=== PATIENT | male | born 1960 | race Caucasian/White ===

== ENCOUNTER → 2019-11-11 15:17 | Outpatient (BNVA) | payer MEDICAID, SELFPAY | PROVIDERS: Family Provider Internal Medicine; PCP Internal Medicine; Visit Provider Nurse Practitioner Family | DX: R05 Cough (principal); E11.9 Type 2 diabetes mellitus without complications; I50.9 Heart failure, unspecified | CPT/HCPCS: 71046; 80053; 80061; 82044; 83036; 84443; 85025 ==

== ENCOUNTER → 2019-11-13 14:20 | Outpatient (BNVA) | payer MEDICAID, SELFPAY | PROVIDERS: Family Provider Internal Medicine; PCP Internal Medicine; Visit Provider Nurse Practitioner Family | DX: R05 Cough (principal); J84.9 Interstitial pulmonary disease, unspecified | CPT/HCPCS: 71046; 80053; 85025 ==

== ENCOUNTER 2019-11-16 09:43 | Outpatient (RCR) | payer MEDICAID, SELFPAY | END 2019-12-01 23:59 | disposition home or self-care (01) | LOC: WOUND 09:43 | PROVIDERS: Family Provider Internal Medicine; PCP Internal Medicine; Visit Provider Nurse Practitioner Family | DX: E11.621 Type 2 diabetes mellitus with foot ulcer (principal); L97.521 Non-pressure chronic ulcer of other part of left foot limited to breakdown of skin | CPT/HCPCS: 11042; 87070; 87077; 87176; 87186; 87205; L3260 ==

== ENCOUNTER → 2019-12-03 09:33 | Outpatient (BNVA) | payer MEDICAID, SELFPAY | PROVIDERS: Family Provider Internal Medicine; PCP Internal Medicine; Visit Provider Nurse Practitioner Family | DX: R05 Cough (principal); J84.9 Interstitial pulmonary disease, unspecified; I70.0 Atherosclerosis of aorta | CPT/HCPCS: 71046; 80053; 85025 ==

== ENCOUNTER → 2019-12-22 13:06 | Outpatient (BNVA) | payer MEDICAID, SELFPAY | PROVIDERS: Family Provider Internal Medicine; PCP Internal Medicine; Visit Provider Nurse Practitioner Family | DX: I10 Essential (primary) hypertension (principal); R06.02 Shortness of breath; R05 Cough; G62.9 Polyneuropathy, unspecified; I50.9 Heart failure, unspecified | CPT/HCPCS: 80053; 83880; 85025 ==

== ENCOUNTER 2020-01-14 11:29 | Emergency (ER) | payer MEDICAID, SELFPAY | END 2020-01-14 19:30 | disposition still patient (30) | LOC: ER 01-27 13:00 | PROVIDERS: Emergency Provider Emergency Medicine; PCP Nurse Practitioner Family | DX: R07.9 Chest pain, unspecified (principal); I25.10 Atherosclerotic heart disease of native coronary artery without angina pectoris; I11.0 Hypertensive heart disease with heart failure; I50.9 Heart failure, unspecified; I25.2 Old myocardial infarction; E11.40 Type 2 diabetes mellitus with diabetic neuropathy, unspecified | CPT/HCPCS: 12345; 36415; 36416; 70450; 71045; 80048; 80053; 80307; 82962; 83690; 83735; 83880; 84100; 84484; 85025; 85378; 93005; 96372; 96374; 96375; 96376; 99283; 99285; A9270; G0378; J1650; J2270; J2405; J7030 ==

== ENCOUNTER 2020-01-14 11:29 | Inpatient (IN) | payer MEDICAID, SELFPAY ==
[2020-01-14] VITALS (7 sets, daily range): BP systolic 119–161; BP diastolic 80–106; PULSE 84–100; RESP 12–21; TEMP 36.4–36.5; O2SAT 93–98; BMI 26.6
--- NOTE | 2020-01-14 11:37 | XR_ITS ---
WS: [id number] PORTABLE CHEST HISTORY: Chest pain COMPARISON: 12/03/2019 Severe emphysema and pulmonary fibrotic changes. Overall slight improvement in aeration as compared t o the most recent study. No area of consolidation to suggest new superimposed pneumonia. No pleural e ffusion or pneumothorax. Cardiac size: Mildly enlarged cardiac silhouette. Mediastinum/Aorta: Mild atherosclerosis aorta. No osseous abnormality seen. XR/XR chest 1V portable [id number] IMPRESSION: Severe emphysema with superimposed pulmonary fibrosis. No acute pneumonia.
--- NOTE | 2020-01-14 11:37 | ECG_ITS ---
Measurements Intervals [place] Rate: 99 P: 42 GA: 156 QRS: 129 QRSD: 160 T: -4 QT: 406 QTc: 521 SINUS RHYTHM POSSIBLE LEFT ATRIAL ENLARGEMENT [-0.1mV P WAVE IN V1/V2] RIGHT BUNDLE BRANCH BLOCK [120+ ms QRS DURATION, UPRIGHT V1, 40+ ms S IN I/a I/aVL/V4/V5/V6] LEFT POSTERIOR FASCICULAR BLOCK [QRS AXIS > 109, INFERIOR Q] Compared to ECG 07/21/2019 17:41:35 Indeterminate axis no longer present Electronically Signed On 01-15-2020 13:00:01 CDT by Eugene Wells M.D. [id number] lang
--- NOTE | 2020-01-14 11:37 | W.ED.CHESTPA ---
HPI - Chest Pain General: Chief Complaint: Chest Pain Stated Complaint: CP X 2 DAYS Time Seen by Provider: 01/14/20 11:32 Source: patient History of Present Illness: HPI narrative: 59-year-old with history of previous heart attack on Plavix presents with chest pain since last night worse this morning. States the pain is 5 out of 10 left-sided dull nonradiating but associated with diaphoresis nausea and vomiting x2. Tells me this feels like a previous heart attack. Has not missed any doses of Plavix does not take nitroglycerin. He did take 4 baby aspirin prior to arrival. Pain is worse with exertion. Sees Dr. Wells for cardiology. He was supposed to have a echo last week for congestive heart failure but missed the appointment. Apparently he fell last week and hit his head Associated symptoms: Reports diaphoresis, dyspnea, nausea and vomiting; Deny abdominal pain or fever(s) Review of Systems General: Reports: 10 or more systems reviewed and unremarkable except in HPI and below Const: Reports: diaphoresis; Denies: fever(s) or chills Eyes: Denies: change in vision ENMT: Denies: throat pain Card: Reports: chest pain Resp: Reports: dyspnea GI: Reports: nausea and vomiting; Denies: abdominal pain or change in bowel habits : Denies: flank pain Musc: Denies: muscle weakness Skin/Breast: Denies: rash Neuro: Reports: dizziness (When he sits up or stands up); Denies: headache(s) Psych: Denies: hopelessness or suicidal ideation Endo: Denies: polyuria Gonzales/Lymph: Reports: easy bruising and easy bleeding All/Imm: Denies: urticaria PFS ED PFSH: Medical History (Updated 01/14/20 @ 13:28 by Concepcion Cruz MD) CAD (coronary artery disease) CHF (congestive heart failure) Chronic kidney disease (CKD) Diabetes mellitus History of ST elevation myocardial infarction (STEMI) Hypertension Hypothyroid Ischemic cardiomyopathy Neuropathy Sleep apnea Surgical History (Updated 12/29/19 @ 11:41 by Eugene Wells MD) History of partial amputation of toe of left foot Hx of angioplasty Family History (Updated 12/29/19 @ 11:13 by Patricia Gil RN) Denies family history of Family history of premature coronary artery disease Social History Smoking and tobacco status: never smoked Second hand smoke exposure: No Alcohol intake: never Lives independently: Yes Household members: spouse Marital status: service: Yes Current occupational status: disabled History of recent travel: No Current gender identity: Male Special deanna needs: No Agree to transfusion: Yes Physical Exam Const: COMMON NORMALS: no acute distress, patient oriented x3, alert and well nourished ORIENTATION/CONSCIOUSNESS: Yes oriented to person HENMT: COMMON NORMALS: normocephalic and Normal external nose present HEAD & SCALP: normocephalic NOSE: Normal external nose present MOUTH: no trismus Eye: COMMON NORMALS: EOMs intact bilaterally and conjunctivae normal CONJUNCTIVA: Yes conjunctivae normal Neck/C-Spine: COMMON NORMALS: full ROM, no lymphadenopathy, supple and no meningeal signs CERVICAL SPINE: Yes cervical ROM normal Lymph: LYMPHATIC: no lymphadenopathy noted Resp: COMMON NORMALS: normal respiratory effort, No retractions and No use of accessory muscles EFFORT & INSPECTION: Yes able to speak in complete sentences OTHER: Crackles in bases bilaterally Cardio: COMMON NORMALS: regular rate and regular rhythm RATE: regular rate RHYTHM: regular rhythm GI: COMMON NORMALS: Normal to inspection, nondistended, normoactive bowel sounds present, Soft to palpation, non-tender and no masses INSPECTION: Yes normal to inspection AUSCULTATION: Yes normoactive bowel sounds PALPATION: Yes Soft to palpation, No Guarding due to palpation present (GI) and No Rigid due to palpation Back/Pelvis: OTHER: Normal range of motion Extremity: GENERAL: Yes normal exam except as noted Neuro: COMMON NORMALS: patient oriented x3 and CN's II-XII intact bilaterally SENSORIUM/ORIENTATION: Yes alert and Yes oriented to person MENINGEAL SIGNS: Yes no meningeal signs SPEECH: speech normal Psych: COMMON NORMALS: mental status grossly normal Skin: COMMON NORMALS: no rashes or lesions noted GENERAL SKIN EXAM: no rashes or lesions noted Course Vital Signs: Vital signs: Vital Signs Temperature 97.5 F L 01/14/20 11:31 Pulse Rate 100 01/14/20 11:31 Respiratory Rate 12 01/14/20 13:15 Blood Pressure 161/106 01/14/20 11:31 Pulse Oximetry 93 01/14/20 11:31 MDM - Chest Pain MDM Narrative: Medical decision making narrative: Since he fell last week and is on Plavix and complains of dizziness when he sits up we will proceed with CT head. He is only vomited twice so I doubt this is enough to make him orthostatic. 1244 troponin is elevated at 57 and lipase is also elevated on review of chart he has had numerous elevated lipases in the past. Can make disposition after CT head is performed he has not gone to CT yet. d/w Dr Wells and Dr Franco. observation to Dr franco. Patient updated on plan pain 3 out of 10 currently no needs at this time nausea improved. Lab Data: Attestation: I reviewed the patient's lab results. Labs: Lab Results 01/14/20 01/14/20 01/14/20 Range/Units 11:30 11:30 11:30 WBC 4.4 (4.0-10.0) 10^3/ uL RBC 4.27 (4.1-5.3) 10^6/u L Hgb 12.8 (11.7-16.6) g/dL Hct 39.9 L (42.0-52.0) % MCV 93.4 (80-94) fL MCH 30.0 (28.0-34.0) pg MCHC 32.1 (30.0-36.0) g/dL RDW 13.6 (12.1-15.1) % Plt Count 217 (130-400) 10^3/c mm MPV 9.5 (7.4-10.4) fL Neut % (Auto) 61.3 % Lymph % (Auto) 19.2 % [place] % (Auto) 9.3 % Eos % (Auto) 9.5 % Baso % (Auto) 0.2 % Neut # (Auto) 2.7 (1.8-7.7) 10^3/u L Lymph # (Auto) 0.9 (0.8-4.8) 10^3/u L [place] # (Auto) 0.4 (0.2-0.9) 10^3/u L Eos # (Auto) 0.4 (0.0-0.8) 10^3/u L Baso # (Auto) 0.0 (0.0-0.1) 10^3/u L Nucleated RBC % (a uto) 0 % Nucleated RBCs # 0.0 /100WBC Sodium 140 (136-145) mmol/L Potassium 4.5 (3.5-5.1) mmol/L Chloride 101 (98-107) mmol/L Carbon Dioxide 27 (22-29) mmol/L Anion Gap 16.5 (5-19) BUN 25 H (6-20) mg/dL Creatinine 1.9 H (0.7-1.2) mg/dL GFR Calculation 36.5 L (90-130) mL/min Glucose 217 H (65-115) mg/dL Calculated Osmolal ity 293 (285-295) mOsm/k g Calcium 9.5 (8.5-10.5) mg/dL Total Bilirubin 0.3 (0.15-1.2) mg/dL AST 16 (0-40) U/L ALT 13 (0-41) U/L Alkaline Phosphata se 79 (40-130) IU/L Troponin T Baselin e 57 H (0-15) ng/mL Total Protein 7.6 (6.6-8.7) g/dL Albumin 3.8 (3.5-5.2) g/dL Globulin 3.8 (1.3-4.6) g/dL Lipase 224 H (13-60) U/L Imaging Data^: CXR: Radiologist's impression: [place] [address] XRay Report Signed Patient: Agusto Crockett #: [id number] : 1Acct#:[id number] Age/Sex: 59 / MADM Date: 01/14/20 Loc: [facility]oo/Bed: Attending Dr: Ordering Provider/Ordering MD: Concepcion Cruz MD Date of Service: 01/14/20 Procedure(s): XR chest 1V portable [id number] Accession Number(s): [id number] Report Number: [id number] WS: [id number] PORTABLE CHEST HISTORY: Chest pain COMPARISON: 12/03/2019 Severe emphysema and pulmonary fibrotic changes. Overall slight improvement in aeration as compared to the most recent study. No area of consolidation to suggest new superimposed pneumonia. No pleural effusion or pneumothorax. Cardiac size: Mildly enlarged cardiac silhouette. Mediastinum/Aorta: Mild atherosclerosis aorta. No osseous abnormality seen. XR/XR chest 1V portable [id number] IMPRESSION: Severe emphysema with superimposed pulmonary fibrosis. No acute pneumonia. Dictated By:Tressa Askew DO Signed By:Tressa Askew DOSigned Date/Time:01/14/20 1248 DD/ 1246 CT Head: Radiologist's impression: no intrancranial bleed EKG Data^: EKG 1: Attestation: I personally reviewed and interpreted this EKG as follows: EKG interpretation date: 01/14/20 EKG interpretation time: 11:40 Prior EKG tracings: available for review Interpretation: Compared to EKG on 07/21/2019. Sinus rhythm rate 99 with bifascicular block no change from previous EKG no acute ST elevation Discharge Plan Discharge Patient Disposition: Admitted As Inpatient Clinical Impression: Chest pain Condition: Stable Referrals: Mag De La Cruz FNP [Primary Care Provider] - Coding Level of Care Code ED Wood Model Maker for Chg Fwd Exam Comprehensive
--- NOTE | 2020-01-14 11:41 | CT_ITS ---
WS: [id number] CT HEAD NONCONTRAST HISTORY: dizzy on Plavix fell last week and hit head TECHNIQUE: Contiguous axial imaging performed through the brain in 2.5 mm imaging. Bone and soft tiss ue windows. Sagittal and coronal reformats reviewed. All CT scans at [facility] use at le ast one of these dose optimization techniques: automated exposure control; mA and/or kV adjustment pe r patient size (includes targeted exams where dose is matched to clinical indication); or iterative r econstruction. DLP: 820.85 mGy.cm COMPARISON: 04/27/2016 No acute intracranial hemorrhage, midline shift or mass effect. Mild atrophy and mild chronic microvascular ischemic disease. Ventricles: Normal size with no hydrocephalus. No inferior displacement of cerebellar tonsils. Paranasal sinuses: As visualized are clear. Mastoid air cells: Well pneumatized. Calvarium and scalp: Skull is intact with no soft tissue edema or swelling. CT/CT head wo con* [id number] IMPRESSION: 1. No acute intracranial hemorrhage or edema. 2. Stable noncontrast head CT since 04/27/2016.
[2020-01-14 11:44] LABS: Basophils % 0.2 %; Eosinophils # 0.4 10^3/uL (0.0-0.8); Eosinophils % 9.5 %; Hematocrit 39.9 % (42.0-52.0); Hemoglobin 12.8 g/dL (11.7-16.6); Lymphocytes # 0.9 10^3/uL (0.8-4.8); Lymphocytes % 19.2 %; Mean Corpuscular HGB Conc 32.1 g/dL (30.0-36.0); Mean Corpuscular Volume 93.4 fL (80-94); Mean Platelet Volume 9.5 fL (7.4-10.4); Monocytes # 0.4 10^3/uL (0.2-0.9); Monocytes % 9.3 %; Neutrophils # 2.7 10^3/uL (1.8-7.7); Neutrophils % 61.3 %; Nucleated Red Blood Cells % 0 %; Platelet Count 217 10^3/cmm (130-400); Red Blood Count 4.27 10^6/uL (4.1-5.3); Red Cell Distribution Width 13.6 % (12.1-15.1); White Blood Count 4.4 10^3/uL (4.0-10.0)
[2020-01-14 11:58] LABS: Alanine Aminotransferase 13 U/L (0-41); Albumin Level 3.8 g/dL (3.5-5.2); Alkaline Phosphatase 79 IU/L (40-130); Anion Gap 16.5 (5-19); Aspartate Amino Transferase 16 U/L (0-40); Blood Urea Nitrogen 25 mg/dL (6-20); Calcium 9.5 mg/dL (8.5-10.5); Carbon Dioxide 27 mmol/L (22-29); Chloride 101 mmol/L (98-107); Globulin 3.8 g/dL (1.3-4.6); Glomerular Filtration Rate 36.5 mL/min (90-130); Glucose 217 mg/dL (65-115); Lipase 224 U/L (13-60); Osmolality Calculated 293 mOsm/kg (285-295); Potassium 4.5 mmol/L (3.5-5.1); Sodium 140 mmol/L (136-145); Total Bilirubin 0.3 mg/dL (0.15-1.2); Total Protein 7.6 g/dL (6.6-8.7)
[2020-01-14 12:01] LABS: Troponin(5th) Baseline 57 ng/mL (0-15)
[2020-01-14] MEDS: ondansetron 2 mg/ML SDV 2 mL 4 MG IVP ×2 (12:08→13:15)
[2020-01-14] MEDS: nitroglycerin 0.4 mg sublingual Tablet SUBLINGUAL ×2 (12:08→12:51)
[2020-01-14] MEDS: morphine 4 mg/mL SDV 1 mL IVP (13:15)
--- NOTE | 2020-01-14 13:37 | ECG_ITS ---
Measurements Intervals [place] Rate: 84 P: 40 ID: 188 QRS: 124 QRSD: 158 T: -5 QT: 437 QTc: 518 SINUS RHYTHM POSSIBLE LEFT ATRIAL ENLARGEMENT [-0.1mV P WAVE IN V1/V2] RIGHT BUNDLE BRANCH BLOCK [120+ ms QRS DURATION, UPRIGHT V1, 40+ ms S IN I/a I/aVL/V4/V5/V6] LEFT POSTERIOR FASCICULAR BLOCK [QRS AXIS > 109, INFERIOR Q] Compared to ECG 07/21/2019 17:41:35 Indeterminate axis no longer present Electronically Signed On 01-15-2020 13:06:18 CDT by Eugene Wells M.D. [id number]
[2020-01-14 14:04] LABS: Troponin 5 2HR 53.08 ng/mL (0-15)
[2020-01-14 14:27] LABS: Troponin 5 2HR Delta -3.92 ABS# (0-10)
--- NOTE | 2020-01-14 17:37 | ECG_ITS ---
Measurements Intervals [place] Rate: 81 P: 59 ID: 190 QRS: 118 QRSD: 156 T: -4 QT: 441 QTc: 515 SINUS RHYTHM RIGHT BUNDLE BRANCH BLOCK [120+ ms QRS DURATION, UPRIGHT V1, 40+ ms S IN I/aVL/V4/V5/V6] LEFT POSTERIOR FASCICULAR BLOCK [QRS AXIS > 109, INFERIOR Q] Compared to ECG 07/21/2019 17:41:35 Atrial abnormality no longer present Indeterminate axis no longer present Electronically Signed On 01-15-2020 13:06:42 CDT by Eugene Wells M.D. [id number]
--- NOTE | 2020-01-14 17:52 | PC.NURSE ---
EKG done at 1745 and shown to ER doctor
--- NOTE | 2020-01-14 18:05 | PM.HP ---
Providers/Chief Complaint Admitting Physician: Shivani Bustillos MD Primary Care Provider: JEANNETTE Perla Chief Complaint: CP X 2 DAYS History of Present Illness time he is chest pain-free.Agusto Crockett is a 59 year old male who presented to the emergency room with chief complaint of chest pain. He has several other complaints as well. He describes being short of breath and dizzy. Sounds like symptoms occur primarily when he has position changes. When these episodes occur he has chest pain. He saw Dr. Wells at the end of December. Arrangements were made for echocardiogram for follow-up but patient missed his appointment. He admits to being anxious about something being wrong. He somewhat indicates that he has had some dizziness before that may be not to this degree. Denies any vision changes, blurry vision, eye pain. Reports having had some ringing in his ears but not currently. Has had some upper respiratory symptoms. He says that he has been on repeated treatment for pneumonia the last couple of months without any clinical improvement. Other than antibiotics for this, he denies being on any new medications recently. A note from 9 december however indicates that he was started on amitriptyline to help with pain. It sounds like he has taken this but I have not fully discerned if that is true or not. Looking back to clinic note and October of this year patient was reportedly out of his medications for a while and restarted most of them at that point in time. Patient has a very flat affect communicating his history. Information is obtained both from him and review of old records. At the present pain responded to morphine more than anything from what has been relayed to me. In the emergency room he was found to have a troponin initial of 50. With his prior history is being admitted for further evaluation and treatment. Review of Systems Const: Reports: chills and change in appetite; Denies: fever(s) Eyes: Reports: change in vision ENMT: Reports: throat pain and nasal congestion; Denies: dry mouth Card: Reports: chest pain, palpitations, edema and lightheadedness; Denies: syncope Resp: Reports: dyspnea, productive cough and non-productive cough; Denies: pain on inspiration or hemoptysis GI: Reports: nausea; Denies: abdominal pain, vomiting, diarrhea or constipation : Denies: difficulty urinating Musc: Reports: extremity pain; Denies: joint redness Skin/Breast: Denies: pruritus or erythema Neuro: Reports: headache(s), numbness in extremities (Chronic, not acute) and frequent falls; Denies: weakness in extremities Psych: Denies: anxiety or depression Gonzales/Lymph: Denies: easy bruising or easy bleeding Medications/Allergies Home Medications Medication Instructions Recorded Confirmed Last Taken Type aspirin 81 mg tablet,delayed 81 mg PO DAILY 11/11/19 01/14/20 01/14/20 History release clopidogrel 75 mg tablet 75 mg PO DAILY 11/11/19 01/14/20 01/13/20 History ferrous sulfate 325 mg (65 mg 325 mg PO DAILY 11/11/19 01/14/20 Unknown History iron) tablet furosemide 40 mg tablet 40 mg PO BID #60 tab 11/11/19 01/14/20 01/13/20 Rx metoprolol succinate 25 mg 25 mg PO DAILY #30 tab 11/11/19 01/14/20 Unknown Rx tablet,extended release 24 hr nitroglycerin 0.4 mg sublingual 0.4 mg SUBLINGUAL Q5M PRN 11/11/19 01/14/20 Unknown History tablet potassium chloride 20 mEq 20 meq PO DAILY #30 tab 11/11/19 01/14/20 Unknown Rx tablet,extended release(part/cryst) pregabalin 75 mg capsule 75 mg PO BID 11/11/19 01/14/20 01/13/20 History glipizide 5 mg tablet, extended 5 mg PO DAILY #30 tab 11/13/19 01/14/20 Unknown Rx release 24 hr albuterol sulfate 90 mcg/actuation 1 inh INHALATION QID PRN #8.5 gm 12/03/19 01/14/20 Unknown Rx aerosol inhaler Tums See Rx Instructions .ROUTE .COMPLEX 01/14/20 01/14/20 Unknown History Zyrtec 10 mg PO DAILY PRN 01/14/20 01/14/20 Unknown History acetaminophen [Tylenol Extra 1,000 mg PO BID PRN 01/14/20 01/14/20 01/13/20 History Strength] amitriptyline 25 mg PO BEDTIME 01/14/20 01/14/20 Unknown History aspirin-caffeine [BC Pain Relief] 1 ea PO PRN 01/14/20 01/14/20 Unknown History cholecalciferol (vitamin D3) 800 unit PO DAILY 01/14/20 01/14/20 Unknown History [Vitamin D3] metformin 1,000 mg PO BID 01/14/20 01/14/20 01/13/20 History multivitamin [Multiple Vitamins] 1 tab PO DAILY 01/14/20 01/14/20 Unknown History Allergies Allergy/AdvReac Type Severity Reaction Status Date / Time levofloxacin Allergy ALGY-Hives Verified 01/14/20 19:47 PFSH Acute PFSH: Medical History CAD (coronary artery disease) RCA stent 2015 CHF (congestive heart failure) Chronic kidney disease (CKD) Diabetes mellitus History of kidney stones History of ST elevation myocardial infarction (STEMI) Hypertension Hypothyroid Ischemic cardiomyopathy Monoclonal gammopathy of unknown significance (MGUS) Neuropathy Sleep apnea Surgical History History of lithotripsy (~2015) History of partial amputation of toe of left foot History of ureter stent (~2015) Hx of angioplasty Family History Other Stroke Denies family history of Family history of premature coronary artery disease Social History Smoking and tobacco status: never smoked Second hand smoke exposure: No Alcohol intake: never Lives independently: Yes Household members: spouse Marital status: service: Yes Current occupational status: disabled History of recent travel: No Current gender identity: Male Special deanna needs: No Agree to transfusion: Yes Vitals/I&O/Wt Last Vital Signs Temp 97.5 F L 01/14/20 11:31 Pulse 86 01/14/20 14:02 Resp 18 01/14/20 14:02 BP 131/87 01/14/20 14:02 Pulse Ox 95 01/14/20 14:02 Weight last 48 hrs Weight 81.647 kg Physical Exam Const: OTHER: Alert, oriented x3, cooperative HENMT: OTHER: Normocephalic atraumatic, moist mucus membranes Eye: OTHER: Pupils equally round and reactive to light Neck/C-Spine: OTHER: Supple, no carotid bruits Resp: OTHER: Clear to auscultation bilaterally, no rales, rhonchi or wheezes noted, no accessory muscle use noted Cardio: OTHER: Regular rate and rhythm, no JVD, no murmur GI: OTHER: Abdomen soft, nontender, positive bowel sounds : OTHER: Deferred Extremity: NARRATIVE EXTREMITY EXAM: 1+ edema, left fourth digit amputation Neuro: OTHER: Speech clear, moves all extremities, decreased sensation distally touch, no tremors Psych: OTHER: Flat affect but makes eye contact Skin: OTHER: Nickel sized area of discoloration at the base of the fifth toe with 2 mm opening without any drainage. There is no warmth, fluctuance, erythema or odor. Some dry skin separates the space between the fifth and the third digit. Fourth digit has been amputated. Data : 01/14/20 11:30 01/14/20 11:30 A&P Assessment and plan (1) Chest pain: Status: Acute Qualifiers: Chest pain type: precordial pain Qualified Code(s): R07.2 - Precordial pain (2) Dizziness: Status: Acute (3) Elevated lipase: Mild elevation, has had previously, unclear significance, denies drinking, is on a couple of medications that might contribute to this. Status: Acute (4) CAD (coronary artery disease): Status: Acute Qualifiers: Coronary Disease-Associated Artery/Lesion type: [place] artery [place] vs. transplanted heart: [place] heart Associated angina: angina presence unspecified Qualified Code(s): I25.10 - Atherosclerotic heart disease of [place] coronary artery without angina pectoris (5) Chronic kidney disease (CKD): Status: Acute Qualifiers: Chronic kidney disease stage: stage 3 (moderate) Qualified Code(s): N18.3 - Chronic kidney disease, stage 3 (moderate) (6) Hypertension: Status: Acute Qualifiers: Hypertension type: essential hypertension Qualified Code(s): I10 - Essential (primary) hypertension (7) CHF (congestive heart failure): Status: Acute Qualifiers: Heart failure type: systolic Heart failure chronicity: acute on chronic Qualified Code(s): I50.23 - Acute on chronic systolic (congestive) heart failure (8) Hypothyroid: Status: Acute Qualifiers: Hypothyroidism type: acquired Qualified Code(s): E03.9 - Hypothyroidism, unspecified (9) Diabetes mellitus: Status: Acute Qualifiers: Diabetes mellitus type: type 2 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: without 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-way use Diabetes mellitus complication status: with neurologic complications Diabetes mellitus complication detail: with polyneuropathy Qualified Code(s): E11.42 - Type 2 diabetes mellitus with diabetic polyneuropathy (10) Sleep apnea: Status: Acute Qualifiers: Sleep apnea type: unspecified type Qualified Code(s): G47.30 - Sleep apnea, unspecified Additional A&P Information Recent fall with unremarkable CT of the head Anxiety about possible causes of his symptoms, this may in and of itself be contributing to some of the symptoms Reports recent treatment for recurrent pneumonia that would not go away. Chest x-ray today clearly shows no definitive pneumonia on radiology interpretation though there are some emphysematous changes noted. I suspect he may have some COPD and sleep apnea contributing to some of the respiratory challenges that he has been having. Observation admission Check orthostatics Continue serial cardiac enzymes Telemetry monitoring Order repeat echocardiogram as was the plan from Dr. Wells's most recent visit Carotid ultrasound Continue aspirin and Plavix, beta-blockade I will go on and continue Lyrica iron and cetirizine Holding Elavil Holding glipizide and metformin With renal function words that he is right on the cusp of being able to continue metformin. Also at increased risk of hypoglycemia with glipizide. May need to consider alternative medication regimens in the not too distant future. Possible hypoglycemic episodes are contributing to the symptoms he is presenting with. Accu-Cheks and sliding scale insulin for diabetes He reports that he has been doubling up on his Lasix lately. 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 transplanted heart: [place] heart Associated angina: angina presence unspecified Chronic kidney disease (CKD) N18.3 Chronic kidney disease stage: stage 3 (moderate) Hypertension I10 Hypertension type: essential hypertension CHF (congestive heart failure) I50.23 Heart failure type: systolic Heart failure chronicity: acute on chronic Hypothyroid E03.9 Hypothyroidism type: acquired Diabetes mellitus E11.42 Diabetes mellitus type: type 2 Diabetes mellitus half-way insulin use: without half-way use Diabetes mellitus complication status: with neurologic complications Diabetes mellitus complication detail: with polyneuropathy Sleep apnea G47.30 Sleep apnea type: unspecified type
[2020-01-14 20:26] LABS: Salicylate 1.3 mg/dL (3-10)
[2020-01-14] MEDS: enoxaparin 40 mg/0.4 mL Syringe SUBCUT (20:26)
[2020-01-14] MEDS: sodium chloride 0.9% 1,000 ML 75 ML IV (20:26)
[2020-01-14] MEDS: pregabalin 75 mg Capsule PO (20:26)
[2020-01-14 21:05] LABS: Glucose Point of Care 218 mg/dL (70-110)
--- NOTE | 2020-01-14 21:18 | PC.NURSE ---
Patient arrived from the ED with 2 L NC in. Patient states he does not wear any oxygen at home. Attempt to remove oxygen, but saturation dropped to 88 percent. Oxygen placed back in patient's nose and saturation is now in the 90s.
[2020-01-15] VITALS (9 sets, daily range): BP systolic 101–135; BP diastolic 62–82; PULSE 85–96; RESP 13–22; TEMP 36.6–36.8; O2SAT 91–96
[2020-01-15 04:44] LABS: Basophils % 0.4 %; Eosinophils # 0.5 10^3/uL (0.0-0.8); Hematocrit 34.9 % (42.0-52.0); Hemoglobin 11.1 g/dL (11.7-16.6); Lymphocytes # 1.1 10^3/uL (0.8-4.8); Lymphocytes % 22.7 %; Mean Corpuscular HGB Conc 31.8 g/dL (30.0-36.0); Mean Corpuscular Hemoglobin 29.8 pg (28.0-34.0); Mean Corpuscular Volume 93.8 fL (80-94); Mean Platelet Volume 9.7 fL (7.4-10.4); Monocytes # 0.7 10^3/uL (0.2-0.9); Monocytes % 13.3 %; Neutrophils # 2.6 10^3/uL (1.8-7.7); Nucleated Red Blood Cells % 0 %; Platelet Count 209 10^3/cmm (130-400); Red Blood Count 3.72 10^6/uL (4.1-5.3); Red Cell Distribution Width 13.6 % (12.1-15.1); White Blood Count 4.9 10^3/uL (4.0-10.0)
[2020-01-15 05:06] LABS: Anion Gap 15.9 (5-19); Blood Urea Nitrogen 25 mg/dL (6-20); Calcium 8.6 mg/dL (8.5-10.5); Carbon Dioxide 24 mmol/L (22-29); Chloride 104 mmol/L (98-107); Glomerular Filtration Rate 44.5 mL/min (90-130); Glucose 94 mg/dL (65-115); Lipase 136 U/L (13-60); Osmolality Calculated 287 mOsm/kg (285-295); Phosphorus 3.1 mg/dL (2.5-4.5); Potassium 3.9 mmol/L (3.5-5.1); Sodium 140 mmol/L (136-145)
[2020-01-15 05:15] LABS: NT Pro B Type Natriuretic Pept 2042 pg/mL (0-125)
[2020-01-15 06:27] LABS: Glucose Point of Care 111 mg/dL (70-110)
[2020-01-15] MEDS: pregabalin 75 mg Capsule PO ×2 (09:11→18:24)
[2020-01-15] MEDS: aspirin 81 mg EC Tablet PO (09:11)
[2020-01-15] MEDS: multivitamin therapeutic Tablet 1 TAB PO (09:12)
[2020-01-15] MEDS: ferrous sulfate EC 325 mg Tablet PO (09:12)
[2020-01-15] MEDS: metoprolol succinate ER (24 HR) 25 mg Tablet PO (09:12)
[2020-01-15] MEDS: clopidogrel 75 mg Tablet PO (09:12)
[2020-01-15] MEDS: sodium chloride 0.9% 1,000 ML 75 ML IV (09:14)
--- NOTE | 2020-01-15 10:40 | PC.CHAP ---
Pastoral Care Encounter/Spiritual Assessment Type of Contact [] Declined tar leveler visit [] Patient/Family/Request visit [] Outpatient visit [] Follow-up visit [] Physician referral [] Code/Alert [x] Routine visit [] Staff referral [] Actively dying [] Patient sleeping [] Family support [] [] Out of room [] Palliative care [] [] Receiving care in room [] Pre-surgical visit [] Trauma [] Long length of stay [] ICU visit [] Other: Relational/Emotional Strength [x] Patient feels connected with others/family/visitors/staff [] Distress [] Loneliness/isolation [] Abandonment Spirituality of Patient [x] Person of Darline [] Attends Church of their [place] [x] Believes in Prayer [] Reads Bible or Religion materials [] There are Spiritual issues to be addressed Roulette Dealer Interventions [x] Prayer [x] Active listening [x] Non-anxious presence [] Spiritual/emotional support [] Crisis/trauma care [] Spiritual counseling [] Bereavement support [] Provided bereavement packet [] Provided Bible/devotional materials [] Provided toy/stuffed animal, coloring book to patient or family member [] Provided Communion [] Anointing/Sargeant [] Salvation [x] Completed spiritual assessment [] Other: Impact on Illness or Injury [] Angry [] Fearful [] Anxious [] Often cries [] Exhaustion [] Unable to work [] Unable to attend orthodoxy [] Unable to walk/stand [] Unable to read [] Unable to drive [] Unable to eat/drink [] Unable to sleep [] Unable to be with family [] Patient intubated [] Other: Summary Pt misses his dog. Pt anxious to get out of hospital and go home Pt may be released on Saturday. Roulette Dealer Rosy Bravo Time spent with patient 7 minutes
--- NOTE | 2020-01-15 10:42 | PM.PN ---
Subjective Subjective: Interval history: Patient feels better today. Not currently dizzy. Has not had any more actual substernal chest pain but does complain of some discomfort along his right rib cage in a place where he recently fell. Has a bruise near there. He says he did start amitriptyline that was prescribed outpatient recently. Says that is the only new medication. Denies nausea or vomiting, ringing in his ears or current abdominal pain beyond the right rib cage area issues. Orthostatics were checked and were unremarkable. Vitals/I&O/Wt Last Vital Signs Temp 97.8 F 01/15/20 08:00 Pulse 88 01/15/20 08:23 Resp 16 01/15/20 08:23 BP 128/76 01/15/20 08:00 Pulse Ox 93 01/15/20 08:23 01/14/20 01/15/20 01/15/20 22:59 06:59 14:59 Intake Total 150 / 150 1200 / 1200 Output Total 350 / 350 Balance -200 / -200 1200 / 1200 Weight last 48 hrs Weight 84.64 kg Weight 84.368 kg Weight 84.051 kg Weight 81.647 kg Physical Exam Const: OTHER: Alert, oriented x3, cooperative HENMT: OTHER: Normocephalic, moist mucus membranes Eye: OTHER: Pupils equally round and reactive to light Resp: OTHER: Patient with some chirp-like rhonchi left mid lung on both inspiration and expiration. More prominent on inspiration. Scattered minor wheezes otherwise Cardio: OTHER: Regular rate and rhythm, no JVD GI: OTHER: Abdomen soft, nontender, positive bowel sounds Extremity: NARRATIVE EXTREMITY EXAM: 1+ edema without change Neuro: OTHER: Speech clear, moves all extremities, decreased sensation distally touch, no tremors Psych: OTHER: Flat affect but makes eye contact, smiling some today Skin: OTHER: No significant skin findings noted, skin is dry, wound to left foot unchanged Data : 01/15/20 04:05 01/15/20 04:05 Other Labs: Laboratory Tests 01/15/20 04:05 Lipase 136 H A&P Assessment and plan (1) Chest pain: Serial cardiac enzymes not indicative of acute process denies chest pain at the moment beyond some discomfort in an area on his right lower rib cage where there is what appears to be a lipoma as well as a bruise from a recent fall contributing Status: Acute Qualifiers: Chest pain type: precordial pain Qualified Code(s): R07.2 - Precordial pain (2) Dizziness: Denies presently but has not been up yet. Suspect multifactorial from low blood pressures, addition of amitriptyline possibly and diuresis. Status: Acute (3) Elevated lipase: Mild elevation, has had previously, unclear significance, denies drinking, is on a couple of medications that might contribute to this, trending downward Status: Acute (4) CAD (coronary artery disease): Status: Acute Qualifiers: Coronary Disease-Associated Artery/Lesion type: [place] artery Elem vs. transplanted heart: shosh[place] heart Associated angina: angina presence unspecified Qualified Code(s): I25.10 - Atherosclerotic heart disease of [place] coronary artery without angina pectoris (5) Chronic kidney disease (CKD): Stage III, improved with fluids and holding of diuresis overnight Status: Acute Qualifiers: Chronic kidney disease stage: stage 3 (moderate) Qualified Code(s): N18.3 - Chronic kidney disease, stage 3 (moderate) (6) Hypertension: Status: Acute Qualifiers: Hypertension type: essential hypertension Qualified Code(s): I10 - Essential (primary) hypertension (7) CHF (congestive heart failure): Status: Acute Qualifiers: Heart failure type: systolic Heart failure chronicity: acute on chronic Qualified Code(s): I50.23 - Acute on chronic systolic (congestive) heart failure (8) Hypothyroid: Status: Acute Qualifiers: Hypothyroidism type: acquired Qualified Code(s): E03.9 - Hypothyroidism, unspecified (9) Diabetes mellitus: Status: Acute Qualifiers: Diabetes mellitus type: type 2 Diabetes mellitus 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 insulin use: without 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 use Diabetes mellitus complication status: with neurologic complications Diabetes mellitus complication detail: with polyneuropathy Qualified Code(s): E11.42 - Type 2 diabetes mellitus with diabetic polyneuropathy (10) Sleep apnea: Status: Acute Qualifiers: Sleep apnea type: unspecified type Qualified Code(s): G47.30 - Sleep apnea, unspecified Additional A&P Information Recent fall with unremarkable CT of the head Anxiety about possible causes of his symptoms, this may in and of itself be contributing to some of the symptoms Reports recent treatment for recurrent pneumonia that would not go away. Chest x-ray today clearly shows no definitive pneumonia on radiology interpretation though there are some emphysematous/fibrosis changes noted. Never smoked. Had a CT of his chest back in mid last year that showed fibrosis changes. I am beginning to think that this may be more of his issue. Not sure about any work exposures but it something to explore. Continue Telemetry monitoring Follow up echocardiogram and Carotid ultrasound Continue aspirin and Plavix, beta-blockade I will go on and continue Lyrica iron and cetirizine Holding Elavil and not likely to resume presently Holding glipizide and metformin, may need alternative treatment with renal function, at [place]. Accu-Cheks and sliding scale insulin for diabetes Stop IV fluids Continue to hold Lasix today monitor for need to resume sooner than tomorrow Advance diet to low-fat Albuterol if needed Add Spiriva Hold BC powder PT evaluation secondary to report of recurrent falls Lovenox for DVT prophylaxis Supportive care otherwise Plans discussed with patient and he was given an opportunity to ask questions With adjustments to several medications including his diuretics, combined with high propensity to re-present given his anxiety, will change him to inpatient and monitor further off of Lasix and other medicines as noted with evaluation tomorrow for possible resumption. Full code Attestations Medical Necessity Statement*: After evaluating patient further, his stay will now extend beyond 2 midnights have changed him to inpatient status. Review of prior records indicates what is probably some pulmonary fibrosis that is been contributing to recurrent issues for him and leading to adjustments in diuretic dosing among other things. He does not look to be on any chronic medications for this. He is very anxious about his medical conditions and I would like to add some Spiriva chronically and consider resumption of a lower dose of Lasix and see how he does. I am also going to hold the Elavil. I am afraid that if we discharge him too soon he will come back and he does have multiple issues at play from a cardiopulmonary standpoint as described. Coding Level of Care Code Acute Stereo Map Plotter Operator for David France Diagnoses Chest pain R07.2 Chest pain type: precordial pain Dizziness R42 Elevated lipase R74.8 CAD (coronary artery disease) I25.10 Coronary Disease-Associated Artery/Lesion type: sh[place] artery Elem vs. transplanted heart: shosh[place]bann[place] heart Associated angina: angina presence unspecified Chronic kidney disease (CKD) N18.3 Chronic kidney disease stage: stage 3 (moderate) Hypertension I10 Hypertension type: essential hypertension CHF (congestive heart failure) I50.23 Heart failure type: systolic Heart failure chronicity: acute on chronic Hypothyroid E03.9 Hypothyroidism type: acquired Diabetes mellitus E11.42 Diabetes mellitus type: type 2 Diabetes mellitus long-term insulin use: without long-term use Diabetes mellitus complication status: with neurologic complications Diabetes mellitus complication detail: with polyneuropathy Sleep apnea G47.30 Sleep apnea type: unspecified type
--- NOTE | 2020-01-15 11:25 | NM_ITS ---
WS: [id number] NUCLEAR MEDICINE VENTILATION/PERFUSION LUNG SCAN HISTORY: hypoxemia, ckd COMPARISON: 01/14/2020 TECHNIQUE: Ventilation: 30.3 mCi of Technetium 99 DTPA aerosol inhaled. Perfusion: 5.3 mCi of technetium 99m MAA IV. Significant deposition of radionuclide centrally on the ventilatory portion. Photopenic defect in the lower lung vallejo bilaterally. There are triple matched defects at the lung bases, more significant on the LEFT. No unmatched defects are identified. NM/NM pul vent and perfus* [id number] IMPRESSION: Indeterminate probability for pulmonary embolism. There are multiple triple mat ched defects bilaterally. There are no discrete unmatched defects that are conc erning for pulmonary embolism.
[2020-01-15 12:04] LABS: Glucose Point of Care 221 mg/dL (70-110)
[2020-01-15 12:07] LABS: ABG PCO2 41.2 mmHg (35-45); Arterial Blood Gas Hematocrit 35.9 % (42-52); Base Excess ABG 0.3 mmol/L (-2.0-2.0); Blood Gas Allen Test Pos; Blood Gas Sample Site Radial, left; Blood Gas Sample Type Arterial; HCO3 ABG 25.3 mmol/L (22-26); PO2 ABG 63.1 mmHg (80.0-100.0)
--- NOTE | 2020-01-15 13:16 | CTR_ITS ---
PROCEDURE INFORMATION: Exam: CT Chest Without Contrast Exam date and time: 01/15/2020 6:23 PM Age: 59 years old Clinical indication: Condition or disease; Lung condition and disease; Other: Interstitial lung dz; Prior surgery; Surgery date: 6+ months; Surgery type: Angioplasty; Patient HX: HX of cad-chf and interstitial lung disease; Additional info: High resolution CT chest for interstitial lung dz TECHNIQUE: Imaging protocol: Computed tomography of the chest without contrast. Radiation optimization: All CT scans at this facility use at least one of these dose optimization techniques: automated exposure control; mA and/or kV adjustment per patient size (includes targeted exams where dose is matched to clinical indication); or iterative reconstruction. COMPARISON: CTA Chest-Pulmonary Emb [id number] 02/07/2019 10:17 PM RADIATION DOSE METRICS: Total DLP: 272.37 mGy-cm FINDINGS: Lungs: The sales demonstrator films appear identical comparing today's with the previous exam 11 months ago. The pulmonary images also appear almost identical suggesting stable pulmonary fibrosis bilaterally with honeycombing and interstitial opacities. Stable severe bilateral pulmonary fibrosis. Pleural space: Unremarkable. No pneumothorax. No pleural effusion. Heart: Severe calcified coronary artery disease. Aorta: Unremarkable. No aortic aneurysm. Great vessels off aortic arch: Calcification of the thoracic aorta and/or great vessels consistent with atherosclerotic vessel disease. Lymph nodes: Unremarkable. No enlarged lymph nodes. Bones/joints: Unremarkable. No acute fracture. Soft tissues: Unremarkable. CT/CT chest wo con [id number] IMPRESSION: 1. Stable severe bilateral pulmonary fibrosis. 2. Severe calcified coronary artery disease. Radiation Dose CTDIVOL = (mGy): DLP = 272.37 (mGy-cm)
[2020-01-15 14:16] LABS: Glucose Urine UA 2+ (Normal); Protein Urine 3+ (Negative); Urine Appearance Clear (CLEAR); Urine Color Yellow (Yellow); pH Urine 5 (5-7)
[2020-01-15 14:17] LABS: Add Urine Culture? No; Add Urine Microscopic? YES; Bacteria Urine TRACE; Bilirubin Urine Neg (NEGATIVE); Blood Urine Neg (Negative); Hyaline Casts Urine 0-4; Ketones Urine Negative (Negative); Leukocyte Esterase Urine Negative (Negative); Mucus Urine 1+; Nitrate Urine Negative (Negative); Urobilinogen Urine Norm (Negative); WBC Urine 0-4 /hpf (0-5)
[2020-01-15 17:01] LABS: Glucose Point of Care 134 mg/dL (70-110)
[2020-01-15] MEDS: acetaminophen 325 mg Tablet 650 MG PO (19:28)
[2020-01-15] MEDS: enoxaparin 40 mg/0.4 mL Syringe SUBCUT (19:28)
--- NOTE | 2020-01-15 19:42 | USCV_ITS ---
Crockett Agusto Age: 59 Gender: M : 1960 Exam Date: 01/15/2020 13:47 Ordering Phys: Shivani Bustillos MD Technologist: Eleanor Ware [place]am [place] [facility] [place]ication: DIZZINESS, CP, N/V Risk Factors: Unknown Previous Vascular Surgery: None Right Brachial BP: / Left Brachial BP: / Right Left Velocity (cm/s) Spectral Plaque Velocity (cm/s) Spectral Plaque Syst/Diast Broadening Syst/Diast Broadening 55.20/ 17.90 Prox CCA 47.40 / 17.90 62.10/ 20.20 Homo Mid CCA 50.50 / 10.90 82.30/ 24.10 Homo Distal CCA 66.00 / 23.30 Homo 102.20/36.00 Hetro Prox ICA 68.40 / 16.50 Homo 139.80/28.20 Homo Mid ICA 91.50 / 37.50 104.80/34.90 Distal ICA 91.70 / 34.70 Homo 126.50 ECA 97.00 1.70 ICA/CCA 1.39 Antegrade Vertebral Antegrade 97.10/ 37.80 cm/s 29.90/ 6.00 cm/s Tri Subclavian Tri 122.4 98.10 0 FINDINGS Comparison: none available. Diffuse, mild bilateral scattered calcified plaque and intimal thickening throughout the common carotid arteries and extending through the bifurcation. Mild elevation of right ICA velocity. Bilateral antegrade vertebral arteries. CONCLUSIONS Bilateral ICA stenosis less than 50%. Mild atherosclerosis, r>l. Dr. Tressa Askew DO (Electronically Signed) Final Date: 15 Jan 2020 14:33 S
--- NOTE | 2020-01-15 19:42 | USCV_ITS ---
Agusto Crockett Age: 59 Gender: M : 1960 Exam Date: 01/15/2020 13:24 Ordering Phys: Shivani Bustillos MD Technologist: Eleanor Ware Exam Location: [facility] [place] Indication: DIZZY, N/V, CP BP: 130 / 82 HR: 90 Rhythm: Sinus Technical Quality: Good MEASUREMENTS (Male / Female) Normal Values 2D ECHO LV Diastolic Diameter PLAX 4.8 cm 4.2 - 5.9 / 3.9 - 5.3 cm LV Systolic Diameter PLAX 3.6 cm IVS Diastolic Thickness 1.6 cm 0.6 - 1.0 / 0.6 - 0.9 cm IVS Systolic Thickness 1.9 cm LVPW Diastolic Thickness 0.8 cm 0.6 - 1.0 / 0.6 - 0.9 cm LVPW Systolic Thickness 0.8 cm LVOT Diameter 2.0 cm LV Ejection Fraction 2D Teich 48.4 % LV Ejection Fraction MOD 2C 42.7 % LV Ejection Fraction 2C AL 43.3 % LA Diameter 4.1 cm LA Width 3.7 cm LA Height 5.3 cm RA Width 4.2 cm RA Height 4.8 cm M-MODE LV Diastolic Diameter MM 4.8 cm 4.2 - 5.9 / 3.9 - 5.3 cm LV Systolic Diameter MM 3.5 cm LV Ejection Fraction MM Teich 52.2 % IVS Diastolic Thickness MM 1.2 cm 0.6 - 1.0 / 0.6 - 0.9 cm IVS Systolic Thickness MM 1.2 cm LVPW Diastolic Thickness MM 1.0 cm 0.6 - 1.0 / 0.6 - 0.9 cm LVPW Systolic Thickness MM 1.2 cm Aortic Annulus Diameter 3.1 cm LA Ao Ratio MM 1.3 MV E Point Septal Separation 1.1 cm DOPPLER AV Peak Velocity 109.0 cm/s LVOT Peak Velocity 95.0 cm/s AV Area Cont Eq vti 2.5 cm squared AV Area Cont Eq pk 2.7 cm squared MV Peak Velocity 124.0 cm/s MV Area PHT 4.9 cm squared Mitral E to A Ratio 0.7 MV E' Velocity 6.0 cm/s Mitral E to MV E' Ratio 17.3 Mitral E to LV E' Lateral Ratio 12.3 Mitral E to LV E' Septal Ratio 29.5 TR Peak Velocity 261.0 cm/s TR Peak Gradient 27.3 mmHg Right Atrial Pressure 3.0 mmHg Pulmonary Artery Systolic Pressu 30.2 mmHg PV Peak Velocity 109.0 cm/s RV Acceleration Time 0.1 s FINDINGS Left Ventricle Normal left ventricular size, systolic function and wall thickness, with no regional wall motion abnormalities. Left ventricular ejection fraction is estimated at 60 %. Normal diastolic function. Right Ventricle Normal right ventricular size and systolic function. Right ventricular systolic pressure 30.2 mmHg. Right Atrium Normal right atrial size. Right atrial pressure estimated at 3 mmHg. Left Atrium Normal left atrial size. Mitral Valve Mildly thickened mitral valve. There is mild restriction of posterior mitral valve leaflet. No mitral valve stenosis. Mild posteriorly directed mitral valve regurgitation. Aortic Valve Structurally normal trileaflet aortic valve. No aortic valve stenosis. No aortic valve regurgitation. Tricuspid Valve Structurally normal tricuspid valve. No tricuspid valve stenosis. Mild tricuspid valve regurgitation. Pulmonic Valve Structurally normal pulmonic valve. No pulmonary valve stenosis. Trace pulmonary valve regurgitation. Pericardium No pericardial effusion. Aorta Normal size aortic root and proximal ascending aorta. CONCLUSIONS 1. Normal left ventricular size, systolic function and wall thickness, with no regional wall motion abnormalities. Left ventricular ejection fraction is estimated at 60 %. Normal diastolic function. 2. Normal right ventricular size and systolic function. 3. Pulmonary artery pressure estimated at 30 mmHg. 4. Mild posteriorly directed mitral valve regurgitation. 5. Mild tricuspid valve regurgitation. 6. When compared to previous echocardiogram dated 06/16/2019, left ventricular systolic function has improved. Meka Ledesma MD (Electronically Signed) Final Date: 15 Jan 2020 15:42 S
[2020-01-15 21:28] LABS: Glucose Point of Care 283 mg/dL (70-110)
[2020-01-16] VITALS (8 sets, daily range): BP systolic 126–151; BP diastolic 65–98; PULSE 90–98; RESP 15–22; TEMP 36.7–37.1; O2SAT 84–99
[2020-01-16] MEDS: ondansetron 2 mg/ML SDV 2 mL 4 MG IVP (04:45)
[2020-01-16 05:14] LABS: Anion Gap 15.1 (5-19); Blood Urea Nitrogen 29 mg/dL (6-20); Calcium 9.3 mg/dL (8.5-10.5); Carbon Dioxide 24 mmol/L (22-29); Chloride 104 mmol/L (98-107); Glomerular Filtration Rate 51.9 mL/min (90-130); Glucose 140 mg/dL (65-115); Lipase 66 U/L (13-60); Osmolality Calculated 287 mOsm/kg (285-295); Potassium 4.1 mmol/L (3.5-5.1); Sodium 139 mmol/L (136-145)
[2020-01-16 06:36] LABS: Glucose Point of Care 156 mg/dL (70-110)
[2020-01-16] MEDS: metoprolol succinate ER (24 HR) 25 mg Tablet PO (08:42)
[2020-01-16] MEDS: pregabalin 75 mg Capsule PO ×2 (08:43→17:43)
[2020-01-16] MEDS: multivitamin therapeutic Tablet 1 TAB PO (08:43)
[2020-01-16] MEDS: clopidogrel 75 mg Tablet PO (08:43)
[2020-01-16] MEDS: aspirin 81 mg EC Tablet PO (08:43)
[2020-01-16] MEDS: ferrous sulfate EC 325 mg Tablet PO (08:43)
[2020-01-16] MEDS: albuterol 8 gm MDI 1 PUFF INHALATION (08:51)
[2020-01-16 11:36] LABS: Glucose Point of Care 219 mg/dL (70-110)
--- NOTE | 2020-01-16 16:11 | P.DS_ITS ---
Discharge Providers Date of Admission: 01/15/20 10:35 Date of Discharge: January 16, 2020 Attending Provider at Admission: Shivani Bustillos MD Attending Provider at Discharge: Shivani Bustillos MD Primary Care Provider: JEANNETTE Perla Diagnoses at Discharge Discharge Diagnosis (1) Pulmonary fibrosis: Status: Acute Problem details: Identified 01/2020, put on home oxygen, to f/u with Dr Magallon (2) Chest pain: Status: Resolved Qualifiers: Chest pain type: precordial pain Qualified Code(s): R07.2 - Precordial pain (3) Dizziness: Status: Resolved (4) Elevated lipase: Status: Resolved (5) CAD (coronary artery disease): Status: Chronic Problem details: RCA stent 2015, stress test 06/20 Qualifiers: Associated angina: angina presence unspecified Coronary Disease- Associated Artery/Lesion type: sw[place] artery [place] vs. transplanted heart: sw[place]ish heart Qualified Code(s): I25.10 - Atherosclerotic heart disease of sw[place]ish coronary artery without angina pectoris (6) Chronic kidney disease (CKD): Status: Chronic Qualifiers: Chronic kidney disease stage: stage 3 (moderate) Qualified Code(s): N18.3 - Chronic kidney disease, stage 3 (moderate) (7) Hypertension: Status: Chronic Qualifiers: Hypertension type: essential hypertension Qualified Code(s): I10 - Essential (primary) hypertension (8) CHF (congestive heart failure): Status: Chronic Problem details: EF 01/19 EF 60% Qualifiers: Heart failure chronicity: acute on chronic Heart failure type: systolic Qualified Code(s): I50.23 - Acute on chronic systolic (congestive) heart failure (9) Hypothyroid: Status: Chronic Qualifiers: Hypothyroidism type: acquired Qualified Code(s): E03.9 - Hypothyroidism, unspecified (10) Diabetes mellitus: Status: Chronic Qualifiers: Diabetes mellitus complication detail: with polyneuropathy Diabetes mellitus complication status: with neurologic complications Diabetes mellitus supervisor intermediates insulin use: without supervisor intermediates use Diabetes mellitus type: type 2 Qualified Code(s): E11.42 - Type 2 diabetes mellitus with diabetic polyneuropathy (11) Sleep apnea: Status: Chronic Problem details: Has not had sleep study yet that I am aware of Qualifiers: Sleep apnea type: unspecified type Qualified Code(s): G47.30 - Sleep apnea, unspecified Reason for Visit Reason for Visit: Reason For Visit: CP X 2 DAYS Hospital Course Hospital Course: Patient is a pleasant gentleman who presented to the emergency room with chief complaint of chest pain. This was associated with shortness of breath and dizzy spells. He had been set up to get an echocardiogram through Dr. Wells's office but missed the appointment and got anxious that something serious was going on. He was admitted to observation status initially. Orthostatics were unremarkable. Serial cardiac enzymes did not show a significant delta. Telemetry monitoring was also unrevealing. Patient however was found to have significant hypoxemia oxygen saturations were dropping to the mid to low 80s at times with exertion although at rest his oxygen saturation was generally normal. Review of old imaging study shows CT scans with significant pulmonary fibrosis in the past. Chest x-rays around when the CAT scans are taken however are interpreted as pneumonia or CHF. He has had multiple courses of antibiotics as well as adjustment and diuretic therapy. In addition to the diuretic therapy, he recently started taking Elavil. I believe that patient's presentation this time is probably multifactorial. Part of it was due to anxiety that something was wrong. The other part of it was impact from medication such as drop in blood pressures and dizziness. I think what was underlying all of this however was some chronic hypoxemia that had not been noted because you only see it if you are checking when he is walking around. With continuous oxygen therapy he had clinical improvement. I actually gave him some fluids and held diuretic therapy while he has been here. Interestingly patient had an elevated lipase just mildly. Reason behind this was not clear to me. It did trend downward. I have held BC powder. Patient's creatinine had been up as high as 1.9. With holding of diuretics, it was down to 1.4. I did go on and resume his metformin and glipizide but he is right on the borderline at times where he may have to consider alternative diabetic treatment. He received insulin while here. I discussed the patient's case with Dr. Magallon. He will see him in consultation on an outpatient basis. I went on and ordered a high-resolution CT of the chest which did demonstrate severe pulmonary fibrosis findings. I also sent out multiple rheumatological studies which are pending that will be necessary as part of the work-up that Dr. Magallon will do. We have not initiated any steroid therapy to help ensure we are able to get an accurate diagnosis. I discussed this with Mr. Crockett. I did have Spiriva to albuterol. Repeat echocardiogram done during the stay actually showed clinical improvement in his ejection fraction compared to prior. He was noted to have a small diabetic left foot ulcer that was healing though will need to be followed. Everything was reviewed with patient and he was given an opportunity to ask questions before being discharged Physical Exam Narrative: EXAM NARRATIVE: Alert, no acute distress, able to walk in the halls without difficulty with oxygen on. He has some fine crackles on lungs bilaterally, regular rhythm, soft abdomen. He has a baseline flat affect but is more lively than he was when he came in and was not feeling well. Discharge Data Data Completed and Pending: Completed Studies During Hospitalization Category Date Time Status CT chest wo con 7 1250 Routine Cat Scan 01/15/20 13:[address] head wo con* 7 0450 Urgent Cat Scan 01/14/20 11:41 Completed XR chest 1V nina ble [id number] Stat Exams 01/14/20 11:37 Completed NM pul vent and p erfus* [id number] Routi ne Nuc Med 01/15/20 11:25 Completed CV carotid duplex BI* [id number] Routine Ultrasound 01/15/20 19:42 Completed CV echo complete* [id number] Routine Ultrasound 01/15/20 19:42 Completed Pending Orders Collected prior to discharge 01/16/20 17:16 Aldolase Routine Anti-Neutrophil Cutoplasmic AB Routine Cyclic Citrullinated Peptide Routine [facility] Profile Routine SCL 70 Routine SS A Ro Sjogrens Antibody Routine Smooth Muscle AB Screen w/Refl Routine Labs from last 24 hours 01/16/20 01/16/20 01/16/20 11:14 06:25 04:14 Sodium 139 Potassium 4.1 Chloride 104 Carbon Dioxide 24 Anion Gap 15.1 BUN 29 H Creatinine 1.4 H GFR Calculation 51.9 L Glucose 140 H POC Glucose 219 156 Calculated Osmolal ity 287 Calcium 9.3 Lipase 66 H 01/15/20 01/15/20 21:18 16:41 Sodium Potassium Chloride Carbon Dioxide Anion Gap BUN Creatinine GFR Calculation Glucose POC Glucose 283 134 Calculated Osmolal ity Calcium Lipase Imaging^: High resolution CT chest: Radiologist's impression: FINDINGS: Lungs: The security auditor films appear identical comparing today's with the previous exam 11 months ago. The pulmonary images also appear almost identical suggesting stable pulmonary fibrosis bilaterally with honeycombing and interstitial opacities. Stable severe bilateral pulmonary fibrosis. Pleural space: Unremarkable. No pneumothorax. No pleural effusion. Heart: Severe calcified coronary artery disease. Aorta: Unremarkable. No aortic aneurysm. Great vessels off aortic arch: Calcification of the thoracic aorta and/or great vessels consistent with atherosclerotic vessel disease. Lymph nodes: Unremarkable. No enlarged lymph nodes. Bones/joints: Unremarkable. No acute fracture. Soft tissues: Unremarkable. CT/CT chest con [id number] IMPRESSION: 1. Stable severe bilateral pulmonary fibrosis. 2. Severe calcified coronary artery disease. Vitals: Last Vital Signs Temp 98.3 F 01/16/20 12:00 Pulse 90 01/16/20 12:00 Resp 20 H 01/16/20 12:00 BP 126/81 01/16/20 12:00 Pulse Ox 92 01/16/20 15:45 Discharge Plan Discharge Patient Disposition: Home, Self-Care Condition: Stable Prescriptions: New Spiriva with HandiHaler 18 mcg capsule, w/inhalation device 1 cap INHALATION DAILY Qty: 60 RF: 2 Continued aspirin [Adult Low Dose Aspirin] 81 mg tablet,delayed release (DR/EC) 81 mg PO DAILY RF: 0 clopidogrel 75 mg tablet 75 mg PO DAILY RF: 0 ferrous sulfate 325 mg (65 mg iron) tablet 325 mg PO DAILY RF: 0 pregabalin [Lyrica] 75 mg capsule 75 mg PO BID RF: 0 nitroglycerin [Nitrostat] 0.4 mg tablet, sublingual 0.4 mg SUBLINGUAL Q5M PRN (Reason: Chest Pain) RF: 0 metoprolol succinate 25 mg tablet extended release 24 hr 25 mg PO DAILY Qty: 30 RF: 2 potassium chloride [Klor-Con M20] 20 mEq tablet,ER particles/crystals 20 meq PO DAILY Qty: 30 RF: 2 glipizide 5 mg tablet extended release 24hr 5 mg PO DAILY Qty: 30 RF: 2 Multiple Vitamins Tablet 1 tab PO DAILY RF: 0 Tylenol Extra Strength 500 mg Tablet 1,000 mg PO BID PRN (Reason: Pain) RF: 0 metformin 500 mg tablet extended release 24 hr 1,000 mg PO BID RF: 0 Vitamin D3 10 mcg (400 unit) Tablet 800 unit PO DAILY RF: 0 Tums See Rx Instructions .ROUTE .COMPLEX RF: 0 Zyrtec 10 mg tablet 10 mg PO DAILY PRN (Reason: UNKNOWN) RF: 0 Changed furosemide 40 mg tablet 40 mg PO DAILY Qty: 60 RF: 2 ProAir HFA 90 mcg/actuation HFA aerosol inhaler 2 inh INHALATION QID PRN (Reason: shortness of breath or wheezing) Qty: 8.5 RF: 0 Discontinued BC Pain Relief 845-65 mg Powder In Packet 1 ea PO PRN RF: 0 amitriptyline 25 mg tablet 25 mg PO BEDTIME RF: 0 Discharge Orders: Discharge Order (Routine); Ordered 01/16/20 Ordered By: Shivani Bustillos Other Ambulatory Orders: DME: Oxygen (Order) Location: None Selected Ordered By: Shivani Bustillos Referrals: Mag De La Cruz FNP [Primary Care Provider] - 4-7 days (On Saturday, Pleae call [facility] to schedule a hospital followup with Mag Jono to be seen in 4 to 7 days. Thank you) Raghu Magallon MD [Physician] - 2 weeks Patient Instructions: Tiotropium (By breathing), Pulmonary Fibrosis (DC), Using Oxygen at Home (DC) Activity Restrictions/Additional Instructions: You have been found to have evidence of pulmonary fibrosis. I believe that the hypoxemia or low oxygen levels related to this are large part of what has been causing your symptoms. I have made arrangements for you to follow-up with Dr. Magallon, a lung doctor, who will evaluate you further. I have added a medication called Spiriva which she will take daily even if your breathing is good. Use the albuterol when you get more short of breath. I have decreased your furosemide to once a day. Home oxygen has been arranged. Do not smoke or be around those were smoking with oxygen on. Read all precautions provided by oxygen supply company carefully and ask questions if you have them. You need to wear oxygen at the day especially when exerting. Your oxygen levels are typically normal at rest but worsen when you walk around. Please keep the appointment with Dr. Magallon. There are potentially some alternative treatment options but these require bit more information before we can start them. We have intentionally held off on steroids at this time to facilitate a more accurate diagnosis. Multiple laboratory studies requested by Dr. Magallon have been collected and are pending. Oxygen therapy is being arranged through HOME. Your echocardiogram actually showed some improvement in heart function since the last time it was checked. Carotid ultrasound showed less than 50% stenosis bilaterally which is good. Your renal function improved with holding of diuretic therapy. At this point in time I am continuing your diabetic medications but depending on how your renal function does, we may have to consider alternatives to this therapy. Discharge Date/Time: 01/16/20 18:22 Discharge Attestations Time Spent in Discharge Care*: greater than 30 min Quality Metrics Clinical Quality Measures During this hospital stay, did patient experience: None Coding Level of Care Code Acute Career Guidance Counselor for Chg Fwd Diagnoses Pulmonary fibrosis J84.10 Chest pain R07.2 Chest pain type: precordial pain Dizziness R42 Elevated lipase R74.8 CAD (coronary artery disease) I25.10 Associated angina: angina presence unspecified Coronary Disease-Associated Artery/Lesion type: [place] artery [place] vs. transplanted heart: [place] heart Chronic kidney disease (CKD) N18.3 Chronic kidney disease stage: stage 3 (moderate) Hypertension I10 Hypertension type: essential hypertension CHF (congestive heart failure) I50.23 Heart failure chronicity: acute on chronic Heart failure type: systolic Hypothyroid E03.9 Hypothyroidism type: acquired Diabetes mellitus E11.42 Diabetes mellitus complication detail: with polyneuropathy Diabetes mellitus complication status: with neurologic complications Diabetes mellitus supervisor intermediates insulin use: without supervisor intermediates use Diabetes mellitus type: type 2 Sleep apnea G47.30 Sleep apnea type: unspecified type
[2020-01-16 16:54] LABS: Glucose Point of Care 136 mg/dL (70-110)
[2020-01-16 17:40] LABS: Creatine Phosphokinase 69 U/L (39-308)
--- NOTE | 2020-01-16 18:20 | PC.NURSE ---
Discharge instructions given per the physician's orders. Patient verbalized understanding of information and did not have any further questions. Home o2 has been delivered to bedside.
== END 2020-01-16 18:22 | disposition home or self-care (01) | DRG 196 ==
LOC: ER 13:28 → MEDSURG 15:36 → CSU 17:43
PROVIDERS: Emergency Medicine; Admitting Provider Hospitalist; PCP Nurse Practitioner Family; Visit Provider Hospitalist
DX: J84.10 Pulmonary fibrosis, unspecified (principal); I50.23 Acute on chronic systolic (congestive) heart failure; I13.0 Hypertensive heart and chronic kidney disease with heart failure and stage 1 through stage 4 chronic kidney disease, or unspecified chronic kidney disease; R07.2 Precordial pain; I25.10 Atherosclerotic heart disease of native coronary artery without angina pectoris; Z95.5 Presence of coronary angioplasty implant and graft; N18.3 Chronic kidney disease, stage 3 (moderate); E11.22 Type 2 diabetes mellitus with diabetic chronic kidney disease; Z87.442 Personal history of urinary calculi; I25.2 Old myocardial infarction; E03.9 Hypothyroidism, unspecified; I25.5 Ischemic cardiomyopathy; D47.2 Monoclonal gammopathy; E11.42 Type 2 diabetes mellitus with diabetic polyneuropathy; G47.30 Sleep apnea, unspecified; Z89.422 Acquired absence of other left toe(s); R42 Dizziness and giddiness; F41.9 Anxiety disorder, unspecified; Z87.01 Personal history of pneumonia (recurrent); Z79.02 Long term (current) use of antithrombotics/antiplatelets; Z91.81 History of falling; R09.02 Hypoxemia; Z79.82 Long term (current) use of aspirin; Z79.84 Long term (current) use of oral hypoglycemic drugs
CPT/HCPCS: 12345; 36415; 36416; 36600; 70450; 71045; 71250; 78014; 80048; 80053; 80307; 81001; 82550; 82803; 82962; 83690; 83735; 83880; 84100; 84484; 85025; 85378; 86431; 93005; 93306; 93880; 94640; 94760; 96372; 96374; 96375; 96376; 97110; 97116; 97161; 99283; 99285; A9270; A9540; A9567; G0378; J1650; J1815; J2270; J2405; J7030

== ENCOUNTER → 2020-01-19 15:06 | Outpatient (BNVA) | payer MEDICAID, SELFPAY | PROVIDERS: PCP Nurse Practitioner Family; Visit Provider Nurse Practitioner Family | DX: J84.10 Pulmonary fibrosis, unspecified (principal); E11.42 Type 2 diabetes mellitus with diabetic polyneuropathy | CPT/HCPCS: 80053; 85025 ==

== ENCOUNTER 2020-01-20 04:24 | Emergency (ER) | payer MEDICAID, SELFPAY ==
[2020-01-20 04:26] VITALS: BP 150/93; PULSE 118; RESP 26; TEMP 37; O2SAT 84; BMI 28.0
--- NOTE | 2020-01-20 04:31 | XR_ITS ---
WS: [id number] CHEST XRAY TECHNIQUE: Portable chest. CLINICAL INFORMATION: fever COMPARISON: January 14, 2020 FINDINGS: Heart: Cardiomegaly. Lungs: Advanced chronic emphysematous changes. Scattered pulmonary fibrosis is unchanged. No new pulm onary infiltrates compared to previous. Bones: Normal visualized bony structures. XR/XR chest 1V portable [id number] IMPRESSION: Advanced chronic emphysematous changes with interstitial fibrosis appears uncha nged. No new infiltrates.
--- NOTE | 2020-01-20 04:33 | W.ED.FEVER ---
HPI - Fever General: Chief Complaint: Fever Stated Complaint: SEPSIS Time Seen by Provider: 01/20/20 04:30 Source: patient and EMS Mode of arrival: EMS Limitations: no limitations History of Present Illness: HPI Narrative: 59-year-old male who states he had subjective fevers along with chills over the last 2 nights. He states he is also had increasing shortness of breath and slight cough. He has a history of COPD patient states he had an appointment yesterday with his PCP and had a temperature of 100. He states he did not start him on any antibiotics. He denies any vomiting. He states he has shoulder pain from a fall a week ago. He denies any neck or head pain at this time. MD elicited complaint: fever Associated symptoms: Deny abdominal pain, chest pain, diarrhea, dysuria, headache(s), nausea or vomiting Review of Systems Const: Reports: fever(s) Eyes: Denies: blurry vision or eye discomfort ENMT: Denies: throat pain or dental pain Card: Denies: chest pain Resp: Reports: dyspnea GI: Denies: abdominal pain, nausea, vomiting or diarrhea : Denies: dysuria Musc: Denies: neck pain or back pain Skin/Breast: Denies: rash Neuro: Denies: headache(s) Psych: Denies: depression [place]/Lymph: Denies: easy bruising All/Imm: Denies: urticaria PFSH ED PFSH: Medical History CAD (coronary artery disease) RCA stent 2015, stress test 06/20 CHF (congestive heart failure) EF 01/19 EF 60% Chronic kidney disease (CKD) Diabetes mellitus History of kidney stones History of ST elevation myocardial infarction (STEMI) Hypertension Hypothyroid Ischemic cardiomyopathy Monoclonal gammopathy of unknown significance (MGUS) Neuropathy Pulmonary fibrosis Identified 01/2020, put on home oxygen, to f/u with Dr Magallon Sleep apnea Has not had sleep study yet that I am aware of Surgical History History of lithotripsy (~2015) History of partial amputation of toe of left foot History of ureter stent (~2015) Hx of angioplasty Family History Other Stroke Denies family history of Family history of premature coronary artery disease Social History Smoking and tobacco status: never smoked Second hand smoke exposure: No Alcohol intake: never Lives independently: Yes Household members: spouse Marital status: service: Yes Current occupational status: disabled History of recent travel: No Current gender identity: Male Special deanna needs: No Agree to transfusion: Yes Physical Exam Const: COMMON NORMALS: patient oriented x3 GENERAL APPEARANCE: in distress and ill appearing HENMT: COMMON NORMALS: normocephalic and atraumatic HEAD & SCALP: normocephalic and atraumatic Eye: COMMON NORMALS: Equal, round and reactive pupils present and EOMs intact bilaterally PUPIL: Yes Equal, round and reactive pupils present Neck/C-Spine: COMMON NORMALS: full ROM and supple Chest: COMMONS NORMALS: normal inspection of the chest and normal palpation of entire chest wall Resp: COMMON NORMALS: normal respiratory effort, No retractions and No use of accessory muscles AUSCULTATION: rales Cardio: COMMON NORMALS: regular rhythm and No murmurs present (Cardio) RATE: tachycardic RHYTHM: regular rhythm GI: COMMON NORMALS: Normal to inspection, nondistended, normoactive bowel sounds present, Soft to palpation, non-tender and no masses PALPATION: Yes Soft to palpation Extremity: COMMON NORMALS: normal to inspection and full ROM Neuro: COMMON NORMALS: patient oriented x3, moves all extremities and no focal motor deficits Psych: COMMON NORMALS: mental status grossly normal, Normal thought process present and cooperative THOUGHT PROCESS: Normal thought process present Skin: COMMON NORMALS: no rashes or lesions noted and no wounds GENERAL SKIN EXAM: no rashes or lesions noted Course Vital Signs: Vital signs: Vital Signs Temperature 98.6 F 01/20/20 04:26 Pulse Rate 118 H 01/20/20 04:26 Respiratory Rate 18 01/20/20 05:01 Blood Pressure 150/93 01/20/20 04:26 Pulse Oximetry 94 01/20/20 05:01 MDM - Fever MDM Narrative: Medical decision making narrative: Patient presents here with CHF exacerbation with elevated BNP. Patient is saturating 95% on his typical 4 L of oxygen. Patient's heart rate is improved after Ativan and blood pressure here is been normal. He has no signs of sepsis and no fever. Patient's lactate and white count are normal. He has no signs of pneumonia. Patient states that he would like to go home and follow-up with his eap counselor Dr. Magallon as scheduled on . Patient's Lasix was decreased to 40 daily I informed him to increase it back to twice a day. He is to follow-up with Dr. Alfred Guajardo as scheduled and return if worsening. He has no signs of acute coronary syndrome Lab Data: Labs: Lab Results 01/20/20 01/20/20 01/20/20 Range/Units 04:40 04:40 04:40 WBC 9.5 (4.0-10.0) 10^3/ uL RBC 3.46 L (4.1-5.3) 10^6/u L Hgb 10.2 L (11.7-16.6) g/dL Hct 32.5 L (42.0-52.0) % MCV 93.9 (80-94) fL MCH 29.5 (28.0-34.0) pg MCHC 31.4 (30.0-36.0) g/dL RDW 13.7 (12.1-15.1) % Plt Count 189 (130-400) 10^3/c mm MPV 10.5 H (7.4-10.4) fL Neut % (Auto) 86.6 % Lymph % (Auto) 4.5 % [place] % (Auto) 7.0 % Eos % (Auto) 1.3 % Baso % (Auto) 0.2 % Neut # (Auto) 8.3 H (1.8-7.7) 10^3/u L Lymph # (Auto) 0.4 L (0.8-4.8) 10^3/u L [place] # (Auto) 0.7 (0.2-0.9) 10^3/u L Eos # (Auto) 0.1 (0.0-0.8) 10^3/u L Baso # (Auto) 0.0 (0.0-0.1) 10^3/u L Nucleated RBC % (a uto) 0 % Nucleated RBCs # 0.0 /100WBC PT 15.10 H (10.5-13.3) SECO NDS INR 1.15 (0.8-1.2) Sodium 138 (136-145) mmol/L Potassium 4.4 (3.5-5.1) mmol/L Chloride 103 (98-107) mmol/L Carbon Dioxide 24 (22-29) mmol/L Anion Gap 15.4 (5-19) BUN 34 H (6-20) mg/dL Creatinine 1.7 H (0.7-1.2) mg/dL GFR Calculation 41.5 L (90-130) mL/min Glucose 283 H (65-115) mg/dL Calculated Osmolal ity 294 (285-295) mOsm/k g Lactate (0.5-2.2) mmol/L Calcium 9.4 (8.5-10.5) mg/dL Total Bilirubin 0.5 (0.15-1.2) mg/dL AST 23 (0-40) U/L ALT 19 (0-41) U/L Alkaline Phosphata se 72 (40-130) IU/L NT-Pro-B Natriuret Pep 8802 H (0-125) pg/mL Total Protein 7.8 (6.6-8.7) g/dL Albumin 3.5 (3.5-5.2) g/dL Globulin 4.3 (1.3-4.6) g/dL 05/20/20 Range/Units 04:40 WBC (4.0-10.0) 10^3/ uL RBC (4.1-5.3) 10^6/u L Hgb (11.7-16.6) g/dL Hct (42.0-52.0) % MCV (80-94) fL MCH (28.0-34.0) pg MCHC (30.0-36.0) g/dL RDW (12.1-15.1) % Plt Count (130-400) 10^3/c mm MPV (7.4-10.4) fL Neut % (Auto) % Lymph % (Auto) % [place] % (Auto) % Eos % (Auto) % Baso % (Auto) % Neut # (Auto) (1.8-7.7) 10^3/u L Lymph # (Auto) (0.8-4.8) 10^3/u L [place] # (Auto) (0.2-0.9) 10^3/u L Eos # (Auto) (0.0-0.8) 10^3/u L Baso # (Auto) (0.0-0.1) 10^3/u L Nucleated RBC % (a uto) % Nucleated RBCs # /100WBC PT (10.5-13.3) SECO NDS INR (0.8-1.2) Sodium (136-145) mmol/L Potassium (3.5-5.1) mmol/L Chloride (98-107) mmol/L Carbon Dioxide (22-29) mmol/L Anion Gap (5-19) BUN (6-20) mg/dL Creatinine (0.7-1.2) mg/dL GFR Calculation (90-130) mL/min Glucose (65-115) mg/dL Calculated Osmolal ity (285-295) mOsm/k g Lactate 1.0 (0.5-2.2) mmol/L Calcium (8.5-10.5) mg/dL Total Bilirubin (0.15-1.2) mg/dL AST (0-40) U/L ALT (0-41) U/L Alkaline Phosphata se (40-130) IU/L NT-Pro-B Natriuret Pep (0-125) pg/mL Total Protein (6.6-8.7) g/dL Albumin (3.5-5.2) g/dL Globulin (1.3-4.6) g/dL Imaging Data^: CXR: Attestation: I personally reviewed and interpreted this imaging study as follows: My impression: Pulmonary fibrosis unchanged from previous x-ray EKG Data^: EKG 1: Attestation: I personally reviewed and interpreted this EKG as follows: EKG interpretation date: 01/20/20 EKG interpretation time: 04:50 Interpretation: sinus tach hr [address] or t wave abnormalities qrs 157 qtc 475 Discharge Plan Discharge Patient Disposition: Home, Self-Care Clinical Impression: Acute exacerbation of CHF (congestive heart failure) Qualifiers: Heart failure type: unspecified Qualified Code(s): I50.9 - Heart failure, unspecified Condition: Stable Prescriptions: No Action aspirin [Adult Low Dose Aspirin] 81 mg tablet,delayed release (DR/EC) 81 mg PO DAILY RF: 0 clopidogrel 75 mg tablet 75 mg PO DAILY RF: 0 ferrous sulfate 325 mg (65 mg iron) tablet 325 mg PO DAILY RF: 0 pregabalin [Lyrica] 75 mg capsule 75 mg PO BID RF: 0 nitroglycerin [Nitrostat] 0.4 mg tablet, sublingual 0.4 mg SUBLINGUAL Q5M PRN (Reason: Chest Pain) RF: 0 metoprolol succinate 25 mg tablet extended release 24 hr 25 mg PO DAILY Qty: 30 RF: 2 potassium chloride [Klor-Con M20] 20 mEq tablet,ER particles/crystals 20 meq PO DAILY Qty: 30 RF: 2 cyclobenzaprine 10 mg tablet 10 mg PO TID PRN (Reason: muscle spasm) Qty: 30 RF: 0 Lantus Solostar U-100 Insulin 100 unit/mL (3 mL) insulin pen 10 unit SUBCUT DAILY 30 Days Qty: 15 RF: 2 (DME) blood-glucose meter Misc See Rx Instructions .ROUTE .MEDSUPPLY Qty: 1 RF: 0 (DME) blood sugar diagnostic [Blood Glucose Test] Strip See Rx Instructions .ROUTE .MEDSUPPLY Qty: 50 RF: 0 Multiple Vitamins Tablet 1 tab PO DAILY RF: 0 Tylenol Extra Strength 500 mg Tablet 1,000 mg PO BID PRN (Reason: Pain) RF: 0 Vitamin D3 10 mcg (400 unit) Tablet 800 unit PO DAILY RF: 0 Zyrtec 10 mg tablet 10 mg PO DAILY PRN (Reason: UNKNOWN) RF: 0 Spiriva with HandiHaler 18 mcg capsule, w/inhalation device 1 cap INHALATION DAILY Qty: 60 RF: 2 furosemide 40 mg tablet 40 mg PO DAILY Qty: 60 RF: 2 ProAir HFA 90 mcg/actuation HFA aerosol inhaler 2 inh INHALATION QID PRN (Reason: shortness of breath or wheezing) Qty: 8.5 RF: 0 Discharge Orders: Discharge Order (Routine); Ordered 01/20/20 Ordered By: Leydi Collazo Referrals: Mag De La Cruz FNP [Primary Care Provider] - Raghu Magallon MD [Physician] - 1-3 days Discharge Diet: Advance as tolerated Discharge Activity: Resume usual activity Patient Instructions: Pulmonary Edema (ED) Coding Level of Care Code ED Community Development Specialist for Chg Fwd Exam Comprehensive
--- NOTE | 2020-01-20 04:50 | ECG_ITS ---
Measurements Intervals [place] Rate: 110 P: 87 IA: 168 QRS: 169 QRSD: 157 T: -22 QT: 410 QTc: 557 SINUS TACHYCARDIA RIGHT AXIS DEVIATION [QRS AXIS > 100] RIGHT BUNDLE BRANCH BLOCK MODERATE T-WAVE ABNORMALITY, CONSIDER LATERAL ISCHEMIA MODERATE T-WAVE ABNORMALITY, CONSIDER INFERIOR ISCHEMIA Compared to ECG 01/14/2020 17:52:55 Right-axis deviation now present Myocardial infarct finding now present T-wave abnormality now present Possible ischemia now present Sinus rhythm no longer present Left posterior fascicular block no longer present Electronically Signed On 01-22-2020 21:54:32 CDT by Meka Ledesma M.D. [email or web address]
[2020-01-20 04:58] LABS: Basophils % 0.2 %; Eosinophils # 0.1 10^3/uL (0.0-0.8); Eosinophils % 1.3 %; Hematocrit 32.5 % (42.0-52.0); Hemoglobin 10.2 g/dL (11.7-16.6); Lymphocytes # 0.4 10^3/uL (0.8-4.8); Lymphocytes % 4.5 %; Mean Corpuscular HGB Conc 31.4 g/dL (30.0-36.0); Mean Corpuscular Hemoglobin 29.5 pg (28.0-34.0); Mean Corpuscular Volume 93.9 fL (80-94); Mean Platelet Volume 10.5 fL (7.4-10.4); Monocytes # 0.7 10^3/uL (0.2-0.9); Neutrophils # 8.3 10^3/uL (1.8-7.7); Neutrophils % 86.6 %; Nucleated Red Blood Cells % 0 %; Platelet Count 189 10^3/cmm (130-400); Red Blood Count 3.46 10^6/uL (4.1-5.3); Red Cell Distribution Width 13.7 % (12.1-15.1); White Blood Count 9.5 10^3/uL (4.0-10.0)
[2020-01-20] MEDS: acetaminophen 325 mg Tablet 650 MG PO (04:59)
[2020-01-20] MEDS: ondansetron 2 mg/ML SDV 2 mL 4 MG IVP (05:00)
[2020-01-20 05:01] VITALS: RESP 18; O2SAT 94
[2020-01-20] MEDS: morphine 4 mg/mL SDV 1 mL IVP (05:01)
[2020-01-20] MEDS: LORazepam 2 mg/mL INJ 1 mL 0.5 MG IVP (05:02)
[2020-01-20 05:09] LABS: INR 1.15 (0.8-1.2)
[2020-01-20 05:30] LABS: Alanine Aminotransferase 19 U/L (0-41); Albumin Level 3.5 g/dL (3.5-5.2); Alkaline Phosphatase 72 IU/L (40-130); Anion Gap 15.4 (5-19); Aspartate Amino Transferase 23 U/L (0-40); Blood Urea Nitrogen 34 mg/dL (6-20); Calcium 9.4 mg/dL (8.5-10.5); Carbon Dioxide 24 mmol/L (22-29); Chloride 103 mmol/L (98-107); Globulin 4.3 g/dL (1.3-4.6); Glomerular Filtration Rate 41.5 mL/min (90-130); Glucose 283 mg/dL (65-115); NT Pro B Type Natriuretic Pept 8802 pg/mL (0-125); Osmolality Calculated 294 mOsm/kg (285-295); Potassium 4.4 mmol/L (3.5-5.1); Sodium 138 mmol/L (136-145); Total Bilirubin 0.5 mg/dL (0.15-1.2); Total Protein 7.8 g/dL (6.6-8.7)
[2020-01-20] MEDS: FUROsemide 40 mg Tablet PO (05:40)
[2020-01-20 05:59] VITALS: BP 138/82; PULSE 82; RESP 16; O2SAT 97
== END 2020-01-20 06:01 | disposition home or self-care (01) ==
PROVIDERS: Emergency Provider Emergency Medicine; PCP Nurse Practitioner Family
DX: I11.0 Hypertensive heart disease with heart failure (principal); I50.9 Heart failure, unspecified; Z79.82 Long term (current) use of aspirin; Z79.02 Long term (current) use of antithrombotics/antiplatelets; Z79.4 Long term (current) use of insulin; I25.10 Atherosclerotic heart disease of native coronary artery without angina pectoris; E11.9 Type 2 diabetes mellitus without complications
CPT/HCPCS: 12345; 71045; 80053; 83605; 83880; 85025; 85610; 87040; 87205; 93005; 96374; 96375; 99282; 99284; J2060; J2270; J2405; J2930

== ENCOUNTER 2020-01-31 03:19 | Emergency (ER) | payer MEDICAID, SELFPAY | END 2020-01-31 04:49 | disposition admitted as inpatient to this hospital (09) | LOC: ER 02-11 01:21 | PROVIDERS: Emergency Provider Emergency Medicine | DX: I11.0 Hypertensive heart disease with heart failure (principal); I50.9 Heart failure, unspecified; I25.10 Atherosclerotic heart disease of native coronary artery without angina pectoris; E11.9 Type 2 diabetes mellitus without complications; I25.2 Old myocardial infarction | CPT/HCPCS: 12345; 36415; 36600; 71045; 80053; 82803; 83690; 83735; 83880; 84443; 84484; 85025; 85378; 85610; 94640; 96374; 96375; 96376; 99282; 99285; J1940; J2930 ==

== ENCOUNTER 2020-01-31 03:19 | Inpatient (IN) | payer MEDICAID, SELFPAY ==
[2020-01-31] VITALS (29 sets, daily range): BP systolic 119–153; BP diastolic 76–110; PULSE 75–126; RESP 16–40; TEMP 36.6–36.9; O2SAT 83–97
--- NOTE | 2020-01-31 03:23 | XRR_ITS ---
PROCEDURE INFORMATION: Exam: XR Chest, 1 View Exam date and time: 01/31/2020 3:44 AM Age: 59 years old Clinical indication: Dyspnea TECHNIQUE: Imaging protocol: XR of the chest Views: 1 view. COMPARISON: CR XR chest 1V portable [id number] 01/20/2020 4:56 AM FINDINGS: Lungs: Severe emphysema and background pulmonary fibrosis is again seen. No acute infiltrates are seen although a superimposed pneumonitis cannot be entirely excluded. Pleural space: Unremarkable. No pleural effusion. No pneumothorax. Heart/Mediastinum: Unremarkable. No cardiomegaly. Bones/joints: Unremarkable. XR/XR chest 1V portable [id number] IMPRESSION: Stable chest radiograph compared with 01/20/2020.
[2020-01-31 03:29] LABS: ABG PH Result 7.41 (7.35-7.45); Arterial Blood Gas Hematocrit 31.2 % (42-52); Blood Gas Allen Test Pos; Blood Gas Sample Site Brachial, right; Blood Gas Sample Type Arterial; HCO3 ABG 24.6 mmol/L (22-26); Oxygen Device NC; PO2 ABG 46.2 mmHg (80.0-100.0)
[2020-01-31] MEDS: ipratropium-albuterol 3 mL Neb 9 ML INHALATION (03:39)
--- NOTE | 2020-01-31 03:52 | ED_ITS ---
HPI - Chest Pain General: Chief Complaint: Chest Pain Stated Complaint: SHORT OF BREATH / CHEST PAIN X2 WEEKS Time Seen by Provider: 01/31/20 03:22 Source: patient and EMS Mode of arrival: EMS Limitations: physical limitation (Respiratory distress) History of Present Illness: HPI narrative: Agusto is a 59-year-old male brought in by EMS with report of chest pain and shortness of breath for the past 2 days. Patient states his symptoms are worse when he lays flat. Denies cough or fever. He has chest pain that does radiate to his back. Patient is a limited historian secondary to his respiratory distress. Review of Systems General: Reports: ROS unobtainable due to medical condition PFSH ED PFSH: Medical History CAD (coronary artery disease) RCA stent 2015, stress test 06/20 CHF (congestive heart failure) EF 01/19 EF 60% Chronic kidney disease (CKD) Diabetes mellitus History of kidney stones History of ST elevation myocardial infarction (STEMI) Hypertension Hypothyroid Ischemic cardiomyopathy Monoclonal gammopathy of unknown significance (MGUS) Neuropathy Pulmonary fibrosis Identified 01/2020, put on home oxygen, to f/u with Dr Magallon Sleep apnea Has not had sleep study yet that I am aware of Surgical History History of lithotripsy (~2015) History of partial amputation of toe of left foot History of ureter stent (~2015) Hx of angioplasty Family History Other Stroke Denies family history of Family history of premature coronary artery disease Social History Smoking and tobacco status: never smoked Second hand smoke exposure: No Alcohol intake: never Lives independently: Yes Household members: spouse Marital status: service: Yes Current occupational status: disabled History of recent travel: No Current gender identity: Male Special deanna needs: No Agree to transfusion: Yes Physical Exam Const: COMMON NORMALS: well nourished GENERAL APPEARANCE: cooperative, in distress and anxious HENMT: COMMON NORMALS: normocephalic, atraumatic, hearing grossly normal bila terally, external ears normal, EAC's normal, Normal external nose present and moist oral mucous membranes HEAD & SCALP: normocephalic and atraumatic NOSE: Normal external nose present and Normal nares present EXTERNAL EAR: Yes external ears normal EXTERNAL AUDITORY CANAL: EAC's normal MOUTH: Normal oral and palatal mucosa present, lip normal and tongue normal Eye: COMMON NORMALS: Equal, round and reactive pupils present, EOMs intact bilaterally, conjunctivae normal and no scleral icterus GENERAL EYE: appearance normal, both eyes and all related structures ALIGNMENT: Yes alignment normal PERIORBITAL: periorbital findings normal EYELID: eyelids normal CONJUNCTIVA: Yes conjunctivae normal SCLERA: sclerae normal PUPIL: Yes Equal, round and reactive pupils present Neck/C-Spine: COMMON NORMALS: full ROM, no lymphadenopathy, supple, no meningeal signs and no JVD GENERAL: Yes normal visual inspection and Yes trachea midline Chest: COMMONS NORMALS: normal inspection of the chest and normal palpation of entire chest wall Resp: EFFORT & INSPECTION: Yes tachypneic, Yes respiratory distress and Yes uses accessory muscles AUSCULTATION: rales and diminished lung sounds Cardio: COMMON NORMALS: no JVD, regular rate, regular rhythm, S1 normal heart sound present, S2 normal heart sound present, No gallops present (Cardio), No clicks present (Cardio), No murmurs present (Cardio) and No rub (Cardio) RATE: regular rate RHYTHM: regular rhythm HEART SOUNDS: S1 normal heart sound present and S2 normal heart sound present GI: COMMON NORMALS: Soft to palpation and No hepatosplenomegaly present PALPATION: Yes Soft to palpation, No Tenderness to palpation present (GI), No Guarding due to palpation present (GI), No Rigid due to palpation, Yes No hepatosplenomegaly present, No Hernia present, No Palpable mass present and No Pulsatile mass present : COMMON NORMALS: Yes no CVA tenderness BLADDER/KIDNEY EXAM: Yes no CVA tenderness Back/Pelvis: COMMON NORMALS: no CVA tenderness, thoracic and lumbar spine normal to inspection, no thoracic nor lumbar tenderness and thoraco-lumbar ROM normal Extremity: COMMON NORMALS: normal to inspection, full ROM, capillary refill normal, no joint enlargement and no calf tenderness Neuro: COMMON NORMALS: CN's II-XII intact bilaterally, moves all extremities, no focal motor deficits and no sensory deficits noted MENINGEAL SIGNS: Yes no meningeal signs SPEECH: speech normal Skin: COMMON NORMALS: no rashes or lesions noted, turgor normal, no jaundice, no petechiae and no mottling GENERAL SKIN EXAM: no rashes or lesions noted and turgor normal Course Vital Signs: Vital signs: Vital Signs Pulse Rate 126 H 01/31/20 04:00 Respiratory Rate 29 H 01/31/20 03:39 Pulse Oximetry 96 01/31/20 04:00 MDM - Chest Pain MDM Narrative: Medical decision making narrative: 0445 -patient is feeling much better at this time. On BiPAP he is breathing much easier and he no longer is hypoxic. I believe the patient will need further care in the ICU temporarily as he is not diuresed a great deal at this time. Blood pressure is not significantly high to warrant nitroglycerin. I have reviewed the case in full with Dr. Ramirez he is agreeable to admission for further evaluation and care. Lab Data: Attestation: I reviewed the patient's lab results. Labs: Lab Results 01/31/20 01/31/20 01/31/20 Range/Units 03:22 03:40 03:40 WBC 11.4 H (4.0-10.0) 10^3/ uL RBC 3.45 L (4.1-5.3) 10^6/u L Hgb 9.9 L (11.7-16.6) g/dL Hct 32.0 L (42.0-52.0) % MCV 92.8 (80-94) fL MCH 28.7 (28.0-34.0) pg MCHC 30.9 (30.0-36.0) g/dL RDW 13.5 (12.1-15.1) % Plt Count 288 (130-400) 10^3/c mm MPV 10.3 (7.4-10.4) fL Neut % (Auto) 83.1 % Lymph % (Auto) 8.1 % [place] % (Auto) 5.3 % Eos % (Auto) 2.8 % Baso % (Auto) 0.2 % Neut # (Auto) 9.5 H (1.8-7.7) 10^3/u L Lymph # (Auto) 0.9 (0.8-4.8) 10^3/u L [place] # (Auto) 0.6 (0.2-0.9) 10^3/u L Eos # (Auto) 0.3 (0.0-0.8) 10^3/u L Baso # (Auto) 0.0 (0.0-0.1) 10^3/u L Nucleated RBC % (a uto) 0 % Nucleated RBCs # 0.0 /100WBC PT 15.30 H (10.5-13.3) SECO NDS INR 1.17 (0.8-1.2) Specimen Type Arterial Sample Site Brachial, right ABG pH 7.41 (7.35-7.45) ABG pCO2 39.0 (35-45) mmHg ABG pO2 46.2 L (80.0-100.0) mmH g ABG HCO3 24.6 (22-26) mmol/L ABG Base Excess 0.0 (-2.0-2.0) mmol/ L Parag Test Pos Hematocrit 31.2 L (42-52) % O2 Delivery Device Nc O2 Liters/Min 4.0 % Seals Engraver ID [email or web address] Sodium (136-145) mmol/L Potassium (3.5-5.1) mmol/L Chloride (98-107) mmol/L Carbon Dioxide (22-29) mmol/L Anion Gap (5-19) BUN (6-20) mg/dL Creatinine (0.7-1.2) mg/dL GFR Calculation (90-130) mL/min Glucose (65-115) mg/dL Calculated Osmolal ity (285-295) mOsm/k g Calcium (8.5-10.5) mg/dL Magnesium (1.7-2.3) mg/dL Total Bilirubin (0.15-1.2) mg/dL AST (0-40) U/L ALT (0-41) U/L Alkaline Phosphata se (40-130) IU/L Troponin T Baselin e (0-15) ng/mL NT-Pro-B Natriuret Pep (0-125) pg/mL Total Protein (6.6-8.7) g/dL Albumin (3.5-5.2) g/dL Globulin (1.3-4.6) g/dL Lipase (13-60) U/L TSH (0.27-4.20) uIU/ mL 01/31/20 01/31/20 Range/Units 03:40 03:40 WBC (4.0-10.0) 10^3/ uL RBC (4.1-5.3) 10^6/u L Hgb (11.7-16.6) g/dL Hct (42.0-52.0) % MCV (80-94) fL MCH (28.0-34.0) pg MCHC (30.0-36.0) g/dL RDW (12.1-15.1) % Plt Count (130-400) 10^3/c mm MPV (7.4-10.4) fL Neut % (Auto) % Lymph % (Auto) % [place] % (Auto) % Eos % (Auto) % Baso % (Auto) % Neut # (Auto) (1.8-7.7) 10^3/u L Lymph # (Auto) (0.8-4.8) 10^3/u L [place] # (Auto) (0.2-0.9) 10^3/u L Eos # (Auto) (0.0-0.8) 10^3/u L Baso # (Auto) (0.0-0.1) 10^3/u L Nucleated RBC % (a uto) % Nucleated RBCs # /100WBC PT (10.5-13.3) SECO NDS INR (0.8-1.2) Specimen Type Sample Site ABG pH (7.35-7.45) ABG pCO2 (35-45) mmHg ABG pO2 (80.0-100.0) mmH g ABG HCO3 (22-26) mmol/L ABG Base Excess (-2.0-2.0) mmol/ L Parag Test Hematocrit (42-52) % O2 Delivery Device O2 Liters/Min % Seals Engraver ID Sodium 140 (136-145) mmol/L Potassium 4.4 (3.5-5.1) mmol/L Chloride 104 (98-107) mmol/L Carbon Dioxide 23 (22-29) mmol/L Anion Gap 17.4 (5-19) BUN 26 H (6-20) mg/dL Creatinine 1.6 H (0.7-1.2) mg/dL GFR Calculation 44.5 L (90-130) mL/min Glucose 205 H (65-115) mg/dL Calculated Osmolal ity 293 (285-295) mOsm/k g Calcium 8.4 L (8.5-10.5) mg/dL Magnesium 2.2 (1.7-2.3) mg/dL Total Bilirubin 0.4 (0.15-1.2) mg/dL AST 16 (0-40) U/L ALT 9 (0-41) U/L Alkaline Phosphata se 64 (40-130) IU/L Troponin T Baselin e 85 H (0-15) ng/mL NT-Pro-B Natriuret Pep 82337 H (0-125) pg/mL Total Protein 7.0 (6.6-8.7) g/dL Albumin 3.4 L (3.5-5.2) g/dL Globulin 3.6 (1.3-4.6) g/dL Lipase 25 (13-60) U/L TSH 2.16 (0.27-4.20) uIU/ mL Imaging Data^: CXR: Attestation: I personally reviewed and interpreted this imaging study as follows: My impression: Cardiomegaly with moderate to severe pulmonary edema. EKG Data^: EKG 1: Attestation: I personally reviewed and interpreted this EKG as follows: EKG interpretation date: 01/31/20 EKG interpretation time: 03:54 Interpretation: Sinus tachycardia at 122 beats a minute, right bundle branch block, left posterior fascicular block, nonspecific ST-T wave changes. Discharge Plan Discharge Patient Disposition: Placed in Observation Clinical Impression: CHF (congestive heart failure) Qualifiers: Heart failure type: unspecified Heart failure chronicity: acute on chronic Qualified Code(s): I50.9 - Heart failure, unspecified Condition: Stable Coding Level of Care Code ED Returned Item Clerk for g Fwd Exam Comprehensive
[2020-01-31 03:57] LABS: Basophils % 0.2 %; Eosinophils # 0.3 10^3/uL (0.0-0.8); Eosinophils % 2.8 %; Hemoglobin 9.9 g/dL (11.7-16.6); Lymphocytes # 0.9 10^3/uL (0.8-4.8); Lymphocytes % 8.1 %; Mean Corpuscular HGB Conc 30.9 g/dL (30.0-36.0); Mean Corpuscular Hemoglobin 28.7 pg (28.0-34.0); Mean Corpuscular Volume 92.8 fL (80-94); Mean Platelet Volume 10.3 fL (7.4-10.4); Monocytes # 0.6 10^3/uL (0.2-0.9); Monocytes % 5.3 %; Neutrophils # 9.5 10^3/uL (1.8-7.7); Neutrophils % 83.1 %; Nucleated Red Blood Cells % 0 %; Platelet Count 288 10^3/cmm (130-400); Red Blood Count 3.45 10^6/uL (4.1-5.3); Red Cell Distribution Width 13.5 % (12.1-15.1); White Blood Count 11.4 10^3/uL (4.0-10.0)
[2020-01-31] MEDS: aspirin 325 mg Tablet PO (03:58)
[2020-01-31] MEDS: FUROsemide 10 mg/mL SDV 2mL 20 MG IVP ×2 (03:59)
[2020-01-31 04:05] LABS: INR 1.17 (0.8-1.2)
[2020-01-31 04:13] LABS: Troponin(5th) Baseline 85 ng/mL (0-15)
[2020-01-31 04:25] LABS: Alanine Aminotransferase 9 U/L (0-41); Albumin Level 3.4 g/dL (3.5-5.2); Alkaline Phosphatase 64 IU/L (40-130); Anion Gap 17.4 (5-19); Aspartate Amino Transferase 16 U/L (0-40); Blood Urea Nitrogen 26 mg/dL (6-20); Calcium 8.4 mg/dL (8.5-10.5); Carbon Dioxide 23 mmol/L (22-29); Chloride 104 mmol/L (98-107); Globulin 3.6 g/dL (1.3-4.6); Glomerular Filtration Rate 44.5 mL/min (90-130); Glucose 205 mg/dL (65-115); Lipase 25 U/L (13-60); Magnesium 2.2 mg/dL (1.7-2.3); NT Pro B Type Natriuretic Pept 13388 pg/mL (0-125); Osmolality Calculated 293 mOsm/kg (285-295); Potassium 4.4 mmol/L (3.5-5.1); Sodium 140 mmol/L (136-145); Thyroid Stimulating Hormone 2.16 uIU/mL (0.27-4.20); Total Bilirubin 0.4 mg/dL (0.15-1.2)
--- NOTE | 2020-01-31 04:39 | PM.HP ---
Providers/Chief Complaint Chief Complaint: SHORT OF BREATH / CHEST PAIN X2 WEEKS History of Present Illness Agusto Crockett is a 59 year old male who carries diagnosis of pulmonary fibrosis, chronic hypoxemia uses 3 L of oxygen [id number], preserved ejection fraction heart failure came in today with gradual worsening shortness of breath. Patient is stating that at baseline his functional status has been declining, he is requiring 3 L of oxygen [id number], he has quit smoking, for last 5 to 10 days he has been experiencing more dyspnea on exertion, he has not noticed any chest pain, leg swelling, shortness of breath has gotten worse to the point he cannot breathe properly at rest, he has been experiencing orthopnea and PND. He is compliant with his Lasix 40 mg with adequate urine output. He is denying any fever, recent traveling, sick contacts, productive cough. Diagnostics in the ER revealed acute exacerbation of CHF, initially on 4 L nasal cannula Pao2 was significantly low, before intubation BiPAP trial was tried, it improved his oxygenation significantly Second blood gas shows pH 7.37, PCO2 39.5, PO2 69.1 on 45% X-ray is consistent with pulmonary fibrosis and CHF exacerbation At the time of interview patient is on BiPAP settings 15/5, 45%, good tidal volume, saturating 92%, systolic blood pressure 130s, sinus tachycardia No active respiratory distress Review of Systems Const: Reports: chills, body aches and change in weight; Denies: fever(s) or fatigue Eyes: Denies: change in vision ENMT: Denies: throat pain Card: Reports: lightheadedness, dyspnea on exertion and orthopnea; Denies: chest pain, palpitations, leg pain with exertion or acrocyanosis Resp: Reports: dyspnea GI: Denies: abdominal pain, nausea or vomiting : Denies: flank pain Musc: Denies: neck pain Skin/Breast: Denies: rash Neuro: Denies: headache(s) Psych: Reports: anxiety Endo: Denies: polyuria Gonzales/Lymph: Denies: easy bruising All/Imm: Denies: urticaria Medications/Allergies Home Medications Medication Instructions Recorded Confirmed Last Taken Type aspirin 81 mg tablet,delayed 81 mg PO DAILY 11/11/19 01/21/20 01/14/20 History release clopidogrel 75 mg tablet 75 mg PO DAILY 11/11/19 01/21/20 01/13/20 History ferrous sulfate 325 mg (65 mg 325 mg PO DAILY 11/11/19 01/21/20 Unknown History iron) tablet metoprolol succinate 25 mg 25 mg PO DAILY #30 tab 11/11/19 01/21/20 Unknown Rx tablet,extended release 24 hr nitroglycerin 0.4 mg sublingual 0.4 mg SUBLINGUAL Q5M PRN 11/11/19 01/21/20 Unknown History tablet potassium chloride 20 mEq 20 meq PO DAILY #30 tab 11/11/19 01/21/20 Unknown Rx tablet,extended release(part/cryst) pregabalin 75 mg capsule 75 mg PO BID 11/11/19 01/21/20 01/13/20 History Multiple Vitamins 1 tab PO DAILY 01/14/20 01/21/20 Unknown History Tylenol Extra Strength 1,000 mg PO BID PRN 01/14/20 01/21/20 01/13/20 History Vitamin D3 800 unit PO DAILY 01/14/20 01/21/20 Unknown History Zyrtec 10 mg PO DAILY PRN 01/14/20 01/21/20 Unknown History albuterol sulfate [ProAir HFA] 2 inh INHALATION QID PRN #8.5 gm 01/16/20 01/21/20 Unknown Rx furosemide 40 mg PO DAILY #60 tab 01/16/20 01/21/20 01/13/20 Rx tiotropium bromide [Spiriva with 1 cap INHALATION DAILY #60 inh 01/16/20 01/21/20 Unknown Rx HandiHaler] blood sugar diagnostic #50 each 01/19/20 01/21/20 Unknown Rx blood-glucose meter #1 each 01/19/20 01/21/20 Unknown Rx cyclobenzaprine 10 mg tablet 10 mg PO TID PRN #30 tab 01/19/20 01/21/20 Unknown Rx insulin glargine 100 unit/mL (3 10 unit SUBCUT DAILY 30 Days #15 ml 01/19/20 01/21/20 Unknown Rx mL) subcutaneous pen pen needle, diabetic 31 gauge x #100 each 01/22/20 Unknown Rx 1/4 pen needle, diabetic 31 gauge x #100 each 01/22/20 Unknown Rx 5/16 oxygen #1 ea 01/28/20 Unknown Rx Allergies Allergy/AdvReac Type Severity Reaction Status Date / Time levofloxacin Allergy ALGY-Hives Verified 01/21/20 11:27 PFSH Acute PFSH: Medical History (Updated 01/31/20 @ 05:25 by Odalis Ramirez MD) CAD (coronary artery disease) RCA stent 2015, stress test 06/20 CHF (congestive heart failure) EF 01/19 EF 60% Chronic kidney disease (CKD) Diabetes mellitus History of kidney stones History of ST elevation myocardial infarction (STEMI) Hypertension Hypothyroid Ischemic cardiomyopathy Monoclonal gammopathy of unknown significance (MGUS) Neuropathy Pulmonary fibrosis Identified 01/2020, put on home oxygen, to f/u with Dr Magallon Sleep apnea Has not had sleep study yet Surgical History History of lithotripsy (~2015) History of partial amputation of toe of left foot History of ureter stent (~2015) Hx of angioplasty Family History Other Stroke Denies family history of Family history of premature coronary artery disease Social History Smoking and tobacco status: never smoked Second hand smoke exposure: No Alcohol intake: never Lives independently: Yes Household members: spouse Marital status: service: Yes Current occupational status: disabled History of recent travel: No Current gender identity: Male Special deanna needs: No Agree to transfusion: Yes Vitals/I&O/Wt Last Vital Signs Pulse 126 H 01/31/20 04:00 Resp 29 H 01/31/20 03:39 Pulse Ox 96 01/31/20 04:00 Physical Exam Narrative: EXAM NARRATIVE: Head to toe examination No active restaurant distress currently on BiPAP settings 15/5 with good tidal volumes FiO2 45% Patient able to give me above-mentioned detail EOMI, PERRLA S1, S2 sinus tachycardia, active signs of heart failure with positive JVD Abdomen soft nontender nondistended bowels are present Neurologically nonfocal exam he is able to protect airway, GCS 15, awake alert oriented x3 Synchronizing his breathing with BiPAP Skin does not show any ischemia gangrene ulcer Lower extremity pedal edema 1+ bilaterally Anxious mood Pertinent negatives: No active respiratory distress Data : 01/31/20 03:40 01/31/20 03:40 A&P Assessment and plan (1) Acute and chronic respiratory failure with hypoxia: Status: Acute (2) Acute exacerbation of CHF (congestive heart failure): Status: Acute (3) Pulmonary fibrosis: Status: Acute (4) Normocytic anemia: Status: Acute (5) Chronic kidney disease (CKD): Status: Chronic Qualifiers: Chronic kidney disease stage: stage 3 (moderate) Qualified Code(s): N18.3 - Chronic kidney disease, stage 3 (moderate) (6) Diabetes mellitus: Status: Chronic Qualifiers: Diabetes mellitus type: type 2 Diabetes mellitus intermediate teacher insulin use: without correction use Diabetes mellitus complication status: with neurologic complications Diabetes mellitus complication detail: with polyneuropathy Qualified Code(s): E11.42 - Type 2 diabetes mellitus with diabetic polyneuropathy (7) Hypertension: Status: Chronic Qualifiers: Hypertension type: essential hypertension Qualified Code(s): I10 - Essential (primary) hypertension Additional A&P Information Acute on chronic hypoxic respiratory failure due to CHF exacerbation This seems to be gradually worsening of underlying chronic conditions No active sepsis or pneumonia Low risk for COVID Currently requiring BiPAP for hypoxic respiratory failure, second blood gas shows improved oxygenation Oxygen requirement increased from 3 L which is his baseline to 45% FiO2 on BiPAP, no active respiratory distress Admit to ICU: High risk for intubation D-dimer ordered Acute CHF exacerbation, preserved ejection fraction I would use Bumex 1 mg IV twice a day No active chest pain, troponin not severely high Awaiting EKG, holding beta-liu because of active heart failure, Pulmonary fibrosis Patient is following up with Dr. 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 Oxygen dependent 3 L with gradual worsening in his functional status Normocytic anemia: No active bleeding, likely anemia of chronic disease Type II diabetic: Moderate sliding scale, Will hold Lantus for now because he will be BiPAP dependent Full code DVT prophylaxis Heparin Consistent carbohydrate diet Attestations Medical Necessity Statement*: During stay in the hospital course more than 2 midnights continued ICU for hypoxic respiratory failure due to CHF exacerbation, patient carries guarded prognosis Time Spent in Patient Care: 50 Coding Level of Care Code Acute Assembly Line Supervisor for David France Diagnoses Acute and chronic respiratory failure with hypoxia J96.21 Acute exacerbation of CHF (congestive heart failure) I50.9 Pulmonary fibrosis J84.10 Normocytic anemia D64.9 Chronic kidney disease (CKD) N18.3 Chronic kidney disease stage: stage 3 (moderate) Diabetes mellitus E11.42 Diabetes mellitus type: type 2 Diabetes mellitus intermediate teacher insulin use: without intermediate teacher use Diabetes mellitus complication status: with neurologic complications Diabetes mellitus complication detail: with polyneuropathy Hypertension I10 Hypertension type: essential hypertension
[2020-01-31 05:19] LABS: ABG PCO2 39.5 mmHg (35-45); ABG PH Result 7.38 (7.35-7.45); Arterial Blood Gas Hematocrit 34.7 % (42-52); Base Excess ABG -1.8 mmol/L (-2.0-2.0); Blood Gas Allen Test Pos; Blood Gas Sample Site Brachial, right; Blood Gas Sample Type Arterial; HCO3 ABG 23.2 mmol/L (22-26); Oxygen Device BIPAP; PO2 ABG 69.1 mmHg (80.0-100.0)
--- NOTE | 2020-01-31 05:24 | ECG_ITS ---
Measurements Intervals [place] Rate: 120 P: OR: 0 QRS: 149 QRSD: 149 T: -13 QT: 351 QTc: 496 Sinus tachycardia RIGHT BUNDLE BRANCH BLOCK [120+ ms QRS DURATION, UPRIGHT V1, 40+ ms S IN I/aV I/aVL/V4/V5/V6] LEFT POSTERIOR FASCICULAR BLOCK [QRS AXIS > 109, INFERIOR Q] with right axis deviation INTERPRETATION BASED ON A DEFAULT AGE OF 40 YEARS Compared to ECG 01/20/2020 04:50:37 Left posterior fascicular block now present T-wave abnormality no longer present Possible ischemia no longer present Electronically Signed On 01-31-2020 7:51:49 CDT by Eugene Wells M.D. [email or web address]
[2020-01-31 06:57] LABS: Glucose Point of Care 256 mg/dL (70-110)
[2020-01-31] MEDS: heparin 5,000 unit/mL INJ 1 mL 5000 UNIT SUBCUT ×3 (07:24→23:43)
[2020-01-31] MEDS: aspirin 81 mg EC Tablet PO (07:25)
[2020-01-31] MEDS: clopidogrel 75 mg Tablet PO (07:25)
[2020-01-31] MEDS: bumetanide 0.25 mg/mL SDV 10 mL 1 MG IV ×2 (07:25→20:43)
[2020-01-31 08:11] LABS: Lactic Sepsis W/Reflex 2.1 mmol/L (0.5-2.2)
[2020-01-31 08:51] LABS: Troponin(5th) Baseline 80 ng/mL (0-15)
[2020-01-31 09:41] LABS: Reflex Lactate Order REFLEX LACTIC ORDERD
[2020-01-31 10:14] LABS: Troponin 5 2HR 72.38 ng/mL (0-15)
[2020-01-31 10:44] LABS: Troponin 5 2HR Delta -7.62 ABS# (0-10)
--- NOTE | 2020-01-31 10:46 | P.PN_ITS ---
Subjective Subjective: Interval history: Chart reviewed, on 4 L NC, hemodynamically stable. Resting in bed, no apparent distress, had difficulty urinating on his own so Jesus catheter placed with 500 mL output thereafter, has an additional 200 mL in bag. Noted to desaturate to the 70s when he got up to urinate earlier this afternoon; compensated after some time when returned to rest. Medications: Reviewed: Yes Medication Review Details: Active Medications Generic Name Dose Route Start Last Admin Trade Name Freq PRN Reason Stop Dose Admin Albuterol/Ipratrop ium 3 ml 01/31/20 06:18 Duoneb INHALATION Q6H PRN SHORTNESS OF BARB TH Aspirin 81 mg 01/31/20 09:00 01/31/20 07:25 Aspirin Ec PO 81 mg DAILY SHAYNA Administration Bumetanide 1 mg 01/31/20 08:00 01/31/20 07:25 Bumex IV 1 mg Q12H SHAYNA Administration Clopidogrel Bisulf ate 75 mg 01/31/20 09:00 01/31/20 07:25 Plavix PO 75 mg DAILY SHAYNA Administration Dextrose 25 ml 01/31/20 06:18 D50w IVP ONCE PRN hypoglycemia prot ocol Protocol Dextrose 50 ml 01/31/20 06:18 D50w IVP PRN PRN hypoglycemia prot ocol Protocol Glucagon 1 mg 01/31/20 06:18 Glucagen IM ONCE PRN Adult Acute Hypog lycemia Prot. Protocol Heparin Sodium (Be ef Lung) 5,000 unit 01/31/20 08:00 01/31/20 07:24 Heparin SUBCUT 5,000 unit Q8H SHAYNA Administration Dextrose 500 mls @ 100 mls /hr 01/31/20 06:18 D5w IV ONCE PRN Adult Acute Hypog lycemia Prot Protocol Insulin Aspart 0 unit 01/31/20 08:00 01/31/20 07:24 Novolog SUBCUT 8 unit WM&BEDTIME SHAYNA Administration Protocol Nitroglycerin 0.4 mg 01/31/20 03:22 Nitrostat SUBLINGUAL Q5M PRN CHEST PAIN levofloxacin Allergy (Verified 01/21/20 11:27) ALGY-Hives Vitals/I&O/Wt Last Vital Signs Temp 98.4 F 01/31/20 08:00 Pulse 101 H 01/31/20 10:30 Resp 18 01/31/20 08:22 BP 132/93 01/31/20 10:30 Pulse Ox 93 01/31/20 10:30 01/30/20 01/31/20 01/31/20 22:59 06:59 14:59 Intake Total 240 / 240 Balance 240 / 240 Weight last 48 hrs Weight 82.599 kg Physical Exam Const: COMMON NORMALS: no acute distress, patient oriented x3 and alert GENERAL APPEARANCE: cooperative, comfortable and appears older than stated age; not ill appearing ORIENTATION/CONSCIOUSNESS: Yes awake HENMT: COMMON NORMALS: normocephalic, atraumatic, hearing grossly normal bilaterally and moist oral mucous membranes HEAD & SCALP: normocephalic and atraumatic Eye: COMMON NORMALS: Equal, round and reactive pupils present, EOMs intact bilaterally and conjunctivae normal CONJUNCTIVA: Yes conjunctivae normal PUPIL: Yes Equal, round and reactive pupils present Neck/C-Spine: COMMON NORMALS: full ROM GENERAL: Yes normal visual inspecti on and Yes trachea midline Chest: CHEST: Yes Symmetrical chest wall rise Resp: COMMON NORMALS: normal respiratory effort, No retractions and No use of accessory muscles EFFORT & INSPECTION: Yes able to speak in complete sentences, Yes symmetric chest movement and No tachypneic AUSCULTATION: crackles (scattered) OTHER: -on 5 L NC Cardio: COMMON NORMALS: regular rate, regular rhythm, S1 normal heart sound present, S2 normal heart sound present and No murmurs present (Cardio) RATE: regular rate RHYTHM: regular rhythm HEART SOUNDS: S1 normal heart sound present and S2 normal heart sound present GI: COMMON NORMALS: Normal to inspection, nondistended, normoactive bowel sounds present, Soft to palpation and non-tender INSPECTION: Yes central obesity PALPATION: Yes Soft to palpation : BLADDER/KIDNEY EXAM: Yes catheter in place Catheter type (Male): urethral Extremity: COMMON NORMALS: normal to inspection, full ROM, no clubbing, cyanosis or edema and no pedal edema Neuro: COMMON NORMALS: patient oriented x3, moves all extremities, no focal motor deficits and no sensory deficits noted SENSORIUM/ORIENTATION: Yes alert Psych: COMMON NORMALS: mental status grossly normal, Normal thought process present, cooperative, normal affect and speech normal SPEECH: Yes normal speech THOUGHT PROCESS: Normal thought process present Skin: COMMON NORMALS: no rashes or lesions noted, no jaundice, no petechiae and no mottling NARRATIVE SKIN EXAM: -noted well circumscribed pressure ulcer on plantar surface of L foot between 4-5th digits, macerated wound bed, some superficial slough though wound bed appears to have good granulation tissue, 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 GENERAL SKIN EXAM: no rashes or lesions noted Urinary Catheter Management^: Jesus: Cath Placed During This Visit: yes Urethral Indwelling: Yes Reason for Continuing Indwelling Catheter: Acute Urinary Retention or Obstruction Urinary Catheter Date of Insertion: 01/31/20 Urinary Catheter Time of Insertion: 15:00 Data : 01/31/20 03:40 01/31/20 03:40 Micro: Microbiology 01/31/20 07:49 Blood Culture - Preliminary Blood SPECIMEN COLLECTED 01/31/20 07:45 Blood Culture - Preliminary Blood SPECIMEN COLLECTED A&P Assessment and plan (1) Acute exacerbation of CHF (congestive heart failure): -clinically decompensated as evidenced by BUTT, increased oxygen requirement, BNP elevation (>13,000) -Echo: EF=60%, no RWMA, normal diastolic function, mild MR, mild TR, trace [place] -on diuresis with IV bumex -monitor Is & Os, daily weights; if unable to void, will need Jesus catheter placement -imaging reviewed -telemetry monitoring Status: Acute Qualifiers: Heart failure type: diastolic Qualified Code(s): I50.33 - Acute on chronic diastolic (congestive) heart failure (2) Acute and chronic respiratory failure with hypoxia: -likely secondary to acute CHF exacerbation with underlying severe emphysema and background pulmonary fibrosis -is oxygen dependent at baseline, 3 L at baseline -noted hypoxia on ABG (7.38/39.5/69.1) -monitor respiratory status Status: Acute (3) Pulmonary fibrosis: -f/u with Dr. 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 Wells -trend troponins, serial ECGs -on ASA, plavix -prior hx of STEMI Status: Chronic Qualifiers: Associated angina: angina presence unspecified Coronary Disease-Associated Artery/Lesion type: [place] artery [place] vs. transplanted heart: [place] heart Qualified Code(s): I25.10 - Atherosclerotic heart disease of [place] coronary artery without angina pectoris (8) Diabetes mellitus: -A1c-7.7 -Accuchecks, hypoglycemia precautions, ISS -consistent carb diet as tolerated Status: Chronic Qualifiers: Diabetes mellitus complication detail: with polyneuropathy Diabetes mellitus complication status: with neurologic complications Diabetes mellitus superintendent terminal insulin use: without superintendent terminal use Diabetes mellitus type: type 2 Qualified Code(s): E11.42 - Type 2 diabetes mellitus with diabetic polyneuropathy Additional A&P Information -HTN -Hyperlipidemia -pressure ulcer on plantar surface of L foot; wound care as needed -DVT ppx with heparin -Dispo: home -Code status: FULL code -ICU care due to need for continued close monitoring of respiratory status Attestations Medical Necessity Statement*: Patient requires hospitalization for continued IV diuresis secondary to acute CHF exacerbation, and close monitoring of hemodynamic and respiratory status. Time Spent in Patient Care: Greater than 35 minutes (>than 50% of time spent in counselling and/or direct pt care on unit) . Coding Level of Care Code Acute Infusion Pharmacist for [facility] Fwd Exam Comprehensive Diagnoses Acute exacerbation of CHF (congestive heart failure) I50.33 Heart failure type: diastolic Acute and chronic respiratory failure with hypoxia J96.21 Pulmonary fibrosis J84.10 Interstitial lung disease J84.9 Normocytic anemia D64.9 Chronic kidney disease (CKD) N18.3 Chronic kidney disease stage: stage 3 (moderate) CAD (coronary artery disease) I25.10 Associated angina: angina presence unspecified Coronary Disease-Associated Artery/Lesion type: [place] artery [place] vs. transplanted heart: [place] heart Diabetes mellitus E11.42 Diabetes mellitus complication detail: with polyneuropathy Diabetes mellitus complication status: with neurologic complications Diabetes mellitus superintendent terminal insulin use: without superintendent terminal use Diabetes mellitus type: type 2
[2020-01-31 11:19] LABS: Glucose Point of Care 343 mg/dL (70-110)
[2020-01-31 11:52] LABS: Bilirubin Urine Neg (NEGATIVE); Blood Urine 3+ (Negative); Glucose Urine UA 2+ (Normal); Ketones Urine Negative (Negative); Leukocyte Esterase Urine Negative (Negative); Nitrate Urine Negative (Negative); Protein Urine 3+ (Negative); Urine Appearance Hazy (CLEAR); Urine Color Yellow (Yellow); Urobilinogen Urine Norm (Negative); pH Urine 5 (5-7)
[2020-01-31 11:53] LABS: Bacteria Urine 2+; RBC Urine 25-40 /hpf (0-2); Squamous Epithelial Cell Urine RARE (0-5); WBC Urine 0-4 /hpf (0-5)
[2020-01-31 11:54] LABS: Add Urine Culture? Yes; Fine Granular Casts Urine 0-4 /lpf; Hyaline Casts Urine 0-4
[2020-01-31 15:12] LABS: Troponin 5 6HR 61.69 ng/mL (0-15)
[2020-01-31 16:46] LABS: Glucose Point of Care 276 mg/dL (70-110)
[2020-01-31] MEDS: acetaminophen 325 mg Tablet 650 MG PO ×2 (17:24→23:47)
--- NOTE | 2020-01-31 17:28 | PC.NURSE ---
shift review Patient has rested in bed with no changes throughout shift. This AM he was refusing catheter, but after several hours of no urination he agreed to placement. 500ml returned from [place]. Patient tolerated well. Prior to placement, he attempted to stand at bedside with assistance and tried to urinate in urinal with no results. He did become short of breath and o2 sats dropped to 78% on 4l NC. Patient laid back down and o2 sats returned to 90-92%. Patient reports he had a fall a few days ago at a gas station and hurt his right hip and neck, mostly muscle aches. Tylenol has been ordered to give PRN pain. Patient states pain is 4/10 and tylenol does help.
[2020-01-31 20:39] LABS: Glucose Point of Care 240 mg/dL (70-110)
[2020-01-31] MEDS: TRAMadol 50 mg Tablet PO (20:43)
--- NOTE | 2020-01-31 23:10 | PC.NURSE ---
2145 Patient's blood pressure is maintaining around 140s-150s/100s-110s for two hours. Dr. Ramirez notified. No orders at this time. Will continue to monitor.
[2020-02-01] VITALS (17 sets, daily range): BP systolic 132–165; BP diastolic 80–114; PULSE 97–113; RESP 12–20; TEMP 36.6–36.7; O2SAT 90–97
[2020-02-01 04:53] LABS: Basophils % 0.2 %; Eosinophils # 0.1 10^3/uL (0.0-0.8); Eosinophils % 0.5 %; Hematocrit 35.6 % (42.0-52.0); Lymphocytes # 1.1 10^3/uL (0.8-4.8); Lymphocytes % 8.9 %; Mean Corpuscular HGB Conc 30.9 g/dL (30.0-36.0); Mean Corpuscular Hemoglobin 28.4 pg (28.0-34.0); Monocytes # 0.7 10^3/uL (0.2-0.9); Monocytes % 5.4 %; Neutrophils # 10.6 10^3/uL (1.8-7.7); Neutrophils % 84.7 %; Nucleated Red Blood Cells % 0 %; Platelet Count 315 10^3/cmm (130-400); Red Blood Count 3.87 10^6/uL (4.1-5.3); Red Cell Distribution Width 13.6 % (12.1-15.1); White Blood Count 12.5 10^3/uL (4.0-10.0)
[2020-02-01 05:13] LABS: Anion Gap 18.3 (5-19); Blood Urea Nitrogen 44 mg/dL (6-20); Carbon Dioxide 24 mmol/L (22-29); Chloride 101 mmol/L (98-107); Glomerular Filtration Rate 36.5 mL/min (90-130); Glucose 194 mg/dL (65-115); Osmolality Calculated 291 mOsm/kg (285-295); Potassium 4.3 mmol/L (3.5-5.1); Sodium 139 mmol/L (136-145)
[2020-02-01 07:10] LABS: Glucose Point of Care 188 mg/dL (70-110)
[2020-02-01] MEDS: bumetanide 0.25 mg/mL SDV 10 mL 1 MG IV (07:31)
[2020-02-01] MEDS: aspirin 81 mg EC Tablet PO (07:32)
[2020-02-01] MEDS: heparin 5,000 unit/mL INJ 1 mL 5000 UNIT SUBCUT ×3 (07:32→23:57)
[2020-02-01] MEDS: clopidogrel 75 mg Tablet PO (07:32)
[2020-02-01] MEDS: ipratropium-albuterol 3 mL Neb INHALATION ×2 (08:15→20:37)
[2020-02-01 11:13] LABS: Glucose Point of Care 204 mg/dL (70-110)
--- NOTE | 2020-02-01 11:17 | P.PN_ITS ---
Subjective Subjective: Interval history: urine output 1.8L , on NC 4lpm,afberile , desaturated to 70%-85% with minimal activity Medications: Reviewed: Yes Medication Review Details: Active Medications Generic Name Dose Route Start Last Admin Trade Name Freq PRN Reason Stop Dose Admin Albuterol/Ipratrop ium 3 ml 01/31/20 06:18 Duoneb INHALATION Q6H PRN SHORTNESS OF BARB TH Aspirin 81 mg 01/31/20 09:00 01/31/20 07:25 Aspirin Ec PO 81 mg DAILY SHAYNA Administration Bumetanide 1 mg 01/31/20 08:00 01/31/20 07:25 Bumex IV 1 mg Q12H SHAYNA Administration Clopidogrel Bisulf ate 75 mg 01/31/20 09:00 01/31/20 07:25 Plavix PO 75 mg DAILY SHAYNA Administration Dextrose 25 ml 01/31/20 06:18 D50w IVP ONCE PRN hypoglycemia prot ocol Protocol Dextrose 50 ml 01/31/20 06:18 D50w IVP PRN PRN hypoglycemia prot ocol Protocol Glucagon 1 mg 01/31/20 06:18 Glucagen IM ONCE PRN Adult Acute Hypog lycemia Prot. Protocol Heparin Sodium (Be ef Lung) 5,000 unit 01/31/20 08:00 01/31/20 07:24 Heparin SUBCUT 5,000 unit Q8H SHAYNA Administration Dextrose 500 mls @ 100 mls /hr 01/31/20 06:18 D5w IV ONCE PRN Adult Acute Hypog lycemia Prot Protocol Insulin Aspart 0 unit 01/31/20 08:00 01/31/20 07:24 Novolog SUBCUT 8 unit WM&BEDTIME SHAYNA Administration Protocol Nitroglycerin 0.4 mg 01/31/20 03:22 Nitrostat SUBLINGUAL Q5M PRN CHEST PAIN levofloxacin Allergy (Verified 01/21/20 11:27) ALGY-Hives Vitals/I&O/Wt Last Vital Signs Temp 97.9 F 02/01/20 08:00 Pulse 107 H 02/01/20 10:00 Resp 15 02/01/20 10:00 BP 141/98 02/01/20 10:00 Pulse Ox 93 02/01/20 10:00 01/31/20 02/01/20 02/01/20 22:59 06:59 14:59 Intake Total 360 / 600 240 / 240 Output Total 350 / 850 1000 / 1850 Balance 10 / -250 -1000 / -1250 240 / 240 Weight last 48 hrs Weight 82.599 kg Physical Exam Urinary Catheter Management^: Jesus Latex Free: Cath Placed During This Visit: yes Urinary Catheter Date of Insertion: 01/31/20 Urinary Catheter Time of Insertion: 11:00 Jesus: Cath Placed During This Visit: yes Urethral Indwelling: Yes Reason for Continuing Indwelling Catheter: Acute Urinary Retention or Obstruction Urinary Catheter Date of Insertion: 01/31/20 Urinary Catheter Time of Insertion: 15:00 Data : 02/01/20 04:32 02/01/20 04:32 Micro: Microbiology 01/31/20 07:49 Blood Culture - Preliminary Blood NEGATIVE TO DATE 01/31/20 07:45 Blood Culture - Preliminary Blood NEGATIVE TO DATE A&P Assessment and plan (1) Acute exacerbation of CHF (congestive heart failure): -clinically decompensated as evidenced by BUTT, increased oxygen requirement, BNP elevation (>13,000) -Echo: EF=60%, no RWMA, normal diastolic function, mild MR, mild TR, trace [place] -on diuresis with IV bumex--> change to iv lasix 40mg iv q12h -monitor Is & Os, daily weights; -telemetry monitoring Status: Acute Qualifiers: Heart failure type: diastolic Qualified Code(s): I50.33 - Acute on chronic diastolic (congestive) heart failure (2) Acute and chronic respiratory failure with hypoxia: -likely secondary to acute CHF exacerbation with underlying severe emphysema and background pulmonary fibrosis -start prednisone 40mg po qd -is oxygen dependent at baseline, 3 L at baseline -noted hypoxia on ABG (7.38/39.5/69.1) -monitor respiratory status Status: Acute (3) Pulmonary fibrosis: -f/u with Dr. 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 Wells -trend troponins, serial ECGs -on ASA, plavix -prior hx of STEMI Status: Chronic Qualifiers: Associated angina: angina presence unspecified Coronary Disease- Associated Artery/Lesion type: [place] artery [place] vs. transplanted heart: [place] heart Qualified Code(s): I25.10 - Atherosclerotic heart disease of [place] coronary artery without angina pectoris (8) Diabetes mellitus: -A1c-7.7 -Accuchecks, hypoglycemia precautions, ISS -consistent carb diet as tolerated Status: Chronic Qualifiers: Diabetes mellitus complication detail: with polyneuropathy Diabetes mellitus complication status: with neurologic complications Diabetes mellitus termite treater helper insulin use: without fdc use Diabetes mellitus type: type 2 Qualified Code(s): E11.42 - Type 2 diabetes mellitus with diabetic polyneuropathy Additional A&P Information -HTN -Hyperlipidemia -pressure ulcer on plantar surface of L foot; wound care as needed -DVT ppx with heparin -Dispo: home -Code status: FULL code -ICU care due to need for continued close monitoring of respiratory status Attestations Medical Necessity Statement*: ongoing admission for optimization of respiratory status Coding Level of Care Code Acute [employer] for [facility] Fwd Diagnoses Acute exacerbation of CHF (congestive heart failure) I50.33 Heart failure type: diastolic Acute and chronic respiratory failure with hypoxia J96.21 Pulmonary fibrosis J84.10 Interstitial lung disease J84.9 Normocytic anemia D64.9 Chronic kidney disease (CKD) N18.3 Chronic kidney disease stage: stage 3 (moderate) CAD (coronary artery disease) I25.10 Associated angina: angina presence unspecified Coronary Disease-Associated Artery/Lesion type: [place] artery [place] vs. transplanted heart: [place] heart Diabetes mellitus E11.42 Diabetes mellitus complication detail: with polyneuropathy Diabetes mellitus complication status: with neurologic complications Diabetes mellitus fdc insulin use: without termite treater helper use Diabetes mellitus type: type 2
[2020-02-01] MEDS: predniSONE 20 mg Tablet 40 MG PO (11:51)
[2020-02-01] MEDS: FUROsemide 10 mg/mL SDV 4mL 40 MG IVP ×2 (11:51→22:41)
[2020-02-01] MEDS: metoprolol succinate ER (24 HR) 25 mg Tablet PO (11:52)
--- NOTE | 2020-02-01 11:58 | PC.RESP ---
Pulmonary Rehab information sent to patient.
[2020-02-01] MEDS: acetaminophen 325 mg Tablet 650 MG PO (15:19)
[2020-02-01 16:54] LABS: Glucose Point of Care 222 mg/dL (70-110)
[2020-02-01] MEDS: pregabalin 75 mg Capsule PO (17:07)
[2020-02-01] MEDS: TRAMadol 50 mg Tablet PO (18:21)
[2020-02-01] MEDS: budesonide 0.5 mg/2 mL Neb INHALATION (20:37)
[2020-02-01 20:55] LABS: Glucose Point of Care 302 mg/dL (70-110)
[2020-02-02] VITALS (13 sets, daily range): BP systolic 115–151; BP diastolic 77–104; PULSE 93–105; RESP 15–26; TEMP 36.4–36.7; O2SAT 84–96
[2020-02-02] MEDS: TRAMadol 50 mg Tablet PO (00:10)
[2020-02-02 07:21] LABS: Glucose Point of Care 179 mg/dL (70-110)
[2020-02-02] MEDS: ipratropium-albuterol 3 mL Neb INHALATION ×2 (07:49→21:39)
[2020-02-02] MEDS: budesonide 0.5 mg/2 mL Neb INHALATION ×2 (07:49→21:39)
[2020-02-02] MEDS: clopidogrel 75 mg Tablet PO (08:12)
[2020-02-02] MEDS: pregabalin 75 mg Capsule PO ×2 (08:12→18:06)
[2020-02-02] MEDS: heparin 5,000 unit/mL INJ 1 mL 5000 UNIT SUBCUT ×2 (08:12→15:54)
[2020-02-02] MEDS: aspirin 81 mg EC Tablet PO (08:12)
[2020-02-02] MEDS: metoprolol succinate ER (24 HR) 25 mg Tablet PO ×2 (08:12→18:06)
--- NOTE | 2020-02-02 08:57 | PM.PN ---
Subjective Subjective: Interval history: urine output 3.3L , on NC 4lpm, afebrile , 02 sat between 90-96%, HR 103bpm, intermittently 02 sat dropping to 80-84% with activity. Started prednisone yesterday Medications: Reviewed: Yes Medication Review Details: Active Medications Generic Name Dose Route Start Last Admin Trade Name Freq PRN Reason Stop Dose Admin Albuterol/Ipratrop ium 3 ml 01/31/20 06:18 Duoneb INHALATION Q6H PRN SHORTNESS OF BARB TH Aspirin 81 mg 01/31/20 09:00 01/31/20 07:25 Aspirin Ec PO 81 mg DAILY SHAYNA Administration Bumetanide 1 mg 01/31/20 08:00 01/31/20 07:25 Bumex IV 1 mg Q12H SHAYNA Administration Clopidogrel Bisulf ate 75 mg 01/31/20 09:00 01/31/20 07:25 Plavix PO 75 mg DAILY SHAYNA Administration Dextrose 25 ml 01/31/20 06:18 D50w IVP ONCE PRN hypoglycemia prot ocol Protocol Dextrose 50 ml 01/31/20 06:18 D50w IVP PRN PRN hypoglycemia prot ocol Protocol Glucagon 1 mg 01/31/20 06:18 Glucagen IM ONCE PRN Adult Acute Hypog lycemia Prot. Protocol Heparin Sodium (Be ef Lung) 5,000 unit 01/31/20 08:00 01/31/20 07:24 Heparin SUBCUT 5,000 unit Q8H SHAYNA Administration Dextrose 500 mls @ 100 mls /hr 01/31/20 06:18 D5w IV ONCE PRN Adult Acute Hypog lycemia Prot Protocol Insulin Aspart 0 unit 01/31/20 08:00 01/31/20 07:24 Novolog SUBCUT 8 unit WM&BEDTIME SHAYNA Administration Protocol Nitroglycerin 0.4 mg 01/31/20 03:22 Nitrostat SUBLINGUAL Q5M PRN CHEST PAIN levofloxacin Allergy (Verified 01/21/20 11:27) ALGY-Hives Vitals/I&O/Wt Last Vital Signs Temp 97.8 F 02/02/20 08:25 Pulse 103 H 02/02/20 08:25 Resp 26 H 02/02/20 08:25 BP 151/104 02/02/20 08:25 Pulse Ox 92 02/02/20 08:25 02/01/20 02/02/20 02/02/20 22:59 06:59 14:59 Intake Total 540 / 1020 Output Total 2450 / 2450 850 / 3300 Balance -1910 / -1430 -850 / -2280 Weight last 48 hrs Weight 82.599 kg Physical Exam Narrative: EXAM NARRATIVE: GEN: Awake, alert and oriented, no acute distress CVS: S1S2 N RS: CTA B/L Abd: Soft, nt/nd , bs+ COLLECTION COORDINATOR: no focal neuro deficits EXT: No gross pedal edema Urinary Catheter Management^: Jesus Latex Free: Cath Placed During This Visit: yes Urinary Catheter Date of Insertion: 01/31/20 Urinary Catheter Time of Insertion: 11:00 Jesus: Cath Placed During This Visit: yes Urethral Indwelling: Yes Reason for Continuing Indwelling Catheter: Acute Urinary Retention or Obstruction Urinary Catheter Date of Insertion: 01/31/20 Urinary Catheter Time of Insertion: 15:00 Data : 02/01/20 04:32 02/01/20 04:32 Micro: Microbiology 01/31/20 11:00 Urine Culture - Preliminary Urine,Clean Catch 01/31/20 07:49 Blood Culture - Preliminary Blood NEGATIVE TO DATE 01/31/20 07:45 Blood Culture - Preliminary Blood NEGATIVE TO DATE A&P Assessment and plan (1) Acute exacerbation of CHF (congestive heart failure): Status: Acute Qualifiers: Heart failure type: diastolic Qualified Code(s): I50.33 - Acute on chronic diastolic (congestive) heart failure (2) Acute and chronic respiratory failure with hypoxia: Status: Acute (3) Pulmonary fibrosis: -f/u with Dr. 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 transplanted heart: [place] heart Associated angina: angina presence unspecified Qualified Code(s): I25.10 - Atherosclerotic heart disease of [place] coronary artery without angina pectoris (8) Diabetes mellitus: -A1c-7.7 -Accuchecks, hypoglycemia precautions, ISS -consistent carb diet as tolerated Status: Chronic Qualifiers: Diabetes mellitus type: type 2 Diabetes mellitus skilled nursing insulin use: without terminal gauger supervisor use Diabetes mellitus complication status: with neurologic complications Diabetes mellitus complication detail: with polyneuropathy Qualified Code(s): E11.42 - Type 2 diabetes mellitus with diabetic polyneuropathy Additional A&P Information # Acute decompensated CHF -clinically decompensated as evidenced by BUTT, increased oxygen requirement, BNP elevation (>13,000) -Echo: EF 60%, no RWMA, normal diastolic function, mild MR, mild TR, trace [place] -on diuresis iv lasix 40mg iv q12h, urine ouput 3.3L, change to 40mg po BID today and monitor for response -monitor Is & Os, daily weights -telemetry monitoring - d/c Jesus catheter, start flomax today - USG prostate to assess for size given voiding difficulty - bladder scan as needed # acute on chronic hypoxic respiratory failure -likely secondary to acute CHF exacerbation with underlying severe emphysema and background pulmonary fibrosis -continue prednisone 40mg po qd -is oxygen dependent at baseline, 3 L at baseline, titrate to keep sat between 88-92% -Home 02 eval as likely destaurates further with activity - duonebs and budesonide inhalation - outpatient follow up with Dr. Magallon -protonix ppx, will additionally need PJP ppx as steroids likely to be terminal gauger supervisor. Given renal insufficiency, would prefer to use atovaquone # CKD stage III -baseline Cr is around 1.6-2.0 -monitor renal function particularly with diuresis -monitor urine output - start flomax # h/o CAD continue ASA/ plavix/prn nitro increase metoprolol to 25mg BID given ongoing tachycardia -HTN -Hyperlipidemia -pressure ulcer on plantar surface of L foot; wound care as needed as outpatient -DM: on insulin sliding scale -DVT ppx with heparin -Dispo: home -Code status: FULL code transfer out of ICU Attestations Medical Necessity Statement*: optimization of repsiratory status, volume status Coding Level of Care Code Acute Screw Machine Tool Setter for [facility] Fwd Diagnoses Acute exacerbation of CHF (congestive heart failure) I50.33 Heart failure type: diastolic Acute and chronic respiratory failure with hypoxia J96.21 Pulmonary fibrosis J84.10 Interstitial lung disease J84.9 Normocytic anemia D64.9 Chronic kidney disease (CKD) N18.3 Chronic kidney disease stage: stage 3 (moderate) CAD (coronary artery disease) I25.10 Coronary Disease-Associated Artery/Lesion type: [place] artery [place] vs. transplanted heart: [place] heart Associated angina: angina presence unspecified Diabetes mellitus E11.42 Diabetes mellitus type: type 2 Diabetes mellitus skilled nursing insulin use: without terminal gauger supervisor use Diabetes mellitus complication status: with neurologic complications Diabetes mellitus complication detail: with polyneuropathy
--- NOTE | 2020-02-02 09:11 | US_ITS ---
WS: [id number] US bladder [id number] REASON FOR EXAM: assess prosate size FINDINGS: The bladder measured 9.08 x 5.9 x 6.59 cm with a volume of 185 mL. Note the patient was justin ble to void for the technologist. The prostate measured 3.32 x 3.56 x 3.52 cm mild hypertrophic pattern is seen throughout the musculat ure of the prostate. US/US bladder [id number] IMPRESSION: Urinary retention Prostate is of normal size shows slight increased signal suggesting hypertrophy .
[2020-02-02] MEDS: predniSONE 20 mg Tablet 40 MG PO (10:48)
[2020-02-02] MEDS: pantoprazole DR 40 mg Tablet PO (10:49)
[2020-02-02] MEDS: tamsulosin 0.4 mg Capsule 0.8 MG PO (10:49)
--- NOTE | 2020-02-02 11:09 | PC.NURSE ---
transfer patient report called to Lyubov Noyola RN. Patient taken upstairs via wheelchair by NT. Carlota
[2020-02-02 11:51] LABS: Glucose Point of Care 272 mg/dL (70-110)
[2020-02-02] MEDS: FUROsemide 40 mg Tablet PO (15:54)
[2020-02-02 16:34] LABS: Glucose Point of Care 286 mg/dL (70-110)
[2020-02-02 21:57] LABS: Glucose Point of Care 353 mg/dL (70-110)
[2020-02-03] VITALS (12 sets, daily range): BP systolic 113–131; BP diastolic 69–80; PULSE 90–115; RESP 16–20; TEMP 36.4–36.8; O2SAT 82–97
[2020-02-03] MEDS: heparin 5,000 unit/mL INJ 1 mL 5000 UNIT SUBCUT ×3 (01:56→17:42)
[2020-02-03] MEDS: TRAMadol 50 mg Tablet PO ×2 (01:59→19:23)
[2020-02-03] MEDS: ipratropium-albuterol 3 mL Neb INHALATION ×3 (03:10→14:21)
[2020-02-03 04:58] LABS: Basophils % 0.1 %; Eosinophils % 0.5 %; Hematocrit 33.6 % (42.0-52.0); Hemoglobin 10.6 g/dL (11.7-16.6); Lymphocytes # 1.1 10^3/uL (0.8-4.8); Lymphocytes % 13.8 %; Mean Corpuscular HGB Conc 31.5 g/dL (30.0-36.0); Mean Corpuscular Hemoglobin 28.5 pg (28.0-34.0); Mean Corpuscular Volume 90.3 fL (80-94); Mean Platelet Volume 9.8 fL (7.4-10.4); Monocytes # 0.7 10^3/uL (0.2-0.9); Monocytes % 8.1 %; Neutrophils # 6.4 10^3/uL (1.8-7.7); Nucleated Red Blood Cells % 0 %; Platelet Count 343 10^3/cmm (130-400); Red Blood Count 3.72 10^6/uL (4.1-5.3); Red Cell Distribution Width 13.2 % (12.1-15.1); White Blood Count 8.3 10^3/uL (4.0-10.0)
[2020-02-03 05:18] LABS: Alanine Aminotransferase 7 U/L (0-41); Alkaline Phosphatase 60 IU/L (40-130); Anion Gap 18.1 (5-19); Aspartate Amino Transferase 10 U/L (0-40); Blood Urea Nitrogen 62 mg/dL (6-20); Calcium 9.8 mg/dL (8.5-10.5); Carbon Dioxide 26 mmol/L (22-29); Chloride 98 mmol/L (98-107); Globulin 4.6 g/dL (1.3-4.6); Glomerular Filtration Rate 38.8 mL/min (90-130); Glucose 139 mg/dL (65-115); Osmolality Calculated 287 mOsm/kg (285-295); Potassium 4.1 mmol/L (3.5-5.1); Sodium 138 mmol/L (136-145); Total Bilirubin 0.3 mg/dL (0.15-1.2); Total Protein 7.6 g/dL (6.6-8.7)
[2020-02-03 07:10] LABS: Glucose Point of Care 150 mg/dL (70-110)
[2020-02-03] MEDS: aspirin 81 mg EC Tablet PO (08:05)
[2020-02-03] MEDS: clopidogrel 75 mg Tablet PO (08:05)
[2020-02-03] MEDS: pregabalin 75 mg Capsule PO ×2 (08:05→17:37)
[2020-02-03] MEDS: predniSONE 20 mg Tablet 40 MG PO (08:05)
[2020-02-03] MEDS: FUROsemide 40 mg Tablet PO ×2 (08:05→17:07)
[2020-02-03] MEDS: pantoprazole DR 40 mg Tablet PO (08:05)
[2020-02-03] MEDS: tamsulosin 0.4 mg Capsule 0.8 MG PO (08:05)
[2020-02-03] MEDS: metoprolol succinate ER (24 HR) 25 mg Tablet PO ×2 (08:06→17:37)
[2020-02-03] MEDS: budesonide 0.5 mg/2 mL Neb INHALATION (08:33)
[2020-02-03 12:02] LABS: Glucose Point of Care 254 mg/dL (70-110)
--- NOTE | 2020-02-03 16:51 | P.DS_ITS ---
Discharge Providers Date of Admission: 01/31/20 04:49 Date of Discharge: February 03, 2020 Attending Provider at Admission: Odalis Ramirez MD Attending Provider at Discharge: Sigrid Gonzalez MD Diagnoses at Discharge Discharge Diagnosis (1) Acute exacerbation of CHF (congestive heart failure): Status: Acute Qualifiers: Heart failure type: diastolic Qualified Code(s): I50.33 - Acute on chronic diastolic (congestive) heart failure (2) Acute and chronic respiratory failure with hypoxia: Status: Acute (3) Pulmonary fibrosis: Status: Chronic (4) Interstitial lung disease: Status: Chronic (5) Normocytic anemia: Status: Chronic (6) Chronic kidney disease (CKD): Status: Chronic Qualifiers: Chronic kidney disease stage: stage 3 (moderate) Qualified Code(s): N18.3 - Chronic kidney disease, stage 3 (moderate) (7) CAD (coronary artery disease): Status: Chronic Problem details: RCA stent 2015, stress test 06/20 Qualifiers: Associated angina: angina presence unspecified Coronary Disease- Associated Artery/Lesion type: [place] artery [place] vs. transplanted heart: [place] heart Qualified Code(s): I25.10 - Atherosclerotic heart disease of [place] coronary artery without angina pectoris (8) Diabetes mellitus: Status: Chronic Qualifiers: Diabetes mellitus complication detail: with polyneuropathy Diabetes mellitus complication status: with neurologic complications Diabetes mellitus intermediate insulin use: without intermediate use Diabetes mellitus type: type 2 Qualified Code(s): E11.42 - Type 2 diabetes mellitus with diabetic polyneuropathy Reason for Visit Reason for Visit: SHORT OF BREATH / CHEST PAIN X2 WEEKS Hospital Course Discharge Summary: Agusto Crockett is a 59 year old male who carries diagnosis of pulmonary fibrosis, chronic hypoxemia uses 3 L of oxygen [id number], preserved ejection fraction heart failure came in today with gradual worsening shortness of breath. He was found to have clinically decompensated heart failure as evidenced by BUTT, increased oxygen requirement, BNP elevation (>13,000). Echo showed EF=60%, no RWMA, normal diastolic function, mild MR, mild TR, trace [place]. he received on diuresis with IV bumex, later switched to iv lasix and eventually po lasix. Prior notes from Dr. Magallon's visit were reveiwed. Patient was additionally started on steroids- prednisone 40mg/day. He was additionally also prescribed PJP ppx with atovaquone, in an attempt to avoid bactrim with his CKD. He imporved with the above measures. At time of discharge, he had home 02 eval, was requiring 3lpm 02 at rest with 5lpm with exertion. He initially had difficulty urinating for which rosenthal was plaaced. This was removed 02/01, patient currently voiding well. Flomax has been initiated. 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 Urinary Catheter Management^: Rosenthal Latex Free: Cath Placed During This Visit: yes Urinary Catheter Date of Insertion: 01/31/20 Urinary Catheter Time of Insertion: 11:00 Rosenthal: Cath Placed During This Visit: yes, but has since been removed by the nurse Urethral Indwelling: Yes Reason for Continuing Indwelling Catheter: Acute Urinary Retention or Obstruction Urinary Catheter Date of Insertion: 01/31/20 Urinary Catheter Time of Insertion: 15:00 Date Urinary Catheter Removed: 02/02/20 Time Urinary Catheter Discontinued: 12:00 Discharge Data Data Completed and Pending: Completed Studies During Hospitalization Category Date Time Status XR chest 1V nina ble [id number] Stat Exams 01/31/20 03:23 Completed US bladder [id number] Routine Ultrasound 02/02/20 09:11 Completed Pending at discharge Category Date Time Status Blood Culture Sta t Lab 01/31/20 07:49 Results Labs from last 24 hours 02/03/20 02/03/20 02/03/20 11:11 06:39 04:44 WBC RBC Hgb Hct MCV MCH MCHC RDW Plt Count MPV Neut % (Auto) Lymph % (Auto) [place] % (Auto) Eos % (Auto) Baso % (Auto) Neut # (Auto) Lymph # (Auto) [place] # (Auto) Eos # (Auto) Baso # (Auto) Nucleated RBC % (a uto) Nucleated RBCs # Sodium 138 Potassium 4.1 Chloride 98 Carbon Dioxide 26 Anion Gap 18.1 BUN 62 H Creatinine 1.8 H GFR Calculation 38.8 L Glucose 139 H POC Glucose 254 150 Calculated Osmolal ity 287 Calcium 9.8 Total Bilirubin 0.3 AST 10 ALT 7 Alkaline Phosphata se 60 Total Protein 7.6 Albumin 3.0 L Globulin 4.6 02/03/20 02/02/20 04:44 21:54 WBC 8.3 RBC 3.72 L Hgb 10.6 L Hct 33.6 L MCV 90.3 MCH 28.5 MCHC 31.5 RDW 13.2 Plt Count 343 MPV 9.8 Neut % (Auto) 77.0 Lymph % (Auto) 13.8 [place] % (Auto) 8.1 Eos % (Auto) 0.5 Baso % (Auto) 0.1 Neut # (Auto) 6.4 Lymph # (Auto) 1.1 [place] # (Auto) 0.7 Eos # (Auto) 0.0 Baso # (Auto) 0.0 Nucleated RBC % (a uto) 0 Nucleated RBCs # 0.0 Sodium Potassium Chloride Carbon Dioxide Anion Gap BUN Creatinine GFR Calculation Glucose POC Glucose 353 Calculated Osmolal ity Calcium Total Bilirubin AST ALT Alkaline Phosphata se Total Protein Albumin Globulin Vitals: Last Vital Signs Temp 98.3 F 02/03/20 16:00 Pulse 112 H 02/03/20 16:00 Resp 18 02/03/20 16:00 BP 128/73 02/03/20 16:00 Pulse Ox 82 L 02/03/20 16:39 Discharge Plan Discharge Patient Disposition: Home, Self-Care Condition: Stable Prescriptions: New Mepron 750 mg/5 mL suspension 1,500 mg PO DAILY Qty: 210 RF: 1 prednisone 20 mg Tablet 40 mg PO DAILY 30 Days Qty: 60 RF: 0 tamsulosin 0.4 mg Capsule 0.4 mg PO DAILY 30 Days Qty: 30 RF: 0 pantoprazole 40 mg Tablet,Delayed Release (Dr/Ec) 40 mg PO DAILY Qty: 0 RF: 0 Continued aspirin [Adult Low Dose Aspirin] 81 mg tablet,delayed release (DR/EC) 81 mg PO DAILY RF: 0 clopidogrel 75 mg tablet 75 mg PO DAILY RF: 0 pregabalin [Lyrica] 75 mg capsule 75 mg PO BID RF: 0 nitroglycerin [Nitrostat] 0.4 mg tablet, sublingual 0.4 mg SUBLINGUAL Q5M PRN (Reason: Chest Pain) RF: 0 metoprolol succinate 25 mg tablet extended release 24 hr 25 mg PO DAILY Qty: 30 RF: 2 cyclobenzaprine 10 mg tablet 10 mg PO TID PRN (Reason: muscle spasm) Qty: 30 RF: 0 Lantus Solostar U-100 Insulin 100 unit/mL (3 mL) insulin pen 10 unit SUBCUT DAILY 30 Days Qty: 15 RF: 2 (DME) blood-glucose meter Misc See Rx Instructions .ROUTE .MEDSUPPLY Qty: 1 RF: 0 (DME) blood sugar diagnostic [Blood Glucose Test] Strip See Rx Instructions .ROUTE .MEDSUPPLY Qty: 50 RF: 0 (DME) pen needle, diabetic [Comfort EZ Pen [place]] 31 gauge x 1/4 needle See Rx Instructions .ROUTE .MEDSUPPLY Qty: 100 RF: 2 (DME) pen needle, diabetic [1st Tier Unifine Pentips Plus] 31 gauge x 5/16 needle See Rx Instructions .ROUTE .MEDSUPPLY Qty: 100 RF: 4 (DME) oxygen See Rx Instructions .Route .MEDSUPPLY Qty: 1 RF: 0 multivitamin [Multiple Vitamins] Tablet 1 tab PO DAILY RF: 0 acetaminophen [Tylenol Extra Strength] 500 mg Tablet 1,000 mg PO BID PRN (Reason: Pain) RF: 0 cholecalciferol (vitamin D3) [Vitamin D3] 10 mcg (400 unit) Tablet 800 unit PO DAILY RF: 0 cetirizine [Zyrtec] 10 mg tablet 10 mg PO DAILY PRN (Reason: UNKNOWN) RF: 0 Spiriva with HandiHaler 18 mcg capsule, w/inhalation device 1 cap INHALATION DAILY Qty: 60 RF: 2 furosemide 40 mg tablet 40 mg PO DAILY Qty: 60 RF: 2 albuterol sulfate [ProAir HFA] 90 mcg/actuation HFA aerosol inhaler 2 inh INHALATION QID PRN (Reason: shortness of breath or wheezing) Qty: 8.5 RF: 0 Discharge Orders: Discharge Order (Routine); Ordered 02/03/20 Ordered By: Sigrid Gonzalez Referrals: Raghu Magallon MD [Physician] - 02/22/20 8:45 am (You have an appointment with Dr. Magallon scheduled for February 22, 2020 at 8:45 am. 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 transplanted heart: [place] heart Diabetes mellitus E11.42 Diabetes mellitus complication detail: with polyneuropathy Diabetes mellitus complication status: with neurologic complications Diabetes mellitus long term care pharmacist insulin use: without intermediate use Diabetes mellitus type: type 2
[2020-02-03 17:02] LABS: Glucose Point of Care 430 mg/dL (70-110)
[2020-02-03 17:19] LABS: Glucose Point of Care 436 mg/dL (70-110)
[2020-02-03 18:51] LABS: Glucose Point of Care 413 mg/dL (70-110)
[2020-02-03 18:51] LABS: Glucose Point of Care 431 mg/dL (70-110)
[2020-02-03 19:55] LABS: Glucose Point of Care 346 mg/dL (70-110)
[2020-02-03] MEDS: insulin glargine 100 units/1 mL 15 UNIT SUBCUT (20:43)
[2020-02-03] MEDS: acetaminophen 325 mg Tablet 650 MG PO (21:34)
[2020-02-04] MEDS: heparin 5,000 unit/mL INJ 1 mL 5000 UNIT SUBCUT ×2 (02:09→08:56)
[2020-02-04 04:00] VITALS: BP 127/76; PULSE 95; RESP 17; TEMP 36.4; O2SAT 98
[2020-02-04 06:04] LABS: Glucose Point of Care 165 mg/dL (70-110)
[2020-02-04 07:50] VITALS: BP 128/86; PULSE 95; RESP 16; TEMP 36.6; O2SAT 92
[2020-02-04] MEDS: clopidogrel 75 mg Tablet PO (08:55)
[2020-02-04] MEDS: aspirin 81 mg EC Tablet PO (08:55)
[2020-02-04] MEDS: metoprolol succinate ER (24 HR) 25 mg Tablet PO (08:55)
[2020-02-04] MEDS: pantoprazole DR 40 mg Tablet PO (08:55)
[2020-02-04] MEDS: predniSONE 20 mg Tablet 40 MG PO (08:55)
[2020-02-04] MEDS: pregabalin 75 mg Capsule PO (08:56)
[2020-02-04] MEDS: tamsulosin 0.4 mg Capsule 0.8 MG PO (08:56)
[2020-02-04] MEDS: FUROsemide 40 mg Tablet PO (09:00)
[2020-02-04 10:44] VITALS: BP 128/86; PULSE 95; RESP 16; TEMP 36.6; O2SAT 92
--- NOTE | 2020-02-04 11:05 | PM.DCS ---
Discharge Providers Date of Admission: 01/31/20 04:49 Date of Discharge: February 04, 2020 Attending Provider at Admission: Odalis Ramirez MD Attending Provider at Discharge: Sigrid Gonzalez MD Diagnoses at Discharge Discharge Diagnosis (1) Acute exacerbation of CHF (congestive heart failure): Status: Acute Qualifiers: Heart failure type: diastolic Qualified Code(s): I50.33 - Acute on chronic diastolic (congestive) heart failure (2) Acute and chronic respiratory failure with hypoxia: Status: Acute (3) Pulmonary fibrosis: Status: Chronic (4) Interstitial lung disease: Status: Chronic (5) Normocytic anemia: Status: Chronic (6) Chronic kidney disease (CKD): Status: Chronic Qualifiers: Chronic kidney disease stage: stage 3 (moderate) Qualified Code(s): N18.3 - Chronic kidney disease, stage 3 (moderate) (7) CAD (coronary artery disease): Status: Chronic Problem details: RCA stent 2015, stress test 06/20 Qualifiers: Coronary Disease-Associated Artery/Lesion type: [place] artery [place] vs. transplanted heart: [place] heart Associated angina: angina presence unspecified Qualified Code(s): I25.10 - Atherosclerotic heart disease of [place] coronary artery without angina pectoris (8) Diabetes mellitus: Status: Chronic Qualifiers: Diabetes mellitus type: type 2 Diabetes mellitus ferry terminal supervisor insulin use: without ferry terminal supervisor use Diabetes mellitus complication status: with neurologic complications Diabetes mellitus complication detail: with polyneuropathy Qualified Code(s): E11.42 - Type 2 diabetes mellitus with diabetic polyneuropathy Reason for Visit Reason for Visit: SHORT OF BREATH / CHEST PAIN X2 WEEKS Hospital Course Discharge Summary: Agusto Crockett is a 59 year old male who carries diagnosis of pulmonary fibrosis, chronic hypoxemia uses 3 L of oxygen [id number], preserved ejection fraction heart failure came in today with gradual worsening shortness of breath. He was found to have clinically decompensated heart failure as evidenced by BUTT, increased oxygen requirement, BNP elevation (>13,000). Echo showed EF=60%, no RWMA, normal diastolic function, mild MR, mild TR, trace [place]. he received on diuresis with IV bumex, later switched to iv lasix and eventually po lasix. Prior notes from Dr. Magallon's visit were reveiwed. Patient was additionally started on steroids- prednisone 40mg/day. He was additionally also prescribed PJP ppx with atovaquone, in an attempt to avoid bactrim with his CKD. He imporved with the above measures. At time of discharge, he had home 02 eval, was requiring 3lpm 02 at rest with 5lpm with exertion. He initially had difficulty urinating for which rosenthal was plaaced. This was removed 02/01, patient currently voiding well. Flomax has been initiated. US bladder showed normal size prostate. He was planned for discharge on 02/02 however discharge deferred as patient;s blood sugar ranging >400, likely as a result of adding steroids. Lantus 15 U added. Moderate scale change to high dose aspart insulin. Blood sugar with much improvement since then, this morning at 135. He is being discharged with advise to keep a blood sugar diary and take it to his PCP early next week. No acute events or changes otherwise. 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 Urinary Catheter Management^: Rosenthal Latex Free: Cath Placed During This Visit: yes Urinary Catheter Date of Insertion: 01/31/20 Urinary Catheter Time of Insertion: 11:00 Rosenthal: Cath Placed During This Visit: yes, but has since been removed by the nurse Urethral Indwelling: Yes Reason for Continuing Indwelling Catheter: Not indwelling catheter Urinary Catheter Date of Insertion: 01/31/20 Urinary Catheter Time of Insertion: 15:00 Date Urinary Catheter Removed: 02/02/20 Time Urinary Catheter Discontinued: 12:00 Discharge Data Data Completed and Pending: Completed Studies During Hospitalization Category Date Time Status XR chest 1V nina ble [id number] Stat Exams 01/31/20 03:23 Completed US bladder 15333 Routine Ultrasound 02/02/20 09:11 Completed Pending at discharge Category Date Time Status Blood Culture Sta t Lab 01/31/20 07:49 Results Labs from last 24 hours 02/04/20 02/03/20 02/03/20 05:59 19:45 18:47 POC Glucose 165 346 431 02/03/20 02/03/20 02/03/20 18:45 17:03 16:57 POC Glucose 413 436 430 02/03/20 11:11 POC Glucose 254 Vitals: Last Vital Signs Temp 97.9 F 02/04/20 10:44 Pulse 95 02/04/20 10:44 Resp 16 02/04/20 10:44 BP 128/86 02/04/20 10:44 Pulse Ox 92 02/04/20 10:44 Discharge Plan Discharge Patient Disposition: Home, Self-Care Condition: Stable Prescriptions: New Mepron 750 mg/5 mL suspension 1,500 mg PO DAILY Qty: 210 RF: 1 prednisone 20 mg Tablet 40 mg PO DAILY 30 Days Qty: 60 RF: 0 tamsulosin 0.4 mg Capsule 0.4 mg PO DAILY 30 Days Qty: 30 RF: 0 pantoprazole 40 mg Tablet,Delayed Release (Dr/Ec) 40 mg PO DAILY Qty: 0 RF: 0 Continued aspirin [Adult Low Dose Aspirin] 81 mg tablet,delayed release (DR/EC) 81 mg PO DAILY RF: 0 clopidogrel 75 mg tablet 75 mg PO DAILY RF: 0 pregabalin [Lyrica] 75 mg capsule 75 mg PO BID RF: 0 nitroglycerin [Nitrostat] 0.4 mg tablet, sublingual 0.4 mg SUBLINGUAL Q5M PRN (Reason: Chest Pain) RF: 0 metoprolol succinate 25 mg tablet extended release 24 hr 25 mg PO DAILY Qty: 30 RF: 2 cyclobenzaprine 10 mg tablet 10 mg PO TID PRN (Reason: muscle spasm) Qty: 30 RF: 0 Lantus Solostar U-100 Insulin 100 unit/mL (3 mL) insulin pen 10 unit SUBCUT DAILY 30 Days Qty: 15 RF: 2 (DME) blood-glucose meter Misc See Rx Instructions .ROUTE .MEDSUPPLY Qty: 1 RF: 0 (DME) blood sugar diagnostic [Blood Glucose Test] Strip See Rx Instructions .ROUTE .MEDSUPPLY Qty: 50 RF: 0 (DME) pen needle, diabetic [Comfort EZ Pen [place]] 31 gauge x 1/4 needle See Rx Instructions .ROUTE .MEDSUPPLY Qty: 100 RF: 2 (DME) pen needle, diabetic [1st Tier Unifine Pentips Plus] 31 gauge x 5/16 needle See Rx Instructions .ROUTE .MEDSUPPLY Qty: 100 RF: 4 (DME) oxygen See Rx Instructions .Route .MEDSUPPLY Qty: 1 RF: 0 multivitamin [Multiple Vitamins] Tablet 1 tab PO DAILY RF: 0 acetaminophen [Tylenol Extra Strength] 500 mg Tablet 1,000 mg PO BID PRN (Reason: Pain) RF: 0 cholecalciferol (vitamin D3) [Vitamin D3] 10 mcg (400 unit) Tablet 800 unit PO DAILY RF: 0 cetirizine [Zyrtec] 10 mg tablet 10 mg PO DAILY PRN (Reason: UNKNOWN) RF: 0 Spiriva with HandiHaler 18 mcg capsule, w/inhalation device 1 cap INHALATION DAILY Qty: 60 RF: 2 furosemide 40 mg tablet 40 mg PO DAILY Qty: 60 RF: 2 albuterol sulfate [ProAir HFA] 90 mcg/actuation HFA aerosol inhaler 2 inh INHALATION QID PRN (Reason: shortness of breath or wheezing) Qty: 8.5 RF: 0 Discharge Orders: Discharge Order (Routine); Ordered 02/03/20 Ordered By: Sigrid Gonzalez Other Ambulatory Orders: DME: Oxygen (Order) Location: None Selected Ordered By: Sigrid Gonzalez Referrals: Raghu Magallon MD [Physician] - 02/22/20 8:45 am (You have an appointment with Dr. Magallon scheduled for February 22, 2020 at 8:45 am. 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 transplanted heart: [place] heart Associated angina: angina presence unspecified Diabetes mellitus E11.42 Diabetes mellitus type: type 2 Diabetes mellitus retirement insulin use: without ferry terminal supervisor use Diabetes mellitus complication status: with neurologic complications Diabetes mellitus complication detail: with polyneuropathy
== END 2020-02-04 10:45 | disposition home or self-care (01) | DRG 291 ==
LOC: ER 04:46 → ICU 05:12 → MEDSURG 02-02 11:44
PROVIDERS: Emergency Medicine; Family Medicine; Admitting Provider Internal Medicine; Visit Provider Student in an Organized Health Care Education/Training Program
DX: I13.0 Hypertensive heart and chronic kidney disease with heart failure and stage 1 through stage 4 chronic kidney disease, or unspecified chronic kidney disease (principal); I50.33 Acute on chronic diastolic (congestive) heart failure; J96.21 Acute and chronic respiratory failure with hypoxia; N18.3 Chronic kidney disease, stage 3 (moderate); E11.22 Type 2 diabetes mellitus with diabetic chronic kidney disease; E11.65 Type 2 diabetes mellitus with hyperglycemia; J84.10 Pulmonary fibrosis, unspecified; Z99.81 Dependence on supplemental oxygen; Z87.891 Personal history of nicotine dependence; I25.10 Atherosclerotic heart disease of native coronary artery without angina pectoris; Z95.5 Presence of coronary angioplasty implant and graft; Z87.442 Personal history of urinary calculi; I25.2 Old myocardial infarction; E03.9 Hypothyroidism, unspecified; I25.5 Ischemic cardiomyopathy; D47.2 Monoclonal gammopathy; E11.42 Type 2 diabetes mellitus with diabetic polyneuropathy; G47.30 Sleep apnea, unspecified; Z89.422 Acquired absence of other left toe(s); D63.1 Anemia in chronic kidney disease; J43.9 Emphysema, unspecified; L89.899 Pressure ulcer of other site, unspecified stage; Z79.51 Long term (current) use of inhaled steroids; Z79.4 Long term (current) use of insulin; Z79.02 Long term (current) use of antithrombotics/antiplatelets; Z79.82 Long term (current) use of aspirin
CPT/HCPCS: 12345; 36415; 36416; 36600; 51702; 51798; 71045; 76857; 80048; 80053; 81001; 82803; 82962; 83605; 83690; 83735; 83880; 84443; 84484; 85025; 85378; 85610; 87040; 87086; 93005; 94640; 94660; 96372; 96375; 97162; 99282; J1644; J1815; J1940; J2930; J3490; J7512; J7626

== ENCOUNTER 2020-02-11 10:29 | Inpatient (IN) | payer MEDICAID, SELFPAY ==
[2020-02-11] VITALS (10 sets, daily range): BP systolic 106–141; BP diastolic 69–79; PULSE 100–136; RESP 18–27; TEMP 36.6–36.7; O2SAT 96–100; BMI 26.6
--- NOTE | 2020-02-11 10:39 | XR_ITS ---
WS: [id number] Portable AP upright chest, 02/11/2020 Clinical Data: dyspnea Comparison: Portable chest, 01/31/2020. Findings: Severe interstitial changes throughout both lungs probably from chronic pulmonary fibrosis is again noted. No pneumothorax is seen. The heart is probably normal although the cardiac borders ar e obscured by the fibrotic pattern. No pleural effusion is present. XR/XR chest 1V portable [id number] Impression: Severe interstitial change throughout both lungs which remains the same.
--- NOTE | 2020-02-11 10:40 | ECG_ITS ---
Measurements Intervals [place] Rate: 136 P: [place]: 0 QRS: 187 QRSD: 156 T: 10 QT: 365 QTc: 550 ATRIAL FLUTTER/TACHYCARDIA WITH RAPID VENTRICULAR RESPONSE RIGHT AXIS DEVIATION [QRS AXIS > 100] RIGHT BUNDLE BRANCH BLOCK [120+ ms QRS DURATION, UPRIGHT V1, 40+ ms S IN I/ I/aVL/V4/V5/V6] Compared to ECG 01/31/2020 06:14:42 Right-axis deviation now present Sinus tachycardia no longer present Left posterior fascicular block no longer present Electronically Signed On 02-11-2020 20:55:41 CDT by Prasanth Mckee M.D. [email or web address]
--- NOTE | 2020-02-11 10:48 | W.ED.SOB ---
HPI - SOB/Dyspnea General: Chief Complaint: Syncope Stated Complaint: RESPIRATORY DISTRESS Time Seen by Provider: 02/11/20 10:38 History of Present Illness: HPI Narrative: Patient has a history of both COPD and CHF. He has recently been hospitalized for the treatment of dyspnea. Patient states that he has been becoming more short of breath for the past several days it is not relieved with breathing treatments. Patient also reports that his recently been diagnosed with cystic fibrosis. MD elicited complaint: shortness of breath, cough, pain with inspiration and chest pain Pertinent past history: COPD and congestive heart failure Onset (ago): week(s) Context: recent illness Timing: constant Severity: severe Exacerbating factors: exertion and coughing Relieving factors: nothing Known history of: COPD and congestive heart failure Associated symptoms: Reports cough Treatment prior to arrival: none Review of Systems General: Reports: 10 or more systems reviewed and unremarkable except in HPI and below Resp: Reports: dyspnea [facility] ED PFSH: Medical History CAD (coronary artery disease) RCA stent 2015, stress test 06/20 CHF (congestive heart failure) EF 01/19 EF 60% Chronic kidney disease (CKD) Diabetes mellitus History of kidney stones History of ST elevation myocardial infarction (STEMI) Hypertension Hypothyroid Ischemic cardiomyopathy Monoclonal gammopathy of unknown significance (MGUS) Neuropathy Pulmonary fibrosis Identified 01/2020, put on home oxygen, to f/u with Dr Magallon Sleep apnea Has not had sleep study yet Surgical History History of lithotripsy (~2015) History of partial amputation of toe of left foot History of ureter stent (~2015) Hx of angioplasty Family History Other Stroke Denies family history of Family history of premature coronary artery disease Social History Smoking and tobacco status: never smoked Second hand smoke exposure: No Alcohol intake: never Lives independently: Yes Household members: spouse Marital status: service: Yes Current occupational status: disabled History of recent travel: No Current gender identity: Male Special deanna needs: No Agree to transfusion: Yes Physical Exam Const: COMMON NORMALS: patient oriented x3 and alert HENMT: COMMON NORMALS: normocephalic and atraumatic HEAD & SCALP: normocephalic and atraumatic Neck/C-Spine: COMMON NORMALS: no meningeal signs and no JVD Resp: EFFORT & INSPECTION: Yes respiratory distress Cardio: COMMON NORMALS: no JVD, regular rate and regular rhythm RATE: regular rate RHYTHM: regular rhythm GI: COMMON NORMALS: Normal to inspection, nondistended, normoactive bowel sounds present Extremity: COMMON NORMALS: normal to inspection and full ROM Neuro: COMMON NORMALS: patient oriented x3 SENSORIUM/ORIENTATION: Yes alert MENINGEAL SIGNS: Yes no meningeal signs Skin: COMMON NORMALS: no rashes or lesions noted, no jaundice and no mottling GENERAL SKIN EXAM: no rashes or lesions noted Course Vital Signs: Vital signs: Vital Signs Temperature 98.1 F 02/11/20 10:33 Pulse Rate 136 H 02/11/20 10:33 Respiratory Rate 18 02/11/20 11:35 Blood Pressure 110/69 02/11/20 10:33 Pulse Oximetry 96 02/11/20 10:33 MDM - SOB/Dyspnea Lab Data: Labs: Lab Results 02/11/20 02/11/20 02/11/20 Range/Units 11:07 11:07 11:07 WBC 21.7 H (4.0-10.0) 10^3/ uL RBC 3.97 L (4.1-5.3) 10^6/u L Hgb 11.3 L (11.7-16.6) g/dL Hct 35.9 L (42.0-52.0) % MCV 90.4 (80-94) fL MCH 28.5 (28.0-34.0) pg MCHC 31.5 (30.0-36.0) g/dL RDW 13.9 (12.1-15.1) % Plt Count 318 (130-400) 10^3/c mm MPV 10.2 (7.4-10.4) fL Neut % (Auto) 93.0 % Lymph % (Auto) 1.4 % [place] % (Auto) 4.0 % Eos % (Auto) 0.4 % Baso % (Auto) 0.1 % Neut # (Auto) 20.1 H (1.8-7.7) 10^3/u L Lymph # (Auto) 0.3 L (0.8-4.8) 10^3/u L [place] # (Auto) 0.9 (0.2-0.9) 10^3/u L Eos # (Auto) 0.1 (0.0-0.8) 10^3/u L Baso # (Auto) 0.0 (0.0-0.1) 10^3/u L Nucleated RBC % (a uto) 0 % Nucleated RBCs # 0.0 /100WBC PT 15.40 H (10.5-13.3) SECO NDS INR 1.22 H (0.8-1.2) Sodium 138 (136-145) mmol/L Potassium 4.3 (3.5-5.1) mmol/L Chloride 98 (98-107) mmol/L Carbon Dioxide 23 (22-29) mmol/L Anion Gap 21.3 H (5-19) BUN 51 H (6-20) mg/dL Creatinine 2.0 H (0.7-1.2) mg/dL GFR Calculation 34.4 L (90-130) mL/min Glucose 334 H (65-115) mg/dL Calculated Osmolal ity 297 H (285-295) mOsm/k g Lactic Acid (0.5-2.2) mmol/L Lactic Acid (Sepsi s) (0.5-2.2) mmol/L Calcium 8.9 (8.5-10.5) mg/dL Total Bilirubin 0.5 (0.15-1.2) mg/dL AST 16 (0-40) U/L ALT 12 (0-41) U/L Alkaline Phosphata se 89 (40-130) IU/L Troponin T Baselin e (0-15) ng/L Troponin T 120 Min [place] (0-15) ng/L Delta Troponin T (0-10) ABS# NT-Pro-B Natriuret Pep 2858 H (0-125) pg/mL Total Protein 6.8 (6.6-8.7) g/dL Albumin 2.9 L (3.5-5.2) g/dL Globulin 3.9 (1.3-4.6) g/dL 02/11/20 02/11/20 02/11/20 Range/Units 11:07 11:07 13:20 WBC (4.0-10.0) 10^3/ uL RBC (4.1-5.3) 10^6/u L Hgb (11.7-16.6) g/dL Hct (42.0-52.0) % MCV (80-94) fL MCH (28.0-34.0) pg MCHC (30.0-36.0) g/dL RDW (12.1-15.1) % Plt Count (130-400) 10^3/c mm MPV (7.4-10.4) fL Neut % (Auto) % Lymph % (Auto) % [place] % (Auto) % Eos % (Auto) % Baso % (Auto) % Neut # (Auto) (1.8-7.7) 10^3/u L Lymph # (Auto) (0.8-4.8) 10^3/u L [place] # (Auto) (0.2-0.9) 10^3/u L Eos # (Auto) (0.0-0.8) 10^3/u L Baso # (Auto) (0.0-0.1) 10^3/u L Nucleated RBC % (a uto) % Nucleated RBCs # /100WBC PT (10.5-13.3) SECO NDS INR (0.8-1.2) Sodium (136-145) mmol/L Potassium (3.5-5.1) mmol/L Chloride (98-107) mmol/L Carbon Dioxide (22-29) mmol/L Anion Gap (5-19) BUN (6-20) mg/dL Creatinine (0.7-1.2) mg/dL GFR Calculation (90-130) mL/min Glucose (65-115) mg/dL Calculated Osmolal ity (285-295) mOsm/k g Lactic Acid 2.7 H (0.5-2.2) mmol/L Lactic Acid (Sepsi s) (0.5-2.2) mmol/L Calcium (8.5-10.5) mg/dL Total Bilirubin (0.15-1.2) mg/dL AST (0-40) U/L ALT (0-41) U/L Alkaline Phosphata se (40-130) IU/L Troponin T Baselin e 96 H (0-15) ng/L Troponin T 120 Min [place] 141.2 H (0-15) ng/L Delta Troponin T 45.2 H* (0-10) ABS# NT-Pro-B Natriuret Pep (0-125) pg/mL Total Protein (6.6-8.7) g/dL Albumin (3.5-5.2) g/dL Globulin (1.3-4.6) g/dL 02/11/20 Range/Units 14:23 WBC (4.0-10.0) 10^3/ uL RBC (4.1-5.3) 10^6/u L Hgb (11.7-16.6) g/dL Hct (42.0-52.0) % MCV (80-94) fL MCH (28.0-34.0) pg MCHC (30.0-36.0) g/dL RDW (12.1-15.1) % Plt Count (130-400) 10^3/c mm MPV (7.4-10.4) fL Neut % (Auto) % Lymph % (Auto) % [place] % (Auto) % Eos % (Auto) % Baso % (Auto) % Neut # (Auto) (1.8-7.7) 10^3/u L Lymph # (Auto) (0.8-4.8) 10^3/u L [place] # (Auto) (0.2-0.9) 10^3/u L Eos # (Auto) (0.0-0.8) 10^3/u L Baso # (Auto) (0.0-0.1) 10^3/u L Nucleated RBC % (a uto) % Nucleated RBCs # /100WBC PT (10.5-13.3) SECO NDS INR (0.8-1.2) Sodium (136-145) mmol/L Potassium (3.5-5.1) mmol/L Chloride (98-107) mmol/L Carbon Dioxide (22-29) mmol/L Anion Gap (5-19) BUN (6-20) mg/dL Creatinine (0.7-1.2) mg/dL GFR Calculation (90-130) mL/min Glucose (65-115) mg/dL Calculated Osmolal ity (285-295) mOsm/k g Lactic Acid (0.5-2.2) mmol/L Lactic Acid (Sepsi s) 2.2 (0.5-2.2) mmol/L Calcium (8.5-10.5) mg/dL Total Bilirubin (0.15-1.2) mg/dL AST (0-40) U/L ALT (0-41) U/L Alkaline Phosphata se (40-130) IU/L Troponin T Baselin e (0-15) ng/L Troponin T 120 Min [place] (0-15) ng/L Delta Troponin T (0-10) ABS# NT-Pro-B Natriuret Pep (0-125) pg/mL Total Protein (6.6-8.7) g/dL Albumin (3.5-5.2) g/dL Globulin (1.3-4.6) g/dL Discharge Plan Discharge Patient Disposition: Admitted As Inpatient Clinical Impression: Acute non-ST elevation myocardial infarction (NSTEMI), Acute dyspnea Acute exacerbation of CHF (congestive heart failure) Qualifiers: Heart failure type: unspecified Qualified Code(s): I50.9 - Heart failure, unspecified Episode of syncope Qualifiers: Syncope type: unspecified Qualified Code(s): R55 - Syncope and collapse Chronic renal insufficiency Qualifiers: Chronic kidney disease stage: unspecified stage Qualified Code(s): N18.9 - Chronic kidney disease, unspecified Condition: Fair Coding Level of Care Code ED Digital Project Coordinator for [facility] Fwd Exam Comprehensive
[2020-02-11 11:23] LABS: Basophils % 0.1 %; Eosinophils # 0.1 10^3/uL (0.0-0.8); Eosinophils % 0.4 %; Hematocrit 35.9 % (42.0-52.0); Hemoglobin 11.3 g/dL (11.7-16.6); Lymphocytes # 0.3 10^3/uL (0.8-4.8); Lymphocytes % 1.4 %; Mean Corpuscular HGB Conc 31.5 g/dL (30.0-36.0); Mean Corpuscular Hemoglobin 28.5 pg (28.0-34.0); Mean Corpuscular Volume 90.4 fL (80-94); Mean Platelet Volume 10.2 fL (7.4-10.4); Monocytes # 0.9 10^3/uL (0.2-0.9); Neutrophils # 20.1 10^3/uL (1.8-7.7); Nucleated Red Blood Cells % 0 %; Platelet Count 318 10^3/cmm (130-400); Red Blood Count 3.97 10^6/uL (4.1-5.3); Red Cell Distribution Width 13.9 % (12.1-15.1); White Blood Count 21.7 10^3/uL (4.0-10.0)
[2020-02-11] MEDS: fentaNYL 50 mcg/mL INJ 2mL IVP (11:35)
[2020-02-11 11:49] LABS: Lactic Sepsis W/Reflex 2.7 mmol/L (0.5-2.2)
[2020-02-11 11:50] LABS: Troponin(5th) Baseline 96 ng/L (0-15)
[2020-02-11 11:59] LABS: Alanine Aminotransferase 12 U/L (0-41); Albumin Level 2.9 g/dL (3.5-5.2); Alkaline Phosphatase 89 IU/L (40-130); Anion Gap 21.3 (5-19); Aspartate Amino Transferase 16 U/L (0-40); Blood Urea Nitrogen 51 mg/dL (6-20); Calcium 8.9 mg/dL (8.5-10.5); Carbon Dioxide 23 mmol/L (22-29); Chloride 98 mmol/L (98-107); Globulin 3.9 g/dL (1.3-4.6); Glomerular Filtration Rate 34.4 mL/min (90-130); Glucose 334 mg/dL (65-115); NT Pro B Type Natriuretic Pept 2858 pg/mL (0-125); Osmolality Calculated 297 mOsm/kg (285-295); Potassium 4.3 mmol/L (3.5-5.1); Sodium 138 mmol/L (136-145); Total Bilirubin 0.5 mg/dL (0.15-1.2); Total Protein 6.8 g/dL (6.6-8.7)
[2020-02-11 12:11] LABS: INR 1.22 (0.8-1.2)
[2020-02-11] MEDS: piperacillin-tazobactam 3.375 GM in sodium chloride 0.9% (plus) 50 ML IV (12:38)
--- NOTE | 2020-02-11 12:40 | ECG_ITS ---
Measurements Intervals [place] Rate: 117 P: 69 [place]: 163 QRS: 155 QRSD: 147 T: -3 QT: 350 QTc: 490 SINUS TACHYCARDIA POSSIBLE LEFT ATRIAL ENLARGEMENT [-0.1mV P WAVE IN V1/V2] RIGHT BUNDLE BRANCH BLOCK [120+ ms QRS DURATION, UPRIGHT V1, 40+ ms S IN I/aV I/aVL/V4/V5/V6] LEFT POSTERIOR FASCICULAR BLOCK [QRS AXIS > 109, INFERIOR Q] INTERPRETATION BASED ON A DEFAULT AGE OF 40 YEARS Compared to ECG 01/31/2020 06:14:42 No significant changes Electronically Signed On 02-11-2020 21:02:16 CDT by Prasanth Mckee M.D. [email or web address]
[2020-02-11 13:04] LABS: Reflex Lactate Order REFLEX LACTIC ORDERD
[2020-02-11 14:45] LABS: Lactic Acid level (Lactate) 2.2 mmol/L (0.5-2.2)
[2020-02-11 14:49] LABS: Troponin 5 2HR 141.2 ng/L (0-15); Troponin 5 2HR Delta 45.2 ABS# (0-10)
--- NOTE | 2020-02-11 16:40 | ECG_ITS ---
Measurements Intervals [place] Rate: 98 P: 60 [place]: 185 QRS: 139 QRSD: 159 T: -16 QT: 399 QTc: 510 SINUS RHYTHM RIGHT BUNDLE BRANCH BLOCK [120+ ms QRS DURATION, UPRIGHT V1, 40+ ms S IN I/aVL/V4/V5/V6] LEFT POSTERIOR FASCICULAR BLOCK [QRS AXIS > 109, INFERIOR Q] Compared to ECG 01/31/2020 06:14:42 Sinus tachycardia no longer present Electronically Signed On 02-11-2020 21:03:25 CDT by Prasanth Mckee M.D. [email or web address]
[2020-02-11 17:58] LABS: Troponin 5 6HR 188.4 ng/L (0-15); Troponin 5 6HR Delta 92.4 ng/L (0-12)
--- NOTE | 2020-02-11 19:12 | PC.NURSE ---
notified Dr Bustillos of patient inability to urinate since leaving his home this am instructions received to bladder scan and call with results; results 661 ml in bladder orders received to placed rosenthal patient tolerated well and 500 mls return and tube clammed will unclamped in approx 15 to continue to draining bladder
[2020-02-11 19:36] LABS: Add Urine Microscopic? YES; Bilirubin Urine Neg (NEGATIVE); Blood Urine Trace (Negative); Glucose Urine UA 4+ (Normal); Ketones Urine Negative (Negative); Leukocyte Esterase Urine Negative (Negative); Nitrate Urine Negative (Negative); Protein Urine 3+ (Negative); Urine Appearance Hazy (CLEAR); Urine Color Yellow (Yellow); Urobilinogen Urine Norm (Negative); pH Urine 5 (5-7)
[2020-02-11 19:37] LABS: Add Urine Culture? No; Amorphous Sediment Urine 3+; Bacteria Urine 1+; RBC Urine 0-4 /hpf (0-2); Squamous Epithelial Cell Urine 0-4 (0-5); WBC Urine 0-4 /hpf (0-5)
--- NOTE | 2020-02-11 19:51 | PC.NURSE ---
Received report from Carmen Springer RN. Patient is on high flow NC at present. Patient is complaining that flow is too great. Placed called to Miriam RT. Miriam to come and adjust if able. Patient currently has SpO2 at 98-100%. No other distress observed.
[2020-02-11 20:12] LABS: ABG PCO2 32.2 mmHg (35-45); ABG PH Result 7.45 (7.35-7.45); Alveolar-Arterial Oxygen Gradi 79.9 mmHg (5-10); Arterial Blood Gas Hematocrit 42.4 % (42-52); Base Excess ABG -0.6 mmol/L (-2.0-2.0); Blood Gas Allen Test Pos; Blood Gas Sample Site Radial, left; Blood Gas Sample Type Arterial; Carboxyhemoglobin 0.3 %THgb (0.4-20.1); HCO3 ABG 22.6 mmol/L (22-26); HGB O2 Sat 95.9 % (95-100); Ionized Calcium Level - ABG 1.2 mmol/L (1.1-1.4); Methemoglobin 0.6 % (0.4-1.5); Oxygen Saturation ABG 96.8; PO2 ABG 92.4 mmHg (80.0-100.0); Potassium Level - ABG 5.1 mmol/L (3.5-5.0); Total Hemoglobin 13.8 g/dL (14-18)
--- NOTE | 2020-02-11 20:28 | PM.HP ---
Providers/Chief Complaint Admitting Physician: Shivani Bustillos MD Chief Complaint: RESPIRATORY DISTRESS History of Present Illness Agusto Crockett is a 59 year old male who presented to the emergency room after an episode of passing out today. I know him from prior admissions. He was diagnosed with interstitial lung disease in December of this year. He was started on home oxygen at that time. He has had repeated admissions with acute respiratory failure. He has been treated for pneumonia and CHF. Last hospitalized January 30 through February 03. At that admission he was started on prednisone 40 mg daily. He states he was feeling better and able to walk around his house without getting as short of breath. Yesterday he started getting more short of breath with exertion. Described orthopnea. Symptoms did not improve with breathing treatments. Today he had a syncopal episode. Landed on his right side and complains of some pain underneath the right rib cage. Oxygen saturations were around 80% when EMS arrived. It sounds like he may have lost some consciousness for a brief period of time or at least been lethargic. He was put on 10 L of oxygen with saturations happened around 90. Respirations were in the 30s and heart rate was elevated at 132. He received Solu-Medrol and I believe some IV fluid. On arrival to the emergency room, initial EKG was interpreted as atrial flutter. He was given some Cardizem and started on a Cardizem drip. X-ray showed severe interstitial changes throughout both lungs. No pleural effusion was noted. Blood gas was not done in the emergency room. He ultimately ended up being put on a nonrebreather to maintain oxygen saturations. In the emergency room he received nebulizer treatment and Zosyn in addition to the Cardizem. Blood sugars were quite elevated. It sounds like his sugars have been elevated for the last few days since prednisone was started. Troponin was elevated at 96. He has had troponin elevations ranging from 57-85 at prior admissions this year initially. 2-hour delta as though have been negative. 2-hour delta today was 45. He is being admitted for further evaluation and treatment. Does have a history of coronary artery disease with a right coronary artery stent placed in 2015. He had stress testing in June of last year that showed a pattern of scarring around the area of the RCA but a small reversible defect could not be ruled out. EKG portion of the stress testing was unremarkable. Echocardiogram was done in December of this year and showed an ejection fraction of 60%. He denies any chest pain prior to the syncopal episode. He did feel dizzy but does not really recall any palpitations. He has chronic kidney disease with a creatinine been ranging from a low of 1.4 to a high of 2.0 today. He is on diuretics at home every other day. He is chronically on aspirin, Plavix and beta-blockade. He has had recent indeterminant VQ scan. Review of Systems Const: Denies: fever(s), chills or change in appetite Eyes: Denies: change in vision ENMT: Denies: throat pain, dry mouth or nasal congestion Card: Reports: syncope; Denies: chest pain, palpitations or edema Resp: Reports: dyspnea, productive cough, non-productive cough, wheezing and pain on inspiration (Since the fall where he has the pain in his right ribs); Denies: change in phlegm color or hemoptysis GI: Denies: abdominal pain, nausea, vomiting, diarrhea or constipation : Reports: difficulty urinating Skin/Breast: Denies: rash or pruritus Neuro: Reports: weakness in extremities (General) and dizziness; Denies: headache(s) or numbness in extremities Psych: Reports: anxiety; Denies: depression Gonzales/Lymph: Denies: easy bruising or easy bleeding Medications/Allergies Home Medications Medication Instructions Recorded Confirmed Last Taken Type aspirin 81 mg tablet,delayed 81 mg PO DAILY 11/11/19 02/11/20 02/10/20 History release clopidogrel 75 mg tablet 75 mg PO DAILY 11/11/19 02/11/20 02/10/20 History metoprolol succinate 25 mg 25 mg PO DAILY #30 tab 11/11/19 02/11/20 Unknown Rx tablet,extended release 24 hr nitroglycerin 0.4 mg sublingual 0.4 mg SUBLINGUAL Q5M PRN 11/11/19 02/11/20 Unknown History tablet pregabalin 75 mg capsule 75 mg PO BID 11/11/19 02/11/20 02/10/20 History acetaminophen [Tylenol Extra 1,000 mg PO BID PRN 01/14/20 02/11/20 02/11/20 08:00 History Strength] cetirizine [Zyrtec] 10 mg PO DAILY PRN 01/14/20 02/11/20 01/29/20 09:00 History multivitamin [Multiple Vitamins] 2 tab PO DAILY 01/14/20 02/11/20 01/30/20 09:00 History Spiriva with HandiHaler 1 cap INHALATION DAILY #60 inh 01/16/20 02/11/20 02/10/20 Rx albuterol sulfate [ProAir HFA] 2 inh INHALATION QID PRN #8.5 gm 01/16/20 02/11/20 02/10/20 Rx blood sugar diagnostic #50 each 01/19/20 02/11/20 Unknown Rx blood-glucose meter #1 each 01/19/20 02/11/20 Unknown Rx cyclobenzaprine 10 mg tablet 10 mg PO TID PRN #30 tab 01/19/20 02/11/20 01/30/20 09:00 Rx pen needle, diabetic 31 gauge x #100 each 01/22/20 02/11/20 Unknown Rx 1/4 pen needle, diabetic 31 gauge x #100 each 01/22/20 02/11/20 Unknown Rx 5/16 oxygen #1 ea 01/28/20 02/11/20 Unknown Rx atovaquone [Mepron] 1,500 mg PO DAILY #210 ml 02/02/20 02/11/20 02/10/20 Rx prednisone 40 mg PO DAILY 30 Days #60 tab 02/03/20 02/11/20 02/10/20 Rx tamsulosin 0.4 mg PO DAILY 30 Days #30 cap 02/03/20 02/11/20 02/10/20 Rx Lantus Solostar U-100 Insulin 10 unit SUBCUT BID 02/11/20 02/11/20 02/11/20 History furosemide 40 mg PO EVERY OTHER DAY 02/11/20 02/11/20 02/10/20 History metformin See Rx Instructions .ROUTE .COMPLEX 02/11/20 02/11/20 02/09/20 History pantoprazole 40 mg PO DAILY PRN 02/11/20 02/11/20 Unknown History Allergies Allergy/AdvReac Type Severity Reaction Status Date / Time levofloxacin Allergy ALGY-Hives Verified 02/11/20 15:04 PFSH Acute PFSH: Medical History (Updated 02/11/20 @ 22:10 by Shivani Bustillos MD) CAD (coronary artery disease) RCA stent 2015, stress test 06/20 CHF (congestive heart failure) EF 01/19 EF 60% Chronic kidney disease (CKD) Diabetes mellitus History of kidney stones History of ST elevation myocardial infarction (STEMI) Hypertension Hypothyroid Interstitial lung disease Identified 01/2020, put on home oxygen, following with Dr Magallon, on steroids and PCP prophylaxis Ischemic cardiomyopathy Monoclonal gammopathy of unknown significance (MGUS) Neuropathy Pulmonary fibrosis Identified 01/2020, put on home oxygen, follwing with Dr Magaloln, on steroids and PCP propylaxis Sleep apnea Surgical History History of lithotripsy (~2015) History of partial amputation of toe of left foot History of ureter stent (~2015) Hx of angioplasty Family History Other Stroke Denies family history of Family history of premature coronary artery disease Social History Smoking and tobacco status: never smoked Second hand smoke exposure: No Alcohol intake: never Lives independently: Yes Household members: spouse Marital status: service: Yes Current occupational status: disabled History of recent travel: No Current gender identity: Male Special deanna needs: No Agree to transfusion: Yes Vitals/I&O/Wt Last Vital Signs Temp 98 F 02/11/20 20:00 Pulse 104 H 02/11/20 20:00 Resp 27 H 02/11/20 20:00 BP 141/79 02/11/20 20:00 Pulse Ox 98 02/11/20 20:00 02/11/20 02/11/20 02/11/20 06:59 14:59 22:59 Intake Total 50 / 50 120 / 170 Balance 50 / 50 120 / 170 Weight last 48 hrs Weight 81.647 kg Physical Exam Const: OTHER: Moderate distress but able to answer me in short sentences. Sitting upright in bed. HENMT: OTHER: Normocephalic atraumatic, mucous membranes are dry currently but he has been on a nonrebreather Eye: OTHER: Pupils equally round and reactive to light Neck/C-Spine: OTHER: Supple, unable to adequately assess for JVD secondary to respiratory symptoms presently Chest: OTHER: Chest wall is tender to palpation in the right lower ribs but no crepitus is noted Resp: OTHER: Tachypneic, some supraclavicular retractions noted, scattered rhonchi Cardio: OTHER: Tachycardic but regular rhythm, heart sounds are otherwise obscured by respiratory exam currently GI: OTHER: Abdomen soft, nontender : OTHER: Deferred Extremity: NARRATIVE EXTREMITY EXAM: 1+ edema Neuro: OTHER: Face symmetric, speech clear but slow secondary to breathing, moves all extremities Psych: OTHER: Flat affect, recognize me as soon as I came in Skin: OTHER: Skin is dry, patient's overall color is improved from the last time I saw him when he had a generalized dusky appearance Urinary Catheter Management^: Jesus: Cath Placed During This Visit: yes Reason for Continuing Indwelling Catheter: Acute Urinary Retention or Obstruction Urinary Catheter Date of Insertion: 02/11/20 Urinary Catheter Time of Insertion: 19:05 Data : 02/11/20 11:07 02/11/20 11:07 Micro: Microbiology 02/11/20 11:11 Blood Culture - Preliminary Blood SPECIMEN COLLECTED 02/11/20 11:07 Blood Culture - Preliminary Blood SPECIMEN COLLECTED A&P Assessment and plan (1) Acute dyspnea: Differential includes exacerbation interstitial lung disease, symptoms related to what may be atrial flutter noted on EKG initially, acute ischemic event, acute pulmonary congestion, pulmonary embolism. Chest x-ray did not show Status: Acute (2) Episode of syncope: This was the presenting complaint, along with dyspnea, with similar differential to above Status: Acute Qualifiers: Syncope type: unspecified Qualified Code(s): R55 - Syncope and collapse (3) Atrial flutter: Initial EKG interpretation for which patient was started on some diltiazem. He has right bundle branch block and a left anterior fascicular block chronically. While no P waves are visible this may be secondary to the degree of tachycardia initially. Second EKG shows sinus tachycardia with blocks as noted. Status: Acute Qualifiers: Atrial flutter type: unspecified Qualified Code(s): I48.92 - Unspecified atrial flutter (4) Acute non-ST elevation myocardial infarction (NSTEMI): With positive delta noted at 2 hours. 6-hour delta was in the 90s. This could be a type II process related to tachycardia and hypoxemia but this patient has a known history of coronary artery disease with prior RCA stent. Last stress testing was in June 2019. Last echocardiogram was last month. Complains of pain on the right rib cage area after a fall this evening but does not report other episodes of chest pain. Status: Acute (5) Acute exacerbation of CHF (congestive heart failure): Possible diagnosis at time of presentation. Ejection fraction was 60% with evidence of normal left ventricular size, systolic function and wall thickness. No regional wall motion abnormalities were identified. He also had normal diastolic dysfunction documented. Right atrial pressures were normal at 3 mmHg. He has had a elevation in BNP to as high as 13,388 when he was admitted on January 30. The lowest BNP for the last year is right at 1000. On multiple occasions, diuretic therapy has not significantly improved his respiratory status. He has had echocardiograms demonstrating an ejection fraction of 35% some years ago. Status: Acute Qualifiers: Heart failure type: unspecified Qualified Code(s): I50.9 - Heart failure, unspecified (6) Acute and chronic respiratory failure with hypoxia: Related to interstitial lung disease but there may be other factors at play. Last time he had a CTA of the chest was in January of last year where no PE was identified. Status: Acute (7) Interstitial lung disease: Identified by high resolution CT of the chest in December of this year. He was started on home oxygen and has follow-up with Dr. Magallon. He had a mildly positive rheumatoid factor. 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 He was started on steroids this month and is on PCP prophylaxis with atovaquone. Requiring increasing amounts of oxygen. Status: Chronic (8) Chronic kidney disease (CKD): Likely with a degree of acute kidney injury currently although I am not sure exactly what his current baseline is given the recurrent acute events. Status: Chronic Qualifiers: Chronic kidney disease stage: stage 3 (moderate) Qualified Code(s): N18.3 - Chronic kidney disease, stage 3 (moderate) (9) CAD (coronary artery disease): RCA stent in 2016. Chronically on aspirin, Plavix, beta-blockade Status: Chronic Qualifiers: Coronary Disease-Associated Artery/Lesion type: [place] artery [place] vs. transplanted heart: [place] heart Associated angina: angina presence unspecified Qualified Code(s): I25.10 - Atherosclerotic heart disease of [place] coronary artery without angina pectoris (10) Diabetes mellitus: Currently with hyperglycemia felt related to steroids. Blood sugars have been difficult to control at home. Hemoglobin A1c was 7.7 in October of this year. Status: Chronic Qualifiers: Diabetes mellitus type: type 2 Diabetes mellitus group home insulin use: with group home use Diabetes mellitus complication status: with neurologic complications Diabetes mellitus complication detail: with polyneuropathy Qualified Code(s): E11.42 - Type 2 diabetes mellitus with diabetic polyneuropathy; Z79.4 - intermediate card tender (current) use of insulin Additional A&P Information Elevated lactic acid felt secondary to hypoxemia presently Normocytic anemia Diabetic foot ulcer to left foot Inpatient admission We will give 1 dose of IV Lasix Jesus catheter for close monitoring of urine output Flomax is a chronic medication Continue breathing treatments Add inhaled steroids Continue oral prednisone Respiratory therapy to assess and treat Consider consultation with Dr. Magallon tomorrow Trial of high flow oxygen, monitor for need for BiPAP Continue home aspirin, Plavix, beta-blockade Lovenox treatment dose, which will cover for the possibility of PE and acute ischemia Cardiology consultation with Dr. Kaur Continue home Lyrica Monitor renal function Supportive care otherwise Full code Attestations Medical Necessity Statement*: Anticipated stay greater than 2 midnights in this gentleman presenting with syncopal episode and other issues as noted above. He has had recurrent hospitalizations lately despite improved compliance with management. He has multiple significant comorbid conditions and is at high risk of rapid clinical decline. 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 transplanted heart: [place] heart Associated angina: angina presence unspecified Diabetes mellitus E11.42; Z79.4 Diabetes mellitus type: type 2 Diabetes mellitus group home insulin use: with group home use Diabetes mellitus complication status: with neurologic complications Diabetes mellitus complication detail: with polyneuropathy
[2020-02-11] MEDS: ipratropium-albuterol 3 mL Neb INHALATION (20:36)
[2020-02-11 21:15] LABS: Glucose Point of Care 534 mg/dL (70-110)
--- NOTE | 2020-02-11 21:46 | PC.NURSE ---
Received phone call from Dr Bustillos requesting patient to have a one time dose of Lasix 40mg IVP now. Order read back and confirmed.
[2020-02-11] MEDS: insulin glargine 100 units/1 mL 10 UNIT SUBCUT (22:06)
[2020-02-11] MEDS: FUROsemide 10 mg/mL SDV 4mL 40 MG IVP (22:08)
[2020-02-11] MEDS: enoxaparin 80 mg/0.8 mL Syringe SUBCUT (22:08)
[2020-02-11] MEDS: morphine 4 mg/mL SDV 1 mL 2 MG IVP (22:30)
[2020-02-11] MEDS: diphenhydrAMINE 25 mg Capsule PO (22:30)
--- NOTE | 2020-02-11 22:37 | PC.NURSE ---
Patient blood sugar at bedtime was 534. Informed Dr Ramirez and received order for sliding scale insulin which was given as ordered.
[2020-02-12] VITALS (14 sets, daily range): BP systolic 102–136; BP diastolic 66–89; PULSE 93–107; RESP 6–24; TEMP 36.4–36.8; O2SAT 93–99
--- NOTE | 2020-02-12 03:22 | PC.NURSE ---
Patient current heart rate sustaining mid 80s in NSR. Stopped Cardizem gtt at this time.
[2020-02-12 05:16] LABS: Basophils % 0.1 %; Hematocrit 32.8 % (42.0-52.0); Hemoglobin 10.3 g/dL (11.7-16.6); Lymphocytes # 0.6 10^3/uL (0.8-4.8); Lymphocytes % 4.4 %; Mean Corpuscular HGB Conc 31.4 g/dL (30.0-36.0); Mean Corpuscular Hemoglobin 28.2 pg (28.0-34.0); Mean Corpuscular Volume 89.9 fL (80-94); Mean Platelet Volume 10.6 fL (7.4-10.4); Monocytes # 0.7 10^3/uL (0.2-0.9); Monocytes % 5.5 %; Neutrophils # 11.1 10^3/uL (1.8-7.7); Neutrophils % 89.4 %; Nucleated Red Blood Cells % 0 %; Platelet Count 303 10^3/cmm (130-400); Red Blood Count 3.65 10^6/uL (4.1-5.3); White Blood Count 12.4 10^3/uL (4.0-10.0)
[2020-02-12 05:43] LABS: Alanine Aminotransferase 11 U/L (0-41); Alkaline Phosphatase 90 IU/L (40-130); Anion Gap 15.5 (5-19); Aspartate Amino Transferase 14 U/L (0-40); Blood Urea Nitrogen 56 mg/dL (6-20); Calcium 9.7 mg/dL (8.5-10.5); Carbon Dioxide 25 mmol/L (22-29); Chloride 101 mmol/L (98-107); Globulin 4.1 g/dL (1.3-4.6); Glomerular Filtration Rate 38.8 mL/min (90-130); Glucose 263 mg/dL (65-115); Magnesium 2.7 mg/dL (1.7-2.3); Osmolality Calculated 292 mOsm/kg (285-295); Phosphorus 4.1 mg/dL (2.5-4.5); Potassium 4.5 mmol/L (3.5-5.1); Sodium 137 mmol/L (136-145); Total Bilirubin 0.3 mg/dL (0.15-1.2); Total Protein 7.1 g/dL (6.6-8.7)
[2020-02-12 05:51] LABS: Chol HDL Ratio 3.75 mg/dL (1.0-5.00); Cholesterol 180 mg/dL (0-200); HDL Cholesterol 48 mg/dL (60-100); LDL Cholesterol Calculated 112 mg/dL (50-129); LDL HDL Ratio 2.33 RATIO (0.00-3.22); Triglycerides 98 mg/dL (0-150)
[2020-02-12 06:19] LABS: Glucose Point of Care 250 mg/dL (70-110)
[2020-02-12] MEDS: insulin glargine 100 units/1 mL 10 UNIT SUBCUT ×2 (08:17→21:01)
[2020-02-12] MEDS: tamsulosin 0.4 mg Capsule PO (08:18)
[2020-02-12] MEDS: aspirin 81 mg EC Tablet PO (08:18)
[2020-02-12] MEDS: clopidogrel 75 mg Tablet PO (08:18)
[2020-02-12] MEDS: metoprolol succinate ER (24 HR) 25 mg Tablet PO (08:18)
[2020-02-12] MEDS: predniSONE 20 mg Tablet 40 MG PO (08:18)
--- NOTE | 2020-02-12 09:22 | PC.CHAP ---
Pastoral Care Encounter/Spiritual Assessment Type of Contact [] Declined apprentice cook visit [] Patient/Family/Request visit [] Outpatient visit [] Follow-up visit [] Physician referral [] Code/Alert [x] Routine visit [] Staff referral [] Actively dying [] Patient sleeping [] Family support [] [] Out of room [] Palliative care [] [] Receiving care in room [] Pre-surgical visit [] Trauma [] Long length of stay [] ICU visit [] Other: Relational/Emotional Strength [] Patient feels connected with others/family/visitors/staff [] Distress [] Loneliness/isolation [] Abandonment Spirituality of Patient [] Person of Darline [] Attends Gnosticist of their Darline [] Believes in Prayer [] Reads Bible or Faith materials [] There are Spiritual issues to be addressed Performance Makeup Artist Interventions [x] Prayer [] Active listening [] Non-anxious presence [] Spiritual/emotional support [] Crisis/trauma care [] Spiritual counseling [] Bereavement support [] Provided bereavement packet [] Provided Bible/devotional materials [] Provided toy/stuffed animal, coloring book to patient or family member [] Provided Communion [] Anointing/[place] [] Salvation [x] Completed spiritual assessment [] Other: Impact on Illness or Injury [] Angry [] Fearful [] Anxious [] Often cries [] Exhaustion [] Unable to work [] Unable to attend restoration [] Unable to walk/stand [] Unable to read [] Unable to drive [] Unable to eat/drink [] Unable to sleep [] Unable to be with family [] Patient intubated [] Other: Summary Patient resting well Time spent with patient 10 min
[2020-02-12] MEDS: budesonide 0.5 mg/2 mL Neb INHALATION ×2 (09:25→19:22)
--- NOTE | 2020-02-12 10:00 | ECG_ITS ---
Measurements Intervals [place] Rate: 99 P: 40 KS: 171 QRS: 54 QRSD: 153 T: -1 QT: 416 QTc: 534 SINUS RHYTHM POSSIBLE LEFT ATRIAL ENLARGEMENT [-0.1mV P WAVE IN V1/V2] INDETERMINATE AXIS RIGHT BUNDLE BRANCH BLOCK [120+ ms QRS DURATION, UPRIGHT V1, 40+ ms S IN I/aVL/V4/V5/V6] POSSIBLE ANTERIOR MYOCARDIAL INFARCTION [30 ms Q WAVE IN V3/V4, OR R < 0.2 mV IN V4], OF INDETERMINATE AGE Compared to ECG 02/11/2020 16:41:30 Indeterminate axis now present Myocardial infarct finding now present Left posterior fascicular block no longer present Electronically Signed On 02-13-2020 15:19:24 CDT by Prasanth Mckee M.D. [email or web address]
[2020-02-12] MEDS: acetaminophen 325 mg Tablet 650 MG PO (10:25)
[2020-02-12] MEDS: cyclobenzaprine 10 mg Tablet PO ×2 (10:25→21:01)
--- NOTE | 2020-02-12 11:23 | PC.NURSE ---
Med refusal Pt stated he is not taking Lyrica for about 3 days. When asked, what was the reason, he said it made him depressed? He would like to wait. Discuss to pt that we have to talk to the doctor before stopping meds.
--- NOTE | 2020-02-12 11:31 | PC.NURSE ---
Home med Mepron not available Pt stated he had not taken the medication yesterday. I asked the pt that we need to contact someone to provide us the home med since our inpt pharmacy does not carry it here. He said to call his Haylee [phone] as provided. Called and does not have a voicemail set-up. We will try to call again.
--- NOTE | 2020-02-12 11:47 | PC.RESP ---
Pulmonary Rehab information sent to patient
--- NOTE | 2020-02-12 12:07 | P.CONIM_ITS ---
Providers/Reason For Consult Consulting Physican/Specialty*: Cardiology Reason for Consult*: Syncope CHF Attending Physician: Shivani Bustillos MD History of Present Illness History of Present Illness Agusto Crockett is a 59 year old male patient of Dr. Eugene Wells past medical history significant for ischemic cardiomyopathy history of stent to RCA diastolic heart failure, interstitial pulmonary fibrosis on home oxygen chronic kidney disease stage IV baseline creatinine 1.8 with GFR of 33 hypertension hyperlipidemia presented with syncope according to the patient he stands up to walk and lost consciousness fell down he immediately regained it. It is the reason he was brought in to ER. He had abnormal cardiac markers but denies any chest pain. He was struggling with some shortness of breath started on prednisone antibiotics and nebulized treatment. Patient was also noted to be in atrial flutter with rapid ventricle response IV fluid was given and Cardizem was started he converted back into sinus rhythm. Currently denies PND orthopnea. He thinks shortness of breath is getting better. He denies fever chills and sputum. Review of Systems General: Reports: 10 or more systems reviewed and unremarkable except in HPI and below Const: Denies: fever(s), chills or change in appetite Eyes: Denies: change in vision ENMT: Denies: throat pain, dry mouth or nasal congestion Card: Reports: syncope; Denies: chest pain, palpitations or edema Resp: Reports: dyspnea, productive cough, non-productive cough, wheezing and pain on inspiration (Since the fall where he has the pain in his right ribs); Denies: change in phlegm color or hemoptysis GI: Denies: abdominal pain, nausea, vomiting, diarrhea or constipation : Reports: difficulty urinating Skin/Breast: Denies: rash or pruritus Neuro: Reports: weakness in extremities (General) and dizziness; Denies: headache(s) or numbness in extremities Psych: Reports: anxiety; Denies: depression Gonzales/Lymph: Denies: easy bruising or easy bleeding Meds/Allergies Home Medications and Allergies Home Medications Medication Instructions Recorded Confirmed Last Taken Type aspirin 81 mg tablet,delayed 81 mg PO DAILY 11/11/19 02/11/20 02/10/20 History release clopidogrel 75 mg tablet 75 mg PO DAILY 11/11/19 02/11/20 02/10/20 History metoprolol succinate 25 mg 25 mg PO DAILY #30 tab 11/11/19 02/11/20 Unknown Rx tablet,extended release 24 hr nitroglycerin 0.4 mg sublingual 0.4 mg SUBLINGUAL Q5M PRN 11/11/19 02/11/20 Unknown History tablet pregabalin 75 mg capsule 75 mg PO BID 11/11/19 02/11/20 02/10/20 History acetaminophen [Tylenol Extra 1,000 mg PO BID PRN 01/14/20 02/11/20 02/11/20 08:00 History Strength] cetirizine [Zyrtec] 10 mg PO DAILY PRN 01/14/20 02/11/20 01/29/20 09:00 History multivitamin [Multiple Vitamins] 2 tab PO DAILY 01/14/20 02/11/20 01/30/20 09:00 History Spiriva with HandiHaler 1 cap INHALATION DAILY #60 inh 01/16/20 02/11/20 02/10/20 Rx albuterol sulfate [ProAir HFA] 2 inh INHALATION QID PRN #8.5 gm 01/16/20 02/11/20 02/10/20 Rx blood sugar diagnostic #50 each 01/19/20 02/11/20 Unknown Rx blood-glucose meter #1 each 01/19/20 02/11/20 Unknown Rx cyclobenzaprine 10 mg tablet 10 mg PO TID PRN #30 tab 01/19/20 02/11/20 01/30/20 09:00 Rx pen needle, diabetic 31 gauge x #100 each 01/22/20 02/11/20 Unknown Rx 1/4 pen needle, diabetic 31 gauge x #100 each 01/22/20 02/11/20 Unknown Rx 5/16 oxygen #1 ea 01/28/20 02/11/20 Unknown Rx atovaquone [Mepron] 1,500 mg PO DAILY #210 ml 02/02/20 02/11/20 02/10/20 Rx prednisone 40 mg PO DAILY 30 Days #60 tab 02/03/20 02/11/20 02/10/20 Rx tamsulosin 0.4 mg PO DAILY 30 Days #30 cap 02/03/20 02/11/20 02/10/20 Rx Lantus Solostar U-100 Insulin 10 unit SUBCUT BID 02/11/20 02/11/20 02/11/20 History furosemide 40 mg PO EVERY OTHER DAY 02/11/20 02/11/20 02/10/20 History metformin See Rx Instructions .ROUTE .COMPLEX 02/11/20 02/11/20 02/09/20 History pantoprazole 40 mg PO DAILY PRN 02/11/20 02/11/20 Unknown History Allergies Allergy/AdvReac Type Severity Reaction Status Date / Time levofloxacin Allergy ALGY-Hives Verified 02/11/20 15:04 Current Medications Current Medications Generic Name Dose Route Start Last Admin Trade Name Freq PRN Reason Stop Dose Admin Acetaminophen 650 mg 02/11/20 15:45 02/12/20 10:25 Tylenol PO 650 mg Q6H PRN Administration Mild/Mod Pain Or Temp >/= 101 Albuterol Sulfate 2.5 mg 02/11/20 20:41 02/12/20 09:25 Albuterol INHALATION 2.5 mg Q4H.RESPIRATORY PRN Administration SHORTNESS OF BREATH Aspirin 81 mg 02/12/20 09:00 02/12/20 08:18 Aspirin Ec PO 81 mg DAILY SHAYNA Administration Budesonide 0.5 mg 02/12/20 08:00 02/12/20 09:25 Pulmicort INHALATION 0.5 mg BID.RESPIRATORY SHAYNA Administration Clopidogrel Bisulfate 75 mg 02/12/20 09:00 02/12/20 08:18 Plavix PO 75 mg DAILY SHAYNA Administration Cyclobenzaprine HCl 10 mg 02/11/20 20:35 02/12/20 10:25 Flexeril PO 10 mg TID PRN Administration muscle spasm Enoxaparin Sodium 80 mg 02/11/20 20:45 02/11/20 22:08 Lovenox SUBCUT 80 mg Q24H SHAYNA Administration Diltiazem HCl 125 mg/ Sodium 125 mls @ 0 mls/hr 02/11/20 11:00 02/12/20 03:23 Chloride IV 0 mg/hr .Q0M SHAYNA 0 mls/hr Titration Protocol Per Protocol Insulin Aspart 0 unit 02/11/20 22:20 02/12/20 08:18 Novolog SUBCUT 8 unit WM&BEDTIME SHAYNA Administration Protocol Insulin Glargine 10 unit 02/12/20 08:00 02/12/20 08:17 Lantus SUBCUT 10 unit BID@,20 SHAYNA Administration Metoprolol Succinate 25 mg 02/12/20 09:00 02/12/20 08:18 Toprol Xl PO 25 mg DAILY SHAYNA Administration Morphine Sulfate 2 mg 02/11/20 15:45 02/11/20 22:30 Morphine IVP 2 mg Q4H PRN Administration SEVERE PAIN Non-Formulary Medication 1,500 mg 02/12/20 09:00 02/12/20 11:35 Atovaquone [Mepron] PO Not Given DAILY SHAYNA Prednisone 40 mg 02/12/20 09:00 02/12/20 08:18 Prednisone PO 40 mg DAILY SHAYNA Administration Pregabalin 75 mg 02/12/20 09:00 02/12/20 10:20 Lyrica PO Not Given BID SHAYNA Tamsulosin HCl 0.4 mg 02/12/20 09:00 02/12/20 08:18 Flomax PO 0.4 mg DAILY SHAYNA Administration Tiotropium [place] 18 mcg 02/12/20 09:00 02/12/20 09:26 Spiriva INHALATION 1 puff DAILY SHAYNA Administration PFSH Acute PFSH: Medical History (Updated 02/12/20 @ 16:23 by Odalis Kaur MD) CAD (coronary artery disease) RCA stent 2015, stress test 06/20 CHF (congestive heart failure) Chronic kidney disease (CKD) Diabetes mellitus History of kidney stones History of ST elevation myocardial infarction (STEMI) Hypertension Hypothyroid Interstitial lung disease Identified 01/2020, put on home oxygen, following with Dr Magallon, on steroids and PCP prophylaxis Ischemic cardiomyopathy Monoclonal gammopathy of unknown significance (MGUS) Neuropathy Pulmonary fibrosis Identified 01/2020, put on home oxygen, follwing with Dr Magallon, on steroids and PCP propylaxis Sleep apnea Surgical History History of lithotripsy (~2015) History of partial amputation of toe of left foot History of ureter stent (~2015) Hx of angioplasty Family History Other Stroke Denies family history of Family history of premature coronary artery disease Social History Smoking and tobacco status: never smoked Second hand smoke exposure: No Alcohol intake: never Lives independently: Yes Household members: spouse Marital status: service: Yes Current occupational status: disabled History of recent travel: No Current gender identity: Male Special deanna needs: No Agree to transfusion: Yes Dietary Habits: Current diet type/program: regular Caffeine: No Vitals/I&O/Wt Last Vital Signs Temp 97.5 F L 02/12/20 08:00 Pulse 93 02/12/20 09:47 Resp 20 H 02/12/20 09:47 BP 126/79 02/12/20 08:00 Pulse Ox 97 02/12/20 09:47 02/11/20 02/12/20 02/12/20 22:59 06:59 14:59 Intake Total 120 / 170 280.666 / 450.666 Output Total 800 / 800 1175 / 1975 Balance -680 / -630 -894.334 / -1524.334 Weight last 48 hrs Weight 180 lb Physical Exam Narrative: EXAM NARRATIVE: GENERAL: Patient is alert, awake and oriented x3. NECK: No jugular vein distension. HEENT: No cyanosis. No icterus. No pallor. HEART: Regular S1 and S2. No murmur, rub or gallop. LUNGS: Inspiratory crackles with reduced breath sound bilaterally. ABDOMEN: Soft, nontender and nondistended. Positive bowel sounds. No guarding, rebound or tenderness. CENTRAL NERVOUS SYSTEM: Grossly nonfocal. EXTREMITIES: Lower extremities without edema bilaterally. Urinary Catheter Management^: Jesus: Cath Placed During This Visit: yes Reason for Continuing Indwelling Catheter: Acute Urinary Retention or Obstruction Urinary Catheter Date of Insertion: 02/11/20 Urinary Catheter Time of Insertion: 19:05 Data Labs: Other Labs: SINUS RHYTHM POSSIBLE LEFT ATRIAL ENLARGEMENT [-0.1mV P WAVE IN V1/V2] INDETERMINATE AXIS RIGHT BUNDLE BRANCH BLOCK [120+ ms QRS DURATION, UPRIGHT V1, 40+ ms S IN I/aVL/V4/V5/V6] POSSIBLE ANTERIOR MYOCARDIAL INFARCTION [30 ms Q WAVE IN V3/V4, OR R < 0.2 mV IN V4], OF INDETERMINATE AGE Compared to ECG 02/11/2020 16:41:30 Indeterminate axis now present Myocardial infarct finding now present Left posterior fascicular block no longer present Micro: Micro: Microbiology 02/11/20 11:11 Blood Culture - Pr eliminary Blood NEGATIVE TO SYLVESTER E 02/11/20 11:07 Blood Culture - Pr eliminary Blood NEGATIVE TO SYLVESTER E A&P Assessment and plan (1) Episode of syncope: Most likely due to dehydration and vagal in nature. I will hold diuretics Status: Acute Qualifiers: Syncope type: unspecified Qualified Code(s): R55 - Syncope and collapse (2) Interstitial lung disease: Patient is on antibiotic and prednisone for COPD exacerbation/interstitial pulmonary fibrosis continue oxygen as per medicine Status: Chronic (3) Atrial flutter: Currently patient is in sinus rhythm. Continue p.o. metoprolol. Status: Acute Qualifiers: Atrial flutter type: unspecified Qualified Code(s): I48.92 - Unspecified atrial flutter (4) CAD (coronary artery disease): Stable from coronary disease perspective bump in troponin could be due to type II demand ischemia secondary to demand ischemia Status: Chronic Qualifiers: Coronary Disease-Associated Artery/Lesion type: [place] artery [place] vs. transplanted heart: [place] heart Associated angina: angina presence unspecified Qualified Code(s): I25.10 - Atherosclerotic heart disease of [place] coronary artery without angina pectoris (5) Chronic kidney disease (CKD): Stable at 1.8. Patient has chronic kidney disease stage IV continue to monitor Status: Chronic Qualifiers: Chronic kidney disease stage: stage 3 (moderate) Qualified Code(s): N18.3 - Chronic kidney disease, stage 3 (moderate) (6) CHF (congestive heart failure): Currently appears to be compensated state of heart failure BNP could be due to interstitial pulmonary disease and atrial stretch secondary pulmonary hypertension. At this point I will hold diuretics Status: Chronic Qualifiers: Heart failure type: unspecified Heart failure chronicity: acute on chronic Qualified Code(s): I50.9 - Heart failure, unspecified Coding Level of Care Code New Pt Acute Rocket Motor Tester for g Fwd Patient Type New History Detailed Exam Detailed Medical Decision Making Moderate Complexity Diagnoses Episode of syncope R55 Syncope type: unspecified Interstitial lung disease J84.9 Atrial flutter I48.92 Atrial flutter type: unspecified CAD (coronary artery disease) I25.10 Coronary Disease-Associated Artery/Lesion type: [place] artery [place] vs. transplanted heart: [place] heart Associated angina: angina presence unspecified Chronic kidney disease (CKD) N18.3 Chronic kidney disease stage: stage 3 (moderate) CHF (congestive heart failure) I50.9 Heart failure type: unspecified Heart failure chronicity: acute on chronic
[2020-02-12 12:09] LABS: Glucose Point of Care 200 mg/dL (70-110)
--- NOTE | 2020-02-12 17:00 | PC.NURSE ---
Called Got a hold of pt's and talked to her regarding pt's one of his home medication which is Mepron that was Rx from pulmunologist. She stated she will bring it as soon as she get back home.
[2020-02-12 17:06] LABS: Glucose Point of Care 252 mg/dL (70-110)
--- NOTE | 2020-02-12 17:56 | P.PN_ITS ---
Subjective Subjective: Interval history: Breathing better today. Right-sided chest wall not as tender. Still requiring high flow oxygen. Approximately 2000 ml urine output. Appreciate cardiology consultation. Dr. Kaur felt that syncope was likely related to dehydration and recommended holding diuretics at this time. Troponin elevation felt to be due to demand ischemia elevated BNP may be related to atrial stretch secondary to pulmonary hypertension. Again reviewed records from this year. He was on Lasix 40 twice daily in December when he saw Dr. Wells. At discharge in December when I last cared for him this was changed to daily dosing. At discharge a few days ago, Lasix was decreased to every other day dosing. Vitals/I&O/Wt Last Vital Signs Temp 97.5 F L 02/12/20 12:37 Pulse 101 H 02/12/20 14:55 Resp 20 H 02/12/20 14:55 BP 122/77 02/12/20 12:37 Pulse Ox 98 02/12/20 14:55 02/12/20 02/12/20 02/12/20 06:59 14:59 22:59 Intake Total 280.666 / 450.666 118 / 118 Output Total 1175 / 1975 Balance -894.334 / -1524.334 118 / 118 Weight last 48 hrs Weight 81.647 kg Physical Exam Const: OTHER: Moderate distress but able to answer me in short sentences. Sitting upright in bed. HENMT: OTHER: Normocephalic atraumatic, mucous membranes are dry currently but he has been on a nonrebreather Eye: OTHER: Pupils equally round and reactive to light Neck/C-Spine: OTHER: Supple, unable to adequately assess for JVD secondary to respiratory symptoms presently Chest: OTHER: Chest wall is tender to palpation in the right lower ribs but no crepitus is noted Resp: OTHER: Tachypneic, some supraclavicular retractions noted, scattered rhonchi Cardio: OTHER: Tachycardic but regular rhythm, heart sounds are otherwise obscured by respiratory exam currently GI: OTHER: Abdomen soft, nontender : OTHER: Deferred Extremity: NARRATIVE EXTREMITY EXAM: 1+ edema Neuro: OTHER: Face symmetric, speech clear but slow secondary to breathing, moves all extremities Psych: OTHER: Flat affect, recognize me as soon as I came in Skin: OTHER: Skin is dry, patient's overall color is improved from the last time I saw him when he had a generalized dusky appearance Urinary Catheter Management^: Jesus: Cath Placed During This Visit: yes Reason for Continuing Indwelling Catheter: Acute Urinary Retention or Obstruction Urinary Catheter Date of Insertion: 02/11/20 Urinary Catheter Time of Insertion: 19:05 Data : 02/12/20 04:03 02/12/20 04:03 Micro: Microbiology 02/11/20 11:11 Blood Culture - Preliminary Blood NEGATIVE TO DATE 02/11/20 11:07 Blood Culture - Preliminary Blood NEGATIVE TO DATE A&P Assessment and plan (1) Acute dyspnea: Differential includes exacerbation interstitial lung disease, symptoms related to what may be atrial flutter noted on EKG initially, acute ischemic event, acute pulmonary congestion, pulmonary embolism. Chest x-ray did not show significant pulmonary congestion or effusions. Status: Acute (2) Episode of syncope: This was the presenting complaint, along with dyspnea, with similar differential to above. Patient and vasovagal event are another consideration. Status: Acute Qualifiers: Syncope type: unspecified Qualified Code(s): R55 - Syncope and collapse (3) Atrial flutter: Initial EKG interpretation for which patient was started on some diltiazem. He has right bundle branch block and a left anterior fascicular block chronically. While no P waves are visible this may be secondary to the degree of tachycardia initially. Second EKG shows sinus tachycardia with blocks as noted. Status: Acute Qualifiers: Atrial flutter type: unspecified Qualified Code(s): I48.92 - Unspecified atrial flutter (4) Acute non-ST elevation myocardial infarction (NSTEMI): With positive delta noted at 2 hours. 6-hour delta was in the 90s. Currently suspected to be due to demand ischemia from syncope, tachycardia, hypoxemia. Status: Acute (5) Acute exacerbation of CHF (congestive heart failure): Possible diagnosis at time of presentation. Ejection fraction was 60% with evidence of normal left ventricular size, systolic function and wall thickness. No regional wall motion abnormalities were identified. He also had normal diastolic dysfunction documented. Right atrial pressures were normal at 3 mmHg. He has had a elevation in BNP to as high as 13,388 when he was admitted on January 30. The lowest BNP for the last year is right at 1000. On multiple occasions, diuretic therapy has not significantly improved his respiratory status. That said he has had decreasing doses of Lasix over the last 2 months so has to be kept in mind. He has had echocardiograms demonstrating an ejection fraction of 35% some years ago. Status: Acute Qualifiers: Heart failure type: unspecified Qualified Code(s): I50.9 - Heart failure, unspecified (6) Acute and chronic respiratory failure with hypoxia: Related to interstitial lung disease but there may be other factors at play. Last time he had a CTA of the chest was in January of last year where no PE was identified. Renal function precludes CTA and respiratory status limit utility of a VQ scan. Status: Acute (7) Interstitial lung disease: Identified by high resolution CT of the chest in December of this year. He was started on home oxygen and has follow-up with Dr. Magallon. He had a mildly positive rheumatoid factor. 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 He was started on steroids this month and is on PCP prophylaxis with atovaquone. Requiring increasing amounts of oxygen. Status: Chronic (8) Chronic kidney disease (CKD): Likely with a degree of acute kidney injury currently although I am not sure exactly what his current baseline is given the recurrent acute events. Status: Chronic Qualifiers: Chronic kidney disease stage: stage 3 (moderate) Qualified Code(s): N18.3 - Chronic kidney disease, stage 3 (moderate) (9) CAD (coronary artery disease): RCA stent in 2016. Chronically on aspirin, Plavix, beta-blockade Status: Chronic Qualifiers: Coronary Disease-Associated Artery/Lesion type: [place] artery [place] vs. transplanted heart: [place] heart Associated angina: angina presence unspecified Qualified Code(s): I25.10 - Atherosclerotic heart disease of [place] coronary artery without angina pectoris (10) Diabetes mellitus: Currently with hyperglycemia felt related to steroids. Blood sugars have been difficult to control at home. Hemoglobin A1c was 7.7 in October of this year. 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 Patient has not had a sleep study though it has been ordered a couple of times. Hold additional Lasix for now Add daily weights and strict I's and O's Consider consultation with Dr. Magallon or at the least close follow-up after discharge Continue Jesus catheter for close monitoring of urine output Flomax is a chronic medication Adjust insulin therapy Continue home aspirin, Plavix, beta-blockade Continue Lovenox treatment dose for now, be worthwhile to consider keeping on treatment to see if has any clinical improvement so long as he does not have any adverse effects from it Recheck hemoglobin in the morning Continue home Lyrica Monitor renal function for worsening Supportive care otherwise Depending on how he does will consult physical therapy tomorrow Full code Attestations Medical Necessity Statement*: Requires ongoing inpatient stay for continued management as noted above. At high risk of rapid clinical decline and respiratory compromise. Coding Level of Care Code Acute Corn Crop Supervisor for [facility] Román Diagnoses Acute dyspnea R06.00 Episode of syncope R55 Syncope type: unspecified Atrial flutter I48.92 Atrial flutter type: unspecified Acute non-ST elevation myocardial infarction (NSTEMI) I21.4 Acute exacerbation of CHF (congestive heart failure) I50.9 Heart failure type: unspecified Acute and chronic respiratory failure with hypoxia J96.21 Interstitial lung disease J84.9 Chronic kidney disease (CKD) N18.3 Chronic kidney disease stage: stage 3 (moderate) CAD (coronary artery disease) I25.10 Coronary Disease-Associated Artery/Lesion type: [place] artery [place] vs. transplanted heart: [place] heart Associated angina: angina presence unspecified Diabetes mellitus E11.42; Z79.4 Diabetes mellitus type: type 2 Diabetes mellitus alf insulin use: with long term care phlebotomist use Diabetes mellitus complication status: with neurologic complications Diabetes mellitus complication detail: with polyneuropathy Dyslipidemia E78.5
[2020-02-12] MEDS: pregabalin 75 mg Capsule PO (18:15)
[2020-02-12 20:51] LABS: Glucose Point of Care 382 mg/dL (70-110)
[2020-02-12] MEDS: enoxaparin 80 mg/0.8 mL Syringe SUBCUT (21:01)
[2020-02-12] MEDS: diphenhydrAMINE 25 mg Capsule PO (22:37)
[2020-02-13] VITALS (13 sets, daily range): BP systolic 102–128; BP diastolic 57–83; PULSE 89–109; RESP 14–28; TEMP 36.5–36.6; O2SAT 85–99
--- NOTE | 2020-02-13 00:53 | PC.NURSE ---
Patient rounded on and assessment preformed. Patient denied any complaints and trying to go back to sleep when I walked in. Will continue to monitor.
--- NOTE | 2020-02-13 05:45 | PC.NURSE ---
End of shift: Patient has rested well. Patient states that Benadryl at bedtime really helps him sleep well. Patient remains on hi flow and alert and oriented. Patient vitals are stable. Will continue to monitor.
[2020-02-13 06:14] LABS: Glucose Point of Care 135 mg/dL (70-110)
[2020-02-13] MEDS: insulin glargine 100 units/1 mL 10 UNIT SUBCUT ×2 (08:31→20:39)
[2020-02-13] MEDS: tamsulosin 0.4 mg Capsule PO (08:33)
[2020-02-13] MEDS: pregabalin 75 mg Capsule PO ×2 (08:33→17:02)
[2020-02-13] MEDS: metoprolol succinate ER (24 HR) 25 mg Tablet PO (08:33)
[2020-02-13] MEDS: FUROsemide 40 mg Tablet PO (08:33)
[2020-02-13] MEDS: predniSONE 20 mg Tablet 40 MG PO (08:33)
[2020-02-13] MEDS: clopidogrel 75 mg Tablet PO (08:33)
[2020-02-13] MEDS: aspirin 81 mg EC Tablet PO (08:33)
[2020-02-13] MEDS: budesonide 0.5 mg/2 mL Neb INHALATION ×2 (08:49→20:28)
[2020-02-13 09:16] LABS: Anion Gap 14.9 (5-19); Blood Urea Nitrogen 58 mg/dL (6-20); Calcium 9.6 mg/dL (8.5-10.5); Carbon Dioxide 26 mmol/L (22-29); Chloride 101 mmol/L (98-107); Glomerular Filtration Rate 41.5 mL/min (90-130); Glucose 205 mg/dL (65-115); Osmolality Calculated 291 mOsm/kg (285-295); Potassium 3.9 mmol/L (3.5-5.1); Sodium 138 mmol/L (136-145)
--- NOTE | 2020-02-13 09:51 | P.PN_ITS ---
Subjective Subjective: Interval history: Cardiology coverage. Patient's chart was reviewed. Mr. Crockett is known to have coronary disease, PCI, type 2 diabetes, chronic kidney disease, recently diagnosed interstitial lung disease along with multiple other medical problems. He is admitted to hospital with an episode of passing out spell which was thought to be related to dehydration. Patient is complaining about a cough causing whitish/brownish sputum. He has some chest wall pain. He has baseline shortness of breath with activities. He has not had any significant chest pain. He was found to have an episode of short run of paroxysmal atrial tachycardia on the monitor. Seems to be staying in those normal sinus rhythm most of the times. Medications: Reviewed: Yes Medication Review Details: Current Medications Acetaminophen (Tylenol) 650 mg PO Q6H PRN PRN Reason: Mild/Mod Pain Or Temp >/= 101 Last Admin: 02/12/20 10:25 Dose: 650 mg Documented by: Albuterol Sulfate (Albuterol) 2.5 mg INHALATION Q4H.RESPIRATORY PRN PRN Reason: SHORTNESS OF BREATH Last Admin: 02/13/20 08:49 Dose: 2.5 mg Documented by: Aspirin (Aspirin Ec) 81 mg PO DAILY [facility] Last Admin: 02/13/20 08:33 Dose: 81 mg Documented by: Atorvastatin Calcium (Lipitor) 40 mg PO BEDTIME [facility] Budesonide (Pulmicort) 0.5 mg INHALATION BID.RESPIRATORY [facility] Last Admin: 02/13/20 08:49 Dose: 0.5 mg Documented by: Cetirizine HCl (Zyrtec) 10 mg PO DAILY PRN PRN Reason: ALLERGIES Clopidogrel Bisulfate (Plavix) 75 mg PO DAILY [facility] Last Admin: 02/13/20 08:33 Dose: 75 mg Documented by: Cyclobenzaprine HCl (Flexeril) 10 mg PO TID PRN PRN Reason: muscle spasm Last Admin: 02/12/20 21:01 Dose: 10 mg Documented by: Dextrose (D50w) 25 ml IVP ONCE PRN; Protocol PRN Reason: hypoglycemia protocol Dextrose (D50w) 50 ml IVP PRN PRN; Protocol PRN Reason: hypoglycemia protocol Enoxaparin Sodium (Lovenox) 80 mg SUBCUT Q24H [facility] Last Admin: 02/12/20 21:01 Dose: 80 mg Documented by: Furosemide (Lasix) 40 mg PO EVERY OTHER DAY [facility] Last Admin: 02/13/20 08:33 Dose: 40 mg Documented by: Glucagon (Glucagen) 1 mg IM ONCE PRN; Protocol PRN Reason: Adult Acute Hypoglycemia Prot. Diltiazem HCl 125 mg/ Sodium (Chloride) 125 mls @ 0 mls/hr IV .Q0M [facility]; Protocol Last Titration: 02/12/20 03:23 Dose: 0 mg/hr, 0 mls/hr Documented by: Dextrose (D5w) 500 mls @ 100 mls/hr IV ONCE PRN; Protocol PRN Reason: Adult Acute Hypoglycemia Prot Insulin Aspart (Novolog) 0 unit SUBCUT WM&BEDTIME [facility]; Protocol Last Admin: 02/13/20 06:56 Dose: Not Given Documented by: Insulin Glargine (Lantus) 10 unit SUBCUT BID@ [facility] Last Admin: 02/13/20 08:31 Dose: 10 unit Documented by: Metoprolol Succinate (Toprol Xl) 25 mg PO DAILY [facility] Last Admin: 02/13/20 08:33 Dose: 25 mg Documented by: Morphine Sulfate (Morphine) 2 mg IVP Q4H PRN PRN Reason: SEVERE PAIN Last Admin: 02/11/20 22:30 Dose: 2 mg Documented by: Nitroglycerin (Nitrostat) 0.4 mg SUBLINGUAL Q5M PRN PRN Reason: Chest Pain Non-Formulary Medication (Atovaquone [Mepron]) 1,500 mg PO DAILY [facility] Last Admin: 02/13/20 08:31 Dose: 1,500 mg Documented by: Ondansetron HCl (Zofran) 4 mg IVP Q6H PRN PRN Reason: NAUSEA AND VOMITING Prednisone (Prednisone) 40 mg PO DAILY [facility] Last Admin: 02/13/20 08:33 Dose: 40 mg Documented by: Pregabalin (Lyrica) 75 mg PO BID [facility] Last Admin: 02/13/20 08:33 Dose: 75 mg Documented by: Tamsulosin HCl (Flomax) 0.4 mg PO DAILY [facility] Last Admin: 02/13/20 08:33 Dose: 0.4 mg Documented by: Tiotropium [place] (Spiriva) 18 mcg INHALATION DAILY [facility] Last Admin: 02/13/20 08:49 Dose: 1 puff Documented by: Vitals/I&O/Wt Last Vital Signs Temp 97.7 F 02/13/20 07:15 Pulse 100 02/13/20 09:04 Resp 20 H 02/13/20 09:04 BP 117/75 02/13/20 07:15 Pulse Ox 92 02/13/20 09:04 02/12/20 02/13/20 02/13/20 22:59 06:59 14:59 Intake Total 436 / 554 100 / 654 360 / 360 Output Total 700 / 700 500 / 1200 Balance -264 / -146 -400 / -546 360 / 360 Weight last 48 hrs Weight 180 lb Weight 180 lb Physical Exam Narrative: EXAM NARRATIVE: GENERAL: The patient is alert and oriented times three. Not in any acute distress. HEENT: No significant pallor, icterus or lymphadenopathy.Oral cavity: There are no mucous membrane lesions. NECK: Trachea appears to be central. No masses noted. No JVD or thyromegaly appreciated. RESPIRATORY: Chest is symmetrical. No intercostals muscle retraction or any accessory muscle activation. There is no chest wall tenderness. Breath sounds are heard bilaterally. Scattered coarse crackles bilaterally BREASTS: Deferred. HEART: The heart sounds are normal. No S3 or S4. No significant murmurs. No pericardial rub ABDOMEN: No vessel pulsations or distention. No tenderness. No organomegaly appreciated. Bowel sounds are normally heard. : Deferred. RECTAL: Deferred. LYMPHATIC: No lymphadenopathy noted in the neck. EXTREMITIES: No edema or cyanosis. No clubbing. Peripheral pulses are palpated in fairly good volume and amplitude MUSCULOSKELETAL: No acute joint deformities or swelling SKIN: There are no significant rashes or ecchymosis NEUROPSYCHIATRIC: The patient is alert and oriented x3. Appears to be in a good mood. No tremors or rigidity noted. Urinary Catheter Management^: Jesus: Cath Placed During This Visit: yes Reason for Continuing Indwelling Catheter: Acute Urinary Retention or Obstruction Urinary Catheter Date of Insertion: 02/11/20 Urinary Catheter Time of Insertion: 19:05 Data : 02/12/20 04:03 02/13/20 08:41 Micro: Microbiology 02/11/20 11:11 Blood Culture - Preliminary Blood NEGATIVE TO DATE 02/11/20 11:07 Blood Culture - Preliminary Blood NEGATIVE TO DATE Echo: My impression: 01/15/2020 1. Normal left ventricular size, systolic function and wall thickness, with no regional wall motion abnormalities. Left ventricular ejection fraction is estimated at 60 %. Normal diastolic function. 2. Normal right ventricular size and systolic function. 3. Pulmonary artery pressure estimated at 30 mmHg. 4. Mild posteriorly directed mitral valve regurgitation. 5. Mild tricuspid valve regurgitation. 6. When compared to previous echocardiogram dated 06/16/2019, left ventricular systolic function has improved. Meka Ledesma MD A&P Assessment and plan (1) Episode of syncope: Patient so far has not had any significant arrhythmias to explain the syncope. Short run of PAT on the monitor. Status: Acute Qualifiers: Syncope type: unspecified Qualified Code(s): R55 - Syncope and collapse (2) Atherosclerotic heart disease of [place] coronary artery without angina pectoris: Since the patient has no chest pain or any specific cardiac symptoms, he may not require any further investigation at this time. May continue on the current medications. Status: Acute Qualifiers: [place] vs. transplanted heart: [place] heart Qualified Code(s): I25.10 - Atherosclerotic heart disease of [place] coronary artery without angina pectoris (3) Atrial flutter: Short run of PAT on the monitor. May continue the current medications. Status: Acute Qualifiers: Atrial flutter type: unspecified Qualified Code(s): I48.92 - Unspecified atrial flutter (4) Chronic renal insufficiency: The BUNs/creatinine level seems to be staying high. Status: Acute Qualifiers: Chronic kidney disease stage: unspecified stage Qualified Code(s): N18.9 - Chronic kidney disease, unspecified Additional A&P Information The other problems are History of congestive heart failure, possibly diastolic, currently compensated. Interstitial lung disease, on home oxygen Since the patient's overall cardiovascular status seems to be stable, may continue with her medications. Attestations Medical Necessity Statement*: Disposition as per the primary Coding Level of Care Code Acute Event Specialist for David France Diagnoses Episode of syncope R55 Syncope type: unspecified Atherosclerotic heart disease of [place] coronary artery without angina pectoris I25.10 [place] vs. transplanted heart: [place] heart Atrial flutter I48.92 Atrial flutter type: unspecified Chronic renal insufficiency N18.9 Chronic kidney disease stage: unspecified stage Time Spent (min) 35
[2020-02-13] MEDS: acetaminophen 325 mg Tablet 650 MG PO (11:06)
[2020-02-13 11:15] LABS: Glucose Point of Care 230 mg/dL (70-110)
[2020-02-13 14:29] LABS: Glucose Point of Care 268 mg/dL (70-110)
[2020-02-13 15:44] LABS: Glucose Point of Care 308 mg/dL (70-110)
--- NOTE | 2020-02-13 18:34 | PC.NURSE ---
SHIFT SUMMARY PATIENT HAS OVERALL HAD A GOOD DAY. AFTER TAKING HIS MEPRON, PATIENT DID EXPERIENCE WHAT WERE THOUGHT TO BE SIDE EFFECTS OF THE MEDICATION. HE BECAME SLIGHTLY DIZZY, NAUSEAS, AND JUST OVERALL DIDN'T FEEL GOOD. DR. WATSON NOTIFIED OF THIS INCIDENT. AFTER 20 MINUTES OF ONSET OF SYMPTOMS, PATIENT WAS FEELING BETTER. HE ATE A SNACK AND WAS BACK TO HIS BASELINE. PATIENT OXYGEN SATURATIONS HAVE REMAINED ABOVE 90% AND RESPIRATORY THERAPY HAS BEEN WORKING WITH HIM TO TURN DOWN HIS HIGH FLOW OXYGEN.
--- NOTE | 2020-02-13 19:01 | P.PN_ITS ---
Subjective Subjective: Interval history: Patient began coughing a bit more today. He was able to get up some sputum for the first time. After this we were able to start going down a bit on his high flow oxygen. At the end of the day he was down to around 90%. Middle of the day, after patient took his atovaquone and, he became dizzy and nauseated and did not feel well. Symptoms lasted for 20 to 30 minutes and then he felt better. This was his second dose of atovaquone as it took a bit to get it. He does not like the symptoms that he gets with it. Positive bowel movement today Vitals/I&O/Wt Last Vital Signs Temp 97.7 F 02/13/20 15:03 Pulse 91 02/13/20 16:21 Resp 20 H 02/13/20 16:21 BP 106/65 02/13/20 15:03 Pulse Ox 93 02/13/20 16:21 02/13/20 02/13/20 02/13/20 06:59 14:59 22:59 Intake Total 100 / 654 800 / 800 440 / 1240 Output Total 500 / 1200 850 / 850 Balance -400 / -546 800 / 800 -410 / 390 Weight last 48 hrs Weight 81.647 kg Physical Exam Const: OTHER: Looks better today, still on high flow oxygen but not in distress HENMT: OTHER: Normocephalic, mucous membranes more moist Eye: OTHER: Extraocular movements intact Neck/C-Spine: OTHER: Supple Chest: OTHER: Chest wall remains tender to palpation on the right but not as bad Resp: OTHER: Less tachypnea, scattered rhonchi, no current retractions, overall improved aeration Cardio: OTHER: Regular rhythm GI: OTHER: Abdomen soft Extremity: NARRATIVE EXTREMITY EXAM: Edema about the same Neuro: OTHER: Face symmetric, speech clear, moves all extremities Psych: OTHER: Flat affect which is baseline for him Skin: OTHER: No rashes noted Urinary Catheter Management^: Jesus: Cath Placed During This Visit: yes Reason for Continuing Indwelling Catheter: Acute Urinary Retention or Obstruction Urinary Catheter Date of Insertion: 02/11/20 Urinary Catheter Time of Insertion: 19:05 Data : 02/12/20 04:03 02/13/20 08:41 Micro: Microbiology 02/13/20 14:15 Gram Stain - Final Sputum - Expectorated Sputum A&P Assessment and plan (1) Acute dyspnea: Differential includes exacerbation interstitial lung disease, symptoms related to what may be atrial flutter noted on EKG initially, acute ischemic event, acute pulmonary congestion, pulmonary embolism. Chest x-ray did not show significant pulmonary congestion or effusions. Leaning towards this being secondary to interstitial lung disease Status: Acute (2) Episode of syncope: This was the presenting complaint, along with dyspnea, with similar differ ential to above. Orthostasis and vasovagal event are another consideration. Status: Acute Qualifiers: Syncope type: unspecified Qualified Code(s): R55 - Syncope and collapse (3) Atrial flutter: Initial EKG interpretation for which patient was started on some diltiazem. He has right bundle branch block and a left anterior fascicular block chronically. While no P waves are visible this may be secondary to the degree of tachycardia initially. Second EKG shows sinus tachycardia with blocks as noted. Feel rhythm was likely sinus tachycardia at this point in time or transient atrial flutter related to respiratory issues Status: Acute Qualifiers: Atrial flutter type: unspecified Qualified Code(s): I48.92 - Unspecified atrial flutter (4) Acute non-ST elevation myocardial infarction (NSTEMI): With positive delta noted at 2 hours. 6-hour delta was in the 90s. [place] to be due to demand ischemia from syncope, tachycardia, hypoxemia. Status: Acute (5) Acute exacerbation of CHF (congestive heart failure): Possible diagnosis at time of presentation. Ejection fraction was 60% with evidence of normal left ventricular size, systolic function and wall thickness. No regional wall motion abnormalities were identified. He also had normal diastolic dysfunction documented. Right atrial pressures were normal at 3 mmHg. He has had a elevation in BNP to as high as 13,388 when he was admitted on January 30. The lowest BNP for the last year is right at 1000. On multiple occasions, diuretic therapy has not significantly improved his respiratory status. That said he has had decreasing doses of Lasix over the last 2 months so has to be kept in mind. He has had echocardiograms demonstrating an ejection fraction of 35% some years ago. Currently on every other day oral Lasix. Status: Acute Qualifiers: Heart failure type: unspecified Qualified Code(s): I50.9 - Heart failure, unspecified (6) Acute and chronic respiratory failure with hypoxia: Related to interstitial lung disease but there may be other factors at play. Last time he had a CTA of the chest was in January of last year where no PE was identified. Renal function precludes CTA and respiratory status limit utility of a VQ scan. Status: Acute (7) Interstitial lung disease: Identified by high resolution CT of the chest in December of this year. He was started on home oxygen and has follow-up with Dr. Magallon. He had a mildly positive rheumatoid factor. He does have a history of working in [employer]. He was started on steroids this month and is on PCP prophylaxis with atovaquone. Does not appear to be tolerating the atovaquone. Requiring increasing amounts of oxygen over somewhat short period of time. Status: Chronic (8) Chronic kidney disease (CKD): Likely with a degree of acute kidney injury currently although I am not sure exactly what his current baseline is given the recurrent acute events. Suspect nearing that baseline however. Status: Chronic Qualifiers: Chronic kidney disease stage: stage 3 (moderate) Qualified Code(s): N18.3 - Chronic kidney disease, stage 3 (moderate) (9) CAD (coronary artery disease): RCA stent in 2016. Chronically on aspirin, Plavix, beta-blockade Status: Chronic Qualifiers: Coronary Disease-Associated Artery/Lesion type: [place] artery [place] vs. transplanted heart: [place] heart Associated angina: angina presence unspecified Qualified Code(s): I25.10 - Atherosclerotic heart disease of [place] coronary artery without angina pectoris (10) Diabetes mellitus: Significant hyperglycemia initially, felt secondary to steroids. Blood sugars have been difficult to control at home. Hemoglobin A1c was 7.7 in October of this year. 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 (11) Dyslipidemia: Statin therapy added this hospital stay Status: Acute Additional A&P Information Elevated lactic acid felt secondary to hypoxemia Normocytic anemia LAD noted Diabetic foot ulcer to left foot Continue breathing treatments, including inhaled steroids, will increase Pulmicort dose and see if he has any improvement Continue oral prednisone Stop atovaquone Respiratory therapy following and working to decrease oxygen Continue high flow oxygen for now with heated humidity We need to see about adding humidity to his home oxygen Has been started back on Lasix 40 every other day On daily weights and strict I's and O's Consider consultation with Dr. Magallon or at the least close follow-up after discharge Consider trial of voiding tomorrow, patient had urinary retention earlier in hospital stay Flomax is a chronic medication Adjust insulin therapy Continue home aspirin, Plavix, beta-blockade Statin added this hospital stay Continue home Lyrica Monitor renal function for worsening Change Lovenox to prophylactic dose Supportive care otherwise Consult PT If we can get him to a point that he can be on a lower flow oxygen with humidity and were able to arrange humidity with home oxygen, he may do better in the long run Full code Attestations Medical Necessity Statement*: Requires continued inpatient stay secondary to significant oxygen requirements and other issues as noted above. Coding Level of Care Code Acute [address]Rd Pressman for David France Diagnoses Acute dyspnea R06.00 Episode of syncope R55 Syncope type: unspecified Atrial flutter I48.92 Atrial flutter type: unspecified Acute non-ST elevation myocardial infarction (NSTEMI) I21.4 Acute exacerbation of CHF (congestive heart failure) I50.9 Heart failure type: unspecified Acute and chronic respiratory failure with hypoxia J96.21 Interstitial lung disease J84.9 Chronic kidney disease (CKD) N18.3 Chronic kidney disease stage: stage 3 (moderate) CAD (coronary artery disease) I25.10 Coronary Disease-Associated Artery/Lesion type: [place] artery [place] vs. transplanted heart: [place] heart Associated angina: angina presence unspecified Diabetes mellitus E11.42; Z79.4 Diabetes mellitus type: type 2 Diabetes mellitus skilled nursing insulin use: with terminal system operator use Diabetes mellitus complication status: with neurologic complications Diabetes mellitus complication detail: with polyneuropathy Dyslipidemia E78.5
--- NOTE | 2020-02-13 19:25 | PC.NURSE ---
Rounding: Patient sitting up in bed watching tv on high flow oxygen. Denies any complaints or needs. Patient is alert and oriented and call light is within reach. Will continue to monitor.
[2020-02-13 20:28] LABS: Glucose Point of Care 481 mg/dL (70-110)
[2020-02-13] MEDS: enoxaparin 80 mg/0.8 mL Syringe SUBCUT (20:39)
[2020-02-13] MEDS: cyclobenzaprine 10 mg Tablet PO (20:39)
[2020-02-13] MEDS: atorvastatin 40 mg Tablet PO (20:39)
[2020-02-13] MEDS: insulin glargine 100 units/1 mL 5 UNIT SUBCUT (21:30)
[2020-02-14] VITALS (17 sets, daily range): BP systolic 103–126; BP diastolic 64–86; PULSE 98–108; RESP 16–24; TEMP 36.4–37; O2SAT 87–96
--- NOTE | 2020-02-14 00:17 | PC.NURSE ---
Rounding: Patient asleep upon entering room with high flow in place. No changes from previous assessment. Patients call light is within reach and bed in low position. Will continue to monitor.
[2020-02-14 02:55] LABS: Eosinophils % 0.3 %; Hematocrit 33.7 % (42.0-52.0); Hemoglobin 10.5 g/dL (11.7-16.6); Lymphocytes % 9.5 %; Mean Corpuscular HGB Conc 31.2 g/dL (30.0-36.0); Mean Corpuscular Hemoglobin 28.5 pg (28.0-34.0); Mean Corpuscular Volume 91.6 fL (80-94); Mean Platelet Volume 10.2 fL (7.4-10.4); Monocytes # 0.6 10^3/uL (0.2-0.9); Monocytes % 6.2 %; Neutrophils # 8.5 10^3/uL (1.8-7.7); Neutrophils % 83.3 %; Nucleated Red Blood Cells % 0 %; Platelet Count 289 10^3/cmm (130-400); Red Blood Count 3.68 10^6/uL (4.1-5.3); White Blood Count 10.2 10^3/uL (4.0-10.0)
[2020-02-14 03:17] LABS: Anion Gap 15.6 (5-19); Blood Urea Nitrogen 61 mg/dL (6-20); Calcium 9.2 mg/dL (8.5-10.5); Carbon Dioxide 25 mmol/L (22-29); Chloride 101 mmol/L (98-107); Glomerular Filtration Rate 41.5 mL/min (90-130); Glucose 202 mg/dL (65-115); Magnesium 2.6 mg/dL (1.7-2.3); Osmolality Calculated 289 mOsm/kg (285-295); Phosphorus 3.8 mg/dL (2.5-4.5); Potassium 4.6 mmol/L (3.5-5.1); Sodium 137 mmol/L (136-145)
--- NOTE | 2020-02-14 06:10 | PC.NURSE ---
End of shift: Patient had a uneventful shift besides his Fio2 being turned up to 42 percent after coughing up a bunch of phlegm. Patient has rested well and call light is within reach. Bed in low position. Will continue to monitor.
[2020-02-14 06:28] LABS: Glucose Point of Care 162 mg/dL (70-110)
[2020-02-14] MEDS: pregabalin 75 mg Capsule PO ×2 (08:35→17:32)
[2020-02-14] MEDS: clopidogrel 75 mg Tablet PO (08:35)
[2020-02-14] MEDS: metoprolol succinate ER (24 HR) 25 mg Tablet PO (08:35)
[2020-02-14] MEDS: predniSONE 20 mg Tablet 40 MG PO (08:35)
[2020-02-14] MEDS: tamsulosin 0.4 mg Capsule PO (08:35)
[2020-02-14] MEDS: aspirin 81 mg EC Tablet PO (08:35)
[2020-02-14] MEDS: insulin glargine 100 units/1 mL 15 UNIT SUBCUT ×2 (08:41→20:53)
[2020-02-14] MEDS: budesonide 0.5 mg/2 mL Neb 1 MG INHALATION ×2 (08:43→19:33)
--- NOTE | 2020-02-14 11:06 | PM.PN ---
Subjective Subjective: Interval history: Patient is breathing better. He is down to high flow oxygen with a flow rate of 20 and FiO2 of 40%. He continues to cough up a little bit more sputum. Is kind of grayish-white in color. I increase budesonide yesterday to 1 mg twice daily. He reports that his breathing is a little bit better from yesterday to today. He was not on this at home. I think it would be beneficial potentially to add inhaled steroids on top of his usual regimen. It may help decrease oral steroid dosing. Vitals/I&O/Wt Last Vital Signs Temp 97.6 F 02/14/20 10:51 Pulse 101 H 02/14/20 10:51 Resp 19 H 02/14/20 10:51 BP 125/85 02/14/20 10:51 Pulse Ox 93 02/14/20 10:51 02/13/20 02/14/20 02/14/20 22:59 06:59 14:59 Intake Total 540 / 1340 240 / 1580 680 / 680 Output Total 850 / 850 1000 / 1850 Balance -310 / 490 -760 / -270 680 / 680 Weight last 48 hrs Weight 78.381 kg Weight 81.647 kg Physical Exam Const: OTHER: Continues to show small steps of improvement HENMT: OTHER: Normocephalic, mucous membranes more moist Eye: OTHER: Extraocular movements intact Neck/C-Spine: OTHER: Supple Chest: OTHER: Chest wall remains tender to palpation on the right but not as bad Resp: OTHER: Much more comfortable on the high flow oxygen now, scattered crackles, no accessory muscle use Cardio: OTHER: Regular rhythm GI: OTHER: Abdomen soft, nontender Extremity: NARRATIVE EXTREMITY EXAM: Decreased edema Neuro: OTHER: Face symmetric, speech clear, moves all extremities Skin: OTHER: No rashes noted Urinary Catheter Management^: Jesus: Cath Placed During This Visit: yes Reason for Continuing Indwelling Catheter: Acute Urinary Retention or Obstruction Urinary Catheter Date of Insertion: 02/11/20 Urinary Catheter Time of Insertion: 19:05 Data : 02/14/20 02:45 02/14/20 02:45 Micro: Microbiology 02/13/20 14:15 Gram Stain - Final Sputum - Expectorated Sputum Sputum Culture - Preliminary A&P Assessment and plan (1) Acute dyspnea: Differential includes exacerbation interstitial lung disease, symptoms related to what may be atrial flutter noted on EKG initially, acute ischemic event, acute pulmonary congestion, pulmonary embolism. Chest x-ray did not show significant pulmonary congestion or effusions. Leaning towards this being secondary to interstitial lung disease. Status: Acute (2) Episode of syncope: This was the presenting complaint, along with dyspnea, with similar differential to above. Orthostasis and vasovagal event are another consideration. Status: Acute Qualifiers: Syncope type: unspecified Qualified Code(s): R55 - Syncope and collapse (3) Atrial flutter: Initial EKG interpretation for which patient was started on some diltiazem. He has right bundle branch block and a left anterior fascicular block chronically. While no P waves are visible this may be secondary to the degree of tachycardia initially. Second EKG shows sinus tachycardia with blocks as noted. Feel rhythm was likely sinus tachycardia at this point in time or transient atrial flutter related to respiratory issues Status: Acute Qualifiers: Atrial flutter type: unspecified Qualified Code(s): I48.92 - Unspecified atrial flutter (4) Acute non-ST elevation myocardial infarction (NSTEMI): With positive delta noted at 2 hours. 6-hour delta was in the 90s. [place] to be due to demand ischemia from syncope, tachycardia, hypoxemia. Status: Acute (5) Acute exacerbation of CHF (congestive heart failure): Possible diagnosis at time of presentation. Ejection fraction was 60% with evidence of normal left ventricular size, systolic function and wall thickness. No regional wall motion abnormalities were identified. He also had normal diastolic dysfunction documented. Right atrial pressures were normal at 3 mmHg. He has had a elevation in BNP to as high as 13,388 when he was admitted on January 30. The lowest BNP for the last year is right at 1000. On multiple occasions, diuretic therapy has not significantly improved his respiratory status. That said he has had decreasing doses of Lasix over the last 2 months so has to be kept in mind. He has had echocardiograms demonstrating an ejection fraction of 35% some years ago. Currently on every other day oral Lasix at the time of admission to the hospital this stay Status: Acute Qualifiers: Heart failure type: unspecified Qualified Code(s): I50.9 - Heart failure, unspecified (6) Acute and chronic respiratory failure with hypoxia: Related to interstitial lung disease but there may be other factors at play. Last time he had a CTA of the chest was in January of last year where no PE was identified. Renal function precludes CTA and respiratory status limits utility of a VQ scan. Status: Acute (7) Interstitial lung disease: Identified by high resolution CT of the chest in December of this year. He was started on home oxygen and has follow-up with Dr. Magallon. He had a mildly positive rheumatoid factor. 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 He was started on steroids this month as well as PCP prophylaxis with atovaquone. Does not appear to be tolerating the atovaquone. Requiring increasing amounts of oxygen over somewhat short period of time. Status: Chronic (8) Chronic kidney disease (CKD): Likely with a degree of acute kidney injury currently although I am not sure exactly what his current baseline is given the recurrent acute events. Suspect nearing that baseline however. Status: Chronic Qualifiers: Chronic kidney disease stage: stage 3 (moderate) Qualified Code(s): N18.3 - Chronic kidney disease, stage 3 (moderate) (9) CAD (coronary artery disease): RCA stent in 2016. Chronically on aspirin, Plavix, beta-blockade Status: Chronic Qualifiers: Associated angina: angina presence unspecified Coronary Disease-Associated Artery/Lesion type: [place] artery [place] vs. transplanted heart: [place] heart Qualified Code(s): I25.10 - Atherosclerotic heart disease of [place] coronary artery without angina pectoris (10) Diabetes mellitus: Significant hyperglycemia initially, felt secondary to steroids. Blood sugars have been difficult to control at home. Hemoglobin A1c was 7.7 in October of this year. Remains difficult to adjust but overall better Status: Chronic Qualifiers: Diabetes mellitus complication detail: with polyneuropathy Diabetes mellitus complication status: with neurologic complications Diabetes mellitus custodial insulin use: with moth exterminator use Diabetes mellitus type: type 2 Qualified Code(s): E11.42 - Type 2 diabetes mellitus with diabetic polyneuropathy; Z79.4 - intermediate (current) use of insulin (11) Dyslipidemia: Statin therapy added this hospital stay Status: Acute Additional A&P Information Elevated lactic acid felt secondary to hypoxemia Normocytic anemia Diabetic foot ulcer to left foot Continue breathing treatments plus increased dose of budesonide Continue oral prednisone I spoke with Dr. Magallon who is agreed to see him in consultation tomorrow Respiratory therapy following and working to decrease oxygen flow rate and FiO2 Order to add humidity to his home oxygen assuming we can get him back down to prior levels Stop atovaquone can due to intolerance related to side effects Remains off of Lasix therapy On daily weights and strict I's and O's Discontinue Jesus Straight cath as needed x2 Flomax is a chronic medication Adjust insulin therapy to 20 bid levemir Continue home aspirin, Plavix, beta-blockade Statin added this hospital stay Continue home Lyrica Monitor renal function for worsening On Lovenox for DVT prophylaxis, had been on treatment dose Lovenox for a few days Supportive care otherwise Consult PT To facilitate exercises he can do in the room while on a high flow Will see if he can get any information from the lab on where the results are for the ANCA, SSA and anti-smooth muscle antibodies sent on January 30 I did let him know that Dr. Magallon is going to be coming back.Plans were discussed with the patient and he was given an opportunity to ask questions. Full code Attestations Medical Necessity Statement*: Requires ongoing inpatient stay for continued management of respiratory issues. He continues to require high flow oxygen which we are gradually able to wean down. 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 [facility] Román Diagnoses Acute dyspnea R06.00 Episode of syncope R55 Syncope type: unspecified Atrial flutter I48.92 Atrial flutter type: unspecified Acute non-ST elevation myocardial infarction (NSTEMI) I21.4 Acute exacerbation of CHF (congestive heart failure) I50.9 Heart failure type: unspecified Acute and chronic respiratory failure with hypoxia J96.21 Interstitial lung disease J84.9 Chronic kidney disease (CKD) N18.3 Chronic kidney disease stage: stage 3 (moderate) CAD (coronary artery disease) I25.10 Associated angina: angina presence unspecified Coronary Disease-Associated Artery/Lesion type: [place] artery [place] vs. transplanted heart: [place] heart Diabetes mellitus E11.42; Z79.4 Diabetes mellitus complication detail: with polyneuropathy Diabetes mellitus complication status: with neurologic complications Diabetes mellitus moth exterminator insulin use: with custodial use Diabetes mellitus type: type 2 Dyslipidemia E78.5
[2020-02-14 11:15] LABS: Glucose Point of Care 225 mg/dL (70-110)
--- NOTE | 2020-02-14 13:12 | PM.PN ---
Subjective Subjective: Interval history: Has significant improvement of the cough. No fever or chills. Has some generalized weakness. Shortness of breath seems to be improving. He is still on high flow oxygen, 20 L/min Medications: Reviewed: Yes Medication Review Details: Current Medications Acetaminophen (Tylenol) 650 mg PO Q6H PRN PRN Reason: Mild/Mod Pain Or Temp >/= 101 Last Admin: 02/13/20 11:06 Dose: 650 mg Documented by: Albuterol Sulfate (Albuterol) 2.5 mg INHALATION Q4H.RESPIRATORY PRN PRN Reason: SHORTNESS OF BREATH Last Admin: 02/14/20 11:59 Dose: 2.5 mg Documented by: Aspirin (Aspirin Ec) 81 mg PO DAILY [facility] Last Admin: 02/14/20 08:35 Dose: 81 mg Documented by: Atorvastatin Calcium (Lipitor) 40 mg PO BEDTIME SHAYNA Last Admin: 02/13/20 20:39 Dose: 40 mg Documented by: Budesonide (Pulmicort) 1 mg INHALATION BID.RESPIRATORY SHAYNA Last Admin: 02/14/20 08:43 Dose: 1 mg Documented by: Cetirizine HCl (Zyrtec) 10 mg PO DAILY PRN PRN Reason: ALLERGIES Clopidogrel Bisulfate (Plavix) 75 mg PO DAILY [facility] Last Admin: 02/14/20 08:35 Dose: 75 mg Documented by: Cyclobenzaprine HCl (Flexeril) 10 mg PO TID PRN PRN Reason: muscle spasm Last Admin: 02/13/20 20:39 Dose: 10 mg Documented by: Dextrose (D50w) 25 ml IVP ONCE PRN; Protocol PRN Reason: hypoglycemia protocol Dextrose (D50w) 50 ml IVP PRN PRN; Protocol PRN Reason: hypoglycemia protocol Doxycycline Monohydrate (Vibramycin) 100 mg PO BID SHAYNA; Protocol Enoxaparin Sodium (Lovenox) 40 mg SUBCUT Q24H [facility] Last Admin: 02/13/20 20:56 Dose: Not Given Documented by: Glucagon (Glucagen) 1 mg IM ONCE PRN; Protocol PRN Reason: Adult Acute Hypoglycemia Prot. Diltiazem HCl 125 mg/ Sodium (Chloride) 125 mls @ 0 mls/hr IV .Q0M SHAYNA; Protocol Last Titration: 02/12/20 03:23 Dose: 0 mg/hr, 0 mls/hr Documented by: Dextrose (D5w) 500 mls @ 100 mls/hr IV ONCE PRN; Protocol PRN Reason: Adult Acute Hypoglycemia Prot Insulin Aspart (Novolog) 0 unit SUBCUT WM&BEDTIME [facility]; Protocol Last Admin: 02/14/20 11:50 Dose: 8 unit Documented by: Insulin Glargine (Lantus) 15 unit SUBCUT BID@, [facility] Last Admin: 02/14/20 08:41 Dose: 15 unit Documented by: Metoprolol Succinate (Toprol Xl) 25 mg PO DAILY [facility] Last Admin: 02/14/20 08:35 Dose: 25 mg Documented by: Morphine Sulfate (Morphine) 2 mg IVP Q4H PRN PRN Reason: SEVERE PAIN Last Admin: 02/11/20 22:30 Dose: 2 mg Documented by: Nitroglycerin (Nitrostat) 0.4 mg SUBLINGUAL Q5M PRN PRN Reason: Chest Pain Ondansetron HCl (Zofran) 4 mg IVP Q6H PRN PRN Reason: NAUSEA AND VOMITING Prednisone (Prednisone) 40 mg PO DAILY [facility] Last Admin: 02/14/20 08:35 Dose: 40 mg Documented by: Pregabalin (Lyrica) 75 mg PO BID [facility] Last Admin: 02/14/20 08:35 Dose: 75 mg Documented by: Tamsulosin HCl (Flomax) 0.4 mg PO DAILY [facility] Last Admin: 02/14/20 08:35 Dose: 0.4 mg Documented by: Tiotropium [place] (Spiriva) 18 mcg INHALATION DAILY [facility] Last Admin: 02/14/20 08:44 Dose: 1 puff Documented by: Vitals/I&O/Wt Last Vital Signs Temp 97.6 F 02/14/20 10:51 Pulse 101 H 02/14/20 10:51 Resp 19 H 02/14/20 10:51 BP 125/85 02/14/20 10:51 Pulse Ox 93 02/14/20 10:51 02/13/20 02/14/20 02/14/20 22:59 06:59 14:59 Intake Total 540 / 1340 240 / 1580 1140 / 1140 Output Total 850 / 850 1000 / 1850 225 / 225 Balance -310 / 490 -760 / -270 915 / 915 Weight last 48 hrs Weight 172 lb 12.8 oz Weight 180 lb Physical Exam Narrative: EXAM NARRATIVE: GENERAL: The patient is alert and oriented times three. Not in any acute distress. HEENT: No significant pallor, icterus or lymphadenopathy.Oral cavity: There are no mucous membrane lesions. NECK: Trachea appears to be central. No masses noted. No JVD or thyromegaly appreciated. RESPIRATORY: Chest is symmetrical. No intercostals muscle retraction or any accessory muscle activation. There is no chest wall tenderness. Breath sounds are heard bilaterally. Scattered coarse crackles bilaterally BREASTS: Deferred. HEART: The heart sounds are normal. No S3 or S4. No significant murmurs. No pericardial rub ABDOMEN: No vessel pulsations or distention. No tenderness. No organomegaly appreciated. Bowel sounds are normally heard. : Deferred. RECTAL: Deferred. LYMPHATIC: No lymphadenopathy noted in the neck. EXTREMITIES: No edema or cyanosis. No clubbing. Peripheral pulses are palpated in fairly good volume and amplitude MUSCULOSKELETAL: No acute joint deformities or swelling SKIN: There are no significant rashes or ecchymosis NEUROPSYCHIATRIC: The patient is alert and oriented x3. Appears to be in a good mood. No tremors or rigidity noted. Urinary Catheter Management^: Jesus: Cath Placed During This Visit: yes, but has since been removed by the nurse Reason for Continuing Indwelling Catheter: Acute Urinary Retention or Obstruction Urinary Catheter Date of Insertion: 02/11/20 Urinary Catheter Time of Insertion: 19:05 Date Urinary Catheter Removed: 02/14/20 Time Urinary Catheter Discontinued: 11:30 Data : 02/14/20 02:45 02/14/20 02:45 Micro: Microbiology 02/13/20 14:15 Gram Stain - Final Sputum - Expectorated Sputum Sputum Culture - Preliminary A&P Assessment and plan (1) Episode of syncope: Patient so far has not had any significant arrhythmias to explain the syncope. Short run of PAT on the monitor. Status: Acute Qualifiers: Syncope type: unspecified Qualified Code(s): R55 - Syncope and collapse (2) Atherosclerotic heart disease of [place] coronary artery without angina pectoris: Since the patient has no chest pain or any specific cardiac symptoms, he may not require any further investigation at this time. May continue on the current medications. Status: Acute Qualifiers: [place] vs. transplanted heart: [place] heart Qualified Code(s): I25.10 - Atherosclerotic heart disease of [place] coronary artery without angina pectoris (3) Atrial flutter: Short run of PAT on the monitor. May continue the current medications. Status: Acute Qualifiers: Atrial flutter type: unspecified Qualified Code(s): I48.92 - Unspecified atrial flutter (4) Chronic renal insufficiency: The BUNs/creatinine level seems to be staying high. Status: Acute Qualifiers: Chronic kidney disease stage: unspecified stage Qualified Code(s): N18.9 - Chronic kidney disease, unspecified (5) Acute and chronic respiratory failure with hypoxia: Clinically improving. Status: Acute Additional A&P Information The other problems are History of congestive heart failure, possibly diastolic, currently compensated. Interstitial lung disease, on high flow oxygen Overall cardiovascular status seems stable Attestations Medical Necessity Statement*: Disposition as per the primary Coding Level of Care Code Acute Admission Nurse Coordinator for [facility] [place] Diagnoses Episode of syncope R55 Syncope type: unspecified Atherosclerotic heart disease of [place] coronary artery without angina pectoris I25.10 [place] vs. transplanted heart: [place] heart Atrial flutter I48.92 Atrial flutter type: unspecified Chronic renal insufficiency N18.9 Chronic kidney disease stage: unspecified stage Acute and chronic respiratory failure with hypoxia J96.21
[2020-02-14 16:10] LABS: Glucose Point of Care 371 mg/dL (70-110)
[2020-02-14] MEDS: doxycycline 100 mg Tablet PO (17:32)
[2020-02-14 20:39] LABS: Glucose Point of Care 371 mg/dL (70-110)
[2020-02-14] MEDS: enoxaparin 40 mg/0.4 mL Syringe SUBCUT (20:52)
[2020-02-14] MEDS: cyclobenzaprine 10 mg Tablet PO (20:53)
[2020-02-14] MEDS: atorvastatin 40 mg Tablet PO (20:53)
--- NOTE | 2020-02-14 20:54 | USCV_ITS ---
Agusto Crockett Age: 59 Gender: M : 1960 Exam Date: 02/14/2020 06:55 Ordering Phys: Shivani Bustillos MD Technologist: PAWEL SAILNAS Exam Location: [facility]_ Indication: Grossly elevated BNP without clinical CHF, CKD Aortic Velocity @ SMA (cm/s) 48.9 RIGHT KIDNEY LEFT KIDNEY Velocity (cm/s) Velocity (cm/s) Sys/Bass Sys/Bass Resistive Index Resistive Index 40.1 / 8.3 0.79 Proximal Renal Artery 51.6 / 15.3 0.70 65.3 / 19.0 0.71 Mid Renal Artery 39.5 / 10.8 0.73 45.0 / 12.9 0.71 Distal Renal Artery 38.8 / 11.2 0.71 48.1 / 10.9 0.77 Hilar 44.6 / 14.9 0.67 12.4 / 4.6 0.63 Upper Pole 31.0 / 9.5 0.69 14.8 / 4.6 0.69 Mid Pole 23.6 / 7.4 0.68 12.9 / 3.9 0.70 Lower Pole 21.1 / 7.4 0.65 1.30 Renal Aortic Ratio 1.06 Accleration Index (cm/sec2) 2073.0 Hilar 1212.0 0 0 382.00 Upper Pole 1273.0 0 289.00 Mid Pole 2283.0 0 230.00 Lower Pole 312.00 115.9 Kidney Length (mm) 116.1 FINDINGS See measurements listed above. Technically difficult study due to bowel gas. Cystic lesioin in the upper pole of the right kidney measuring 3.64X 4.01 cm Doppler flow velocities and ratios Abnormal acceleration disease bilaterally CONCLUSIONS Possibly no significant renal artery stenosis, based on the kidney dimensions, renal artery Doppler velocities, resistive indicis and velocity ratios. The abnormal acceleration indicis, most likely a technical error No similar previous studies are available for comparison Dr Prasanth Mckee MD [facility] (Electronically Signed) Final Date: 14 February 2020 18:17 S
[2020-02-15] VITALS (15 sets, daily range): BP systolic 102–117; BP diastolic 62–69; PULSE 84–114; RESP 14–30; TEMP 36.6–36.7; O2SAT 94–99; BMI 25.5
--- NOTE | 2020-02-15 01:49 | PC.NURSE ---
Rounding: Patient was resting with eyes closed. Patient had high flow oxygen in place. patients call light within reach and bed in low position. Will continue to monitor.
[2020-02-15 05:07] LABS: Basophils % 0.1 %; Eosinophils # 0.3 10^3/uL (0.0-0.8); Eosinophils % 2.8 %; Hematocrit 32.1 % (42.0-52.0); Hemoglobin 9.8 g/dL (11.7-16.6); Lymphocytes # 1.8 10^3/uL (0.8-4.8); Lymphocytes % 17.9 %; Mean Corpuscular HGB Conc 30.5 g/dL (30.0-36.0); Mean Corpuscular Hemoglobin 27.7 pg (28.0-34.0); Mean Corpuscular Volume 90.7 fL (80-94); Mean Platelet Volume 10.7 fL (7.4-10.4); Monocytes # 0.7 10^3/uL (0.2-0.9); Monocytes % 6.7 %; Neutrophils # 7.3 10^3/uL (1.8-7.7); Neutrophils % 70.9 %; Nucleated Red Blood Cells % 0 %; Platelet Count 271 10^3/cmm (130-400); Red Blood Count 3.54 10^6/uL (4.1-5.3); Red Cell Distribution Width 13.6 % (12.1-15.1); White Blood Count 10.2 10^3/uL (4.0-10.0)
[2020-02-15 05:20] LABS: Anion Gap 14.2 (5-19); Blood Urea Nitrogen 48 mg/dL (6-20); Calcium 9.2 mg/dL (8.5-10.5); Carbon Dioxide 25 mmol/L (22-29); Chloride 101 mmol/L (98-107); Glomerular Filtration Rate 47.9 mL/min (90-130); Glucose 93 mg/dL (65-115); Osmolality Calculated 280 mOsm/kg (285-295); Potassium 4.2 mmol/L (3.5-5.1); Sodium 136 mmol/L (136-145)
--- NOTE | 2020-02-15 05:51 | PC.NURSE ---
End of shift: Patients rosenthal was removed on dayshift yesterday. Patient has been voiding with no issues via urinal. Patient has had a uneventful night and has no complaints. Patient remains alert and oriented. Patient has rested well this shift and call light is within reach. [facility].
[2020-02-15 06:18] LABS: Glucose Point of Care 84 mg/dL (70-110)
[2020-02-15 06:57] LABS: Glucose Point of Care 109 mg/dL (70-110)
--- NOTE | 2020-02-15 06:58 | PC.NURSE ---
Patients blood glucose was 84. Patient complaint of feeling of unwell. Patient given 4oz of orange juice and mateo crackers. Blood sugar re checked and it came up to 107. Patient oxygen saturation would not come up above 84 to 86%. RT was called to adjust the high flow. RT noticed he had not had a chest xray in 4 days will pass on to on coming shift. Will continue to monitor.
--- NOTE | 2020-02-15 07:06 | XR_ITS ---
WS: [id number] XR chest 1V portable [id number] REASON FOR EXAM: SOB FINDINGS: Decreased volume in both lung [place] are seen. Diffuse reticular nodular patterns are seen. A large bullae are seen in the right middle lobe area. The overall appearance the chest is similar to previous exam of February 11, 2020. The cardiac silhouette is borderline enlarged. The hilum and apices are normal. XR/XR chest 1V portable [id number] IMPRESSION: consistent with diffuse interstitial pulmonary fibrosis. The findings unchanged since previous exam of 02/11/2020
[2020-02-15] MEDS: FUROsemide 10 mg/mL SDV 4mL 40 MG IVP (07:36)
[2020-02-15 08:04] LABS: ABG PCO2 35.8 mmHg (35-45); ABG PH Result 7.45 (7.35-7.45); Arterial Blood Gas Hematocrit 33.2 % (42-52); Base Excess ABG 0.7 mmol/L (-2.0-2.0); Blood Gas Allen Test Pos; Blood Gas Sample Site Radial, left; Blood Gas Sample Type Arterial; HCO3 ABG 24.6 mmol/L (22-26); Oxygen Device NC; PO2 ABG 69.8 mmHg (80.0-100.0)
[2020-02-15] MEDS: ipratropium-albuterol 3 mL Neb INHALATION ×4 (08:16→20:21)
[2020-02-15] MEDS: budesonide 0.5 mg/2 mL Neb 1 MG INHALATION ×2 (08:22→20:21)
--- NOTE | 2020-02-15 08:53 | PM.PN ---
Subjective Subjective: Interval history: This morning on examination patient is on 50 L 40% FiO2 saturating 92%. He denies of having any nausea, vomiting feeling little anxious, denies of having any abdominal pain, dizziness, palpitation, chest pain. On interview patient states he has been having worsening shortness of breath for last 1 year gotten worse for over 2 months acutely. He denies of having any recent travels this year. He states he used to hike before but has not hiked in recent. 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 He denies of having any smoking exposure other than his son but usually son smokes out of the house. He denies of exposure to vaping. He states he they still use wood fire in the basement for heat during mondragon. He denies of exposure to bat, rat droppings. He states his basement is very musty and has mold. He states he spent quite a lot of time in his basement. 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 Denies of exposure to hay or burning plastics or hay in the past. 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 Vitals/I&O/Wt Last Vital Signs Temp 97.9 F 02/15/20 08:00 Pulse 114 H 02/15/20 08:33 Resp 24 H 02/15/20 08:29 BP 116/67 02/15/20 08:00 Pulse Ox 94 02/15/20 08:29 02/14/20 02/15/20 02/15/20 22:59 06:59 14:59 Intake Total 360 / 1500 500 / 2000 462 / 462 Output Total 301 / 527 825 / 1352 Balance 59 / 973 -325 / 648 461 / 461 Weight last 48 hrs Weight 78.471 kg Weight 78.381 kg Physical Exam Narrative: EXAM NARRATIVE: General: No acute distress, AO x3, on high flow, anxious HEENT: PERRLA, pupils bilaterally equal and reactive Chest: Bilateral bronchial breath sounds, diffuse rhonchi, crackles all over the lung [place], right more than left, posterior more than anterior, equal air entry bilaterally CVS: S1-S2 regular, no murmurs, tachycardia, no gallops, no rubs Abdomen: Soft, nontender, no organomegaly, bowel sounds present Neuro: No focal deficits, no facial deformity, AO x3, power 5/5 in all limbs Urinary Catheter Management^: Jesus: Cath Placed During This Visit: yes, but has since been removed by the nurse Reason for Continuing Indwelling Catheter: Acute Urinary Retention or Obstruction Urinary Catheter Date of Insertion: 02/11/20 Urinary Catheter Time of Insertion: 19:05 Date Urinary Catheter Removed: 02/14/20 Time Urinary Catheter Discontinued: 11:30 Data : 02/15/20 04:23 02/15/20 04:23 Micro: Microbiology 02/13/20 14:15 Gram Stain - Final Sputum - Expectorated Sputum Sputum Culture - Preliminary A&P Assessment and plan (1) Acute dyspnea: Status: Acute (2) Acute and chronic respiratory failure with hypoxia: Status: Acute (3) Interstitial lung disease: Status: Chronic (4) Atrial flutter: Status: Acute Qualifiers: Atrial flutter type: unspecified Qualified Code(s): I48.92 - Unspecified atrial flutter (5) CAD (coronary artery disease): RCA stent in 2016. Chronically on aspirin, Plavix, statins. No chest pain at present. Status: Chronic Qualifiers: Associated angina: angina presence unspecified Coronary Disease-Associated Artery/Lesion type: [place] artery [place] vs. transplanted heart: [place] heart Qualified Code(s): I25.10 - Atherosclerotic heart disease of [place] coronary artery without angina pectoris (6) Acute non-ST elevation myocardial infarction (NSTEMI): With positive delta noted at 2 hours. 6-hour delta was in the 90s. [place] to be due to demand ischemia from syncope, tachycardia, hypoxemia. Status: Acute (7) Acute exacerbation of CHF (congestive heart failure): Status: Acute Qualifiers: Heart failure type: unspecified Qualified Code(s): I50.9 - Heart failure, unspecified (8) Chronic kidney disease (CKD): Status: Chronic Qualifiers: Chronic kidney disease stage: stage 3 (moderate) Qualified Code(s): N18.3 - Chronic kidney disease, stage 3 (moderate) (9) Diabetes mellitus: Significant hyperglycemia initially, felt secondary to steroids. Blood sugars have been difficult to control at home. Hemoglobin A1c was 7.7 in October of this year. Remains difficult to adjust but overall better Status: Chronic Qualifiers: Diabetes mellitus complication detail: with polyneuropathy Diabetes mellitus complication status: with neurologic complications Diabetes mellitus termite treater insulin use: with correction use Diabetes mellitus type: type 2 Qualified Code(s): E11.42 - Type 2 diabetes mellitus with diabetic polyneuropathy; Z79.4 - manager intermediate (current) use of insulin (10) Dyslipidemia: Statin therapy added this hospital stay Status: Acute (11) Episode of syncope: This was the presenting complaint, along with dyspnea, with similar differential to above. Orthostasis and vasovagal event are another consideration and ruled out. Status: Acute Qualifiers: Syncope type: unspecified Qualified Code(s): R55 - Syncope and collapse (12) ARDS (adult respiratory distress syndrome): Status: Acute Additional A&P Information ARDS: Acute on chronic respiratory failure with hypoxia: Interstitial lung disease: Most likely related to interstitial lung disease. Chances of PE are low as patient had a CTA done in January 2019 which was not evident for PE and VQ scan done earlier this year on previous admission was intermediate risk PE. Fortunately cannot repeat a CTA because of CKD. Chances of decompensated heart failure are low as For ILD: Patient to be seen by Dr. Magallon today. Has seen Dr. Magallon once as an outpatient. Earlier this month he was started on PCP prophylaxis with steroids. Patient did not tolerate atovaquone well because of nausea. So was discontinued earlier on this admission. Cannot rule out infectious process. On confirmation that the lab rheumatological blood work ordered on January 30 was canceled. Check [facility] CAROLA profile, smooth muscle antibody, SSA Ro/[place] antibodies, histoplasma antigen, cryptococcal antigen, coccidiomycosis antigen, QuantiFERON, repeat sputum culture and Gram stain. We will check G6PD so that can most likely start patient on dapsone. Patient is not a good candidate for Bactrim given his CKD. Repeat CT chest, stat ABG. Not do CTA to rule out PE will check lower limb Dopplers. ABG will also help to rule out hypoxia and hypercapnia which can go in favor of chronic PE though unlikely. Oxygen Supplementation keeping saturation around 90%. Change Spiriva to DuoNeb's every 4 hours, continue with budesonide 1 mg twice daily. Continue oral prednisone 40 mg daily for now. We will hold off on trying to increase the prednisone for now. Follow-up sputum culture. Patient has a history of MRSA from the wound in the past. For now we will change the antibiotics from doxycycline to vancomycin as per the renal functions. For possible CHF: Patient has an EF of 60% with evidence of normal ventricular size, no regional wall motion abnormality, normal diastolic functions of the left ventricle, normal right atrial pressures. His BNP on admission was 1000 which is the lowest he has had. 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 Fluid restriction up to 2 L. Given acute events session today morning we will give IV Lasix 40 mg. After that patient would most likely need 20 mg of Lasix oral daily. Daily weights, strict input output charting. Continue Flomax. Atrial flutter flutter: On presentation. EKG consistent with right bundle branch block with left anterior fascicular block. This is chronic. Given his severe decompensation with ILD. The metoprolol and switch over to Cardizem 30 mg every 6 hours. We will monitor his blood pressures. CKD: On review of labs going up to January 2019 his creatinine has been fluctuating between 1.7-2.1. 1.5 today. Medication reconciliation done for nephrotoxic drugs. Continue to monitor BMP daily. Type 2 diabetes mellitus: Blood sugars difficult to control because of oral steroid therapy. Sugars acceptable for now. Continue with Levemir 20 subcu units twice daily, insulin sliding scale with meals and at bedtime. Elevated lactic acid felt secondary to hypoxemia Normocytic anemia Diabetic foot ulcer to left foot Cardiac diet, carb consistent. Lovenox for DVT prophylaxis Full code. I did let him know that Dr. Magallon is going to be coming back.Plans were discussed with the patient and he was given an opportunity to ask questions. Attestations Medical Necessity Statement*: ARDS Time Spent in Patient Care: Greater than 35 minutes (>than 50% of time spent in counselling and/or direct pt care on unit). 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 transplanted heart: [place] heart Acute non-ST elevation myocardial infarction (NSTEMI) I21.4 Acute exacerbation of CHF (congestive heart failure) I50.9 Heart failure type: unspecified Chronic kidney disease (CKD) N18.3 Chronic kidney disease stage: stage 3 (moderate) Diabetes mellitus E11.42; Z79.4 Diabetes mellitus complication detail: with polyneuropathy Diabetes mellitus complication status: with neurologic complications Diabetes mellitus termite treater insulin use: with correction use Diabetes mellitus type: type 2 Dyslipidemia E78.5 Episode of syncope R55 Syncope type: unspecified ARDS (adult respiratory distress syndrome) J80
[2020-02-15] MEDS: insulin glargine 100 units/1 mL 20 UNIT SUBCUT ×2 (09:08→21:36)
[2020-02-15] MEDS: clopidogrel 75 mg Tablet PO (09:09)
[2020-02-15] MEDS: predniSONE 20 mg Tablet 40 MG PO (09:09)
[2020-02-15] MEDS: pregabalin 75 mg Capsule PO ×2 (09:09→17:33)
[2020-02-15] MEDS: tamsulosin 0.4 mg Capsule PO (09:09)
[2020-02-15] MEDS: cyclobenzaprine 10 mg Tablet PO (09:10)
[2020-02-15] MEDS: acetaminophen 325 mg Tablet 650 MG PO (09:10)
[2020-02-15] MEDS: dilTIAZem 30 mg Tablet PO ×3 (09:10→21:36)
[2020-02-15] MEDS: doxycycline 100 mg Tablet PO (09:10)
[2020-02-15] MEDS: aspirin 81 mg EC Tablet PO (09:10)
[2020-02-15 10:13] LABS: Lactate Dehydrogenase 389 U/L (135-225)
--- NOTE | 2020-02-15 10:31 | CT_ITS ---
WS: [id number] CT chest wo con [id number] REASON FOR EXAM: ARDS IV CONTRAST ADMINISTERED: None. TOTAL EXAM DLP: 664.[address] scans at [facility] use at least one of these dose optimization techniques: automat ed exposure control; mA and/or kV adjustment per patient size (includes targeted exams where dose is matched to clinical indication); or iterative reconstruction. FINDINGS: The peripheral lung show reticular nodular pattern with groundglass changes bilaterally. The lung [place] are hypoaerated. The mediastinum showed normal aorta is coronary arteries show heavy arteriosclerotic changes. The alonso ction is heaviest in the lower lungs and where there appears to be a mixture of chronic pneumonitis. There is also evidence of scattered bronchiectasis. The right and left adrenal glands were normal. The liver appears to be normal. The stomach shows cons iderable debris. CT/CT chest wo con [id number] IMPRESSION: Findings consistent with idiopathic interstitial pulmonary fibrosis. There appears to be low-grade pneumonia in the right lower lung. Coronary artery disease. Considerable debris in the stomach Low-grade bronchiectasis
[2020-02-15 11:19] LABS: Glucose Point of Care 275 mg/dL (70-110)
[2020-02-15 11:35] LABS: HIV 1 & 2 Antibody Non-Reactive (Non-Reactiv); HIV 1 & 2 Antigen Non-Reactive (Non-Reactiv)
[2020-02-15 11:50] LABS: Hepatitis A Antibody IgM Non-Reactive (Nonreactive); Hepatitis B Core AB, Total Non-Reactive (Nonreactive); Hepatitis B Surface AB 3.5 (0-8.5); Hepatitis B Surface Antigen Non-Reactive (Nonreactive); Hepatitis C Virus Antibody Non-Reactive (Nonreactive)
[2020-02-15] MEDS: vancomycin 1,000 MG in sodium chloride 0.9% 250 ML 250 MG IV (13:56)
--- NOTE | 2020-02-15 14:12 | USCV_ITS ---
Bon Agusto Age: 59 Gender: M : 1960 Exam Date: 02/15/2020 14:58 Ordering Phys: Nilson Huang MD Technologist: Elena Mesa Exam Location: [facility] [place]_ Indication: SWELLING HISTORY: Lower extremity swelling. PROCEDURES: Venous duplex imaging was performed in bilateral lower extremities. The following venous structures were evaluated: common femoral vein, profunda vein, proximal portion of the greater saphenous vein, superficial femoral vein, and the popliteal vein. In addition, the posterior tibial and peroneal trunk were evaluated. Serial compression, augmentation maneuvers, and spectral Doppler flow evaluation were performed. FINDINGS: Normal 2-D Doppler and augmentation and compressibility throughout the lower extremity venous structures. Additional imaging through the proximal calf veins also reveals no thrombus. Limited evaluation of the greater saphenous vein is patent with no thrombus.. CONCLUSIONS No evidence of DVT in the above-mentioned identifiable veins. Dr Prasanth Mckee MD [facility] (Electronically Signed) Final Date: 15 February 2020 20:15 S
--- NOTE | 2020-02-15 15:03 | PM.PN ---
Subjective Subjective: Interval history: Stable, feeling much better denies any complaint Medications: Reviewed: Yes Medication Review Details: Current Medications Acetaminophen (Tylenol) 650 mg PO Q6H PRN PRN Reason: Mild/Mod Pain Or Temp >/= 101 Last Admin: 02/13/20 11:06 Dose: 650 mg Documented by: Albuterol Sulfate (Albuterol) 2.5 mg INHALATION Q4H.RESPIRATORY PRN PRN Reason: SHORTNESS OF BREATH Last Admin: 02/14/20 11:59 Dose: 2.5 mg Documented by: Aspirin (Aspirin Ec) 81 mg PO DAILY [facility] Last Admin: 02/14/20 08:35 Dose: 81 mg Documented by: Atorvastatin Calcium (Lipitor) 40 mg PO BEDTIME [facility] Last Admin: 02/13/20 20:39 Dose: 40 mg Documented by: Budesonide (Pulmicort) 1 mg INHALATION BID.RESPIRATORY [facility] Last Admin: 02/14/20 08:43 Dose: 1 mg Documented by: Cetirizine HCl (Zyrtec) 10 mg PO DAILY PRN PRN Reason: ALLERGIES Clopidogrel Bisulfate (Plavix) 75 mg PO DAILY [facility] Last Admin: 02/14/20 08:35 Dose: 75 mg Documented by: Cyclobenzaprine HCl (Flexeril) 10 mg PO TID PRN PRN Reason: muscle spasm Last Admin: 02/13/20 20:39 Dose: 10 mg Documented by: Dextrose (D50w) 25 ml IVP ONCE PRN; Protocol PRN Reason: hypoglycemia protocol Dextrose (D50w) 50 ml IVP PRN PRN; Protocol PRN Reason: hypoglycemia protocol Doxycycline Monohydrate (Vibramycin) 100 mg PO BID [facility]; Protocol Enoxaparin Sodium (Lovenox) 40 mg SUBCUT Q24H [facility] Last Admin: 02/13/20 20:56 Dose: Not Given Documented by: Glucagon (Glucagen) 1 mg IM ONCE PRN; Protocol PRN Reason: Adult Acute Hypoglycemia Prot. Diltiazem HCl 125 mg/ Sodium (Chloride) 125 mls @ 0 mls/hr IV .Q0M [facility]; Protocol Last Titration: 02/12/20 03:23 Dose: 0 mg/hr, 0 mls/hr Documented by: Dextrose (D5w) 500 mls @ 100 mls/hr IV ONCE PRN; Protocol PRN Reason: Adult Acute Hypoglycemia Prot Insulin Aspart (Novolog) 0 unit SUBCUT WM&BEDTIME [facility]; Protocol Last Admin: 02/14/20 11:50 Dose: 8 unit Documented by: Insulin Glargine (Lantus) 15 unit SUBCUT BID@ [facility] Last Admin: 02/14/20 08:41 Dose: 15 unit Documented by: Metoprolol Succinate (Toprol Xl) 25 mg PO DAILY [facility] Last Admin: 02/14/20 08:35 Dose: 25 mg Documented by: Morphine Sulfate (Morphine) 2 mg IVP Q4H PRN PRN Reason: SEVERE PAIN Last Admin: 02/11/20 22:30 Dose: 2 mg Documented by: Nitroglycerin (Nitrostat) 0.4 mg SUBLINGUAL Q5M PRN PRN Reason: Chest Pain Ondansetron HCl (Zofran) 4 mg IVP Q6H PRN PRN Reason: NAUSEA AND VOMITING Prednisone (Prednisone) 40 mg PO DAILY [facility] Last Admin: 02/14/20 08:35 Dose: 40 mg Documented by: Pregabalin (Lyrica) 75 mg PO BID [facility] Last Admin: 02/14/20 08:35 Dose: 75 mg Documented by: Tamsulosin HCl (Flomax) 0.4 mg PO DAILY [facility] Last Admin: 02/14/20 08:35 Dose: 0.4 mg Documented by: Tiotropium [place] (Spiriva) 18 mcg INHALATION DAILY [facility] Last Admin: 02/14/20 08:44 Dose: 1 puff Documented by: Vitals/I&O/Wt Last Vital Signs Temp 98.1 F 02/15/20 10:44 Pulse 113 H 02/15/20 11:36 Resp 22 H 02/15/20 11:36 BP 110/65 02/15/20 10:44 Pulse Ox 97 02/15/20 11:36 02/15/20 02/15/20 02/15/20 06:59 14:59 22:59 Intake Total 500 / 1999 698 / 698 Output Total 825 / 1352 251 / 251 Balance -325 / 648 447 / 447 Weight last 48 hrs Weight 173 lb Weight 172 lb 12.8 oz Physical Exam Narrative: EXAM NARRATIVE: GENERAL: Patient is alert, awake and oriented x3. NECK: No jugular vein distension. HEENT: No cyanosis. No icterus. No pallor. HEART: Regular S1 and S2. No murmur, rub or gallop. LUNGS: scant crackle otherwise clear breath sound bilaterally. ABDOMEN: Soft, nontender and nondistended. Positive bowel sounds. No guarding, rebound or tenderness. CENTRAL NERVOUS SYSTEM: Grossly nonfocal. EXTREMITIES: Lower extremities without edema bilaterally. Urinary Catheter Management^: Jesus: Cath Placed During This Visit: yes, but has since been removed by the nurse Reason for Continuing Indwelling Catheter: Acute Urinary Retention or Obstruction Urinary Catheter Date of Insertion: 02/11/20 Urinary Catheter Time of Insertion: 19:05 Date Urinary Catheter Removed: 02/14/20 Time Urinary Catheter Discontinued: 11:30 Data : 02/15/20 04:23 02/15/20 04:23 Micro: Microbiology 02/13/20 14:15 Gram Stain - Final Sputum - Expectorated Sputum Sputum Culture - Preliminary Staphylococcus species A&P Assessment and plan (1) Episode of syncope: Stable Status: Acute Qualifiers: Syncope type: unspecified Qualified Code(s): R55 - Syncope and collapse (2) Atherosclerotic heart disease of [place] coronary artery without angina pectoris: Continue current regimen. Stable no need of further investigation Status: Acute Qualifiers: [place] vs. transplanted heart: [place] heart Qualified Code(s): I25.10 - Atherosclerotic heart disease of [place] coronary artery without angina pectoris (3) Atrial flutter: Stable with history of paroxysmal atrial tachycardia, continue current Status: Acute Qualifiers: Atrial flutter type: unspecified Qualified Code(s): I48.92 - Unspecified atrial flutter (4) Chronic renal insufficiency: Improved. Status: Acute Qualifiers: Chronic kidney disease stage: unspecified stage Qualified Code(s): N18.9 - Chronic kidney disease, unspecified (5) Acute and chronic respiratory failure with hypoxia: Clinically improving. Status: Acute Additional A&P Information The other problems are History of congestive heart failure, possibly diastolic, currently compensated. Interstitial lung disease, on high flow oxygen Overall cardiovascular status seems stable Attestations Medical Necessity Statement*: As per medicine. 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 transplanted heart: [place] heart Atrial flutter I48.92 Atrial flutter type: unspecified Chronic renal insufficiency N18.9 Chronic kidney disease stage: unspecified stage Acute and chronic respiratory failure with hypoxia J96.21
[2020-02-15 16:30] LABS: Glucose Point of Care 212 mg/dL (70-110)
--- NOTE | 2020-02-15 19:59 | PC.NURSE ---
Patient does not have any complaints at this time. Dr. Patino notified of patient asking for Benadryl to help him sleep tonight.
[2020-02-15 20:06] LABS: Glucose Point of Care 436 mg/dL (70-110)
[2020-02-15] MEDS: enoxaparin 40 mg/0.4 mL Syringe SUBCUT (21:36)
[2020-02-15] MEDS: atorvastatin 40 mg Tablet PO (21:36)
[2020-02-15] MEDS: trazodone 50 mg Tablet 25 MG PO (21:36)
--- NOTE | 2020-02-15 22:56 | P.PN_ITS ---
Subjective Subjective: Interval history: Background: This is a 59-year-old gentleman that I had seen in the office for evaluation of interstitial lung disease on 01/20. The patient has a fairly complicated history. It appears that the patient suffered from a myocardial infarction in 2015 and development of heart failure with reduced ejection fraction. On the CT scan performed in the hospital in December, the patient has significant reticulation and traction bronchiectasis and bronchiolectasis predominantly in bilateral lower lobes. The disease also affects bilateral upper lobes. The disease is not predominantly posterior basilar, actually there is sparing of bilateral very posterior lungs. The patient's HRCT is consistent with NSIP pattern. Echocardiogram: Performed in January 2020 revealed improved ejection fraction at 60%. No significant valvular abnormalities Pulmonary function test: None available Laboratory data: Elevated rheumatoid factor at 57. The patient was admitted again in the hospital in end of December and was started on prednisone. Unfortunately, his rheumatologic work-up was never completed. This time the patient presented to the hospital with a syncopal episode and was found to be in atrial flutter which was thought to be the likely etiology.The patient tells me today that since he was started on prednisone he had significant improvement of his respiratory status. The patient had minimal cough no significant wheezing and his exertional shortness of breath was also significantly better. It appears that his rheumatologic work-up was sent to [email or web address] however there was miscommunication with the lab and the blood was discarded. We have sent his blood work again. The patient is also having difficulty tolerating atovaquone. He has diabetes, chronic kidney disease and peripheral neuropathy.His sputum culture on this admission shows staph species however there has not been a species yet. The patient tells me he is doing significantly better than how he did 3 weeks ago when he was in the hospital. Medications: Reviewed: Yes Vitals/I&O/Wt Last Vital Signs Temp 98.0 F 02/15/20 19:08 Pulse 97 02/15/20 20:22 Resp 20 H 02/15/20 20:22 BP 112/67 02/15/20 19:08 Pulse Ox 99 02/15/20 20:22 02/15/20 02/15/20 02/15/20 06:59 14:59 22:59 Intake Total 500 / 2000 698 / 698 120 / 818 Output Total 825 / 1352 251 / 251 375 / 626 Balance -325 / 648 447 / 447 -255 / 192 Weight last 48 hrs Weight 173 lb Weight 172 lb 12.8 oz Physical Exam Narrative: EXAM NARRATIVE: General: Patient is awake alert and oriented, in no distress. Neck: No JVD, no cervical or supraclavicular lymphadenopathy. Respiratory: Auscultation: Bilateral Velcro crackles posteriorly, no wheezing or rhonchi Cardiovascular: Regular rate and rhythm, S1-S2 present, no murmur, no peripheral edema. Abdomen: Soft, nontender, nondistended, positive bowel sound Musculoskeletal: No obvious joint deformity Skin: No rash, no evidence of erythema nodosum or multiforme. Neuro: Mental status is normal, no gross cranial nerve deficit, normal motor and coordination. Urinary Catheter Management^: Jesus: Cath Placed During This Visit: yes, but has since been removed by the nurse Reason for Continuing Indwelling Catheter: Acute Urinary Retention or Obstruction Urinary Catheter Date of Insertion: 02/11/20 Urinary Catheter Time of Insertion: 19:05 Date Urinary Catheter Removed: 02/14/20 Time Urinary Catheter Discontinued: 11:30 Data : 02/15/20 04:23 02/15/20 04:23 Micro: Microbiology 02/13/20 14:15 Gram Stain - Final Sputum - Expectorated Sputum Sputum Culture - Preliminary Staphylococcus species CT Chest: My impression: The patient had a CT scan of the chest performed today which revealed bilateral lower lobe predominant reticulation and traction bronchiectasis. Patient has involvement of both lungs. There is no subpleural honeycombing. CT scan of the chest is not consistent with IPF rather with NSIP. A&P Assessment and plan (1) Interstitial lung disease: NSIP the patient's high-resolution CT scan is consistent with NSIP. This could be either idiopathic or secondary to a rheumatologic disease. This could also be consistent with interstitial lung disease with autoimmune features.Asbestosis is usually associated with an UIP pattern which the patient does not have. There is no evidence of pleural thickening, pleural calcification.There is also no significant evidence of mosaicism or upper lobe predominant disease which is usually seen in patients with chronic hypersensitivity pneumonitis. Unfortunately I do not have most of the rheumatologic test back yet. The patient tells me that he has improved significantly symptomatically with the steroid. We will continue with the 40 mg of prednisone for total of 6 to 8 weeks before titrating the dose. The patient is in the hospital and having difficulty tolerating atovaquone. I would recommend starting Bactrim double strength tablet every other day. As the patient will be in the hospital it would be easy to monitor the increase in potassium. I am going to obtain anti-CCP, aldolase, CPK, CAROLA, hypersensitivity pneumonitis panel. Ideally, the patient would benefit from a lung biopsy however given his chronic hypoxic respiratory failure this would be extremely risky. If the patient does continue to improve with steroid therapy he might be a candidate for transbronchial cryo lung biopsy which we will be performing in the next few sat ths at the [facility]. In any case, the patient will require optimization of his insulin regimen. He used to have reduced ejection fraction which does not seem to be the case anymore. The patient also has chronic kidney disease. Currently is getting treated with anti-staph antibiotic. The cardiology team is on board for the management of atrial flutter. I will follow-up with the patient once he is discharged. Status: Chronic Attestations Medical Necessity Statement*: Will defer to the primary team Coding Level of Care Code Acute [employer] Therapist for David [facility] Diagnoses Interstitial lung disease J84.9
[2020-02-15] MEDS: sulfamethoxazole-trimeth DS 160-800 mg Tablet 1 TAB PO (23:17)
[2020-02-16] VITALS (19 sets, daily range): BP systolic 91–116; BP diastolic 60–73; PULSE 91–117; RESP 17–29; TEMP 36.5–36.8; O2SAT 88–98
[2020-02-16] MEDS: ipratropium-albuterol 3 mL Neb INHALATION ×6 (00:08→20:47)
[2020-02-16] MEDS: dilTIAZem 30 mg Tablet PO ×4 (03:23→21:21)
[2020-02-16 03:58] LABS: Eosinophils # 0.1 10^3/uL (0.0-0.8); Eosinophils % 1.5 %; Hematocrit 29.7 % (42.0-52.0); Hemoglobin 9.3 g/dL (11.7-16.6); Lymphocytes # 0.7 10^3/uL (0.8-4.8); Lymphocytes % 8.6 %; Mean Corpuscular HGB Conc 31.3 g/dL (30.0-36.0); Mean Corpuscular Hemoglobin 28.1 pg (28.0-34.0); Mean Corpuscular Volume 89.7 fL (80-94); Mean Platelet Volume 10.7 fL (7.4-10.4); Monocytes # 0.4 10^3/uL (0.2-0.9); Monocytes % 4.4 %; Neutrophils # 6.8 10^3/uL (1.8-7.7); Neutrophils % 83.7 %; Nucleated Red Blood Cells % 0 %; Platelet Count 263 10^3/cmm (130-400); Red Blood Count 3.31 10^6/uL (4.1-5.3); Red Cell Distribution Width 13.7 % (12.1-15.1); White Blood Count 8.1 10^3/uL (4.0-10.0)
--- NOTE | 2020-02-16 04:21 | PC.NURSE ---
Patient has had an uneventful night. Will continue to monitor.
[2020-02-16 04:42] LABS: Creatine Phosphokinase 25 U/L (39-308)
[2020-02-16 04:43] LABS: Alanine Aminotransferase 10 U/L (0-41); Albumin Level 2.6 g/dL (3.5-5.2); Alkaline Phosphatase 63 IU/L (40-130); Anion Gap 14.6 (5-19); Aspartate Amino Transferase 9 U/L (0-40); Blood Urea Nitrogen 47 mg/dL (6-20); Calcium 9.2 mg/dL (8.5-10.5); Carbon Dioxide 25 mmol/L (22-29); Chloride 100 mmol/L (98-107); Glomerular Filtration Rate 47.9 mL/min (90-130); Glucose 210 mg/dL (65-115); Osmolality Calculated 284 mOsm/kg (285-295); Potassium 4.6 mmol/L (3.5-5.1); Sodium 135 mmol/L (136-145); Total Bilirubin 0.3 mg/dL (0.15-1.2); Total Protein 6.6 g/dL (6.6-8.7)
[2020-02-16] MEDS: vancomycin 1,000 MG in sodium chloride 0.9% 250 ML 250 MG IV (05:55)
[2020-02-16] MEDS: acetaminophen 325 mg Tablet 650 MG PO (06:03)
[2020-02-16 06:17] LABS: Glucose Point of Care 210 mg/dL (70-110)
--- NOTE | 2020-02-16 07:27 | PC.NURSE ---
PATIENT SITTING UP IN BED ; PATIENT STATES HE FEELS 'CRUMMY' ; PATIENT IS ON HIGH FLOW O2 ; PATIENT O2 SATS DROP OFTEN WHICH DR AND RT ARE AWARE OF ; PATIENT HAS COMPLAINTS OF HEAD AND NECK PAIN OF WHICH HE RECEIVED MEDICATION FOR WHICH HE STATES 'HAS NOT KICKED IN YET'
[2020-02-16] MEDS: budesonide 0.5 mg/2 mL Neb INHALATION ×2 (08:45→20:47)
[2020-02-16] MEDS: insulin glargine 100 units/1 mL 20 UNIT SUBCUT ×2 (08:46→21:21)
[2020-02-16] MEDS: tamsulosin 0.4 mg Capsule PO (08:46)
[2020-02-16] MEDS: pregabalin 75 mg Capsule PO ×2 (08:46→17:43)
[2020-02-16] MEDS: aspirin 81 mg EC Tablet PO (08:47)
[2020-02-16] MEDS: predniSONE 20 mg Tablet 40 MG PO (08:47)
[2020-02-16] MEDS: clopidogrel 75 mg Tablet PO (08:47)
[2020-02-16] MEDS: glimepiride 2 mg Tablet PO ×2 (10:15→17:43)
[2020-02-16] MEDS: predniSONE 20 mg Tablet PO (10:15)
[2020-02-16 11:21] LABS: Glucose Point of Care 159 mg/dL (70-110)
--- NOTE | 2020-02-16 13:20 | PC.NURSE ---
PATIENT UP TO CHAIR RESTING QUIETLY ; VSS ; PATIENT DENIES ANY COMPLAINTS AT THIS TIME OTHER THAN GENERALIZED HEAD/NECK/BACK PAIN AND SOB WHICH HE IS BEING TREATED FOR
--- NOTE | 2020-02-16 14:43 | PM.PN ---
Subjective Subjective: Interval history: No acute events overnight. Last 24 hours patient was seen by Dr. Magallon. Today morning patient is doing a little better. Patient on start of my examination was on 45% 35 L saturating 96%. During my interview I was able to get it down to 40% 35 L. Patient saturation maintained over 90%. He denies of having headache, nausea, vomiting, chest pain, palpitations. Vitals/I&O/Wt Last Vital Signs Temp 98.0 F 02/16/20 10:51 Pulse 112 H 02/16/20 13:28 Resp 23 H 02/16/20 12:45 BP 94/60 02/16/20 10:51 Pulse Ox 95 02/16/20 12:45 02/15/20 02/16/20 02/16/20 22:59 06:59 14:59 Intake Total 120 / 1068 970 / 970 Output Total 375 / 626 1170 / 1170 Balance -255 / 442 -200 / -200 Weight last 48 hrs Weight 77.927 kg Weight 78.471 kg Physical Exam Narrative: EXAM NARRATIVE: General: No acute distress, AO x3, on high flow, anxious HEENT: PERRLA, pupils bilaterally equal and reactive Chest: Bilateral bronchial breath sounds, diffuse rhonchi, crackles all over the lung [place], right more than left, posterior more than anterior, equal air entry bilaterally CVS: S1-S2 regular, no murmurs, tachycardia, no gallops, no rubs Abdomen: Soft, nontender, no organomegaly, bowel sounds present Neuro: No focal deficits, no facial deformity, AO x3, power 5/5 in all limbs Urinary Catheter Management^: Jesus: Cath Placed During This Visit: yes, but has since been removed by the nurse Reason for Continuing Indwelling Catheter: Acute Urinary Retention or Obstruction Urinary Catheter Date of Insertion: 02/11/20 Urinary Catheter Time of Insertion: 19:05 Date Urinary Catheter Removed: 02/14/20 Time Urinary Catheter Discontinued: 11:30 Data : 02/16/20 03:10 02/16/20 03:10 Micro: Microbiology 02/11/20 11:11 Blood Culture - Final Blood NO GROWTH AFTER 5 DAYS 02/11/20 11:07 Blood Culture - Final Blood NO GROWTH AFTER 5 DAYS 02/13/20 14:15 Gram Stain - Final Sputum - Expectorated Sputum Sputum Culture - Final Staphylococcus aureus 02/15/20 21:46 Cryptococcal Antigen - Final Blood A&P Assessment and plan (1) ARDS (adult respiratory distress syndrome): Status: Acute (2) MSSA (methicillin susceptible Staphylococcus aureus) pneumonia: Status: Acute (3) Acute and chronic respiratory failure with hypoxia: Status: Acute (4) Interstitial lung disease: Status: Chronic (5) Atrial flutter: Status: Acute Qualifiers: Atrial flutter type: unspecified Qualified Code(s): I48.92 - Unspecified atrial flutter (6) CAD (coronary artery disease): RCA stent in 2016. Chronically on aspirin, Plavix, statins. No chest pain at present. Status: Chronic Qualifiers: Coronary Disease-Associated Artery/Lesion type: [place] artery [place] vs. transplanted heart: [place] heart Associated angina: angina presence unspecified Qualified Code(s): I25.10 - Atherosclerotic heart disease of [place] coronary artery without angina pectoris (7) Acute non-ST elevation myocardial infarction (NSTEMI): With positive delta noted at 2 hours. 6-hour delta was in the 90s. [place] to be due to demand ischemia from syncope, tachycardia, hypoxemia. Status: Acute (8) Acute exacerbation of CHF (congestive heart failure): Status: Acute Qualifiers: Heart failure type: unspecified Qualified Code(s): I50.9 - Heart failure, unspecified (9) Chronic kidney disease (CKD): Status: Chronic Qualifiers: Chronic kidney disease stage: stage 3 (moderate) Qualified Code(s): N18.3 - Chronic kidney disease, stage 3 (moderate) (10) Diabetes mellitus: Significant hyperglycemia initially, felt secondary to steroids. Blood sugars have been difficult to control at home. Hemoglobin A1c was 7.7 in October of this year. Remains difficult to adjust but overall better Status: Chronic Qualifiers: Diabetes mellitus type: type 2 Diabetes mellitus halfway insulin use: with halfway use Diabetes mellitus complication status: with neurologic complications Diabetes mellitus complication detail: with polyneuropathy Qualified Code(s): E11.42 - Type 2 diabetes mellitus with diabetic polyneuropathy; Z79.4 - joint terminal attack controller (current) use of insulin (11) Dyslipidemia: Statin therapy added this hospital stay Status: Acute (12) Episode of syncope: This was the presenting complaint, along with dyspnea, with similar differential to above. Orthostasis and vasovagal event are another consideration and ruled out. Status: Acute Qualifiers: Syncope type: unspecified Qualified Code(s): R55 - Syncope and collapse Additional A&P Information ARDS: Acute on chronic respiratory failure with hypoxia: Interstitial lung disease: Most likely related to interstitial lung disease. Chances of PE are low as patient had a CTA done in January 2019 which was not evident for PE and VQ scan done earlier this year on previous admission was intermediate risk PE. Fortunately cannot repeat a CTA because of CKD. Most likely current decompensation is because of staph pneumonia on ILD. For ILD: Appreciate Dr. Magallon's recommendation. Earlier this month he was started on PCP prophylaxis with steroids. Patient did not tolerate atovaquone well because of nausea. So was discontinued earlier on this admission. Cannot rule out infectious process. On confirmation that the lab rheumatological blood work ordered on January 30 was canceled. Blood work for [facility] CAROLA profile, smooth muscle antibody, SSA [place] antibodies, histoplasma antigen, cryptococcal antigen, coccidiomycosis antigen, QuantiFERON,, G6PD sent yesterday. Results awaited. Repeat sputum culture and Gram stain. Lower limb Dopplers negative for any DVT. ABG negative for hypercapnia but suggestive of hypoxia most likely suggestive of ILD and less likely for PE. Unfortunately cannot do CTA because of borderline renal functions. Case discussed with Dr. Magallon yesterday. He feels patient can be started on Bactrim while in hospital and his kidney functions and potassium can be monitored accordingly. G6PD for possible initiation of dapsone still awaited if patient does not tolerate Bactrim well. Oxygen Supplementation keeping saturation around 90%. Change Spiriva to DuoNeb's every 4 hours, continue with budesonide twice daily. Start patient on Xanax 0.25 mg twice daily as needed for anxiety and air hunger. Continue oral prednisone 40 mg daily for now. We will hold off on trying to increase the prednisone for now. Sputum culture yesterday positive for staph though no speciation is present. Continue with vancomycin as per the renal functions. Day 2 of treatment today. For possible CHF: Patient has an EF of 60% with evidence of normal ventricular size, no regional wall motion abnormality, normal diastolic functions of the left ventricle, normal right atrial pressures. His BNP on admission was 1000 which is the lowest he has had. 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 Fluid restriction up to 2 L. Patient overall 1450 cc negative. Continue with Lasix 20 mg oral daily. Daily weights, strict input output charting. Continue Flomax. Atrial flutter flutter: On presentation. EKG consistent with right bundle branch block with left anterior fascicular block. This is chronic. Given his severe decompensation with ILD. Metoprolol switched to Cardizem yesterday. Patient has tolerated well. We will continue with Cardizem 30 mg every 6 hourly for now. CKD: On review of labs going up to January 2019 his creatinine has been fluctuating between 1.7-2.1. 1.5 today. Medication reconciliation done for nephrotoxic drugs. Continue to monitor BMP daily. Type 2 diabetes mellitus: Blood sugars difficult to control because of oral steroid therapy. Sugars mildly elevated. Continue with Levemir 20 units twice daily along with insulin sliding scale at moderate dose. Start patient on glimepiride 2 mg twice daily today. Will monitor for hypoglycemia and go accordingly. Elevated lactic acid felt secondary to hypoxemia Normocytic anemia Diabetic foot ulcer to left foot Cardiac diet, carb consistent. Lovenox for DVT prophylaxis Full code. Attestations Medical Necessity Statement*: ARDS, ILD, MSSA pneumonia Coding Level of Care Code Acute Security Rover for [facility] Diagnoses ARDS (adult respiratory distress syndrome) J80 MSSA (methicillin susceptible Staphylococcus aureus) pneumonia J15.211 Acute and chronic respiratory failure with hypoxia J96.21 Interstitial lung disease J84.9 Atrial flutter I48.92 Atrial flutter type: unspecified CAD (coronary artery disease) I25.10 Coronary Disease-Associated Artery/Lesion type: [place] artery [place] vs. transplanted heart: [place] heart Associated angina: angina presence unspecified Acute non-ST elevation myocardial infarction (NSTEMI) I21.4 Acute exacerbation of CHF (congestive heart failure) I50.9 Heart failure type: unspecified Chronic kidney disease (CKD) N18.3 Chronic kidney disease stage: stage 3 (moderate) Diabetes mellitus E11.42; Z79.4 Diabetes mellitus type: type 2 Diabetes mellitus halfway insulin use: with halfway use Diabetes mellitus complication status: with neurologic complications Diabetes mellitus complication detail: with polyneuropathy Dyslipidemia E78.5 Episode of syncope R55 Syncope type: unspecified
[2020-02-16 16:25] LABS: Glucose Point of Care 294 mg/dL (70-110)
--- NOTE | 2020-02-16 19:24 | P.PN_ITS ---
Subjective Subjective: Interval history: Heart rate is under control. Denies chest pain Medications: Reviewed: Yes Medication Review Details: Current Medications Acetaminophen (Tylenol) 650 mg PO Q6H PRN PRN Reason: Mild/Mod Pain Or Temp >/= 101 Last Admin: 02/13/20 11:06 Dose: 650 mg Documented by: Albuterol Sulfate (Albuterol) 2.5 mg INHALATION Q4H.RESPIRATORY PRN PRN Reason: SHORTNESS OF BREATH Last Admin: 02/14/20 11:59 Dose: 2.5 mg Documented by: Aspirin (Aspirin Ec) 81 mg PO DAILY [facility] Last Admin: 02/14/20 08:35 Dose: 81 mg Documented by: Atorvastatin Calcium (Lipitor) 40 mg PO BEDTIME [facility] Last Admin: 02/13/20 20:39 Dose: 40 mg Documented by: Budesonide (Pulmicort) 1 mg INHALATION BID.RESPIRATORY [facility] Last Admin: 02/14/20 08:43 Dose: 1 mg Documented by: Cetirizine HCl (Zyrtec) 10 mg PO DAILY PRN PRN Reason: ALLERGIES Clopidogrel Bisulfate (Plavix) 75 mg PO DAILY [facility] Last Admin: 02/14/20 08:35 Dose: 75 mg Documented by: Cyclobenzaprine HCl (Flexeril) 10 mg PO TID PRN PRN Reason: muscle spasm Last Admin: 02/13/20 20:39 Dose: 10 mg Documented by: Dextrose (D50w) 25 ml IVP ONCE PRN; Protocol PRN Reason: hypoglycemia protocol Dextrose (D50w) 50 ml IVP PRN PRN; Protocol PRN Reason: hypoglycemia protocol Doxycycline Monohydrate (Vibramycin) 100 mg PO BID [facility]; Protocol Enoxaparin Sodium (Lovenox) 40 mg SUBCUT Q24H [facility] Last Admin: 02/13/20 20:56 Dose: Not Given Documented by: Glucagon (Glucagen) 1 mg IM ONCE PRN; Protocol PRN Reason: Adult Acute Hypoglycemia Prot. Diltiazem HCl 125 mg/ Sodium (Chloride) 125 mls @ 0 mls/hr IV .Q0M [facility]; Protocol Last Titration: 02/12/20 03:23 Dose: 0 mg/hr, 0 mls/hr Documented by: Dextrose (D5w) 500 mls @ 100 mls/hr IV ONCE PRN; Protocol PRN Reason: Adult Acute Hypoglycemia Prot Insulin Aspart (Novolog) 0 unit SUBCUT WM&BEDTIME [facility]; Protocol Last Admin: 02/14/20 11:50 Dose: 8 unit Documented by: Insulin Glargine (Lantus) 15 unit SUBCUT BID@ [facility] Last Admin: 02/14/20 08:41 Dose: 15 unit Documented by: Metoprolol Succinate (Toprol Xl) 25 mg PO DAILY [facility] Last Admin: 02/14/20 08:35 Dose: 25 mg Documented by: Morphine Sulfate (Morphine) 2 mg IVP Q4H PRN PRN Reason: SEVERE PAIN Last Admin: 02/11/20 22:30 Dose: 2 mg Documented by: Nitroglycerin (Nitrostat) 0.4 mg SUBLINGUAL Q5M PRN PRN Reason: Chest Pain Ondansetron HCl (Zofran) 4 mg IVP Q6H PRN PRN Reason: NAUSEA AND VOMITING Prednisone (Prednisone) 40 mg PO DAILY [facility] Last Admin: 02/14/20 08:35 Dose: 40 mg Documented by: Pregabalin (Lyrica) 75 mg PO BID [facility] Last Admin: 02/14/20 08:35 Dose: 75 mg Documented by: Tamsulosin HCl (Flomax) 0.4 mg PO DAILY [facility] Last Admin: 02/14/20 08:35 Dose: 0.4 mg Documented by: Tiotropium [place] (Spiriva) 18 mcg INHALATION DAILY [facility] Last Admin: 02/14/20 08:44 Dose: 1 puff Documented by: Vitals/I&O/Wt Last Vital Signs Temp 97.7 F 02/16/20 14:58 Pulse 104 H 02/16/20 16:31 Resp 20 H 02/16/20 16:31 BP 91/64 02/16/20 14:58 Pulse Ox 95 02/16/20 16:31 02/16/20 02/16/20 02/16/20 06:59 14:59 22:59 Intake Total 970 / 970 240 / 1210 Output Total 1170 / 1170 Balance -200 / -200 240 / 40 Weight last 48 hrs Weight 171 lb 12.8 oz Weight 173 lb Physical Exam Narrative: EXAM NARRATIVE: GENERAL: Patient is alert, awake and oriented x3. NECK: No jugular vein distension. HEENT: No cyanosis. No icterus. No pallor. HEART: Regular S1 and S2. No murmur, rub or gallop. LUNGS: Basal crackle on inspiration bilaterally. ABDOMEN: Soft, nontender and nondistended. Positive bowel sounds. No guarding, rebound or tenderness. CENTRAL NERVOUS SYSTEM: Grossly nonfocal. EXTREMITIES: Lower extremities without edema bilaterally. Urinary Catheter Management^: Jesus: Cath Placed During This Visit: yes, but has since been removed by the nurse Reason for Continuing Indwelling Catheter: Acute Urinary Retention or Obstruction Urinary Catheter Date of Insertion: 02/11/20 Urinary Catheter Time of Insertion: 19:05 Date Urinary Catheter Removed: 02/14/20 Time Urinary Catheter Discontinued: 11:30 Data : 02/16/20 03:10 02/16/20 03:10 Micro: Microbiology 02/11/20 11:11 Blood Culture - Final Blood NO GROWTH AFTER 5 DAYS 02/11/20 11:07 Blood Culture - Final Blood NO GROWTH AFTER 5 DAYS 02/13/20 14:15 Gram Stain - Final Sputum - Expectorated Sputum Sputum Culture - Final Staphylococcus aureus 02/15/20 21:46 Cryptococcal Antigen - Final Blood A&P Assessment and plan (1) Episode of syncope: Stable Status: Acute Qualifiers: Syncope type: unspecified Qualified Code(s): R55 - Syncope and collapse (2) Atherosclerotic heart disease of [place] coronary artery without angina pectoris: Stable continue current Status: Acute Qualifiers: [place] vs. transplanted heart: [place] heart Qualified Code(s): I25.10 - Atherosclerotic heart disease of [place] coronary artery without angina pectoris (3) Atrial flutter: Inappropriate sinus tachycardia/atrial flutter stable. Patient is in si nus rhythm. Status: Acute Qualifiers: Atrial flutter type: unspecified Qualified Code(s): I48.92 - Unspecified atrial flutter (4) Chronic renal insufficiency: Improved. Status: Acute Qualifiers: Chronic kidney disease stage: unspecified stage Qualified Code(s): N18.9 - Chronic kidney disease, unspecified (5) Acute and chronic respiratory failure with hypoxia: Improving. Follow-up with pulmonary Status: Acute Additional A&P Information The other problems are History of congestive heart failure, possibly diastolic, currently compensated. Interstitial lung disease, on high flow oxygen Overall cardiovascular status seems stable Attestations Medical Necessity Statement*: Patient require continuation hospitalization for above defined care Coding Level of Care Code Acute Pharmacist for David [facility] Diagnoses Episode of syncope R55 Syncope type: unspecified Atherosclerotic heart disease of [place] coronary artery without angina pectoris I25.10 [place] vs. transplanted heart: [place] heart Atrial flutter I48.92 Atrial flutter type: unspecified Chronic renal insufficiency N18.9 Chronic kidney disease stage: unspecified stage Acute and chronic respiratory failure with hypoxia J96.21
[2020-02-16 20:42] LABS: Glucose Point of Care 437 mg/dL (70-110)
[2020-02-16] MEDS: ALPRAZolam 0.5 mg Tablet PO (21:21)
[2020-02-16] MEDS: atorvastatin 40 mg Tablet PO (21:21)
[2020-02-16] MEDS: enoxaparin 40 mg/0.4 mL Syringe SUBCUT (21:22)
[2020-02-16 23:33] LABS: Vancomycin Trough 15.6 ug/mL (10-15)
[2020-02-17] VITALS (17 sets, daily range): BP systolic 103–125; BP diastolic 57–75; PULSE 95–105; RESP 16–23; TEMP 36.3–36.7; O2SAT 90–99
[2020-02-17] MEDS: vancomycin 1,000 MG in sodium chloride 0.9% 250 ML 250 MG IV (00:29)
[2020-02-17] MEDS: ipratropium-albuterol 3 mL Neb INHALATION ×6 (00:47→19:44)
[2020-02-17] MEDS: dilTIAZem 30 mg Tablet PO ×4 (02:46→20:45)
--- NOTE | 2020-02-17 03:43 | PC.NURSE ---
Patient had uneventful night. Patient states that Xanax helped me sleep a lot more than that Trazodone. Patient does not have any complaints at this time. VSS. Will continue to monitor.
[2020-02-17 05:07] LABS: Alanine Aminotransferase 12 U/L (0-41); Albumin Level 2.4 g/dL (3.5-5.2); Alkaline Phosphatase 57 IU/L (40-130); Anion Gap 15.6 (5-19); Aspartate Amino Transferase 11 U/L (0-40); Blood Urea Nitrogen 48 mg/dL (6-20); Calcium 8.9 mg/dL (8.5-10.5); Carbon Dioxide 23 mmol/L (22-29); Chloride 99 mmol/L (98-107); Creatinine Clr Calc Pharmacy 45.9943; Globulin 3.5 g/dL (1.3-4.6); Glomerular Filtration Rate 38.8 mL/min (90-130); Glucose 233 mg/dL (65-115); Osmolality Calculated 282 mOsm/kg (285-295); Potassium 4.6 mmol/L (3.5-5.1); Sodium 133 mmol/L (136-145); Total Bilirubin 0.2 mg/dL (0.15-1.2); Total Protein 5.9 g/dL (6.6-8.7)
[2020-02-17] MEDS: glimepiride 2 mg Tablet PO ×2 (06:13→16:29)
[2020-02-17 06:35] LABS: Glucose Point of Care 244 mg/dL (70-110)
[2020-02-17] MEDS: budesonide 0.5 mg/2 mL Neb INHALATION ×2 (07:17→19:44)
[2020-02-17] MEDS: tamsulosin 0.4 mg Capsule PO (09:32)
[2020-02-17] MEDS: insulin glargine 100 units/1 mL 20 UNIT SUBCUT (09:32)
[2020-02-17] MEDS: pregabalin 75 mg Capsule PO ×2 (09:32→19:19)
[2020-02-17] MEDS: aspirin 81 mg EC Tablet PO (09:33)
[2020-02-17] MEDS: predniSONE 20 mg Tablet 60 MG PO (09:33)
[2020-02-17] MEDS: FUROsemide 20 mg Tablet PO (09:33)
[2020-02-17] MEDS: clopidogrel 75 mg Tablet PO (09:33)
--- NOTE | 2020-02-17 10:00 | P.PN_ITS ---
Subjective Subjective: Interval history: No acute events overnight. Today morning examination. States he is feeling a lot better. Patient is on 15 L 20% saturating 92%. He states Xanax has helped him quite a lot. He denies of any nausea, vomiting, headache, palpitations, headache. Patient has remained afebrile and hemodynamically stable. Vitals/I&O/Wt Last Vital Signs Temp 97.4 F L 02/17/20 08:00 Pulse 105 H 02/17/20 08:00 Resp 20 H 02/17/20 08:00 BP 103/60 02/17/20 08:00 Pulse Ox 90 02/17/20 08:00 02/16/20 02/17/20 02/17/20 22:59 06:59 14:59 Intake Total 240 / 1210 300 / 1510 300 / 300 Output Total 700 / 1870 Balance 240 / 40 -400 / -360 300 / 300 Weight last 48 hrs Weight 79.923 kg Weight 77.927 kg Physical Exam Narrative: EXAM NARRATIVE: General: No acute distress, AO x3, on high flow, less anxious HEENT: PERRLA, pupils bilaterally equal and reactive Chest: Bilateral bronchial breath sounds, diffuse rhonchi, crackles all over the lung [place], right more than left, posterior more than anterior, equal air entry bilaterally CVS: S1-S2 regular, no murmurs, tachycardia, no gallops, no rubs Abdomen: Soft, nontender, no organomegaly, bowel sounds present Neuro: No focal deficits, no facial deformity, AO x3, power 5/5 in all limbs Urinary Catheter Management^: Jesus: Cath Placed During This Visit: yes, but has since been removed by the nurse Reason for Continuing Indwelling Catheter: Acute Urinary Retention or Obstruction Urinary Catheter Date of Insertion: 02/11/20 Urinary Catheter Time of Insertion: 19:05 Date Urinary Catheter Removed: 02/14/20 Time Urinary Catheter Discontinued: 11:30 Data : 02/16/20 03:10 02/17/20 04:06 Micro: Microbiology 02/11/20 11:11 Blood Culture - Final Blood NO GROWTH AFTER 5 DAYS 02/11/20 11:07 Blood Culture - Final Blood NO GROWTH AFTER 5 DAYS 02/13/20 14:15 Gram Stain - Final Sputum - Expectorated Sputum Sputum Culture - Final Staphylococcus aureus 06/15/20 21:46 Cryptococcal Antigen - Final Blood A&P Assessment and plan (1) ARDS (adult respiratory distress syndrome): Status: Acute (2) MSSA (methicillin susceptible Staphylococcus aureus) pneumonia: Status: Acute (3) Acute and chronic respiratory failure with hypoxia: Status: Acute (4) Interstitial lung disease: Status: Chronic (5) Atrial flutter: Status: Acute Qualifiers: Atrial flutter type: unspecified Qualified Code(s): I48.92 - Unspecified atrial flutter (6) CAD (coronary artery disease): RCA stent in 2016. Chronically on aspirin, Plavix, statins. No chest pa in at present. Status: Chronic Qualifiers: Associated angina: angina presence unspecified Coronary Disease- Associated Artery/Lesion type: [place] artery [place] vs. transplanted heart: [place]ung heart Qualified Code(s): I25.10 - Atherosclerotic heart disease of [place] coronary artery without angina pectoris (7) Acute non-ST elevation myocardial infarction (NSTEMI): With positive delta noted at 2 hours. 6-hour delta was in the 90s. [place] to be due to demand ischemia from syncope, tachycardia, hypoxemia. Status: Acute (8) Acute exacerbation of CHF (congestive heart failure): Status: Acute Qualifiers: Heart failure type: unspecified Qualified Code(s): I50.9 - Heart failure, unspecified (9) Chronic kidney disease (CKD): Status: Chronic Qualifiers: Chronic kidney disease stage: stage 3 (moderate) Qualified Code(s): N18.3 - Chronic kidney disease, stage 3 (moderate) (10) Diabetes mellitus: Significant hyperglycemia initially, felt secondary to steroids. Blood sugars have been difficult to control at home. Hemoglobin A1c was 7.7 in October of this year. Remains difficult to adjust but overall better Status: Chronic Qualifiers: Diabetes mellitus complication detail: with polyneuropathy Diabetes mellitus complication status: with neurologic complications Diabetes mellitus extermination supervisor insulin use: with extermination supervisor use Diabetes mellitus type: type 2 Qualified Code(s): E11.42 - Type 2 diabetes mellitus with diabetic polyneuropathy; Z79.4 - extermination supervisor (current) use of insulin (11) Dyslipidemia: Statin therapy added this hospital stay Status: Acute (12) Episode of syncope: This was the presenting complaint, along with dyspnea, with similar differential to above. Orthostasis and vasovagal event are another consideration and ruled out. Status: Acute Qualifiers: Syncope type: unspecified Qualified Code(s): R55 - Syncope and collapse Additional A&P Information ARDS: Acute on chronic respiratory failure with hypoxia: Interstitial lung disease: Most likely related to interstitial lung disease. Chances of PE are low as patient had a CTA done in January 2019 which was not evident for PE and VQ scan done earlier this year on previous admission was intermediate risk PE. Yoana fitzgerald cannot repeat a CTA because of CKD. Most likely current decompensation is because of staph pneumonia on ILD. For ILD: Appreciate Dr. Magallon's recommendation. Earlier this month he was started on PCP prophylaxis with steroids. Patient did not tolerate atovaquone well because of nausea. So was discontinued earlier on this admission. Cannot rule out infectious process. On confirmation that the lab rheumatological blood work ordered on January 30 was canceled. Blood work for [facility] [place] profile, smooth muscle antibody, SSA [place] antibodies, histoplasma antigen, cryptococcal antigen, coccidiomycosis antigen, QuantiFERON,G6PD sent and results awaited. On confirmation with lab patient's results will come back by either Saturday or early next week. Repeat sputum culture and Gram stain. Lower limb Dopplers negative for any DVT. ABG negative for hypercapnia but suggestive of hypoxia most likely suggestive of ILD and less likely for PE. Unfortunately cannot do CTA because of borderline renal functions. Case discussed with Dr. Magallon yesterday. He feels patient can be started on Bactrim while in hospital and his kidney functions and potassium can be monitored accordingly. G6PD for possible initiation of dapsone still awaited if patient does not tolerate Bactrim well. Oxygen Supplementation keeping saturation around 90%. Continue with duo nebs every 4 hours and budesonide twice daily. Continue with Xanax 0.25 mg twice daily as needed for anxiety and air hunger. Increase prednisone yesterday to 60 mg daily. We will continue the same for now. We will try to de-escalate in few days. Patient would require 40 mg of prednisone daily for next 1 month. Sputum culture growing MSSA. Will change vancomycin to ceftriaxone. Ceftriaxone will be better for renal functions as well. Day 3 of treatment. For possible CHF: Patient has an EF of 60% with evidence of normal ventricular size, no regional wall motion abnormality, normal diastolic functions of the left ventricle, normal right atrial pressures. His BNP on admission was 1000 which is the lowest he has had. Given severe ILD and decompensation right now patient would most likely do best if on the sugar drier side. Fluid restriction up to 2 L. Continue with Lasix 20 mg oral daily. Daily weights, strict input output charting. Continue Flomax. Atrial flutter flutter: On presentation. EKG consistent with right bundle branch block with left anterior fascicular block. This is chronic. Given his severe decompensation with ILD. Metoprolol switched to Cardizem yesterday. Patient has tolerated well. We will continue with Cardizem 30 mg every 6 hourly for now. CKD: On review of labs going up to January 2019 his creatinine has been fluctuating between 1.7-2.1. 1.8 today. Most likely mild increase because of Bactrim. We will continue to monitor. If creatinine goes up to around 2 will have to stop Bactrim at that point. Medication reconciliation done for nephrotoxic drugs. Continue to monitor BMP daily. Type 2 diabetes mellitus: Blood sugars difficult to control because of oral steroid therapy. Sugars mildly elevated. Continue glimepiride 2 mg twice daily and insulin sliding scale at moderate dos e. We will increase Levemir to 25 units twice daily. Elevated lactic acid felt secondary to hypoxemia: Resolved. Normocytic anemia Diabetic foot ulcer to left foot Cardiac diet, carb consistent. Lovenox for DVT prophylaxis Full code. Attestations Medical Necessity Statement*: Acute on chronic hypoxic respiratory failure, ILD, CHANCE on CKD Time Spent in Patient Care: Greater than 35 minutes (>than 50% of time spent in counselling and/or direct pt care on unit) . Coding Level of Care Code Acute Trap Operator for [facility] Diagnoses ARDS (adult respiratory distress syndrome) J80 MSSA (methicillin susceptible Staphylococcus aureus) pneumonia J15.211 Acute and chronic respiratory failure with hypoxia J96.21 Interstitial lung disease J84.9 Atrial flutter I48.92 Atrial flutter type: unspecified CAD (coronary artery disease) I25.10 Associated angina: angina presence unspecified Coronary Disease-Associated Artery/Lesion type: [place] artery [place] vs. transplanted heart: [place] heart Acute non-ST elevation myocardial infarction (NSTEMI) I21.4 Acute exacerbation of CHF (congestive heart failure) I50.9 Heart failure type: unspecified Chronic kidney disease (CKD) N18.3 Chronic kidney disease stage: stage 3 (moderate) Diabetes mellitus E11.42; Z79.4 Diabetes mellitus complication detail: with polyneuropathy Diabetes mellitus complication status: with neurologic complications Diabetes mellitus extermination supervisor insulin use: with extermination supervisor use Diabetes mellitus type: type 2 Dyslipidemia E78.5 Episode of syncope R55 Syncope type: unspecified
[2020-02-17 11:26] LABS: Aldolase 5.7 U/L (< OR = 8.1)
[2020-02-17] MEDS: ALPRAZolam 0.5 mg Tablet PO ×2 (11:29→22:56)
[2020-02-17 12:09] LABS: Glucose Point of Care 231 mg/dL (70-110)
[2020-02-17 14:15] LABS: Anti-Double Strand DNA AB 1 IU/mL; Jo-1 Antibody <1.0 NEG AI (<1.0 NEG); SM/RNP Antibodies <1.0 NEG AI (<1.0 NEG); SS-B/LA IGG >8.0 POS AI (<1.0 NEG); Scleroderma Ab(Scl-70) Ab <1.0 NEG AI (<1.0 NEG); Ss-A/Ro Igg >8.0 POS AI (<1.0 NEG)
[2020-02-17 14:15] LABS: Cyclic Citrullinated Peptide <16 UNITS
[2020-02-17] MEDS: cefTRIAXone 1,000 MG in sodium chloride 0.9% (plus) 50 ML 100 MG IV (16:29)
[2020-02-17 16:41] LABS: Glucose Point of Care 294 mg/dL (70-110)
--- NOTE | 2020-02-17 18:27 | P.PN_ITS ---
Subjective Subjective: Interval history: Continue to feel better. Heart rate in the high 90s to low 100 Medications: Reviewed: Yes Medication Review Details: Current Medications Acetaminophen (Tylenol) 650 mg PO Q6H PRN PRN Reason: Mild/Mod Pain Or Temp >/= 101 Last Admin: 02/13/20 11:06 Dose: 650 mg Documented by: Albuterol Sulfate (Albuterol) 2.5 mg INHALATION Q4H.RESPIRATORY PRN PRN Reason: SHORTNESS OF BREATH Last Admin: 02/14/20 11:59 Dose: 2.5 mg Documented by: Aspirin (Aspirin Ec) 81 mg PO DAILY [facility] Last Admin: 02/14/20 08:35 Dose: 81 mg Documented by: Atorvastatin Calcium (Lipitor) 40 mg PO BEDTIME [facility] Last Admin: 02/13/20 20:39 Dose: 40 mg Documented by: Budesonide (Pulmicort) 1 mg INHALATION BID.RESPIRATORY [facility] Last Admin: 02/14/20 08:43 Dose: 1 mg Documented by: Cetirizine HCl (Zyrtec) 10 mg PO DAILY PRN PRN Reason: ALLERGIES Clopidogrel Bisulfate (Plavix) 75 mg PO DAILY [facility] Last Admin: 02/14/20 08:35 Dose: 75 mg Documented by: Cyclobenzaprine HCl (Flexeril) 10 mg PO TID PRN PRN Reason: muscle spasm Last Admin: 02/13/20 20:39 Dose: 10 mg Documented by: Dextrose (D50w) 25 ml IVP ONCE PRN; Protocol PRN Reason: hypoglycemia protocol Dextrose (D50w) 50 ml IVP PRN PRN; Protocol PRN Reason: hypoglycemia protocol Doxycycline Monohydrate (Vibramycin) 100 mg PO BID [facility]; Protocol Enoxaparin Sodium (Lovenox) 40 mg SUBCUT Q24H [facility] Last Admin: 02/13/20 20:56 Dose: Not Given Documented by: Glucagon (Glucagen) 1 mg IM ONCE PRN; Protocol PRN Reason: Adult Acute Hypoglycemia Prot. Diltiazem HCl 125 mg/ Sodium (Chloride) 125 mls @ 0 mls/hr IV .Q0M [facility]; Protocol Last Titration: 02/12/20 03:23 Dose: 0 mg/hr, 0 mls/hr Documented by: Dextrose (D5w) 500 mls @ 100 mls/hr IV ONCE PRN; Protocol PRN Reason: Adult Acute Hypoglycemia Prot Insulin Aspart (Novolog) 0 unit SUBCUT WM&BEDTIME [facility]; Protocol Last Admin: 02/14/20 11:50 Dose: 8 unit Documented by: Insulin Glargine (Lantus) 15 unit SUBCUT BID@ [facility] Last Admin: 02/14/20 08:41 Dose: 15 unit Documented by: Metoprolol Succinate (Toprol Xl) 25 mg PO DAILY [facility] Last Admin: 02/14/20 08:35 Dose: 25 mg Documented by: Morphine Sulfate (Morphine) 2 mg IVP Q4H PRN PRN Reason: SEVERE PAIN Last Admin: 02/11/20 22:30 Dose: 2 mg Documented by: Nitroglycerin (Nitrostat) 0.4 mg SUBLINGUAL Q5M PRN PRN Reason: Chest Pain Ondansetron HCl (Zofran) 4 mg IVP Q6H PRN PRN Reason: NAUSEA AND VOMITING Prednisone (Prednisone) 40 mg PO DAILY [facility] Last Admin: 02/14/20 08:35 Dose: 40 mg Documented by: Pregabalin (Lyrica) 75 mg PO BID [facility] Last Admin: 02/14/20 08:35 Dose: 75 mg Documented by: Tamsulosin HCl (Flomax) 0.4 mg PO DAILY [facility] Last Admin: 02/14/20 08:35 Dose: 0.4 mg Documented by: Tiotropium [place] (Spiriva) 18 mcg INHALATION DAILY [facility] Last Admin: 02/14/20 08:44 Dose: 1 puff Documented by: Vitals/I&O/Wt Last Vital Signs Temp 97.5 F L 02/17/20 16:00 Pulse 101 H 02/17/20 16:00 Resp 16 02/17/20 16:00 BP 107/64 02/17/20 16:00 Pulse Ox 97 02/17/20 16:00 02/17/20 02/17/20 02/17/20 06:59 14:59 22:59 Intake Total 300 / 1510 540 / 540 300 / 840 Output Total 700 / 1870 475 / 475 Balance -400 / -360 540 / 540 -175 / 365 Weight last 48 hrs Weight 176 lb 3.2 oz Weight 171 lb 12.8 oz Physical Exam Narrative: EXAM NARRATIVE: GENERAL: Patient is alert, awake and oriented x3. NECK: No jugular vein distension. HEENT: No cyanosis. No icterus. No pallor. HEART: Regular S1 and S2. No murmur, rub or gallop. LUNGS: Basal crackle on inspiration bilaterally. ABDOMEN: Soft, nontender and nondistended. Positive bowel sounds. No guarding, rebound or tenderness. CENTRAL NERVOUS SYSTEM: Grossly nonfocal. EXTREMITIES: Lower extremities without edema bilaterally. Urinary Catheter Management^: Jesus: Cath Placed During This Visit: yes, but has since been removed by the nurse Reason for Continuing Indwelling Catheter: Acute Urinary Retention or Obstruction Urinary Catheter Date of Insertion: 02/11/20 Urinary Catheter Time of Insertion: 19:05 Date Urinary Catheter Removed: 02/14/20 Time Urinary Catheter Discontinued: 11:30 Data : 02/16/20 03:10 02/17/20 04:06 Micro: Microbiology 02/17/20 10:00 Gram Stain - Final Sputum - Expectorated Sputum A&P Assessment and plan (1) Episode of syncope: No more syncope. Continues to do fine Status: Acute Qualifiers: Syncope type: unspecified Qualified Code(s): R55 - Syncope and collapse (2) Atherosclerotic heart disease of [place] coronary artery without angina pec toris: Stable doing fine from coronary disease perspective continue medicine Status: Acute Qualifiers: [place] vs. transplanted heart: [place] heart Qualified Code(s): I25.10 - Atherosclerotic heart disease of [place] coronary artery without angina pectoris (3) Atrial flutter: Inappropriate sinus tachycardia, most likely secondary to pulmonary problem, no more flutter. Status: Acute Qualifiers: Atrial flutter type: unspecified Qualified Code(s): I48.92 - Unspecified atrial flutter (4) Chronic renal insufficiency: Slightly worsened. May need gentle hydration Status: Acute Qualifiers: Chronic kidney disease stage: unspecified stage Qualified Code(s): N18.9 - Chronic kidney disease, unspecified (5) Acute and chronic respiratory failure with hypoxia: Improving. Follow-up with pulmonary Status: Acute Additional A&P Information The other problems are History of congestive heart failure, possibly diastolic, currently compensated. 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 transplanted heart: [place] heart Atrial flutter I48.92 Atrial flutter type: unspecified Chronic renal insufficiency N18.9 Chronic kidney disease stage: unspecified stage Acute and chronic respiratory failure with hypoxia J96.21
[2020-02-17 20:42] LABS: Glucose Point of Care 444 mg/dL (70-110)
[2020-02-17] MEDS: insulin glargine 100 units/1 mL 25 UNIT SUBCUT (20:45)
[2020-02-17] MEDS: enoxaparin 40 mg/0.4 mL Syringe SUBCUT (20:45)
[2020-02-17] MEDS: atorvastatin 40 mg Tablet PO (20:45)
--- NOTE | 2020-02-17 20:53 | PC.NURSE ---
Received report from GOKUL Walters at [id number]. Patient resting in bed watching tv. Patient currently is on O2 8L NC. Patient reports feeling much better but does not want to go home until for sure he is well.
[2020-02-17] MEDS: sulfamethoxazole-trimeth DS 160-800 mg Tablet 1 TAB PO (22:56)
[2020-02-18] VITALS (20 sets, daily range): BP systolic 94–120; BP diastolic 62–71; PULSE 88–113; RESP 17–27; TEMP 36.3–36.8; O2SAT 83–98
[2020-02-18] MEDS: ipratropium-albuterol 3 mL Neb INHALATION ×6 (00:15→21:18)
[2020-02-18] MEDS: dilTIAZem 30 mg Tablet PO ×4 (02:10→20:20)
[2020-02-18 06:02] LABS: Eosinophils % 0.5 %; Hematocrit 28.8 % (42.0-52.0); Lymphocytes # 0.4 10^3/uL (0.8-4.8); Lymphocytes % 5.4 %; Mean Corpuscular HGB Conc 31.3 g/dL (30.0-36.0); Mean Corpuscular Hemoglobin 28.1 pg (28.0-34.0); Mean Platelet Volume 10.8 fL (7.4-10.4); Monocytes # 0.3 10^3/uL (0.2-0.9); Monocytes % 3.4 %; Neutrophils # 7.3 10^3/uL (1.8-7.7); Neutrophils % 89.8 %; Nucleated Red Blood Cells % 0 %; Platelet Count 257 10^3/cmm (130-400); Red Cell Distribution Width 14.2 % (12.1-15.1); White Blood Count 8.2 10^3/uL (4.0-10.0)
[2020-02-18] MEDS: glimepiride 2 mg Tablet PO ×2 (06:06→17:06)
[2020-02-18 06:22] LABS: Alanine Aminotransferase 14 U/L (0-41); Albumin Level 2.6 g/dL (3.5-5.2); Alkaline Phosphatase 64 IU/L (40-130); Anion Gap 13.8 (5-19); Aspartate Amino Transferase 12 U/L (0-40); Blood Urea Nitrogen 50 mg/dL (6-20); Calcium 9.1 mg/dL (8.5-10.5); Carbon Dioxide 24 mmol/L (22-29); Chloride 100 mmol/L (98-107); Globulin 3.7 g/dL (1.3-4.6); Glomerular Filtration Rate 44.5 mL/min (90-130); Glucose 229 mg/dL (65-115); Osmolality Calculated 281 mOsm/kg (285-295); Potassium 4.8 mmol/L (3.5-5.1); Sodium 133 mmol/L (136-145); Total Bilirubin 0.2 mg/dL (0.15-1.2); Total Protein 6.3 g/dL (6.6-8.7)
[2020-02-18 06:27] LABS: Glucose Point of Care 230 mg/dL (70-110)
[2020-02-18] MEDS: budesonide 0.5 mg/2 mL Neb INHALATION ×2 (07:22→21:17)
[2020-02-18] MEDS: FUROsemide 20 mg Tablet PO (07:26)
[2020-02-18] MEDS: insulin glargine 100 units/1 mL 25 UNIT SUBCUT (07:26)
[2020-02-18] MEDS: pregabalin 75 mg Capsule PO ×2 (08:53→17:06)
[2020-02-18] MEDS: clopidogrel 75 mg Tablet PO (08:54)
[2020-02-18] MEDS: predniSONE 20 mg Tablet 60 MG PO (08:54)
[2020-02-18] MEDS: tamsulosin 0.4 mg Capsule PO (08:54)
[2020-02-18] MEDS: aspirin 81 mg EC Tablet PO (08:54)
--- NOTE | 2020-02-18 08:56 | PC.NURSE ---
Patient o2 titrated from 5 to 4 LPM to maintain O2 sats between 88-92%. Nurse to continue to monitor.
--- NOTE | 2020-02-18 09:12 | PC.NURSE ---
Patient has mask available at bedside to wear at own discretion.
[2020-02-18] MEDS: insulin glargine 100 units/1 mL 5 UNIT SUBCUT (10:07)
[2020-02-18 11:33] LABS: Glucose Point of Care 154 mg/dL (70-110)
--- NOTE | 2020-02-18 11:45 | PC.NURSE ---
Nurse called to room. Patient had coughing spell when repositioning self in bed. Patient o2 saturations dropped into low 70s. Once patient stopped coughing, o2 sats recovered to high 80s on [address] Huang notified of event. No further action at this time.
[2020-02-18] MEDS: ALPRAZolam 0.5 mg Tablet PO ×2 (11:50→23:34)
[2020-02-18] MEDS: acetaminophen 325 mg Tablet 650 MG PO ×2 (11:50→20:26)
--- NOTE | 2020-02-18 12:19 | P.PN_ITS ---
Subjective Subjective: Interval history: No acute events overnight. Today morning his examination he states he is feeling a lot better. He was transitioned over to nasal cannula. He saturating 92% on 4 L nasal cannula at present. He continues to do better. Denies of any nausea, vomiting, headache. Labs and vitals noted. Vitals/I&O/Wt Last Vital Signs Temp 97.4 F L 02/18/20 11:36 Pulse 113 H 02/18/20 11:36 Resp 27 H 02/18/20 11:36 BP 120/69 02/18/20 11:36 Pulse Ox 83 L 02/18/20 11:36 02/17/20 02/18/20 02/18/20 22:59 06:59 14:59 Intake Total 350 / 890 300 / 1190 240 / 240 Output Total 975 / 975 550 / 1525 Balance -625 / -85 -250 / -335 240 / 240 Weight last 48 hrs Weight 79.861 kg Weight 79.923 kg Physical Exam Narrative: EXAM NARRATIVE: General: No acute distress, AO x3, on nasal cannula, less anxious HEENT: PERRLA, pupils bilaterally equal and reactive Chest: Bilateral bronchial breath sounds, getting better, diffuse rhonchi, crackles all over the lung [place], right more than left, posterior more than anterior, equal air entry bilaterally CVS: S1-S2 regular, no murmurs, tachycardia, no gallops, no rubs Abdomen: Soft, nontender, no organomegaly, bowel sounds present Neuro: No focal deficits, no facial deformity, AO x3, power 5/5 in all limbs Urinary Catheter Management^: Jesus: Cath Placed During This Visit: yes, but has since been removed by the nurse Reason for Continuing Indwelling Catheter: Acute Urinary Retention or Obstruction Urinary Catheter Date of Insertion: 02/11/20 Urinary Catheter Time of Insertion: 19:05 Date Urinary Catheter Removed: 02/14/20 Time Urinary Catheter Discontinued: 11:30 Data : 02/18/20 05:30 02/18/20 05:30 Micro: Microbiology 02/17/20 10:00 Gram Stain - Final Sputum - Expectorated Sputum Sputum Culture - Preliminary A&P Assessment and plan (1) ARDS (adult respiratory distress syndrome): Status: Acute (2) SS-A antibody positive: Status: Acute (3) SS-B antibody positive: Status: Acute (4) MSSA (methicillin susceptible Staphylococcus aureus) pneumonia: Status: Acute (5) Acute and chronic respiratory failure with hypoxia: Status: Acute (6) Interstitial lung disease: Status: Chronic (7) Atrial flutter: Status: Acute Qualifiers: Atrial flutter type: unspecified Qualified Code(s): I48.92 - Unspecif ied atrial flutter (8) CAD (coronary artery disease): RCA stent in 2016. Chronically on aspirin, Plavix, statins. No chest pain at present. Status: Chronic Qualifiers: Coronary Disease-Associated Artery/Lesion type: [place] artery [place] vs. transplanted heart: [place] heart Associated angina: angina presence unspecified Qualified Code(s): I25.10 - Atherosclerotic heart disease of [place] coronary artery without angina pectoris (9) Acute non-ST elevation myocardial infarction (NSTEMI): With positive delta noted at 2 hours. 6-hour delta was in the 90s. [place] to be due to demand ischemia from syncope, tachycardia, hypoxemia. Status: Acute (10) Acute exacerbation of CHF (congestive heart failure): Status: Acute Qualifiers: Heart failure type: unspecified Qualified Code(s): I50.9 - Heart failure, unspecified (11) Chronic kidney disease (CKD): Status: Chronic Qualifiers: Chronic kidney disease stage: stage 3 (moderate) Qualified Code(s): N18.3 - Chronic kidney disease, stage 3 (moderate) (12) Diabetes mellitus: Significant hyperglycemia initially, felt secondary to steroids. Blood sugars have been difficult to control at home. Hemoglobin A1c was 7.7 in October of this year. 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 Orthostasis and vasovagal event are another consideration and ruled out. Status: Acute Qualifiers: Syncope type: unspecified Qualified Code(s): R55 - Syncope and collapse Additional A&P Information ARDS: Acute on chronic respiratory failure with hypoxia: Interstitial lung disease: Most likely related to interstitial lung disease. Chances of PE are low as patient had a CTA done in January 2019 which was not evident for PE and VQ scan done earlier this year on previous admission was intermediate risk PE. Fortunately cannot repeat a CTA because of CKD. Most likely current decompensation is because of staph pneumonia on ILD. For ILD: Appreciate Dr. Magallon's recommendation. Earlier this month he was started on PCP prophylaxis with steroids. Patient did not tolerate atovaquone well because of nausea. So was discontinued earlier on this admission. Cannot rule out infectious process. On confirmation that the lab rheumatological blood work ordered on January 30 was canceled. Rheumatological work Is coming back now. Out of all the blood work back SSA SSB antibodies are positive. This could be related to Sjogren's. SLE unlikely because double-stranded DNA was negative. We will confirm with Dr. Magallon if the CT scan pattern looks like LIP. Case discussed with Dr. Adkins from rheumatology. He will follow-up the patient as an outpatient. He states no further blood work is required for now. Histoplasma antigen, coccidial antigen, QuantiFERON, G6PD results still awaited. Lower limb Dopplers negative for any DVT. ABG negative for hypercapnia but suggestive of hypoxia most likely suggestive of ILD and less likely for PE. Unfortunately cannot do CTA because of borderline renal functions. Continue with Bactrim as patient's renal functions have remained stable. If patient does not tolerate Bactrim can possibly transfer dapsone. Awaiting G6PD results. Oxygen Supplementation keeping saturation around 90%. Continue with duo nebs every 4 hours and budesonide twice daily. Continue with Xanax 0.25 mg twice daily as needed for anxiety and air hunger. Continue with prednisone 60 mg for now. We will continue the same for now. We will try to de-escalate in few days. Patient would require 40 mg of prednisone daily for next 1 month. Sputum culture growing MSSA. Antibiotics transferred to ceftriaxone yesterday. Day 4 of appropriate treatment. Will most likely need 5-day course overall. For possible CHF: Patient has an EF of 60% with evidence of normal ventricular size, no regional wall motion abnormality, normal diastolic functions of the left ventricle, normal right atrial pressures. His BNP on admission was 1000 which is the lowest he has had. 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 Fluid restriction up to 2 L. Overall 1400 cc negative. Continue with Lasix 20 mg oral daily. Daily weights, strict input output charting. Continue Flomax. Atrial flutter flutter: On presentation. EKG consistent with right bundle branch block with left anterior fascicular block. This is chronic. Given his severe decompensation with ILD. Metoprolol switched to Cardizem yesterday. Patient has tolerated well. We will continue with Cardizem 30 mg every 6 hourly for now. CKD: On review of labs going up to January 2019 his creatinine has been fluctuating between 1.7-2.1. Creatinine stable. 1.5 today. If creatinine goes up to around 2 will have to stop Bactrim at that point. Medication reconciliation done for nephrotoxic drugs. Continue to monitor BMP daily. Type 2 diabetes mellitus: Blood sugars difficult to control because of oral steroid therapy. Sugars mildly elevated. Continue glimepiride 2 mg twice daily and insulin sliding scale at moderate dose. He is not getting glimepiride pre-meals. Will return the dose. Increase Levemir to 30 units twice daily. Elevated lactic acid felt secondary to hypoxemia: Resolved. Normocytic anemia Diabetic foot ulcer to left foot Cardiac diet, carb consistent. Lovenox for DVT prophylaxis Full code. 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 transplanted heart: [place] heart Associated angina: angina presence unspecified Acute non-ST elevation myocardial infarction (NSTEMI) I21.4 Acute exacerbation of CHF (congestive heart failure) I50.9 Heart failure type: unspecified Chronic kidney disease (CKD) N18.3 Chronic kidney disease stage: stage 3 (moderate) Diabetes mellitus E11.42; Z79.4 Diabetes mellitus type: type 2 Diabetes mellitus shelter insulin use: with terminologist use Diabetes mellitus complication status: with neurologic complications Diabetes mellitus complication detail: with polyneuropathy Dyslipidemia E78.5 Episode of syncope R55 Syncope type: unspecified
[2020-02-18 13:44] LABS: Quantiferon Mitogen 1.91 IU/mL; Quantiferon Nil 0.01 IU/mL; Quantiferon TB Gold NEGATIVE (NEGATIVE)
[2020-02-18] MEDS: cefTRIAXone 1,000 MG in sodium chloride 0.9% (plus) 50 ML 100 MG IV (15:22)
[2020-02-18 16:19] LABS: Glucose Point of Care 219 mg/dL (70-110)
--- NOTE | 2020-02-18 18:42 | PM.PN ---
Subjective Subjective: Interval history: Patient had some shortness of breath oxygen was increased currently stable. Heart rate remains in sinus rhythm Medications: Reviewed: Yes Medication Review Details: Current Medications Acetaminophen (Tylenol) 650 mg PO Q6H PRN PRN Reason: Mild/Mod Pain Or Temp >/= 101 Last Admin: 02/13/20 11:06 Dose: 650 mg Documented by: Albuterol Sulfate (Albuterol) 2.5 mg INHALATION Q4H.RESPIRATORY PRN PRN Reason: SHORTNESS OF BREATH Last Admin: 02/14/20 11:59 Dose: 2.5 mg Documented by: Aspirin (Aspirin Ec) 81 mg PO DAILY [facility] Last Admin: 02/14/20 08:35 Dose: 81 mg Documented by: Atorvastatin Calcium (Lipitor) 40 mg PO BEDTIME [facility] Last Admin: 02/13/20 20:39 Dose: 40 mg Documented by: Budesonide (Pulmicort) 1 mg INHALATION BID.RESPIRATORY [facility] Last Admin: 02/14/20 08:43 Dose: 1 mg Documented by: Cetirizine HCl (Zyrtec) 10 mg PO DAILY PRN PRN Reason: ALLERGIES Clopidogrel Bisulfate (Plavix) 75 mg PO DAILY [facility] Last Admin: 02/14/20 08:35 Dose: 75 mg Documented by: Cyclobenzaprine HCl (Flexeril) 10 mg PO TID PRN PRN Reason: muscle spasm Last Admin: 02/13/20 20:39 Dose: 10 mg Documented by: Dextrose (D50w) 25 ml IVP ONCE PRN; Protocol PRN Reason: hypoglycemia protocol Dextrose (D50w) 50 ml IVP PRN PRN; Protocol PRN Reason: hypoglycemia protocol Doxycycline Monohydrate (Vibramycin) 100 mg PO BID [facility]; Protocol Enoxaparin Sodium (Lovenox) 40 mg SUBCUT Q24H [facility] Last Admin: 02/13/20 20:56 Dose: Not Given Documented by: Glucagon (Glucagen) 1 mg IM ONCE PRN; Protocol PRN Reason: Adult Acute Hypoglycemia Prot. Diltiazem HCl 125 mg/ Sodium (Chloride) 125 mls @ 0 mls/hr IV .Q0M [facility]; Protocol Last Titration: 02/12/20 03:23 Dose: 0 mg/hr, 0 mls/hr Documented by: Dextrose (D5w) 500 mls @ 100 mls/hr IV ONCE PRN; Protocol PRN Reason: Adult Acute Hypoglycemia Prot Insulin Aspart (Novolog) 0 unit SUBCUT WM&BEDTIME [facility]; Protocol Last Admin: 02/14/20 11:50 Dose: 8 unit Documented by: Insulin Glargine (Lantus) 15 unit SUBCUT BID@ [facility] Last Admin: 02/14/20 08:41 Dose: 15 unit Documented by: Metoprolol Succinate (Toprol Xl) 25 mg PO DAILY [facility] Last Admin: 02/14/20 08:35 Dose: 25 mg Documented by: Morphine Sulfate (Morphine) 2 mg IVP Q4H PRN PRN Reason: SEVERE PAIN Last Admin: 02/11/20 22:30 Dose: 2 mg Documented by: Nitroglycerin (Nitrostat) 0.4 mg SUBLINGUAL Q5M PRN PRN Reason: Chest Pain Ondansetron HCl (Zofran) 4 mg IVP Q6H PRN PRN Reason: NAUSEA AND VOMITING Prednisone (Prednisone) 40 mg PO DAILY [facility] Last Admin: 02/14/20 08:35 Dose: 40 mg Documented by: Pregabalin (Lyrica) 75 mg PO BID [facility] Last Admin: 02/14/20 08:35 Dose: 75 mg Documented by: Tamsulosin HCl (Flomax) 0.4 mg PO DAILY [facility] Last Admin: 02/14/20 08:35 Dose: 0.4 mg Documented by: Tiotropium [place] (Spiriva) 18 mcg INHALATION DAILY [facility] Last Admin: 02/14/20 08:44 Dose: 1 puff Documented by: Vitals/I&O/Wt Last Vital Signs Temp 97.8 F 02/18/20 15:30 Pulse 106 H 02/18/20 16:27 Resp 18 02/18/20 16:14 BP 94/67 02/18/20 15:30 Pulse Ox 94 02/18/20 16:14 02/18/20 02/18/20 02/18/20 06:59 14:59 22:59 Intake Total 300 / 1190 480 / 480 220 / 700 Output Total 550 / 1525 400 / 400 Balance -250 / -335 480 / 480 -180 / 300 Weight last 48 hrs Weight 176 lb 1 oz Weight 176 lb 3.2 oz Physical Exam Narrative: EXAM NARRATIVE: GENERAL: Patient is alert, awake and oriented x3. NECK: No jugular vein distension. HEENT: No cyanosis. No icterus. No pallor. HEART: Regular S1 and S2. No murmur, rub or gallop. LUNGS: Basal crackle on inspiration bilaterally. ABDOMEN: Soft, nontender and nondistended. Positive bowel sounds. No guarding, rebound or tenderness. CENTRAL NERVOUS SYSTEM: Grossly nonfocal. EXTREMITIES: Lower extremities without edema bilaterally. Urinary Catheter Management^: Jesus: Cath Placed During This Visit: yes, but has since been removed by the nurse Reason for Continuing Indwelling Catheter: Acute Urinary Retention or Obstruction Urinary Catheter Date of Insertion: 02/11/20 Urinary Catheter Time of Insertion: 19:05 Date Urinary Catheter Removed: 02/14/20 Time Urinary Catheter Discontinued: 11:30 Data : 02/18/20 05:30 02/18/20 05:30 Micro: Microbiology 02/17/20 10:00 Gram Stain - Final Sputum - Expectorated Sputum Sputum Culture - Preliminary A&P Assessment and plan (1) Episode of syncope: No more syncope. Continues to do fine Status: Acute Qualifiers: Syncope type: unspecified Qualified Code(s): R55 - Syncope and collapse (2) Atherosclerotic heart disease of [place] coronary artery without angina pectoris: Stable continue current meds Status: Acute Qualifiers: [place] vs. transplanted heart: [place] heart Qualified Code(s): I25.10 - Atherosclerotic heart disease of [place] coronary artery without angina pectoris (3) Atrial flutter: Remains in sinus rhythm. Status: Acute Qualifiers: Atrial flutter type: unspecified Qualified Code(s): I48.92 - Unspecified atrial flutter (4) Chronic renal insufficiency: Status: Acute Qualifiers: Chronic kidney disease stage: unspecified stage Qualified Code(s): N18.9 - Chronic kidney disease, unspecified (5) Acute and chronic respiratory failure with hypoxia: Slightly worsened we may will start him on low-dose Lasix to keep him dry. Status: Acute Additional A&P Information The other problems are History of congestive heart failure, possibly diastolic, currently compensated. Interstitial lung disease, on high flow oxygen Overall cardiovascular status seems stable Attestations Medical Necessity Statement*: Require continuation hospitalization for above defined care. 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 transplanted heart: [place] heart Atrial flutter I48.92 Atrial flutter type: unspecified Chronic renal insufficiency N18.9 Chronic kidney disease stage: unspecified stage Acute and chronic respiratory failure with hypoxia J96.21
[2020-02-18] MEDS: FUROsemide 10 mg/mL SDV 2mL 20 MG IVP (19:53)
[2020-02-18] MEDS: trazodone 50 mg Tablet 25 MG PO (20:19)
[2020-02-18] MEDS: atorvastatin 40 mg Tablet PO (20:20)
[2020-02-18] MEDS: insulin glargine 100 units/1 mL 30 UNIT SUBCUT (20:21)
[2020-02-18] MEDS: enoxaparin 40 mg/0.4 mL Syringe SUBCUT (20:21)
[2020-02-18] MEDS: cyclobenzaprine 10 mg Tablet PO (20:26)
[2020-02-18 20:44] LABS: Glucose Point of Care 359 mg/dL (70-110)
[2020-02-19] VITALS (17 sets, daily range): BP systolic 102–127; BP diastolic 60–78; PULSE 85–106; RESP 14–22; TEMP 36.4–36.8; O2SAT 74–98
[2020-02-19] MEDS: ipratropium-albuterol 3 mL Neb INHALATION ×3 (00:56→07:33)
[2020-02-19] MEDS: dilTIAZem 30 mg Tablet PO ×4 (03:35→20:47)
[2020-02-19 05:40] LABS: Alanine Aminotransferase 15 U/L (0-41); Albumin Level 2.8 g/dL (3.5-5.2); Alkaline Phosphatase 61 IU/L (40-130); Anion Gap 15.1 (5-19); Aspartate Amino Transferase 13 U/L (0-40); Blood Urea Nitrogen 50 mg/dL (6-20); Calcium 9.2 mg/dL (8.5-10.5); Carbon Dioxide 25 mmol/L (22-29); Chloride 101 mmol/L (98-107); Globulin 3.9 g/dL (1.3-4.6); Glomerular Filtration Rate 38.8 mL/min (90-130); Glucose 224 mg/dL (65-115); Osmolality Calculated 287 mOsm/kg (285-295); Potassium 5.1 mmol/L (3.5-5.1); Sodium 136 mmol/L (136-145); Total Bilirubin 0.2 mg/dL (0.15-1.2); Total Protein 6.7 g/dL (6.6-8.7)
[2020-02-19] MEDS: glimepiride 2 mg Tablet PO ×2 (06:27→16:59)
[2020-02-19 06:33] LABS: Glucose Point of Care 228 mg/dL (70-110)
[2020-02-19] MEDS: FUROsemide 20 mg Tablet PO (07:08)
[2020-02-19] MEDS: insulin glargine 100 units/1 mL 30 UNIT SUBCUT ×2 (07:09→20:50)
[2020-02-19] MEDS: budesonide 0.5 mg/2 mL Neb INHALATION ×2 (07:33→19:55)
[2020-02-19] MEDS: pregabalin 75 mg Capsule PO ×2 (08:00→16:59)
[2020-02-19] MEDS: tamsulosin 0.4 mg Capsule PO (08:00)
[2020-02-19] MEDS: clopidogrel 75 mg Tablet PO (08:00)
[2020-02-19] MEDS: predniSONE 20 mg Tablet 60 MG PO (08:00)
[2020-02-19] MEDS: aspirin 81 mg EC Tablet PO (08:00)
--- NOTE | 2020-02-19 09:34 | P.PN_ITS ---
Subjective Subjective: Interval history: No acute events overnight. Today morning his examination he sitting in chair stating he is feeling better. Thinks he can go home. He is on 4 L nasal cannula saturating 94%. During examination patient was tried to be ambulated in the hallway and weight desaturated up to low 80s on 4 L nasal cannula which had to up titrate to 10 L and her saturation improved. On resting within 2 minutes her saturation came back to 92% and he was turned down to 5 L where he maintained. He denies of any nausea, vomiting, headache. Vitals/I&O/Wt Last Vital Signs Temp 97.7 F 02/19/20 07:02 Pulse 98 02/19/20 07:51 Resp 18 02/19/20 07:37 BP 111/67 02/19/20 07:02 Pulse Ox 86 L 02/19/20 07:37 02/18/20 02/19/20 02/19/20 22:59 06:59 14:59 Intake Total 490 / 970 420 / 1390 240 / 240 Output Total 1425 / 1425 1075 / 2500 Balance -935 / -455 -655 / -1110 240 / 240 Weight last 48 hrs Weight 79.968 kg Weight 79.861 kg Physical Exam Narrative: EXAM NARRATIVE: General: No acute distress, AO x3, on nasal cannula, less anxious HEENT: PERRLA, pupils bilaterally equal and reactive Chest: Bilateral bronchial breath sounds, getting better, diffuse rhonchi, crackles all over the lung [place], right more than left, posterior more than anterior, equal air entry bilaterally CVS: S1-S2 regular, no murmurs, tachycardia, no gallops, no rubs Abdomen: Soft, nontender, no organomegaly, bowel sounds present Neuro: No focal deficits, no facial deformity, AO x3, power 5/5 in all limbs Urinary Catheter Management^: Jesus: Cath Placed During This Visit: yes, but has since been removed by the nurse Reason for Continuing Indwelling Catheter: Acute Urinary Retention or Obstruction Urinary Catheter Date of Insertion: 02/11/20 Urinary Catheter Time of Insertion: 19:05 Date Urinary Catheter Removed: 02/14/20 Time Urinary Catheter Discontinued: 11:30 Data : 02/18/20 05:30 02/19/20 04:11 Micro: Microbiology 02/17/20 10:00 Gram Stain - Final Sputum - Expectorated Sputum Sputum Culture - Final A&P Assessment and plan (1) ARDS (adult respiratory distress syndrome): Status: Acute (2) SS-A antibody positive: Status: Acute (3) SS-B antibody positive: Status: Acute (4) MSSA (methicillin susceptible Staphylococcus aureus) pneumonia: Status: Acute (5) Acute and chronic respiratory failure with hypoxia: Status: Acute (6) Interstitial lung disease: Status: Chronic (7) Atrial flutter: Status: Acute Qualifiers: Atrial flutter type: unspecified Qualified Code(s): I48.92 - Unspecified atrial flutter (8) CAD (coronary artery disease): RCA stent in 2016. Chronically on aspirin, Plavix, statins. No chest pain at present. Status: Chronic Qualifiers: Associated angina: angina presence unspecified Coronary Disease- Associated Artery/Lesion type: [place] artery [place] vs. transplanted heart: [place] heart Qualified Code(s): I25.10 - Atherosclerotic heart disease of [place] coronary artery without angina pectoris (9) Acute non-ST elevation myocardial infarction (NSTEMI): With positive delta noted at 2 hours. 6-hour delta was in the 90s. [place] to be due to demand ischemia from syncope, tachycardia, hypoxemia. Status: Acute (10) Acute exacerbation of CHF (congestive heart failure): Status: Acute Qualifiers: Heart failure type: unspecified Qualified Code(s): I50.9 - Heart failure, unspecified (11) Chronic kidney disease (CKD): Status: Chronic Qualifiers: Chronic kidney disease stage: stage 3 (moderate) Qualified Code(s): N18.3 - Chronic kidney disease, stage 3 (moderate) (12) Diabetes mellitus: Significant hyperglycemia initially, felt secondary to steroids. Blood sugars have been difficult to control at home. Hemoglobin A1c was 7.7 in October of this year. 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 Orthostasis and vasovagal event are another consideration and ruled out. Status: Acute Qualifiers: Syncope type: unspecified Qualified Code(s): R55 - Syncope and collapse Additional A&P Information ARDS: Acute on chronic respiratory failure with hypoxia: Interstitial lung disease: Most likely secondary to antibody positive Sjogren's Most likely related to interstitial lung disease. Chances of PE are low as patient had a CTA done in January 2019 which was not evident for PE and VQ scan done earlier this year on previous admission was intermediate risk PE. Fortunately cannot repeat a CTA because of CKD. Lower limb Dopplers negative for any DVT. ABG negative for hypercapnia but suggestive of hypoxia most likely suggestive of ILD and less likely for PE. Unfortunately cannot do CTA because of borderline renal function. Most likely current decompensation is because of staph pneumonia on ILD. For ILD: Appreciate Dr. Magallon's recommendation. Earlier this month he was started on PCP prophylaxis with steroids. Patient did not tolerate atovaquone well because of nausea. So was discontinued earlier on this admission. Rheumatological work Is coming back now. Out of all the blood work back SSA SSB antibodies are positive. This could be related to Sjogren's. SLE unlikely because double-stranded DNA was negative. We will confirm with Dr. Magallon if the CT scan pattern looks like LIP. Case discussed with Dr. Adkins from rheumatology. He will follow-up the patient as an outpatient. He states no further blood work is required for now. QuantiFERON negative, anti-CCP negative, Maddie 1-, anti-GLASSWARE MAKER negative, scleroderma negative, [id number] DNA negative Histoplasma antigen, coccidial antigen,G6PD results still awaited. Continue with Bactrim as patient's renal functions have remained stable. If patient does not tolerate Bactrim can possibly transfer dapsone. Awaiting G6PD results. Oxygen Supplementation keeping saturation around 90%. Continue with duo nebs every 4 hours and budesonide twice daily. Continue with Xanax 0.25 mg twice daily as needed for anxiety and air hunger. Continue with prednisone 60 mg for now. We will continue the same for now. We will try to de-escalate in few days. Patient would require 40 mg of prednisone daily for next 1 month. Sputum culture growing MSSA. Antibiotics transferred to ceftriaxone yesterday. Last day of treatment today. For possible CHF: Patient has an EF of 60% with evidence of normal ventricular size, no regional wall motion abnormality, normal diastolic functions of the left ventricle, normal right atrial pressures. His BNP on admission was 1000 which is the lowest he has had. 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 Fluid restriction up to 2 L. Overall 1400 cc negative. Increase Lasix to 40 mg daily. Daily weights, strict input output charting. Continue Flomax. Atrial flutter flutter: On presentation. EKG consistent with right bundle branch block with left anterior fascicular block. This is chronic. Given his severe decompensation with ILD. Metoprolol switched to Cardizem yesterday. Patient has tolerated well. We will continue with Cardizem 30 mg every 6 hourly for now. CKD: On review of labs going up to January 2019 his creatinine has been fluctuating between 1.7-2.1. Creatinine stable. 1.5 today. If creatinine goes up to around 2 will have to stop Bactrim at that point. Medication reconciliation done for nephrotoxic drugs. Continue to monitor BMP daily. Type 2 diabetes mellitus: Blood sugars difficult to control because of oral steroid therapy. Sugars mildly elevated. Continue glimepiride 2 mg twice daily and insulin sliding scale at moderate d ose. He is not getting glimepiride pre-meals. Will return the dose. Increase Levemir to 30 units twice daily. Elevated lactic acid felt secondary to hypoxemia: Resolved. Normocytic anemia Diabetic foot ulcer to left foot Cardiac diet, carb consistent. Lovenox for DVT prophylaxis Full code. Attestations Medical Necessity Statement*: ARDS, ILD Time Spent in Patient Care: Greater than 35 minutes (>than 50% of time spent in counselling and/or direct pt care on unit) . Coding Level of Care Code Acute Awning Craftsman for [facility] Diagnoses ARDS (adult respiratory distress syndrome) J80 SS-A antibody positive R76.8 SS-B antibody positive R76.8 MSSA (methicillin susceptible Staphylococcus aureus) pneumonia J15.211 Acute and chronic respiratory failure with hypoxia J96.21 Interstitial lung disease J84.9 Atrial flutter I48.92 Atrial flutter type: unspecified CAD (coronary artery disease) I25.10 Associated angina: angina presence unspecified Coronary Disease-Associated Artery/Lesion type: [place] artery [place] vs. transplanted heart: [place] heart Acute non-ST elevation myocardial infarction (NSTEMI) I21.4 Acute exacerbation of CHF (congestive heart failure) I50.9 Heart failure type: unspecified Chronic kidney disease (CKD) N18.3 Chronic kidney disease stage: stage 3 (moderate) Diabetes mellitus E11.42; Z79.4 Diabetes mellitus complication detail: with polyneuropathy Diabetes mellitus complication status: with neurologic complications Diabetes mellitus half-way insulin use: with half-way use Diabetes mellitus type: type 2 Dyslipidemia E78.5 Episode of syncope R55 Syncope type: unspecified
[2020-02-19 10:56] LABS: Glucose Point of Care 180 mg/dL (70-110)
[2020-02-19] MEDS: ALPRAZolam 0.5 mg Tablet PO ×2 (11:41→23:08)
[2020-02-19] MEDS: cefTRIAXone 1,000 MG in sodium chloride 0.9% (plus) 50 ML 100 MG IV (15:33)
[2020-02-19 16:06] LABS: Glucose Point of Care 291 mg/dL (70-110)
--- NOTE | 2020-02-19 16:56 | P.PN_ITS ---
Subjective Subjective: Interval history: Stable heart rate advised. Denies any worsening of shortness of breath Medications: Reviewed: Yes Medication Review Details: Current Medications Acetaminophen (Tylenol) 650 mg PO Q6H PRN PRN Reason: Mild/Mod Pain Or Temp >/= 101 Last Admin: 02/13/20 11:06 Dose: 650 mg Documented by: Albuterol Sulfate (Albuterol) 2.5 mg INHALATION Q4H.RESPIRATORY PRN PRN Reason: SHORTNESS OF BREATH Last Admin: 02/14/20 11:59 Dose: 2.5 mg Documented by: Aspirin (Aspirin Ec) 81 mg PO DAILY [facility] Last Admin: 02/14/20 08:35 Dose: 81 mg Documented by: Atorvastatin Calcium (Lipitor) 40 mg PO BEDTIME [facility] Last Admin: 02/13/20 20:39 Dose: 40 mg Documented by: Budesonide (Pulmicort) 1 mg INHALATION BID.RESPIRATORY [facility] Last Admin: 02/14/20 08:43 Dose: 1 mg Documented by: Cetirizine HCl (Zyrtec) 10 mg PO DAILY PRN PRN Reason: ALLERGIES Clopidogrel Bisulfate (Plavix) 75 mg PO DAILY [facility] Last Admin: 02/14/20 08:35 Dose: 75 mg Documented by: Cyclobenzaprine HCl (Flexeril) 10 mg PO TID PRN PRN Reason: muscle spasm Last Admin: 02/13/20 20:39 Dose: 10 mg Documented by: Dextrose (D50w) 25 ml IVP ONCE PRN; Protocol PRN Reason: hypoglycemia protocol Dextrose (D50w) 50 ml IVP PRN PRN; Protocol PRN Reason: hypoglycemia protocol Doxycycline Monohydrate (Vibramycin) 100 mg PO BID [facility]; Protocol Enoxaparin Sodium (Lovenox) 40 mg SUBCUT Q24H [facility] Last Admin: 02/13/20 20:56 Dose: Not Given Documented by: Glucagon (Glucagen) 1 mg IM ONCE PRN; Protocol PRN Reason: Adult Acute Hypoglycemia Prot. Diltiazem HCl 125 mg/ Sodium (Chloride) 125 mls @ 0 mls/hr IV .Q0M [facility]; Protocol Last Titration: 02/12/20 03:23 Dose: 0 mg/hr, 0 mls/hr Documented by: Dextrose (D5w) 500 mls @ 100 mls/hr IV ONCE PRN; Protocol PRN Reason: Adult Acute Hypoglycemia Prot Insulin Aspart (Novolog) 0 unit SUBCUT WM&BEDTIME [facility]; Protocol Last Admin: 02/14/20 11:50 Dose: 8 unit Documented by: Insulin Glargine (Lantus) 15 unit SUBCUT BID@ [facility] Last Admin: 02/14/20 08:41 Dose: 15 unit Documented by: Metoprolol Succinate (Toprol Xl) 25 mg PO DAILY [facility] Last Admin: 02/14/20 08:35 Dose: 25 mg Documented by: Morphine Sulfate (Morphine) 2 mg IVP Q4H PRN PRN Reason: SEVERE PAIN Last Admin: 02/11/20 22:30 Dose: 2 mg Documented by: Nitroglycerin (Nitrostat) 0.4 mg SUBLINGUAL Q5M PRN PRN Reason: Chest Pain Ondansetron HCl (Zofran) 4 mg IVP Q6H PRN PRN Reason: NAUSEA AND VOMITING Prednisone (Prednisone) 40 mg PO DAILY [facility] Last Admin: 02/14/20 08:35 Dose: 40 mg Documented by: Pregabalin (Lyrica) 75 mg PO BID [facility] Last Admin: 02/14/20 08:35 Dose: 75 mg Documented by: Tamsulosin HCl (Flomax) 0.4 mg PO DAILY [facility] Last Admin: 02/14/20 08:35 Dose: 0.4 mg Documented by: Tiotropium [place] (Spiriva) 18 mcg INHALATION DAILY [facility] Last Admin: 02/14/20 08:44 Dose: 1 puff Documented by: Vitals/I&O/Wt Last Vital Signs Temp 97.6 F 02/19/20 15:01 Pulse 94 02/19/20 15:43 Resp 22 H 02/19/20 15:43 BP 127/73 02/19/20 15:01 Pulse Ox 98 02/19/20 15:43 02/19/20 02/19/20 02/19/20 06:59 14:59 22:59 Intake Total 420 / 1390 600 / 600 50 / 650 Output Total 1075 / 2500 750 / 750 Balance -655 / -1110 -150 / -150 50 / -100 Weight last 48 hrs Weight 176 lb 4.8 oz Weight 176 lb 1 oz Physical Exam Narrative: EXAM NARRATIVE: GENERAL: Patient is alert, awake and oriented x3. NECK: No jugular vein distension. HEENT: No cyanosis. No icterus. No pallor. HEART: Regular S1 and S2. No murmur, rub or gallop. LUNGS: Basal crackle on inspiration more on left than right ABDOMEN: Soft, nontender and nondistended. Positive bowel sounds. No guarding, rebound or tenderness. CENTRAL NERVOUS SYSTEM: Grossly nonfocal. EXTREMITIES: Lower extremities without edema bilaterally. Urinary Catheter Management^: Jesus: Cath Placed During This Visit: yes, but has since been removed by the nurse Reason for Continuing Indwelling Catheter: Acute Urinary Retention or Obstruction Urinary Catheter Date of Insertion: 02/11/20 Urinary Catheter Time of Insertion: 19:05 Date Urinary Catheter Removed: 02/14/20 Time Urinary Catheter Discontinued: 11:30 Data : 02/18/20 05:30 02/19/20 04:11 Micro: Microbiology 02/17/20 10:00 Gram Stain - Final Sputum - Expectorated Sputum Sputum Culture - Final A&P Assessment and plan (1) Episode of syncope: No evidence of syncope anymore Status: Acute Qualifiers: Syncope type: unspecified Qualified Code(s): R55 - Syncope and collapse (2) Atherosclerotic heart disease of [place] coronary artery without angina pectoris: Stable continue current meds Status: Acute Qualifiers: [place] vs. transplanted heart: [place] heart Qualified Code(s): I25.10 - Atherosclerotic heart disease of [place] coronary artery without angina pectoris (3) Atrial flutter: Remains in sinus. Status: Acute Qualifiers: Atrial flutter type: unspecified Qualified Code(s): I48.92 - Unspecified atrial flutter (4) Chronic renal insufficiency: Creatinine today is 1.8. Hold for the Lasix IV Lasix. Continue p.o. Status: Acute Qualifiers: Chronic kidney disease stage: unspecified stage Qualified Code(s): N18.9 - Chronic kidney disease, unspecified (5) Acute and chronic respiratory failure with hypoxia: Stable. Follow-up with medicine Status: Acute Additional A&P Information The other problems are History of congestive heart failure, possibly diastolic, currently compensated. Interstitial lung disease, on high flow oxygen Overall cardiovascular status seems stable Attestations Medical Necessity Statement*: Patient require continuation hospitalization for above defined care Coding Level of Care Code Established Pt Acute [facility] Magistrate for Chg Fwd Patient Type Established History Expanded Problem Focused Exam Expanded Problem Focused Medical Decision Making Moderate Complexity Diagnoses Episode of syncope R55 Syncope type: unspecified Atherosclerotic heart disease of [place] coronary artery without angina pectoris I25.10 [place] vs. transplanted heart: [place] heart Atrial flutter I48.92 Atrial flutter type: unspecified Chronic renal insufficiency N18.9 Chronic kidney disease stage: unspecified stage Acute and chronic respiratory failure with hypoxia J96.21
--- NOTE | 2020-02-19 19:42 | PC.NURSE ---
REPORT RECEIVED FROM OFF GOING NURSE. PT IS RESTING IN BED. PT DENIES PAIN AT THIS TIME. WILL CONTINUE TO MONITOR.
[2020-02-19 20:41] LABS: Glucose Point of Care 378 mg/dL (70-110)
[2020-02-19] MEDS: atorvastatin 40 mg Tablet PO (20:47)
[2020-02-19] MEDS: polyethylene glycol 3350 Pkt 17 gm PO (20:49)
[2020-02-19] MEDS: magnesium citrate Btl 296 mL 150 ML PO (20:49)
[2020-02-19] MEDS: enoxaparin 40 mg/0.4 mL Syringe SUBCUT (20:51)
[2020-02-19] MEDS: sulfamethoxazole-trimeth DS 160-800 mg Tablet 1 TAB PO (23:05)
[2020-02-20] VITALS (9 sets, daily range): BP systolic 110–119; BP diastolic 69–76; PULSE 67–103; RESP 16–18; TEMP 36.3–36.6; O2SAT 83–97
[2020-02-20] MEDS: dilTIAZem 30 mg Tablet PO ×3 (03:38→15:35)
[2020-02-20 05:49] LABS: Basophils % 0.1 %; Eosinophils % 0.1 %; Hematocrit 29.8 % (42.0-52.0); Hemoglobin 9.1 g/dL (11.7-16.6); Lymphocytes # 0.7 10^3/uL (0.8-4.8); Lymphocytes % 7.5 %; Mean Corpuscular HGB Conc 30.5 g/dL (30.0-36.0); Mean Corpuscular Hemoglobin 27.6 pg (28.0-34.0); Mean Corpuscular Volume 90.3 fL (80-94); Mean Platelet Volume 10.7 fL (7.4-10.4); Monocytes # 0.5 10^3/uL (0.2-0.9); Neutrophils # 7.9 10^3/uL (1.8-7.7); Neutrophils % 86.7 %; Nucleated Red Blood Cells % 0 %; Platelet Count 278 10^3/cmm (130-400); Red Cell Distribution Width 14.4 % (12.1-15.1); White Blood Count 9.1 10^3/uL (4.0-10.0)
[2020-02-20 06:12] LABS: Alanine Aminotransferase 17 U/L (0-41); Albumin Level 2.8 g/dL (3.5-5.2); Alkaline Phosphatase 60 IU/L (40-130); Anion Gap 12.3 (5-19); Aspartate Amino Transferase 14 U/L (0-40); Blood Urea Nitrogen 57 mg/dL (6-20); Calcium 9.6 mg/dL (8.5-10.5); Carbon Dioxide 29 mmol/L (22-29); Chloride 101 mmol/L (98-107); Globulin 3.6 g/dL (1.3-4.6); Glomerular Filtration Rate 47.9 mL/min (90-130); Glucose 121 mg/dL (65-115); Osmolality Calculated 284 mOsm/kg (285-295); Potassium 5.3 mmol/L (3.5-5.1); Sodium 137 mmol/L (136-145); Total Bilirubin 0.2 mg/dL (0.15-1.2); Total Protein 6.4 g/dL (6.6-8.7)
[2020-02-20 06:23] LABS: Glucose Point of Care 121 mg/dL (70-110)
[2020-02-20] MEDS: glimepiride 2 mg Tablet PO (06:30)
--- NOTE | 2020-02-20 06:32 | PC.NURSE ---
PT C/O NOT HAVING A BM FOR [address] GAVE ORDERS FOR MAG CITRATE AND MIRALAX. PT HAS NOT HAD ANY RESULTS OF YET, BUT PT STATES THERE IS A LOT OF GAS. PT DENIES PAIN AT THIS TIME. WILL DO BED SIDE ROUNDING.
--- NOTE | 2020-02-20 07:05 | PC.NURSE ---
Bedside report received from power and recovery shift engineer nurse. Patient sitting in chair with no expressed needs at this time.
[2020-02-20] MEDS: FUROsemide 40 mg Tablet PO (07:27)
[2020-02-20] MEDS: insulin glargine 100 units/1 mL 30 UNIT SUBCUT (07:27)
--- NOTE | 2020-02-20 07:30 | PC.NURSE ---
Addendum entered by Haylee Arreola 02/20/20 13:32: 0815: patient produced 2 liquid stools. Patient refused miralax. Nurse to continue to monitor. Original Note: Patient requested prune juice along with breakfast to attempt to pass a BM. Nurse will continue to monitor.
[2020-02-20] MEDS: budesonide 0.5 mg/2 mL Neb INHALATION (08:50)
[2020-02-20] MEDS: aspirin 81 mg EC Tablet PO (09:10)
[2020-02-20] MEDS: clopidogrel 75 mg Tablet PO (09:11)
[2020-02-20] MEDS: predniSONE 20 mg Tablet 60 MG PO (09:12)
[2020-02-20] MEDS: tamsulosin 0.4 mg Capsule PO (09:12)
[2020-02-20] MEDS: pregabalin 75 mg Capsule PO (09:12)
--- NOTE | 2020-02-20 09:57 | PC.CHAP ---
Pastoral Care Encounter/Spiritual Assessment Type of Contact [] Declined burr machine operator visit [] Patient/Family/Request visit [] Outpatient visit [] Follow-up visit [] Physician referral [] Code/Alert [X] Routine visit [] Staff referral [] Actively dying [] Patient sleeping [] Family support [] [] Out of room [] Palliative care [] [] Receiving care in room [] Pre-surgical visit [] Trauma [] Long length of stay [] ICU visit [] Other: Relational/Emotional Strength [] Patient feels connected with others/family/visitors/staff [] Distress [] Loneliness/isolation [] Abandonment Spirituality of Patient [] Person of Darline [] Attends Uatsdin of their Darline [] Believes in Prayer [] Reads Bible or Hindu materials [] There are Spiritual issues to be addressed Paste Up Copy Camera Operator Interventions [] Prayer [] Active listening [] Non-anxious presence [] Spiritual/emotional support [] Crisis/trauma care [] Spiritual counseling [] Bereavement support [] Provided bereavement packet [] Provided Bible/devotional materials [] Provided toy/stuffed animal, coloring book to patient or family member [] Provided Communion [] Anointing/[place] [] Salvation [] Completed spiritual assessment [] Other: Impact on Illness or Injury [] Angry [] Fearful [] Anxious [] Often cries [] Exhaustion [] Unable to work [] Unable to attend scientology [] Unable to walk/stand [] Unable to read [] Unable to drive [] Unable to eat/drink [] Unable to sleep [] Unable to be with family [] Patient intubated [] Other: Summary PRECAUTIONS IN PLACE Time spent with patient
[2020-02-20 11:04] LABS: Glucose Point of Care 144 mg/dL (70-110)
[2020-02-20] MEDS: ALPRAZolam 0.5 mg Tablet PO (12:04)
--- NOTE | 2020-02-20 13:27 | P.DS_ITS ---
Discharge Providers Date of Admission: 02/11/20 15:45 Date of Discharge: February 20, 2020 Attending Provider at Admission: Shivani Bustillos MD Attending Provider at Discharge: Nilson Huang MD Diagnoses at Discharge Discharge Diagnosis (1) ARDS (adult respiratory distress syndrome): Status: Acute (2) SS-A antibody positive: Status: Acute (3) SS-B antibody positive: Status: Acute (4) MSSA (methicillin susceptible Staphylococcus aureus) pneumonia: Status: Acute (5) Acute and chronic respiratory failure with hypoxia: Status: Acute (6) Interstitial lung disease: Status: Chronic (7) Atrial flutter: Status: Acute Qualifiers: Atrial flutter type: unspecified Qualified Code(s): I48.92 - Unspecified atrial flutter (8) CAD (coronary artery disease): Status: Chronic Problem details: RCA stent 2015, stress test 06/20 Qualifiers: Coronary Disease-Associated Artery/Lesion type: [place] artery [place] vs. transplanted heart: [place] heart Associated angina: angina presence unspecified Qualified Code(s): I25.10 - Atherosclerotic heart disease of [place] coronary artery without angina pectoris (9) Acute non-ST elevation myocardial infarction (NSTEMI): Status: Acute (10) Acute exacerbation of CHF (congestive heart failure): Status: Acute Qualifiers: Heart failure type: unspecified Qualified Code(s): I50.9 - Heart failure, unspecified (11) Chronic kidney disease (CKD): Status: Chronic Qualifiers: Chronic kidney disease stage: stage 3 (moderate) Qualified Code(s): N18.3 - Chronic kidney disease, stage 3 (moderate) (12) Diabetes mellitus: Status: Chronic Qualifiers: Diabetes mellitus type: type 2 Diabetes mellitus skilled nursing insulin use: with terminal operations supervisor use Diabetes mellitus complication status: with neurologic complications Diabetes mellitus complication detail: with polyneuropathy Qualified Code(s): E11.42 - Type 2 diabetes mellitus with diabetic polyneuropathy; Z79.4 - senior care (current) use of insulin (13) Dyslipidemia: Status: Acute Problem details: Low HDL (14) Episode of syncope: Status: Acute Qualifiers: Syncope type: unspecified Qualified Code(s): R55 - Syncope and collapse Reason for Visit Reason for Visit: RESPIRATORY DISTRESS Hospital Course Discharge Summary: Agusto Crockett is a 59 year old male who carries diagnosis of pulmonary fibrosis, ILD of unknown cause, chronic hypoxemia uses 3 L of oxygen [id number], preserved ejection fraction heart failure On the CT scan performed in the hospital in December, the patient has significant reticulation and traction bronchiectasis and bronchiolectasis predominantly in bilateral lower lobes. The disease also affects bilateral upper lobes. The disease is not predominantly posterior basilar, actually there is sparing of bilateral very posterior lungs. The patient's HRCT is consistent with NSIP pattern. Echocardiogram: Performed in January 2020 revealed improved ejection fraction at 60%. No significant valvular abnormalities Laboratory data: Elevated rheumatoid factor at 57. The patient was admitted again in the hospital in end of December and was started on prednisone. Unfortunately, his rheumatologic work-up was never completed. This time the patient presented to the hospital with a syncopal episode and was found to be in atrial flutter which was thought to be the likely etiology. This time patient presented to the ER on February 10 with an episode of passing out.He states he was feeling better and able to walk around his house without getting as short of breath. Yesterday he started getting more short of breath with exertion. Described orthopnea. Symptoms did not improve with breathing treatments. Today he had a syncopal episode. Landed on his right side and complains of some pain underneath the right rib cage. Oxygen saturations were around 80% when EMS arrived. It sounds like he may have lost some consciousness for a brief period of time or at least been lethargic. He was put on 10 L of oxygen with saturations happened around 90. Respirations were in the 30s and heart rate was elevated at 132. He received Solu-Medrol and I believe some IV fluid. On arrival to the emergency room, initial EKG was interpreted as atrial flutter. He was given some Cardizem and started on a Cardizem drip. X-ray showed severe interstitial changes throughout both lungs. No pleural effusion was noted. Blood gas was not done in the emergency room. He ultimately ended up being put on a nonrebreather to maintain oxygen saturations. In the emergency room he received nebulizer treatment and Zosyn in addition to the Cardizem. Blood sugars were quite elevated. It sounds like his sugars have been elevated for the last few days since prednisone was started. Troponin was elevated at 96. He has had troponin elevations ranging from 57-85 at prior admissions this year initially. 2-hour delta as though have been negative. 2- hour delta today was 45. He is being admitted for further evaluation and treatment. During hospitalization it seemed that his symptoms a presentation was most likely because of atrial fibrillation. Cardizem drip was withheld and he was transitioned from metoprolol to Cardizem because of respiratory failure. He was admitted for acute on chronic hypoxic respiratory failure. A on review with the lab it was found out that his rheumatological work-up was never sent out so fresh blood sample was sent. His sputum culture came back positive for MSSA so was started on IV antibiotics. He has finished a course of 5 days of IV antibiotics. He responded well to the treatment and at present he has been weaned down over last 5 days from high flow to 4 to 5 L nasal cannula oxygen supplementation keeping saturation over 90% at rest. Patient has been maintaining his saturations over 90% on nasal cannula for last 3 days. His saturations does drop on ambulation but unfortunately that has been going on for last 3 months. Patient was found fairly anxious during hospitalization so Xanax was started which has helped him immensely. His rheumatological blood work came back positive for SSA and SSA antibodies which could be the cause of his ILD. Both Dr. Magallon from pulmonology and Dr. Navarrete from rheumatology agree with this. Patient has been set up an appointment to see hydrodynamics teacher in 3 weeks. Patient is to continue his oral prednisone as before. Because he will be on high-dose prednisone patient needs to be on PGP prophylaxis. Unfortunately patient did not tolerate atovaquone as an outpatient. During hospitalization G6PD was sent but results are awaited. A trial of Bactrim DS was given but had to be discontinued because of hyperkalemia. Patient has been started on Lasix 40 mg daily to keep him on the flat drier side to help him with respiration given his ILD. Because of steroids patient's blood sugar but on her on the higher side and is antidiabetic medications have been adjusted. His dose of Lantus has been increased to 30 units twice daily, glimepiride has been added, metformin has been stopped and he has been asked to check his blood sugar at home and advised to take Humalog. Some of his blood work including rheumatology and infectious still awaited and should be back by early next week. Patient is been discharged in hemodynamically stable condition and home health has been set up. He has been advised to follow-up with Dr. Magallon next week, rheumatological follow-up has been set up and is also been asked to follow-up with his primary care provider within next 7 to 10 days. Patient verbalized the understanding of all the instructions. Physical Exam Narrative: EXAM NARRATIVE: General: No acute distress, AO x3, on nasal cannula, less anxious HEENT: PERRLA, pupils bilaterally equal and reactive Chest: Bilateral bronchial breath sounds, getting better, diffuse rhonchi, crackles all over the lung [place], right more than left, posterior more than anterior, equal air entry bilaterally CVS: S1-S2 regular, no murmurs, tachycardia, no gallops, no rubs Abdomen: Soft, nontender, no organomegaly, bowel sounds present Neuro: No focal deficits, no facial deformity, AO x3, power 5/5 in all limbs Urinary Catheter Management^: Jesus: Cath Placed During This Visit: yes, but has since been removed by the nurse Reason for Continuing Indwelling Catheter: Acute Urinary Retention or Obstruction Urinary Catheter Date of Insertion: 02/11/20 Urinary Catheter Time of Insertion: 19:05 Date Urinary Catheter Removed: 02/14/20 Time Urinary Catheter Discontinued: 11:30 Discharge Data Data Completed and Pending: Completed Studies During Hospitalization Category Date Time Status CT chest wo con 7 1250 Routine Cat Scan 02/15/20 10:31 Completed XR chest 1V nina ble 97915 Stat Exams 02/15/20 07:06 Completed XR chest 1V nina ble 11358 Urgent Exams 02/11/20 10:39 Completed CV renal doppler 76198 Routine Ultrasound 02/14/20 20:54 [place] [id number] Urgent Ultrasound 02/15/20 14:12 Completed Pending at discharge Category Date Time Status CAROLA Screen w/ Ref chetna Routine Lab 02/17/20 23:03 Received Histoplasma Antib zain Stat Lab 02/15/20 09:46 Received Histoplasma Quant itative AG Stat Lab 02/15/20 12:50 Received Miscellaneous Krista t Routine Lab 02/15/20 04:23 Received Miscellaneous Krista t Routine Lab 02/15/20 04:23 Received Miscellaneous Krista t Routine Lab 02/16/20 03:10 Received Miscellaneous Krista t Routine Lab 02/16/20 08:53 Received Miscellaneous Krista t Stat Lab 02/15/20 04:23 Received [facility]A Profile S tat Lab 02/15/20 09:46 Results SS A Ro Sjogrens Antibody Stat Lab 02/15/20 09:46 Results SS-B/LA Antibody IGG Stat Lab 02/15/20 09:46 Results Smooth Muscle AB Screen w/Refl Stat Lab 02/15/20 09:46 Results Labs from last 24 hours 02/20/20 02/20/20 02/20/20 10:52 06:11 05:15 WBC RBC Hgb Hct MCV MCH MCHC RDW Plt Count MPV Neut % (Auto) Lymph % (Auto) [place] % (Auto) Eos % (Auto) Baso % (Auto) Neut # (Auto) Lymph # (Auto) [place] # (Auto) Eos # (Auto) Baso # (Auto) Nucleated RBC % (a uto) Nucleated RBCs # Sodium 137 Potassium 5.3 H Chloride 101 Carbon Dioxide 29 Anion Gap 12.3 BUN 57 H Creatinine 1.5 H GFR Calculation 47.9 L Glucose 121 H POC Glucose 144 121 Calculated Osmolal ity 284 L Calcium 9.6 Total Bilirubin 0.2 AST 14 ALT 17 Alkaline Phosphata se 60 Total Protein 6.4 L Albumin 2.8 L Globulin 3.6 02/20/20 02/19/20 02/19/20 05:15 19:57 15:58 WBC 9.1 RBC 3.30 L Hgb 9.1 L Hct 29.8 L MCV 90.3 MCH 27.6 L MCHC 30.5 RDW 14.4 Plt Count 278 MPV 10.7 H Neut % (Auto) 86.7 Lymph % (Auto) 7.5 [place] % (Auto) 5.0 Eos % (Auto) 0.1 Baso % (Auto) 0.1 Neut # (Auto) 7.9 H Lymph # (Auto) 0.7 L [place] # (Auto) 0.5 Eos # (Auto) 0.0 Baso # (Auto) 0.0 Nucleated RBC % (a uto) 0 Nucleated RBCs # 0.0 Sodium Potassium Chloride Carbon Dioxide Anion Gap BUN Creatinine GFR Calculation Glucose POC Glucose 378 291 Calculated Osmolal ity Calcium Total Bilirubin AST ALT Alkaline Phosphata se Total Protein Albumin Globulin Vitals: Last Vital Signs Temp 97.4 F L 02/20/20 11:21 Pulse 94 02/20/20 11:21 Resp 16 02/20/20 11:21 BP 112/69 02/20/20 11:21 Pulse Ox 91 02/20/20 11:21 Discharge Plan Discharge Patient Disposition: Home Health Service Condition: Fair Prescriptions: New alprazolam 0.5 mg Tablet 0.5 mg PO TID PRN (Reason: Air Hunger) Qty: 20 RF: 0 insulin aspart U-100 [Novolog U-100 Insulin aspart] 100 unit/mL Solution 0 unit SUBCUT WM&BEDTIME Qty: 100 RF: 0 atorvastatin 40 mg Tablet 40 mg PO BEDTIME Qty: 30 RF: 0 budesonide [Pulmicort] 0.5 mg/2 mL suspension for nebulization 0.5 mg INHALATION Q12H Qty: 120 RF: 0 glimepiride 2 mg Tablet 2 mg PO BIDAC Qty: 60 RF: 0 diltiazem HCl [Cardizem CD] 120 mg capsule,extended release 24hr 120 mg PO DAILY Qty: 30 RF: 0 Continued aspirin [Adult Low Dose Aspirin] 81 mg tablet,delayed release (DR/EC) 81 mg PO DAILY RF: 0 clopidogrel 75 mg tablet 75 mg PO DAILY RF: 0 pregabalin [Lyrica] 75 mg capsule 75 mg PO BID RF: 0 nitroglycerin [Nitrostat] 0.4 mg tablet, sublingual 0.4 mg SUBLINGUAL Q5M PRN (Reason: Chest Pain) RF: 0 cyclobenzaprine 10 mg tablet 10 mg PO TID PRN (Reason: muscle spasm) Qty: 30 RF: 0 (DME) blood-glucose meter Misc See Rx Instructions .ROUTE .MEDSUPPLY Qty: 1 RF: 0 (DME) blood sugar diagnostic [Blood Glucose Test] Strip See Rx Instructions .ROUTE .MEDSUPPLY Qty: 50 RF: 0 (DME) pen needle, diabetic [Comfort EZ Pen [place]] 31 gauge x 1/4 needle See Rx Instructions .ROUTE .MEDSUPPLY Qty: 100 RF: 2 (DME) pen needle, diabetic [1st Tier Unifine Pentips Plus] 31 gauge x 5/16 needle See Rx Instructions .ROUTE .MEDSUPPLY Qty: 100 RF: 4 (DME) oxygen See Rx Instructions .Route .MEDSUPPLY Qty: 1 RF: 0 prednisone 20 mg Tablet 40 mg PO DAILY 30 Days Qty: 60 RF: 0 tamsulosin 0.4 mg Capsule 0.4 mg PO DAILY 30 Days Qty: 30 RF: 0 multivitamin [Multiple Vitamins] Tablet 2 tab PO DAILY RF: 0 acetaminophen [Tylenol Extra Strength] 500 mg Tablet 1,000 mg PO BID PRN (Reason: Pain) RF: 0 cetirizine [Zyrtec] 10 mg tablet 10 mg PO DAILY PRN (Reason: UNKNOWN) RF: 0 Spiriva with HandiHaler 18 mcg capsule, w/inhalation device 1 cap INHALATION DAILY Qty: 60 RF: 2 albuterol sulfate [ProAir HFA] 90 mcg/actuation HFA aerosol inhaler 2 inh INHALATION QID PRN (Reason: shortness of breath or wheezing) Qty: 8.5 RF: 0 pantoprazole 40 mg tablet,delayed release (DR/EC) 40 mg PO DAILY PRN (Reason: UNKNOWN) RF: 0 Changed furosemide 40 mg tablet 40 mg PO DAILY Qty: 30 RF: 0 Lantus Solostar U-100 Insulin 100 unit/mL (3 mL) insulin pen 30 unit SUBCUT BID Qty: 100 RF: 0 Discontinued metoprolol succinate 25 mg tablet extended release 24 hr 25 mg PO DAILY Qty: 30 RF: 2 atovaquone [Mepron] 750 mg/5 mL suspension 1,500 mg PO DAILY Qty: 210 RF: 1 metformin 500 mg Tablet Extended Release 24 Hr See Rx Instructions .ROUTE .COMPLEX RF: 0 Discharge Orders: Discharge Order (Routine); Ordered 02/20/20 Ordered By: Nilson Huang Other Ambulatory Orders: DME: Oxygen (Order) Location: None Selected Ordered By: Shivani Bustillos Referrals: [facility] [Outside] Edgardo Navarrete MD [Physician] - 2 weeks ([facility] Rheumatology clinic will be call ing to schedule a followup to be seen in 2 weeks. If you don't hear from them by Saturday, please give them a call. Thank you) Raghu Magallon MD [Physician] - 4-7 days ([facility] heart Care Services will be calling to set a pulmonology followup to be seen in 4 to 7 days. If you don't hear from them by Saturday afternoon, please give them a call. Thank you) Discharge Diet: Cardiac and Diabetic Discharge Activity: Increase activity as tolerated and Oxygen as instructed Activity Restrictions/Additional Instructions: Please follow-up with hydrodynamics teacher and high pressure cleaner as directed. Dose of Lantus has been increased to 30 units twice daily, furosemide has been changed to 40 mg daily, glimepiride 2 mg twice daily has been added, but metoprolol has been stopped, Cardizem 120 mg daily has been started, at work on has been stopped, Humalog as per insulin sliding scale has been started. G6PD results are awaited to decide about dapsone. Atovaquone has been stopped because of intolerance. Bactrim DS is also been stopped because of hyperkalemia. Discharge Attestations Time Spent in Discharge Care*: greater than 30 min Specific Discharge Activities: Specific discharge activities: educating patient, educating and/or supporting family/caregiver, discussing with pcp/other providers, discussing with welfare case worker/social workers/dc planners, documenting/other paperwork and evaluating patient/reviewing data Status at Discharge: Cognitive status at discharge: cognitively intact , Behavioral status at discharge: cooperative , Functional status at discharge: uses cane/walker Overall status at discharge: patient is progressing back to baseline Quality Metrics Clinical Quality Measures During this hospital stay, did patient experience: None Coding Level of Care Code Acute Trade Union Secretary for [facility] Fwd Diagnoses ARDS (adult respiratory distress syndrome) J80 SS-A antibody positive R76.8 SS-B antibody positive R76.8 MSSA (methicillin susceptible Staphylococcus aureus) pneumonia J15.211 Acute and chronic respiratory failure with hypoxia J96.21 Interstitial lung disease J84.9 Atrial flutter I48.92 Atrial flutter type: unspecified CAD (coronary artery disease) I25.10 Coronary Disease-Associated Artery/Lesion type: [place] artery [place] vs. transplanted heart: [place] heart Associated angina: angina presence unspecified Acute non-ST elevation myocardial infarction (NSTEMI) I21.4 Acute exacerbation of CHF (congestive heart failure) I50.9 Heart failure type: unspecified Chronic kidney disease (CKD) N18.3 Chronic kidney disease stage: stage 3 (moderate) Diabetes mellitus E11.42; Z79.4 Diabetes mellitus type: type 2 Diabetes mellitus terminal operations supervisor insulin use: with terminal operations supervisor use Diabetes mellitus complication status: with neurologic complications Diabetes mellitus complication detail: with polyneuropathy Dyslipidemia E78.5 Episode of syncope R55 Syncope type: unspecified
--- NOTE | 2020-02-20 14:28 | PC.NURSE ---
Patient discharged home at this time. Discharge instructions given to patient and explained patient verbalized understanding as well as was able to teach back most of information. Patient instructed to call the hospital with any questions or concerns regarding discharge. IV discontinued cath intact min bleeding noted dressing applied. Patient assisted to private vehicle where family awaited via wheel chair by staff all patient belongings as well as discharge instructions in hand patient alert and oreinted and in stable condition.
[2020-02-23 06:52] LABS: Smooth Muscle Ab Screen NEGATIVE (NEGATIVE)
[2020-02-23 06:52] LABS: Histoplasma Antigen (Quant) NONE DETECTED; Histoplasma Antigen Interpreta NEGATIVE; Histoplasma Antigen Specimen URINE
[2020-02-23 06:53] LABS: Anti-Nuclear Antibody Pattern Nuclear, Speckled; Anti-Nuclear Antibody Screen POSITIVE (NEGATIVE); Anti-Nuclear Antibody Titer > OR = 1:1280 titer
[2020-02-23 08:35] LABS: SS A Ro Sjogrens Antibody >8.0 POS AI (<1.0 NEG)
== END 2020-02-20 16:18 | disposition home health service (06) | DRG 189 ==
LOC: ER 16:00 → CSU 17:21
PROVIDERS: Internal Medicine Critical Care Medicine; Student in an Organized Health Care Education/Training Program; Admitting Provider Hospitalist; Emergency Provider Family Medicine; PCP Nurse Practitioner Family; Visit Provider Student in an Organized Health Care Education/Training Program
DX: J96.21 Acute and chronic respiratory failure with hypoxia (principal); I21.4 Non-ST elevation (NSTEMI) myocardial infarction; J15.211 Pneumonia due to Methicillin susceptible Staphylococcus aureus; I13.0 Hypertensive heart and chronic kidney disease with heart failure and stage 1 through stage 4 chronic kidney disease, or unspecified chronic kidney disease; I45.2 Bifascicular block; N17.9 Acute kidney failure, unspecified; I48.92 Unspecified atrial flutter; J80 Acute respiratory distress syndrome; J84.10 Pulmonary fibrosis, unspecified; Z99.81 Dependence on supplemental oxygen; Z87.01 Personal history of pneumonia (recurrent); E11.22 Type 2 diabetes mellitus with diabetic chronic kidney disease; E11.65 Type 2 diabetes mellitus with hyperglycemia; N18.3 Chronic kidney disease, stage 3 (moderate); I50.9 Heart failure, unspecified; R55 Syncope and collapse; I25.10 Atherosclerotic heart disease of native coronary artery without angina pectoris; Z95.5 Presence of coronary angioplasty implant and graft; I25.2 Old myocardial infarction; Z79.82 Long term (current) use of aspirin; Z79.02 Long term (current) use of antithrombotics/antiplatelets; E03.9 Hypothyroidism, unspecified; I25.5 Ischemic cardiomyopathy; D47.2 Monoclonal gammopathy; E11.42 Type 2 diabetes mellitus with diabetic polyneuropathy; G47.33 Obstructive sleep apnea (adult) (pediatric); Z89.422 Acquired absence of other left toe(s); Z79.51 Long term (current) use of inhaled steroids; E87.5 Hyperkalemia; R76.8 Other specified abnormal immunological findings in serum; E86.0 Dehydration; Z87.442 Personal history of urinary calculi; E11.621 Type 2 diabetes mellitus with foot ulcer; L97.529 Non-pressure chronic ulcer of other part of left foot with unspecified severity; D63.1 Anemia in chronic kidney disease; Z79.4 Long term (current) use of insulin
CPT/HCPCS: 12345; 36415; 36416; 36600; 51702; 71045; 71250; 80048; 80051; 80053; 80061; 80202; 81001; 82085; 82550; 82803; 82810; 82962; 83516; 83605; 83615; 83735; 83880; 83986; 84100; 84484; 85025; 85610; 86038; 86225; 86235; 86480; 86698; 86705; 86706; 86709; 86803; 87040; 87070; 87077; 87186; 87205; 87327; 87340; 87385; 87806; 93005; 93970; 93975; 94640; 96372; 96375; 97110; 97161; 97530; 99282; J0696; J1650; J1815; J1940; J2270; J2543; J3010; J3370; J3490; J7050; J7512; J7611; J7626

== ENCOUNTER 2020-02-11 10:29 | Emergency (ER) | payer MEDICAID, SELFPAY | END 2020-02-11 17:31 | disposition admitted as inpatient to this hospital (09) | LOC: ER 19:00 | PROVIDERS: Emergency Provider Family Medicine | DX: I13.0 Hypertensive heart and chronic kidney disease with heart failure and stage 1 through stage 4 chronic kidney disease, or unspecified chronic kidney disease (principal); N18.9 Chronic kidney disease, unspecified; I50.9 Heart failure, unspecified; R55 Syncope and collapse; I21.4 Non-ST elevation (NSTEMI) myocardial infarction; I25.10 Atherosclerotic heart disease of native coronary artery without angina pectoris; E11.22 Type 2 diabetes mellitus with diabetic chronic kidney disease | CPT/HCPCS: 12345; 36415; 71045; 80053; 83605; 83880; 84484; 85025; 85610; 87040; 93005; 96365; 96375; 99282; 99291; J2543; J3010; J3490 ==